=== PATIENT | male | born 1945 | race Caucasian/White ===

== ENCOUNTER 2016-12-30 12:11 | Inpatient (IN) | payer BC, OTHER ==
[~2016-12-30] VITALS: Ht 193 cm; Wt 114.4 kg
[~2016-12-30 12:11] MED LIST: ACET-1138 PO; AMLO-114 PO; CRG3125 PO; CZR50 PO; DOCU-94 PO; OXYSR10 PO; RXC5 PO; osteo biflex PO
--- NOTE | 2016-12-30 12:34 | EMERGENCY ROOM VISIT NOTE ---
History Report prepared by Jayro: Parker Lua Under the Supervision of: Dr. Parker Dye M.D. First contact with patient: 12:19 Chief Complaint: ARM PAIN Stated Complaint: CHEST PAIN CARDIAC HISTORY History of Present Illness The patient is a 71 year old male who presents to the Emergency Room with complaints of intermittent left arm pain beginning about 3 to 4 days ago. He notes that he had a foot operation 5 months ago and has been on crutches. The past 3 to 4 days he has been experiencing pain in his armpit, which he believes to be from the crutches, and has since stopped using them. He describes the pain as feeling like a pulled muscle, and notes that the pain tingles and radiates down his arm to his hand, but he denies having any weakness. The patient reports the pain is worse with sitting, and denies worsening or his pain with movement or breathing. He denies any pain or swelling in his legs, fever, cough, headache, or black or bloody stools. He admits to being on Plavix in the past but not currently, and notes taking 81 mg of Aspirin everyday. He has a history of MN. Source of History: patient Onset: 3 to 4 days ago Position: arm (left) Quality: other ("like a pulled muscle") Timing: intermittent Modifying Factors (Worsening): other (sitting) Associated Symptoms: No cough, No fevers, No headache, No weakness Review of Systems See HPI for pertinent positives & negatives. A total of 10 systems reviewed and were otherwise negative. Past Medical & Surgical Medical Problems: (1) History of MN (myocardial infarction) (2) hypertension Old medical records were reviewed. Nurse's notes were reviewed and I agree with. Family History FH: cancer (Prostate) FHx: heart disease Hypertension Social History Smoking Status: Never Smoker Drug Use: none Marital Status: Housing Status: lives with family Occupation Status: retired Current/Historical Medications Scheduled Acetaminophen (Tylenol Extra Strength), 1,000 MG PO Q8 Amlodipine (Norvasc), 10 MG PO HS Aspirin (Aspirin), 1 TAB PO DAILY Atorvastatin (Lipitor), 40 MG PO HS Carvedilol (Coreg), 3.125 MG PO BID Docusate Sodium (Colace), 100 MG PO BID Dutasteride (Avodart), 0.5 MG PO QAM Losartan Potassium (Cozaar), 50 MG PO DAILY Misc Natural Products (Osteo Bi-Flex Advanced Tr), 1 TAB PO BID Multiple Vitamin (Multivitamin), 1 TAB PO BID Terazosin (Hytrin), 5 MG PO BID Miscellaneous Medications Jzdtkwk-Ntoijptdrshpn-Yztwruwl (Vanquish) Allergies Coded Allergies: Enalapril (Verified Adverse Reaction, Mild, cough, 12/30/16) gmg/pt Physical Exam Vital Signs Date Time Temp Pulse Resp B/P Pulse Ox O2 Delivery O2 Flow Rate FiO2 12/30/16 16:30 95 Room Air 12/30/16 16:15 58 14 177/104 95 Room Air 12/30/16 14:16 61 16 165/98 94 Room Air 12/30/16 12:54 65 12/30/16 12:48 95 Room Air 12/30/16 12:32 97 Room Air 12/30/16 12:15 36.3 75 18 153/90 95 Room Air Physical Exam General: Non-ill appearing, older male, no acute distress. HEENT: Normal cephalic atraumatic. Pupils are equal round and reactive to light. Extraocular movements are intact. Oropharynx is pink with moist mucous membranes. No swelling of the mouth lips or tongue. Neck: Supple with a midline trachea. No meningeal signs or stiffness, no JVD or bruits. No Stridor. Chest: Clear to auscultation bilaterally. No wheezes or rhonchi. No increased work of breathing. Heart: regular rate and rhythm. Abdomen: Soft nontender, nondistended without rebound guarding or rigidity. Extremities: No cyanosis clubbing or edema. No calf tenderness or assymetry. Right foot has well-healing incision from previous surgery. Spine/Back. Non tender to palpation. No CVA tenderness Skin: Good turgor without rashes. Neurologic exam: Cranial nerves two through 12 are intact. Motor and sensation are intact and symmetrical throughout. Medical Decision & Procedures ER Provider Diagnostic Interpretation: Radiology results as stated below per my review and radiologist interpretation: CHEST ONE VIEW PORTABLE FINDINGS: The cardiac and mediastinal contours are normal. There is no evidence of focal pulmonary consolidation. There is no evidence of failure. No pleural effusions are visualized. IMPRESSION: No active disease in the chest. Electronically signed by: Remigio Araujo M.D. 12/30/2016 1:44 PM Dictated Date/Time: 12/30/2016 1:[address] ANGIOGRAM OF THE CHEST FINDINGS: No pathologically enlarged axillary mediastinal or hilar lymph nodes were visualized. There is mild dilatation of the a sitting thoracic aorta which measures 42 mm in diameter. 2 tiny right pulmonary artery filling defects are visualized. These were not present on the prior July 2016 study. No pleural effusions are visualized. There was no evidence of focal pulmonary consolidation. IMPRESSION: 1. There are 2 tiny right pulmonary artery filling defects. As these were not visualized the prior July 2016 study, they must be presumed acute. Correlation with leg ultrasonography might be considered to help determine the significance of these tiny emboli. 2. Mild ectasia of the ascending thoracic aorta Electronically signed by: Remigio Araujo M.D. 12/30/2016 2:46 PM Dictated Date/Time: 12/30/2016 2:34 PM Laboratory Results 12/30/16 12:45 Red Blood Count 4.88, Mean Corpuscular Volume 84.6, Mean Corpuscular Hemoglobin 30.5, Mean Corpuscular Hemoglobin Concent 36.1, Mean Platelet Volume 10.2, Neutrophils (%) (Auto) 57.8, Lymphocytes (%) (Auto) 30.0, Monocytes (%) (Auto) 9.0, Eosinophils (%) (Auto) 2.5, Basophils (%) (Auto) 0.5, Neutrophils # (Auto) 3.67, Lymphocytes # (Auto) 1.90, Monocytes # (Auto) 0.57, Eosinophils # (Auto) 0.16, Basophils # (Auto) 0.03 12/30/16 12:45 Test 12/30/16 12:45 12/30/16 12:47 White Blood Count 6.34 K/uL (4.8-10.8) Red Blood Count 4.88 M/uL (4.7-6.1) Hemoglobin 14.9 g/dL (14.0-18.0) Hematocrit 41.3 % (42-52) Mean Corpuscular Volume 84.6 fL (80-100) Mean Corpuscular Hemoglobin 30.5 pg (25-34) Mean Corpuscular Hemoglobin Concent 36.1 g/dl (32-36) Platelet Count 151 K/uL (130-400) Mean Platelet Volume 10.2 fL (7.4-10.4) Neutrophils (%) (Auto) 57.8 % Lymphocytes (%) (Auto) 30.0 % Monocytes (%) (Auto) 9.0 % Eosinophils (%) (Auto) 2.5 % Basophils (%) (Auto) 0.5 % Neutrophils # (Auto) 3.67 K/uL (1.4-6.5) Lymphocytes # (Auto) 1.90 K/uL (1.2-3.4) Monocytes # (Auto) 0.57 K/uL (0.11-0.59) Eosinophils # (Auto) 0.16 K/uL (0-0.5) Basophils # (Auto) 0.03 K/uL (0-0.2) RDW Standard Deviation 40.1 fL (36.4-46.3) RDW Coefficient of Variation 13.2 % (11.5-14.5) Immature Granulocyte % (Auto) 0.2 % Immature Granulocyte # (Auto) 0.01 K/uL (0.00-0.02) Prothrombin Time 11.3 SECONDS (9.0-12.0) Prothromb Time International Ratio 1.1 (0.9-1.1) Activated Partial Thromboplast Time 24.7 SECONDS (21.0-31.0) Partial Thromboplastin Ratio 1.0 Anion Gap 8.0 mmol/L (3-11) Est Creatinine Clear Calc Drug Dose 99.2 ml/min Estimated GFR () 92.4 Estimated GFR (Non- 79.8 BUN/Creatinine Ratio 26.3 (10-20) Calcium Level 9.0 mg/dl (8.5-10.1) Total Bilirubin 0.6 mg/dl (0.2-1) Direct Bilirubin 0.2 mg/dl (0-0.2) Aspartate Amino Transf (AST/SGOT) 10 U/L (15-37) Alanine Aminotransferase (ALT/SGPT) 29 U/L (12-78) Alkaline Phosphatase 78 U/L (45-117) Total Creatine Kinase 44 U/L (39-308) Creatine Kinase MB 0.5 ng/ml (0.5-3.6) Creatine Kinase MB Ratio 1.1 (0-3.0) Total Protein 7.2 gm/dl (6.4-8.2) Albumin 4.1 gm/dl (3.4-5.0) Lipase 90 U/L (73-393) Bedside D-Dimer > 450 ng/mlFEU (0-450) Bedside Troponin I 0.000 ng/ml (0-0.045) Laboratory studies as stated above per my review. Medications Administered Medications (Trade) Dose Ordered Sig/Shu Route Start Time Stop Time Status Last Admin Dose Admin Heparin Sodium/ Dextrose (Heparin 25,000 Unit/500ml D5W) 25,000 unit STK-MED ONCE .ROUTE 12/30/16 15:51 12/30/16 15:52 DC 12/30/16 15:50 25,000 UNIT Heparin Sodium (Porcine) (Heparin Sq 5000 Unit/0.5ml) 10,000 unit STK-MED ONCE .ROUTE 12/30/16 15:51 12/30/16 15:52 DC 12/30/16 15:52 8,000 UNIT ECG Indication: other (arm pain) Rate (beats per minute): 76 Rhythm: normal sinus Findings: PAC (occasional), no acute ischemic change Comparison ECG Date: August 21, 2016 Change: PVCs are now present. ED Course 1221: Past medical records reviewed. The patient was evaluated in room A10, and a complete history and physical examination were performed. 1320: I reassessed the patient and he is doing well. 1505: I updated the patient, and he is willing to come into the hospital. 1510: I discussed the patient's case with Dr. Jamil, who will further evaluate and manage the patient. She requests I order an US and start the patient on a Heparin bolus and drip. 1511: Ordered Heparin Sodium/Dextrose 1 ea N/A. Medical Decision Differentials include musculoskeletal pain, acute coronary syndrome, arrhythmia , PE, electrolyte or metabolic abnormality, and infection. This patient comes in as described above. He was placed in room A 10. He is having tingling his left arm and had some left sided chest discomfort. This has been on for several days. It does last for hours at a time. It occurs at rest. It is different than his cardiac disease. He has been using a crutch on that arm and it has been digging into his arm. He has no neurologic deficit on exam. He has no redness or warmth. IV access established, EKG was obtained and does not suggest acute cardiac disease. Chest x-ray, multiple blood tests are also obtained. He was reassessed frequently. He has remained stable. His cardiac biomarkers are normal and his symptoms are unlikely cardiac. He has no acute electrolyte or metabolic abnormality. He does have 2 small PEs seen on the right side of his chest. These were not present on July 2016. I did order ultrasounds of his leg amd also his left arm. It may be that he has a clot in his left arm from using crutches. It is not visibly swollen compared to the other side. I did discuss case with Dr. Jamil.. The [facility] hospitalist, and they will see him in the ER. She has asked that I start him on an IV heparin bolus and drip. I explained this to the patient and he agree. He has had no recent fall or trauma or any history of significant bleeding. This was ordered. The patient will be admitted for further treatment and evaluation. Consults Time Called: 1505 Consulting Physician: [place]. Jamil, [facility] [place] Returned Call: 1510 I discussed the patient's case with Dr. Jamil, who will further evaluate and manage the patient. Impression Primary Impression: Pulmonary embolism Additional Impression: Arm pain, left Scribe Attestation The scribe's documentation has been prepared under my direction and personally reviewed by me in its entirety. I confirm that the note above accurately reflects all work, treatment, procedures, and medical decision making performed by me. Departure Information Dispostion Being Evaluated By Hospitalist Referrals Jayro Swartz M.D. (PCP) Patient Instructions My [facility] Problem Qualifiers
[2016-12-30] MEDS ORDERED: ASPI81CH2 PO (12:35)
[2016-12-30 12:59] LABS: BASO % 0.5 %; BASO ABS # 0.03 K/uL (0-0.2); COMPLETE YES; EOS % 2.5 %; HEMATOCRIT 41.3 % (42-52); IG% 0.2 %; MEAN CELL VOLUME 84.6 fL (80-100); MEAN CORPUSCULAR HEMOGLOBIN 30.5 pg (25-34); MEAN CORPUSCULAR HGB CONC 36.1 g/dl (32-36); MEAN PLATELET VOLUME 10.2 fL (7.4-10.4); NEUT % 57.8 %; PLATELET COUNT 151 K/uL (130-400); RED BLOOD COUNT 4.88 M/uL (4.7-6.1); WHITE BLOOD COUNT 6.34 K/uL (4.8-10.8)
[2016-12-30 13:16] LABS: BUN/CREATININE RATIO 26.3 (10-20); CREATININE 0.96 mg/dl (0.60-1.40)
[2016-12-30] MEDS ORDERED: OPTIRAY 320 IV PRN (13:30)
[2016-12-30 13:34] LABS: INR 1.1 (0.9-1.1); PROTHROMBIN TIME (PATIENT) 11.3 SECONDS (9.0-12.0)
[2016-12-30 13:39] LABS: CKMB/CK RATIO 1.1 (0-3.0)
--- NOTE | 2016-12-30 13:45 | DIAGNOSTIC IMAGING REPORT ---
CHEST ONE VIEW PORTABLE CLINICAL HISTORY: Atypical chest pain COMPARISON STUDY: 08/21/2016 FINDINGS: The cardiac and mediastinal contours are normal. There is no evidence of focal pulmonary consolidation. There is no evidence of failure. No pleural effusions are visualized.[ IMPRESSION: No active disease in the chest. Electronically signed by: Remigio Araujo M.D. 12/30/2016 1:44 PM Dictated Date/Time: 12/30/2016 1:44 PM
--- NOTE | 2016-12-30 14:47 | DIAGNOSTIC IMAGING REPORT ---
CT ANGIOGRAM OF THE CHEST CLINICAL HISTORY: Left-sided chest pain. COMPARISON STUDY: 08/21/2016 TECHNIQUE: Following the IV administration of 93 mL of Optiray-320, CT angiogram of the thorax was performed from the thoracic inlet to the lung bases utilizing the pulmonary embolus protocol. Images are reviewed in the axial, sagittal, and coronal planes. IV contrast was administered without complication. MIP imaging was performed. CT DOSE: 583.38 mGy.cm FINDINGS: No pathologically enlarged axillary mediastinal or hilar lymph nodes were visualized. There is mild dilatation of the a sitting thoracic aorta which measures 42 mm in diameter. 2 tiny right pulmonary artery filling defects are visualized. These were not present on the prior July 2016 study. No pleural effusions are visualized. There was no evidence of focal pulmonary consolidation. IMPRESSION: 1. There are 2 tiny right pulmonary artery filling defects. As these were not visualized the prior July 2016 study, they must be presumed acute. Correlation with leg ultrasonography might be considered to help determine the significance of these tiny emboli. 2. Mild ectasia of the ascending thoracic aorta Electronically signed by: Remigio Araujo M.D. 12/30/2016 2:46 PM Dictated Date/Time: 12/30/2016 2:34 PM
[2016-12-30] MEDS ORDERED: HEPARIN SOD 5000 UNIT/0.5 ML CARP ONE (15:51)
[2016-12-30] MEDS ORDERED: HEPARIN 25000 UNIT/500 ML D5W ONE (15:51)
[2016-12-30 16:30] VITALS: O2SAT 95; Ht 193 cm; Wt 114.4 kg
[2016-12-30] MEDS ORDERED: MoRPHine SULFATE 2 MG/ML CARP IV PRN (16:45)
[2016-12-30] MEDS ORDERED: NITROGLYCERIN 0.4 MG SL PER TAB CHARGE SL PRN (16:45)
--- NOTE | 2016-12-30 17:50 | DIAGNOSTIC IMAGING REPORT ---
ULTRASOUND VENOUS DOPPLER LWR EXT BILA CLINICAL HISTORY: Pulmonary embolism. COMPARISON STUDY: No previous studies for comparison. FINDINGS: On the left, no intraluminal thrombus was visualized. The veins were well visualized the groin to the popliteal vein. There was normal augmentation. There was normal color-flow the proximal trifurcation veins of the left calf. On the right, no thrombus was visualized within the common femoral or superficial femoral veins. There is acute right popliteal thrombus with a diameter of 11 mm. Thrombus was also visualized within the peroneal vein. Incidental note is made of a right popliteal cyst. IMPRESSION: 1. Acute right popliteal vein DVT. Thrombus diameter is 11 mm. 2. No evidence of left lower extremity DVT Electronically signed by: Remigio Araujo M.D. 12/30/2016 5:49 PM Dictated Date/Time: 12/30/2016 5:47 PM
--- NOTE | 2016-12-30 17:51 | DIAGNOSTIC IMAGING REPORT ---
ULTRASOUND LEFT VENOUS DOPPLER UPR EXT UNILAT CLINICAL HISTORY: Left arm swelling. History of pulmonary embolism. COMPARISON STUDY: No previous studies for comparison. FINDINGS: No intraluminal thrombus was visualized. The internal jugular, subclavian, axillary, cephalic, brachial, basilic, radial, and ulnar veins were patent. IMPRESSION: No evidence of left upper extremity DVT. Electronically signed by: Remigio Araujo M.D. 12/30/2016 5:50 PM Dictated Date/Time: 12/30/2016 5:49 PM
[2016-12-30 18:24] VITALS: BP 159/82; PULSE 70; TEMP 36.6; O2SAT 93
[2016-12-30] MEDS ORDERED: HEPARIN 25,000 UNIT/500ML D5W 500 ML IV PRN (18:45)
[2016-12-30 19:05] VITALS: BP 147/90; PULSE 62; TEMP 36.4; O2SAT 95
[2016-12-30] MEDS ORDERED: ATORVASTATIN 40 MG TAB PO SCH (21:00)
[2016-12-30] MEDS ORDERED: NON-FORMULARY MEDICATION (Misc Natural Products (Osteo Bi-Flex Advanced Tr) 1 TAB) PO SCH (21:00)
[2016-12-30] MEDS ORDERED: AMLODIPINE BESYLATE 5 MG TAB PO SCH (21:00)
[2016-12-30] MEDS: CARVEDILOL 3.125 MG TAB PO SCH (21:30)
[2016-12-30] MEDS: DOCUSATE SODIUM 100 MG CAP PO SCH (21:30)
[2016-12-30] MEDS: MULTIVITAMIN TAB PO SCH (21:31)
[2016-12-30] MEDS: ACETAMINOPHEN 500 MG TAB PO SCH (21:33)
--- NOTE | 2016-12-30 21:51 | History and Physical ---
History & Physical Date & Time of Service: Dec 30, 2016 at 21:07 Chief Complaint: Pulmonary Embolism Primary Care Physician: Jayro Swartz M.D. History of Present Illness Source: patient, spouse This patient is a 71-year-old male with history of AL/CAD status post drug- eluting stent to the RCA in 2007, hypertension, hyperlipidemia, mild ischemic cardiomyopathy, BPH, and a right Charcot foot, who presented to the ER with left -sided chest pain radiating down the left arm to the left palm of the hand. The pain had been intermittent for the last 3-4 days and is located more into the left axillary region. He had surgical repair of his right Charcot foot in July 2016 and has been on crutches ever since then. He started using just one crutch on the left side and that's when this pain started, so he went back to using 2 crutches and his scooter. Because of his history of coronary artery disease, when the intermittent left-sided chest/axillary pain became persistent , he came to the ER. He has been quite sedentary for the last 5 months. He did not notice any swelling in the legs or arms. His d-dimer was elevated and a CT angiogram of the chest was performed which did show 2 tiny right-sided pulmonary artery emboli. Venous Dopplers of the lower extremities and left upper extremity were performed which also showed acute DVT of the right popliteal vein. He denies any shortness of breath was not hypoxic or tachycardic. He has no previous history of bleeding. He has no previous personal or family history of blood clot. 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) Immunizations History of Influenza Vaccine: No History of Tetanus Vaccine?: Yes History of Pneumococcal: No History of Hepatitis B Vaccine: No Multi-Drug Resistant Organisms History of MDRO: No Allergies Coded Allergies: Enalapril (Verified Adverse Reaction, Mild, cough, 12/30/16) gmg/pt Home Medications Scheduled Acetaminophen (Tylenol Extra Strength), 1,000 MG PO Q8 Amlodipine (Norvasc), 10 MG PO HS Aspirin (Aspirin), 1 TAB PO DAILY Atorvastatin (Lipitor), 40 MG PO HS Carvedilol (Coreg), 3.125 MG PO BID Docusate Sodium (Colace), 100 MG PO BID Dutasteride (Avodart), 0.5 MG PO QAM Losartan Potassium (Cozaar), 50 MG PO DAILY Misc Natural Products (Osteo Bi-Flex Advanced Tr), 1 TAB PO BID Multiple Vitamin (Multivitamin), 1 TAB PO BID Terazosin (Hytrin), 5 MG PO BID Miscellaneous Medications Qreugzc-Philbtiwrnpaj-Ngyozkuj (Vanquish) Review of Systems Constitutional: No chills, No fever Eyes: No worsening of vision ENT: No problem reported Respiratory: No shortness of breath Cardiovascular: + chest pain, No edema, No palpitations Abdomen: No GI bleeding, No nausea, No pain, No vomiting Musculoskeletal: + joint pain (right foot), No calf pain, No swelling Genitourinary - Male: No problem reported Neurologic: No problem reported Psychiatric: No problem reported Endocrine: No problem reported Hematologic / Lymphatic: No problem reported Integumentary: No bleeding Allergic / Immunologic: No problem reported Physical Exam Vital Signs Date Time Temp Pulse Resp B/P Pulse Ox O2 Delivery O2 Flow Rate FiO2 12/30/16 19:05 36.4 62 20 147/90 95 Room Air 12/30/16 18:24 36.6 70 21 159/82 93 Room Air 12/30/16 16:30 95 Room Air 12/30/16 16:15 58 14 177/104 95 Room Air 12/30/16 14:16 61 16 165/98 94 Room Air 12/30/16 12:54 65 12/30/16 12:48 95 Room Air 12/30/16 12:32 97 Room Air 12/30/16 12:15 36.3 75 18 153/90 95 Room Air General Appearance: WD/WN, no apparent distress Head: normocephalic, atraumatic Eyes: normal inspection, EOMI, sclerae normal ENT: hearing grossly normal, pharynx normal Neck: supple, no adenopathy, thyroid normal, no JVD, no carotid bruits, trachea midline Respiratory/Chest: lungs clear, normal breath sounds, no respiratory distress, no accessory muscle use Cardiovascular: regular rate, rhythm, no gallop, no murmur, + pertinent finding (trace pitting edema right leg with hyperpigmentation of chronic venous stasis changes) Abdomen/GI: normal bowel sounds, non tender, soft, no organomegaly, no pulsatile mass Back: normal inspection Extremities/Musculoskelatal: no calf tenderness, + swelling (as above and right leg), + pertinent finding (no edema of the upper extremities, 2+ radial pulses bilaterally, 2+ left dorsalis pedis pulse, 1+ right dorsalis pedis pulse , right foot with bilateral incisional scars with the lateral incision with residual scab, no erythema or induration, no drainage) Neurologic/Psych: no motor/sensory deficits, alert, normal mood/affect, oriented x 3 Skin: warm/dry, + rash (chronic venous stasis hyperpigmentation of the right leg) Diagnostics Laboratory Results Results Past 24 Hours Test 12/30/16 12:28 12/30/16 12:45 12/30/16 12:47 12/30/16 19:12 Range/Units Creatine Kinase MB Ratio 1.1 0-3.0 White Blood Count 6.34 4.8-10.8 K/uL Red Blood Count 4.88 4.7-6.1 M/uL Hemoglobin 14.9 14.0-18.0 g/dL Hematocrit 41.3 42-52 % Mean Corpuscular Volume 84.6 80-100 fL Mean Corpuscular Hemoglobin 30.5 25-34 pg Mean Corpuscular Hemoglobin Concent 36.1 32-36 g/dl Platelet Count 151 130-400 K/uL Mean Platelet Volume 10.2 7.4-10.4 fL Neutrophils (%) (Auto) 57.8 % Lymphocytes (%) (Auto) 30.0 % Monocytes (%) (Auto) 9.0 % Eosinophils (%) (Auto) 2.5 % Basophils (%) (Auto) 0.5 % Neutrophils # (Auto) 3.67 1.4-6.5 K/uL Lymphocytes # (Auto) 1.90 1.2-3.4 K/uL Monocytes # (Auto) 0.57 0.11-0.59 K/uL Eosinophils # (Auto) 0.16 0-0.5 K/uL Basophils # (Auto) 0.03 0-0.2 K/uL RDW Standard Deviation 40.1 36.4-46.3 fL RDW Coefficient of Variation 13.2 11.5-14.5 % Immature Granulocyte % (Auto) 0.2 % Immature Granulocyte # (Auto) 0.01 0.00-0.02 K/uL Prothrombin Time 11.3 9.0-12.0 SECONDS Prothromb Time International Ratio 1.1 0.9-1.1 Activated Partial Thromboplast Time 24.7 21.0-31.0 SECONDS Partial Thromboplastin Ratio 1.0 Sodium Level 144 136-145 mmol/L Potassium Level 4.0 3.5-5.1 mmol/L Chloride Level 108 98-107 mmol/L Carbon Dioxide Level 28 21-32 mmol/L Anion Gap 8.0 3-11 mmol/L Blood Urea Nitrogen 25 7-18 mg/dl Creatinine 0.96 0.60-1.40 mg/dl Est Creatinine Clear Calc Drug Dose 99.2 ml/min Estimated GFR () 92.4 Estimated GFR (Non- 79.8 BUN/Creatinine Ratio 26.3 10-20 Random Glucose 90 70-99 mg/dl Calcium Level 9.0 8.5-10.1 mg/dl Total Bilirubin 0.6 0.2-1 mg/dl Direct Bilirubin 0.2 0-0.2 mg/dl Aspartate Amino Transf (AST/SGOT) 10 15-37 U/L Alanine Aminotransferase (ALT/SGPT) 29 12-78 U/L Alkaline Phosphatase 78 45-117 U/L Total Creatine Kinase 44 39-308 U/L Creatine Kinase MB 0.5 0.5-3.6 ng/ml Total Protein 7.2 6.4-8.2 gm/dl Albumin 4.1 3.4-5.0 gm/dl Lipase 90 73-393 U/L Hepatitis C Antibody Screen NEG NEG Bedside D-Dimer > 450 0-450 ng/mlFEU Bedside Troponin I 0.000 0-0.045 ng/ml Magnesium Level 1.9 1.8-2.4 mg/dl Diagnostic Radiology CT angiogram chest: No pathologically enlarged axillary mediastinal or hilar lymph nodes were visualized. There is mild dilatation of the a sitting thoracic aorta which measures 42 mm in diameter. 2 tiny right pulmonary artery filling defects are visualized. These were not present on the prior July 2016 study. No pleural effusions are visualized. There was no evidence of focal pulmonary consolidation. IMPRESSION: 1. There are 2 tiny right pulmonary artery filling defects. As these were not visualized the prior July 2016 study, they must be presumed acute. Correlation with leg ultrasonography might be considered to help determine the significance of these tiny emboli. 2. Mild ectasia of the ascending thoracic aorta Bilateral lower extremity Dopplers: IMPRESSION: 1. Acute right popliteal vein DVT. Thrombus diameter is 11 mm. 2. No evidence of left lower extremity DVT Left upper extremity venous Doppler-negative for DVT CXR normal Normal EKG (with PACs and PVCs) Impression Assessment and Plan This patient is a 71-year-old male with history of AL/CAD status post drug- eluting stent to the RCA in 2007, hypertension, hyperlipidemia, mild ischemic cardiomyopathy, BPH, and a right Charcot foot, who presented to the ER with left -sided chest pain radiating down the left arm to the left palm of the hand. The pain had been intermittent for the last 3-4 days and is located more into the left axillary region. He had surgical repair of his right Charcot foot in July 2016 and has been on crutches ever since then. He started using just one crutch on the left side and that's when this pain started, so he went back to using 2 crutches and his scooter. Because of his history of coronary artery disease, when the intermittent left-sided chest/axillary pain became persistent , he came to the ER. He has been quite sedentary for the last 5 months. He did not notice any swelling in the legs or arms. His d-dimer was elevated and a CT angiogram of the chest was performed which did show 2 tiny right-sided pulmonary artery emboli. Venous Dopplers of the lower extremities and left upper extremity were performed which also showed acute DVT of the right popliteal vein. He denies any shortness of breath was not hypoxic or tachycardic. He has no previous history of bleeding. He has no previous personal or family history of blood clot. Acute right-sided pulmonary emboli, acute right popliteal DVT present on admission-most likely secondary to foot surgery followed by prolonged immobilization and sedentary lifestyle. I do not believe the left-sided chest/ axillary pain radiating into the left arm is related to the PE-that is more likely in fact to be some sort of neuronitis due to compression of the peripheral nerve from the crutches. The DVT and PE were incidental yet important findings. No need for further hypercoagulable workup. He is hemodynamically stable, there is no evidence of right heart strain on his ECG. He is not requiring oxygen. -Observe on telemetry -Started heparin drip and will continue this. After discussion of choices of anticoagulation, patient is leaning towards a NOAC rather than warfarin. -Case management consult to eli out Xarelto vs Eliquis -Follow CBC in the morning -Repeat ECG in the morning and will check echo -Continue limitations as per orthopedic postoperative recommendations Left-sided Chest/left axilla/left arm pain,AL/CAD status post drug-eluting stent to the RCA in 2007, hypertension, hyperlipidemia, mild ischemic cardiomyopathy-as above, left-sided chest pain into left arm could be peripheral nerve compression from crutches and not likely to be acute coronary syndrome. Initial troponin was negative and ECG was normal. Given his history , will rule out ACS. -Trend serial cardiac biomarkers and ECG -Check echo in the morning -Pain control when necessary -Avoid use of crutches if possible and use scooter instead -Continue aspirin, losartan, amlodipine, Coreg, and his statin BPH-stable -Continue Hytrin and Avodart DVT prophylaxis/treatment-heparin drip as above Disposition-full code Level of Care Telemetry Advanced Directives Existing Living Will: No Existing Power of Billiard Table Repairer: No Resuscitation Status FULL RESUSCITATION VTE Prophylaxis VTE Risk Assessment Done? Y/N: Yes Risk Level: High Given or contraindicated: Unfractionated heparin SQ Additional Copies To Jayro Swartz M.D.
[2016-12-30 22:30] LABS: PARTIAL THROMBOPLASTIN RATIO 2.5
[2016-12-30 22:33] LABS: CKMB/CK RATIO 1.7 (0-3.0)
[2016-12-30 23:47] VITALS: BP 152/76; PULSE 60; TEMP 36.5; O2SAT 96
[2016-12-31] MEDS ORDERED: AVODART - ORDER AWAITING ACTION SCH
[2016-12-31] MEDS ORDERED: ESZOPICLONE 1 MG TAB ONE (00:20)
[2016-12-31 03:28] VITALS: BP 147/68; PULSE 68; TEMP 36.7; O2SAT 96
[2016-12-31] MEDS: ACETAMINOPHEN 500 MG TAB PO SCH (06:21)
[2016-12-31] MEDS ORDERED: PERFLUTREN LIPID MICROSPHERE (DEFINITY) IV ONE (07:18)
[2016-12-31 07:20] LABS: BASO % 0.4 %; BASO ABS # 0.03 K/uL (0-0.2); COMPLETE YES; HEMATOCRIT 39.5 % (42-52); IG% 0.3 %; LYMPH % 45.5 %; LYMPH ABS # 3.36 K/uL (1.2-3.4); MEAN CELL VOLUME 85.9 fL (80-100); MEAN CORPUSCULAR HEMOGLOBIN 30.7 pg (25-34); MEAN CORPUSCULAR HGB CONC 35.7 g/dl (32-36); MEAN PLATELET VOLUME 10.8 fL (7.4-10.4); MONO % 5.7 %; NEUT % 45.1 %; PLATELET COUNT 144 K/uL (130-400); WHITE BLOOD COUNT 7.38 K/uL (4.8-10.8)
[2016-12-31 07:37] VITALS: BP 175/97; PULSE 54; TEMP 36.8; O2SAT 97
[2016-12-31] MEDS: CARVEDILOL 3.125 MG TAB PO SCH (07:40)
[2016-12-31] MEDS: DOCUSATE SODIUM 100 MG CAP PO SCH (07:41)
[2016-12-31] MEDS: MULTIVITAMIN TAB PO SCH (07:42)
[2016-12-31 07:57] LABS: BLOOD UREA NITROGEN 23 mg/dl (7-18); BUN/CREATININE RATIO 24.2 (10-20); CALCIUM 8.4 mg/dl (8.5-10.1); CARBON DIOXIDE 27 mmol/L (21-32); CHLORIDE 106 mmol/L (98-107); CREATININE 0.93 mg/dl (0.60-1.40); GLUCOSE 96 mg/dl (70-99); MAGNESIUM 1.9 mg/dl (1.8-2.4); POTASSIUM 3.6 mmol/L (3.5-5.1); SODIUM 142 mmol/L (136-145)
[2016-12-31 08:00] VITALS: O2SAT 97
[2016-12-31 08:13] LABS: PARTIAL THROMBOPLASTIN RATIO 2.2
[2016-12-31] MEDS ORDERED: LOSARTAN POTASSIUM 50 MG TAB PO SCH (09:00)
[2016-12-31] MEDS ORDERED: ASPIRIN 81 MG ECTAB PO SCH (09:00)
[2016-12-31] MEDS ORDERED: RIVA1TAB4 PO (11:17)
[2016-12-31] MEDS ORDERED: RIVA1.5T PO (11:17)
--- NOTE | 2016-12-31 11:20 | Discharge Instructions ---
Discharge Instructions Date of Service Dec 31, 2016. Admission Reason for Admission: Pulmonary Embolism Discharge Discharge Diagnosis / Problem: (1) Acute DVT (deep venous thrombosis) (2) Pulmonary embolism VTE Date & Time Date of VTE Diagnosis: Dec 30, 2016 Time of VTE Diagnosis: 13:16 Discharge Goals Goal(s): Decrease discomfort, Improve function, Diagnostic testing, Therapeutic intervention Activity Recommendations Activity Limitations: resume your previous activity . Instructions / Follow-Up Instructions / Follow-Up You were admitted to the hospital after presenting to the Emergency Room with chest pain. A CT scan of your chest showed right sided pulmonary emboli, or clots in the lung. An ultrasound was then done of your lower legs, which also showed an acute clot in the one of the deep veins of your right leg. You were started on a heparin drip to treat these clots. You will be started on an oral anticoagulation medication to take at home to thin your blood. Due to your chest pain on admission, you also received a cardiac workup. You were monitored on a telemetry bed and were found to be in sinus (regular) rhythm. Your EKGs did not show any ischemic changes. Your cardiac enzymes came back normal. Medication Instructions: You have been started on an anticoagulant, called Xarelto, to thin your blood and help prevent new clots. Please take 15 mg by mouth twice a day for the first 21 days. You will then take 20 mg by mouth once a day. You will need to be on Xarelto for a total of 6 months. Prescriptions for the first 30 days have been provided, and the remainder of the course will be obtained from your primary care provider. * You should take your medication exactly as directed. * Never skip a dose. * Never take a double dose. If you miss a dose, take it as soon as you remember. Call your Primary Care doctor if you experience any of the following: * Swelling or Pain in your leg * Sudden, continuous pain deep in a muscle * Pain that worsens when you are active or when you stand still for a long time * Chest Pain * Sudden Shortness of Breath * Rapid or pounding heart beat * Fainting * Dizziness * Cough with blood or bloody sputum * Sweating more than normal * Bruises * Heavy or uncontrolled bleeding * Blood in your urine, stool or vomit * Black or tarry stools Caring for Your Self at Home: * Avoid sitting, standing or lying down for long periods without moving your legs and feet * When traveling by car, stop to get out and move around at least once every 3 hours * On long airplane, train or bus rides, get up and move around when possible * If you can't get up, wiggle your toes and tighten your calves to keep your blood moving Follow Up: It is important for you to keep your follow up appointments with your medical provider. A referral has been placed for you to follow up with your primary care provider , Dr. Swartz, in 1 week regarding your hospital stay and diagnosis. Current Hospital Diet Patient's current hospital diet: Low Sodium Diet (2gm Na) Discharge Diet Recommended Diet: Low Sodium Diet (2gm Na) Procedures Procedures Performed: Echocardiogram Pending Studies Studies pending at discharge: yes List of pending studies: Echocardiogram Medical Emergencies . Who to Call and When: Medical Emergencies: If at any time you feel your situation is an emergency, please call 911 immediately. . Non-Emergent Contact Non-Emergency issues call your: Primary Care Provider Call Non-Emergent contact if: you have a fever, your pain is not controlled, your pain is worsening, your pain is unusual for you, your pain is concerning you, you have any medication questions . . "Provider Documentation" section prepared by Millie Barrientos. VTE Core Measure Inpt VTE Proph given/why not?: Other Anticoagulation (heparing drip)
--- NOTE | 2016-12-31 11:25 | ECHOCARDIOGRAM REPORT ---
*NOTICE TO RECEIVING REPUBLICAN AGENCY This information is strictly Confidential and protected under [place] law. [place] law prohibits you from making any further disclosure of this information unless further disclosure is expressly permitted by the written consent of the person to whom it pertains or is authorized by law. A general authorization for the release of medical or other information is not sufficient for this purpose. Hospital accepts no responsibility if the information is made available to any other person, INCLUDING THE PATIENT. Interpretation Summary * Name: BESSY DUNHAM II Study Date: 12/31/2016 06:43 AM BP: 147/68 mmHg * Patient Location: .2T\S\E215\S\1 HR: 63 * : 1945 (M/d/yyy) Gender: Male Height: 76 in * Age: 71 yrs Ethnicity: [place] Weight: 253 lb * Ordering Physician: Magy Jamil * Referring Physician: Self, Referred * Performed By: Sonya Zhou [facility] * * Reason For Study: CHEST PAIN * BSA: 2.4 m2 * -- Conclusions -- * Left ventricular systolic function is mildly reduced. * There is mild global hypokinesis of the left ventricle. * Ejection Fraction = 40-45%. * There is mild concentric left ventricular hypertrophy. * Grade I diastolic dysfunction, (abnormal relaxation pattern). * There is mild to moderate mitral regurgitation. Procedure Details * A complete two-dimensional transthoracic echocardiogram was performed (2D, M-mode, Doppler and color flow Doppler). * The study was technically difficult. * A contrast injection of Definity was performed to improve assessment of LV function. * Contrast was injected into an intravenous site in the right arm. * One vial of Definity ultrasound contrast was diluted in normal saline to a total volume of 10 ml. A total of '4' ml of solution was administered during imaging. * Lot # [id number] of Definity utilized for procedure. * Expiration date JAN 15. * The attending nurse who injected the contrast agent was ZACHARY LARSON RN. Left Ventricle * The left ventricle is mildly dilated. * There is mild concentric left ventricular hypertrophy. * Left ventricular systolic function is mildly reduced. * Ejection Fraction = 40-45%. * There is mild global hypokinesis of the left ventricle. * No definite wall motion abnormality. Right Ventricle * The right ventricle is not well visualized. Atria * The left atrium is moderately dilated. * Right atrium not well visualized. * There is no evidence of atrial septal defect, but resolution does not allow assessment for a patent foramen ovale. Mitral Valve * The mitral valve is grossly normal. * There is no mitral valve stenosis. * There is mild to moderate mitral regurgitation. Tricuspid Valve * The tricuspid valve is not well visualized, but is grossly normal. * Significant tricuspid regurgitation is absent. Aortic Valve * The aortic valve is tricuspid. The leaflet thickness if normal. There is no aortic stenosis, and no significant insufficiency. * Aortic valve sclerosis mild, without significant aortic valvular stenosis. * Trace aortic regurgitation. Pulmonic Valve * The pulmonary valve is not well seen, but the Doppler examination is normal without significant regurgitation or stenosis. Great Vessels * Mild aortic root dilatation. * The pulmonary is not well visualized. Pericardium/Pleural * There is no pericardial effusion. Great Vessels * Normal inferior vena cava size and collapsability with sniff indicates a normal right atrial pressure of 3 mmHg Left Ventricular Diastolic Function * Grade I diastolic dysfunction, (abnormal relaxation pattern). MMode 2D Measurements and Calculations IVSd 1.7 cm IVSs 2.0 cm LVIDd 5.3 cm LVIDs 4.5 cm LVPWd 1.4 cm LVPWs 1.8 cm IVS/LVPW 1.2 FS 15.0 % EDV(Teich) 137.0 ml ESV(Teich) 93.8 ml EF(Teich) 31.5 % EDV(cubed) 151.3 ml ESV(cubed) 92.9 ml EF(cubed) 38.6 % % IVS thick 18.1 % % LVPW thick 31.2 % LV mass(C)d 361.3 grams LV mass(C)dI 147.6 grams/m\S\2 LV mass(C)s 398.0 grams LV mass(C)sI 162.5 grams/m\S\2 SV(Teich) 43.2 ml SI(Teich) 17.6 ml/m\S\2 SV(cubed) 58.4 ml SI(cubed) 23.8 ml/m\S\2 Ao root diam 4.5 cm Ao root area 16.1 cm\S\2 ACS 2.3 cm LA dimension 3.5 cm LA/Ao 0.78 LVOT diam 2.3 cm LVOT area 4.3 cm\S\2 Doppler Measurements and Calculations MV E max derrick 62.6 cm/sec MV A max derrick 49.1 cm/sec MV E/A 1.3 MV P1/2t max derrick 73.3 cm/sec MV P1/2t 140.0 msec MVA(P1/2t) 1.6 cm\S\2 MV dec slope 153.5 cm/sec\S\2 MV dec time 0.33 sec Ao V2 max 144.7 cm/sec Ao max PG 8.4 mmHg Ao max PG (full) 6.8 mmHg AMAURY(V,A) 1.9 cm\S\2 AMAURY(V,D) 1.9 cm\S\2 LV V1 max PG 1.6 mmHg LV V1 max 62.5 cm/sec MR max derrick 585.0 cm/sec MR max PG 136.9 mmHg PA V2 max 74.2 cm/sec PA max PG 2.2 mmHg PI max derrick 178.9 cm/sec PI max PG 12.8 mmHg PI dec slope 143.7 cm/sec\S\2 PI P1/2t 364.7 msec
[2016-12-31] MEDS ORDERED: MAGNESIUM OXIDE 400 MG TAB PO ONE (11:30)
--- NOTE | 2016-12-31 11:39 | Discharge Summary ---
Discharge Summary Date of Service Dec 31, 2016. (Millie Barrientos PA-C) Discharge Summary Admission Date: Dec 30, 2016 at 16:50 Discharge Date: Dec 31, 2016 Discharge Disposition: Home Principal Diagnosis: Acute RLE DVT, PE Immunizations: Have You Had Influenza Vaccine: No History of Tetanus Vaccine?: Yes History of Pneumococcal: No History of Hepatitis B Vaccine: No Procedures: Echocardiogram, results pending (Millie Barrientos PA-C) Medication Reconciliation New Medications: Rivaroxaban (Xarelto) 15 Mg Tab 15 MG PO BID for 21 Days, #42 TAB Take 1 tablet by mouth twice a day for 21 days. Rivaroxaban (Xarelto) 20 Mg Tab 20 MG PO DAILY for 9 Days, #9 TAB Take 20 mg by mouth once a day for 9 days. DO NOT START UNTIL AFTER YOU HAVE COMPLETED 21 DAYS OF 15 MG TWICE DAILY. Continued Medications: Acetaminophen (Tylenol Extra Strength) 500 Mg Tab 1000 MG PO Q8, #126 TAB Amlodipine (Norvasc) 10 Mg Tab 10 MG PO HS, TAB Aspirin (Aspirin) 81 Mg Chw 1 TAB PO DAILY for 30 Days, #30 TAB 3 Refills Jqrpefe-Vjspyfhzqefop-Wapbjjde (Vanquish) 1 Tab Tab Atorvastatin (Lipitor) 40 Mg Tab 40 MG PO HS, TAB Carvedilol (Coreg) 3.125 Mg Tab 3.125 MG PO BID, TAB Docusate Sodium (Colace) 100 Mg Cap 100 MG PO BID, #60 CAP Dutasteride (Avodart) 0.5 Mg Cap 0.5 MG PO QAM, CAP Losartan Potassium (Cozaar) 50 Mg Tab 50 MG PO DAILY, TAB Misc Natural Products (Osteo Bi-Flex Advanced Tr) 1 Tab Tab 1 TAB PO BID Multiple Vitamin (Multivitamin) 1 Tab Tab 1 TAB PO BID, TAB Terazosin (Hytrin) 5 Mg Cap 5 MG PO BID, CAP Referrals At Discharge Follow up Referrals: Family Practice Referral - Within 1 Week with Jayro Swartz M.D. Discharge Exam Patient reports feeling well. He denies any shortness of breath or chest pain. He states that the pain in his left axilla region that he had upon arrival has since resolved. He denies any weakness or fatigue. The patient denies fevers, chills, sweats, chest pain, palpitations, claudication, cough, wheezing , shortness of breath, nausea, vomiting, abdominal pain, dysuria, hematuria, urinary retention, paralysis, weakness, numbness and tingling, and leg pain. Review of Systems: Constitutional: No chills, No fatigue, No fever, No sweats, No weakness Eyes: No diplopia, No eye pain, No worsening of vision ENT: No hearing loss, No sore throat, No trouble swallowing Respiratory: No cough, No shortness of breath, No wheezing Cardiovascular: No chest pain, No claudication, No palpitations Abdomen: No nausea, No pain, No vomiting Musculoskeletal: No calf pain, No joint pain, No muscle pain Genitourinary - Male: No dysuria, No hematuria, No urinary retention Neurologic: No numbness/tingling, No paralysis, No weakness Integumentary: No color change, No itch, No rash Physical Exam: General Appearance: WD/WN, no apparent distress, + obese Eyes: normal inspection, PERRL, EOMI ENT: normal ENT inspection, hearing grossly normal, pharynx normal Neck: supple, no JVD, trachea midline Respiratory/Chest: chest non-tender, lungs clear, normal breath sounds Cardiovascular: regular rate, rhythm, no edema, no murmur Abdomen / GI: normal bowel sounds, non tender, soft Extremities: normal inspection, no calf tenderness, + swelling (trace pitting edema in right lower extremity) Neurologic/Psychiatric: alert, normal mood/affect, oriented x 3 Skin: normal color, warm/dry, no rash (Millie Barrientos ., PA-C) Hospital Course 71 y/o male with a history of IL/CAD s/p KATIA in RCA in 2007, hypertension, hyperlipidemia, mild ischemic cardiomyopathy, BPH, and a right Charcot foot, who presented to the ER on 12/30 with left-sided chest pain radiating down the left arm to the left palm of the hand as well as the axillary region. S/p surgical repair of his right Charcot foot in July 2016, using crutches/ scooter since. Pt has been mostly sedentary since then. D-dimer elevated in ED. CTA showed right sided PE. Venous Dopplers showed acute DVT of the right popliteal vein. Acute right-sided PE, acute right popliteal DVT POA--stable. Patient without tachycardia or hypoxia, shortness of breath or chest pain. Likely secondary to immobilization/sedentary lifestyle -Observe on telemetry. No acute events overnight, patient remained in sinus rhythm -Started on heparin drip. -Nurse navigator priced out novel oral anticoagulation agents. Patient will start Xarelto 15 mg PO BID 21 days, then 20 mg PO qd x 9 days. Patient will need a total of 6 months anticoagulation therapy. Remainder of course to be given by PCP -Echocardiogram performed, although there is no evidence of right heart strain on EKG. Results pending and will be sent to PCP to follow-up -Repeat EKG shows 64 bpm, sinus rhythm with occasional PVCs -Continue limitations as per orthopedic postoperative recommendations Left-sided chest/left axilla/left arm pain, IL/CAD s/p stent--resolved. Likely secondary to crutches use -Cardiac enzymes negative 3 -EKGs no ischemic changes -Echo completed, results pending HTN, h/o ischemic cardiomyopathy--stable -Continue amlodipine 10 mg PO qd, carvedilol 3.125 mg PO BID, and losartan 50 mg PO qd HLD -Continue atorvastatin 40 mg PO qd BPH--stable -Continue Hytrin 5 mg PO BID and Avodart 0.5 mg PO qd Code Status -Level I, FULL RESUSCITATION STATUS Dispo -Patient medically stable to return home This chart was completed in part utilizing [employer] Speech Voice Recognition software. Attempts were made to minimize the grammatical errors, random word insertions, pronoun errors and incomplete sentences. Any formal questions or concerns about the content, text or information contained within the body of this dictation should be directly addressed to the provider for clarification. Total Time Spent: Greater than 30 minutes This includes examination of the patient, discharge planning, medication reconciliation, and communication with other providers. (Millie Barrientos ., PA-C) I agree with PA assessment and plan and have seen and examined pt myself Resting comfortably in bed No resp distress noted No extremity pain Agree with heparin drip Can convert to xarelto on discharge Hemodynamically stable DC home (Saman Matute D.OGen) Discharge Instructions Please refer to the electronic Patient Visit Report (Discharge Instructions) for additional information. (Millie Barrientos ., ARIA-C) Additional Copies To Jayro Swartz M.D.
[2016-12-31 12:05] VITALS: BP 165/83; PULSE 67; TEMP 36.4; O2SAT 95
[2016-12-31] MEDS ORDERED: ESZOPICLONE 1 MG TAB PO ONE (22:00)
[2017-01-06] MEDS ORDERED: ASPITAB67 PO (05:50)
[2017-01-06] MEDS ORDERED: ATOR-24 PO (06:05)
[2017-01-06] MEDS ORDERED: LOSA50TA54 PO (12:35)
[2017-01-06] MEDS ORDERED: CARV3.122 PO (12:35)
[2017-01-06] MEDS ORDERED: MISCTAB29 PO (12:35)
[2017-01-06] MEDS ORDERED: AMLO-114 PO (12:36)
[2017-01-06] MEDS ORDERED: TERA5CAP PO (13:09)
== END 2016-12-31 12:49 | disposition home or self-care (01) | DRG 176 ==
LOC: ENRESERVTM → CANRESERV → ENRESERVDT → C.EDB 12:12 → C.2T 16:50 → CANBEDREQ 12-31 09:24
PROVIDERS: ADMIT Family Medicine; ATTEND Hospitalist
DX: I26.99 Other pulmonary embolism without acute cor pulmonale (principal); I82.431 Acute embolism and thrombosis of right popliteal vein; I10 Essential (primary) hypertension; I25.10 Atherosclerotic heart disease of native coronary artery without angina pectoris; E78.5 Hyperlipidemia, unspecified; I25.5 Ischemic cardiomyopathy; G47.33 Obstructive sleep apnea (adult) (pediatric); R79.0 Abnormal level of blood mineral; M79.622 Pain in left upper arm; N40.0 Benign prostatic hyperplasia without lower urinary tract symptoms; I49.3 Ventricular premature depolarization; I49.1 Atrial premature depolarization; M14.671 Charcot's joint, right ankle and foot; I25.2 Old myocardial infarction; Z98.1 Arthrodesis status; Z95.5 Presence of coronary angioplasty implant and graft; Z79.82 Long term (current) use of aspirin; Z79.899 Other long term (current) drug therapy

== ENCOUNTER 2017-01-06 18:38 | Emergency (ER) | payer BC, OTHER ==
[~2017-01-06] VITALS: Ht 193 cm; Wt 94.7 kg
[~2017-01-06 18:38] MED LIST changes: +ASPI81CH2 PO; +ASPITAB67 PO; +ATOR-24 PO; +CARV3.122 PO; -CRG3125 PO; -CZR50 PO; +LOSA50TA54 PO; +MISCTAB29 PO; -OXYSR10 PO; +RIVA1.5T PO; +RIVA1TAB4 PO; -RXC5 PO; +TERA5CAP PO; -osteo biflex PO
[2017-01-06 18:43] VITALS: TEMP 36.7; Ht 193 cm; Wt 94.7 kg
[2017-01-06] MEDS ORDERED: HYDROCODONE/ACETAMOPHEN 5/325MG TAB PO STA (18:58)
[2017-01-06] MEDS ORDERED: ACET-1257 PO (19:22)
[2017-01-06] MEDS ORDERED: DOCU100C31 PO (19:22)
[2017-01-06] MEDS ORDERED: ASPI81TA28 PO (19:22)
--- NOTE | 2017-01-06 19:23 | DIAGNOSTIC IMAGING REPORT ---
RIGHT KNEE 2 VIEWS HISTORY: knee pain/no injury Right COMPARISON: None. FINDINGS: There is no fracture or dislocation. Large suprapatellar knee effusion. Abnormal appearance to the quadriceps tendon which appears thickened. This is concerning for a partial tear/injury. Mild cartilage space narrowing within the medial patellofemoral compartments with tiny marginal osteophytes consistent with degenerative change. No radiopaque foreign bodies. IMPRESSION: 1. No fracture or dislocation within the right knee. 2. Large knee effusion. 3. Abnormal appearance to the quadriceps tendon which appears thickened. This could represent a partial tear/injury. Electronically signed by: Corey Mata M.D. 01/06/2017 7:21 PM Dictated Date/Time: 01/06/2017 7:19 PM
[2017-01-06] MEDS ORDERED: NORCO 5/325MG HOME PACK PO ONE (19:45)
--- NOTE | 2017-01-06 19:47 | EMERGENCY ROOM VISIT NOTE ---
ED Visit Note First contact with patient: 18:47 CHIEF COMPLAINT: Right knee pain and swelling HISTORY OF PRESENT ILLNESS: This 71-year-old male presents the ER with chief complaint of right knee pain and swelling. The patient states that he was just sitting watching TV this afternoon and he noticed that his right knee got swollen and then started giving him pain. The patient has been having problems with his right knee. He saw Dr. Castro a month ago where he had a steroid injection into his knee as well as Synvisc injections. He denies any new injury to his knee. The patient is also on Xarelto for a recent DVT of the right leg. The patient denies any pain or swelling behind the knee. He states all the swelling is on the lateral aspect. The patient also admits that he had right foot surgery over 6 months ago and only recently started putting 50% weight onto the right leg. REVIEW OF SYSTEMS: 6 system review was performed and was negative unless stated otherwise in history of present illness. PMH: The patient is healthy; DVT, foot surgery SOCIAL HISTORY: Patient lives with his . The patient denies any tobacco or alcohol use.. PHYSICAL EXAM: Vital Signs: Were reviewed Reviewed Nurse's notes. GEN.: 71-year -old white male appears in no acute distress. MENTAL STATUS: Alert, oriented, and cooperative. RIGHT KNEE: No gross bony deformity noted. There is a palpable soft lump noted on the lateral superior aspect of the joint. Medial aspect without tenderness or palpable fluid. The patient has limited range of motion secondary to pain. No ligament instability noted. Popliteal region without masses. EMERGENCY DEPARTMENT COURSE: The patient was evaluated. The patient was given [place] 5/325 mg 2 tablets by mouth for pain. X-ray of the right knee was ordered and interpreted by the radiologist and myself. DIAGNOSTICS:RIGHT KNEE 2 VIEWS HISTORY: knee pain/no injury Right COMPARISON: None. FINDINGS: There is no fracture or dislocation. Large suprapatellar knee effusion. Abnormal appearance to the quadriceps tendon which appears thickened. This is concerning for a partial tear/injury. Mild cartilage space narrowing within the medial patellofemoral compartments with tiny marginal osteophytes consistent with degenerative change. No radiopaque foreign bodies. IMPRESSION: 1. No fracture or dislocation within the right knee. 2. Large knee effusion. 3. Abnormal appearance to the quadriceps tendon which appears thickened. This could represent a partial tear/injury. Electronically signed by: Corey Mata M.D. 01/06/2017 7:21 PM The patient was informed of the findings. The patient was independently evaluated by Dr. Ricardo who agrees with treatment plan. The patient was given a [place] home pack and was discharged home in stable condition with his driving. DIAGNOSIS: Right knee joint effusion Partial tear quadriceps muscle DISCHARGE INSTRUCTIONS: Keep leg elevated whenever possible. Wear knee brace when ambulating. Warm compresses intermittently to the affected area. Take [place] as needed for pain. Do not drive while taking the [place]. Call Dr. Castro tomorrow for follow-up appointment. Problem List Medical Problems: (1) hypertension Status: Chronic Current/Historical Medications Scheduled Amlodipine (Norvasc), 10 MG PO HS Aspirin (Aspirin Ec), 81 MG PO DAILY Atorvastatin (Lipitor), 40 MG PO HS Carvedilol (Coreg), 3.125 MG PO BID Docusate Sodium (Docusate Sodium), 100 MG PO BID Dutasteride (Avodart), 0.5 MG PO QAM Losartan Potassium (Cozaar), 50 MG PO DAILY Misc Natural Products (Osteo Bi-Flex Advanced Tr), 1 TAB PO BID Multiple Vitamin (Multivitamin), 1 TAB PO BID Rivaroxaban (Xarelto), 15 MG PO BID Rivaroxaban (Xarelto), 20 MG PO DAILY Terazosin (Hytrin), 5 MG PO BID Scheduled PRN Acetaminophen (Tylenol Extra Strength), 1,000 MG PO Q8 PRN for Pain Beglexu-Anaprlxzudqwh-Wbetjdtv (Vanquish), 1 TAB PO UD PRN for Headache Allergies Coded Allergies: Enalapril (Verified Adverse Reaction, Mild, cough, 12/30/16) gmg/pt Vital Signs Date Time Temp Pulse Resp B/P Pulse Ox O2 Delivery O2 Flow Rate FiO2 01/06/17 18:43 36.7 97 16 187/98 97 Room Air Medications Administered Medications (Trade) Dose Ordered Sig/Shu Route Start Time Stop Time Status Last Admin Dose Admin Acetaminophen/ Hydrocodone Bitart ([place] 5/325 Tab) 2 tab NOW STAT PO 01/06/17 18:58 01/06/17 19:00 DC 01/06/17 19:03 2 TAB Departure Information Referrals Rifkah, Jayro, M.D. (PCP) Patient Instructions [facility]
[2017-01-06] MEDS ORDERED: HYDR-5688 PO (19:50)
[2017-01-06 19:58] VITALS: BP 167/86; PULSE 88; O2SAT 98
[2017-01-06] MEDS ORDERED: DUTA0.5C PO (22:01)
[2017-01-06] MEDS ORDERED: MULTTAB58 PO (22:01)
--- NOTE | 2017-01-07 01:00 | EMERGENCY ROOM VISIT NOTE ---
ED Visit Note First contact with patient: 18:47 I have personally evaluated and examined this patient. I agree with assessment and plan of Karuna Haynes PA-C. Right knee swelling exam and imaging consistent with right distal quad tear. No evidence septic knee by exam.
== END 2017-01-06 19:59 | disposition home or self-care (01) ==
LOC: C.EDB 18:40 → C.EDD 19:59
DX: M25.461 Effusion, right knee (principal); S76.111A Strain of right quadriceps muscle, fascia and tendon, initial encounter; X58.XXXA Exposure to other specified factors, initial encounter; Z98.890 Other specified postprocedural states; Z86.718 Personal history of other venous thrombosis and embolism; I10 Essential (primary) hypertension; Z79.82 Long term (current) use of aspirin; Z79.899 Other long term (current) drug therapy

== ENCOUNTER → 2017-04-26 | Outpatient (CLI) | payer BC ==
[~2017-04-26] MED LIST changes: -ACET-1138 PO; +ACET-1257 PO; -ASPI81CH2 PO; +ASPI81TA28 PO; -DOCU-94 PO; +DOCU100C31 PO; +DUTA0.5C PO; +HYDR-5688 PO; +MULTTAB58 PO
[2017-04-26 09:35] LABS: BASO % 0.7 %; BASO ABS # 0.05 K/uL (0-0.2); COMPLETE YES; EOS % 4.5 %; HEMATOCRIT 40.9 % (42-52); IG% 0.1 %; LYMPH % 35.9 %; MEAN CELL VOLUME 89.5 fL (80-100); MEAN CORPUSCULAR HEMOGLOBIN 30.4 pg (25-34); MEAN PLATELET VOLUME 10.8 fL (7.4-10.4); NEUT % 49.8 %; PLATELET COUNT 163 K/uL (130-400); RED BLOOD COUNT 4.57 M/uL (4.7-6.1); WHITE BLOOD COUNT 6.69 K/uL (4.8-10.8)
[2017-04-26 10:11] LABS: ALT/SGPT 24 U/L (12-78); AST/SGOT 9 U/L (15-37); BLOOD UREA NITROGEN 27 mg/dl (7-18); BUN/CREATININE RATIO 28.1 (10-20); CALCIUM 8.5 mg/dl (8.5-10.1); CARBON DIOXIDE 31 mmol/L (21-32); CHLORIDE 109 mmol/L (98-107); CREATININE 0.96 mg/dl (0.60-1.40); GLUCOSE 91 mg/dl (70-99); POTASSIUM 3.8 mmol/L (3.5-5.1); SODIUM 143 mmol/L (136-145)
[2017-04-26 10:14] LABS: ALB/GLOB RATIO 1.3 (0.9-2); ALKALINE PHOSPHATASE 98 U/L (45-117); CHOLESTEROL 127 mg/dl (0-200); CHOLESTEROL/HDL RATIO 2.8; HDL CHOLESTEROL 45 mg/dl; LDL CHOLESTEROL CALCULATED 60 mg/dl; TRIGLYCERIDES 108 mg/dl (0-150); VERY LOW DENSITY LIPOPROT CALC 22 mg/dl
[2017-04-26 10:54] LABS: ESTIMATED AVERAGE GLUCOSE 108 mg/dl; HA1C FLAG Normal (Normal)
== END | disposition home or self-care (01) ==
LOC: C.LAB 07:22
PROVIDERS: ATTEND Family Medicine
DX: R73.01 Impaired fasting glucose (principal)

== ENCOUNTER → 2017-08-09 | Outpatient (CLI) | payer BC ==
[~2017-08-09] MED LIST changes: -HYDR-5688 PO
== END | disposition home or self-care (01) ==
LOC: C.LAB 07:19
PROVIDERS: ATTEND Urology
DX: R97.20 Elevated prostate specific antigen [PSA] (principal)

== ENCOUNTER 2017-12-20 18:31 | Observation (INO) | payer BC, OTHER ==
[~2017-12-20] VITALS: Ht 190.5 cm; Wt 124.8 kg
[~2017-12-20 18:31] MED LIST changes: -ASPI81TA28 PO; -DUTA0.5C PO; -MULTTAB58 PO
[2017-12-20] MEDS ORDERED: ASPIRIN 81 MG CHEW PO STA (18:44)
[2017-12-20] MEDS ORDERED: ALUMINUM/MAGNESIUM SUSP 30 ML UDC PO STA (18:44)
[2017-12-20] MEDS ORDERED: NITROGLYCERIN 0.4 MG SL PER TAB CHARGE SL PRN ×3 (18:45→22:45)
--- NOTE | 2017-12-20 18:59 | EMERGENCY ROOM VISIT NOTE ---
History Report prepared by Jayro: Camacho Parker Under the Supervision of: Dr. Paco Dial D.O. First contact with patient: 18:33 Chief Complaint: CHEST PAIN Stated Complaint: CHEST PAINS History of Present Illness The patient is a 72 year old male who presents to the Emergency Room with complaints of intermittent chest pain starting three-four days ago. He rates his discomfort as a 6/10 in severity. The patient states that he has been experiencing intermittent chest pain starting three to four days ago that has been accompanied by left arm tingling. He reports that his tingling has been worse in the upper region of his left arm. The patient reports that the symptoms return every couple of hours. He states that these symptoms are resolved in the morning, but start when he is going to work. The patient notes that he has also been experiencing mild shortness of breath, but denies that his symptom is worsened with walking. He denies nausea, vomiting, back pain, diaphoresis, leg swelling, abdominal pain, weight gain, and recent surgeries. The patient reports a history of hernia surgery, back surgery, rotator cuff surgery, right leg surgery, prostate problems, hyperlipidemia, hypertension, and two stent placements done by Dr. Tenorio a couple of years ago. He reports that he is currently on blood thinners. He reports that he occasionally drinks but denies any smoking history. Source of History: patient Onset: 3-4 days ago Position: chest Symptom Intensity: 6/10 Timing: intermittent Associated Symptoms: + SOB, + vomiting, No diaphoresis, No nausea, No abdominal pain, No back pain Note: He denies leg swelling and weight gain Review of Systems See HPI for pertinent positives & negatives. A total of 10 systems reviewed and were otherwise negative. Past Medical & Surgical Medical Problems: (1) Acute DVT (deep venous thrombosis) (2) History of CA (myocardial infarction) (3) hypertension Family History FH: cancer (Prostate) FHx: heart disease Hypertension Social History Smoking Status: Never Smoker Drug Use: none Marital Status: Housing Status: lives with family Occupation Status: employed Current/Historical Medications Scheduled Amlodipine (Norvasc), 10 MG PO QPM Aspirin (Aspirin Ec), 81 MG PO QPM Atorvastatin (Lipitor), 40 MG PO HS Carvedilol (Coreg), 3.125 MG PO BID Dutasteride (Avodart), 0.5 MG PO QAM Losartan Potassium (Cozaar), 50 MG PO QPM Misc Natural Products (Osteo Bi-Flex Advanced Tr), 1 TAB PO BID Multiple Vitamin (Multivitamin), 1 TAB PO BID Terazosin (Hytrin), 5 MG PO BID Scheduled PRN Jtbhhoo-Vbgvpwjqpprlf-Nczdsqmn (Vanquish), 1 TAB PO UD PRN for Headache Allergies Coded Allergies: Enalapril (Verified Adverse Reaction, Mild, cough, 12/30/16) gmg/pt Physical Exam Vital Signs Date Time Temp Pulse Resp B/P (MAP) Pulse Ox O2 Delivery O2 Flow Rate FiO2 12/20/17 22:07 76 18 162/89 94 12/20/17 22:05 76 18 162/89 94 Room Air 12/20/17 20:00 64 18 195/107 95 Room Air 12/20/17 19:36 68 12/20/17 18:33 36.8 78 18 204/104 95 Physical Exam GENERAL: Patient is awake, alert, and in no acute distress. Patient is resting comfortably and showing no signs of anxiety EYES: The conjunctivae are clear. The pupils are round and reactive. EARS, NOSE, MOUTH AND THROAT: The nose is without any evidence of any deformity. Mucous membranes are moist tongue is midline NECK: The neck is nontender and supple. RESPIRATORY: Normal respiratory effort is noted there is no evidence of wheezing rhonchi or rales CARDIOVASCULAR: Regular rate and rhythm noted there no murmurs rubs or gallops normal S1 normal S2 GASTROINTESTINAL: The abdomen is soft. Bowel sounds are present in all quadrants. Abdomen is nontender MUSCULOSKELETAL/EXTREMITIES: There is no evidence of gross deformity full range of motion is noted in the hips and shoulders SKIN: There is no obvious evidence of any rash. There are no petechiae, pallor or cyanosis noted. NEUROLOGIC: Patient is awake alert and oriented x3. Medical Decision & Procedures ER Provider Diagnostic Interpretation: X-ray results as stated below per interpretation by me and the radiologist. CHEST ONE VIEW PORTABLE CLINICAL HISTORY: 72 years-old Male presenting with ABDOMINAL PAIN/GI. TECHNIQUE: Portable upright AP view of the chest was obtained. COMPARISON: 12/30/2016. FINDINGS: Atherosclerosis of the aortic arch. Cardiac silhouette normal in size. Lungs and pleural spaces clear. Degenerative changes of the thoracic spine. Upper abdomen normal. IMPRESSION: 1. No acute cardiopulmonary disease. Electronically signed by: Fransisco Dallas M.D. 12/20/2017 7:22 PM Dictated Date/Time: 12/20/2017 7:21 PM Laboratory Results 12/20/17 19:00 Red Blood Count 4.99, Mean Corpuscular Volume 87.4, Mean Corpuscular Hemoglobin 30.1, Mean Corpuscular Hemoglobin Concent 34.4, Mean Platelet Volume 10.1, Neutrophils (%) (Auto) 51.5, Lymphocytes (%) (Auto) 35.8, Monocytes (%) (Auto) 7.6, Eosinophils (%) (Auto) 4.6, Basophils (%) (Auto) 0.4, Neutrophils # (Auto) 3.47, Lymphocytes # (Auto) 2.41, Monocytes # (Auto) 0.51, Eosinophils # (Auto) 0.31, Basophils # (Auto) 0.03 12/20/17 19:00 Test 12/20/17 18:57 12/20/17 19:00 Urine Color DK YELLOW Urine Appearance CLEAR (CLEAR) Urine pH 5.0 (4.5-7.5) Urine Specific [place] 1.036 (1.000-1.030) Urine Protein NEG (NEG) Urine Glucose (UA) NEG (NEG) Urine Ketones TRACE (NEG) Urine Occult Blood NEG (NEG) Urine Nitrite NEG (NEG) Urine Bilirubin NEG (NEG) Urine Urobilinogen NEG (NEG) Urine Leukocyte Esterase NEG (NEG) White Blood Count 6.74 K/uL (4.8-10.8) Red Blood Count 4.99 M/uL (4.7-6.1) Hemoglobin 15.0 g/dL (14.0-18.0) Hematocrit 43.6 % (42-52) Mean Corpuscular Volume 87.4 fL (80-100) Mean Corpuscular Hemoglobin 30.1 pg (25-34) Mean Corpuscular Hemoglobin Concent 34.4 g/dl (32-36) Platelet Count 171 K/uL (130-400) Mean Platelet Volume 10.1 fL (7.4-10.4) Neutrophils (%) (Auto) 51.5 % Lymphocytes (%) (Auto) 35.8 % Monocytes (%) (Auto) 7.6 % Eosinophils (%) (Auto) 4.6 % Basophils (%) (Auto) 0.4 % Neutrophils # (Auto) 3.47 K/uL (1.4-6.5) Lymphocytes # (Auto) 2.41 K/uL (1.2-3.4) Monocytes # (Auto) 0.51 K/uL (0.11-0.59) Eosinophils # (Auto) 0.31 K/uL (0-0.5) Basophils # (Auto) 0.03 K/uL (0-0.2) RDW Standard Deviation 41.4 fL (36.4-46.3) RDW Coefficient of Variation 13.0 % (11.5-14.5) Immature Granulocyte % (Auto) 0.1 % Immature Granulocyte # (Auto) 0.01 K/uL (0.00-0.02) Prothrombin Time 10.9 SECONDS (9.0-12.0) Prothromb Time International Ratio 1.0 (0.9-1.1) Activated Partial Thromboplast Time 24.7 SECONDS (21.0-31.0) Partial Thromboplastin Ratio 1.0 Anion Gap 6.0 mmol/L (3-11) Est Creatinine Clear Calc Drug Dose 92.5 ml/min Estimated GFR () 81.4 Estimated GFR (Non- 70.3 BUN/Creatinine Ratio 30.6 (10-20) Calcium Level 8.9 mg/dl (8.5-10.1) Total Bilirubin 0.6 mg/dl (0.2-1) Direct Bilirubin 0.1 mg/dl (0-0.2) Aspartate Amino Transf (AST/SGOT) 16 U/L (15-37) Alanine Aminotransferase (ALT/SGPT) 31 U/L (12-78) Alkaline Phosphatase 95 U/L (45-117) Total Creatine Kinase 97 U/L (39-308) Creatine Kinase MB 1.3 ng/ml (0.5-3.6) Creatine Kinase MB Ratio 1.3 (0-3.0) Troponin I 0.029 ng/ml (0-0.045) Total Protein 7.6 gm/dl (6.4-8.2) Albumin 4.1 gm/dl (3.4-5.0) Lipase 122 U/L (73-393) Laboratory results per my review. Medications Administered Medications (Trade) Dose Ordered Sig/Shu Route Start Time Stop Time Status Last Admin Dose Admin Al Hydroxide/Mg Hydroxide (Maalox Susp) 30 ml NOW STAT PO 12/20/17 18:44 12/20/17 18:45 DC 12/20/17 19:09 30 ML Aspirin (Aspirin Chew) 324 mg NOW STAT PO 12/20/17 18:44 12/20/17 18:45 DC 12/20/17 19:08 324 MG ECG Per My Interpretation Indication: chest pain Rate (beats per minute): 76 Rhythm: normal sinus Findings: PVC, other (No acute ST segment abnormalities) Comparison ECG Date: 12/31/16 Change: no significant change ED Course 1839: The patient was evaluated in room B03B. A complete history and physical examination were performed. 1843: Ordered Aspirin 324 mg PO, Maalox Susp 30 ml PO. 1844: Ordered Nitroglycerin 0.4 mg SL. 2003: I discussed the patients case with Dr. Uriostegui, [facility] Hospitalist. He understands the patients condition and agrees to accept the patient. The patient will be further evaluated. Medical Decision Prior records/ancillary studies reviewed. Triage Nursing notes reviewed. The patient's history was concerning for chest pain. Differential diagnosis: Etiologies such as cardiac ischemia, aortic dissection, pulmonary embolism, pneumonia, pneumothorax, musculoskeletal, infections, pericarditis, myocarditis , esophageal rupture, gastrointestinal, as well as others were entertained. The patient is a 72-year-old male who presented to the emergency department for an evaluation of intermittent chest pain. The patient states that he has been noticing chest pain over the last few days. He does have a history of coronary artery disease previously. 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 I discussed the patient's laboratory and radiographic studies with him. I also discussed the limitations of the emergency department workup for chest pain with him. At this time given his past medical history I do feel this has a significant likelihood of being cardiac chest pain in nature. For this reason I discussed his case with the on-call [facility] hospitalist group. They have agreed to evaluate patient in the emergency department for further management and disposition. Medication Reconcilliation Current Medication List: was personally reviewed by me Blood Pressure Screening Patient's blood pressure: Elevated blood pressure Referred to Hospitalist. Consults Time Called: 2003 Consulting Physician: Dr. Uriostegui, [facility] Hospitalist Returned Call: 2003 I discussed the patients case with Dr. Uriostegui [facility] Hospitalist. He understands the patients condition and agrees to accept the patient. The patient will be further evaluated. Impression Primary Impression: Chest pain Scribe Attestation The scribe's documentation has been prepared under my direction and personally reviewed by me in its entirety. I confirm that the note above accurately reflects all work, treatment, procedures, and medical decision making performed by me. Departure Information Dispostion Being Evaluated By Hospitalist Referrals Jayro Swartz M.D. (PCP) Patient Instructions My [facility] Problem Qualifiers Primary Impression: Chest pain Chest pain type: unspecified Qualified Codes: R07.9 - Chest pain, unspecified
[2017-12-20 19:16] LABS: BASO % 0.4 %; BASO ABS # 0.03 K/uL (0-0.2); EOS % 4.6 %; EOS ABS # 0.31 K/uL (0-0.5); HEMATOCRIT 43.6 % (42-52); IG# 0.01 K/uL (0.00-0.02); LYMPH % 35.8 %; LYMPH ABS # 2.41 K/uL (1.2-3.4); MEAN CELL VOLUME 87.4 fL (80-100); MEAN CORPUSCULAR HEMOGLOBIN 30.1 pg (25-34); MEAN CORPUSCULAR HGB CONC 34.4 g/dl (32-36); MEAN PLATELET VOLUME 10.1 fL (7.4-10.4); MONO % 7.6 %; MONO ABS # 0.51 K/uL (0.11-0.59); NEUT % 51.5 %; NEUT ABS # 3.47 K/uL (1.4-6.5); PLATELET COUNT 171 K/uL (130-400); RED CELL DISTRIBUTION WIDTH SD 41.4 fL (36.4-46.3); WHITE BLOOD COUNT 6.74 K/uL (4.8-10.8)
[2017-12-20] MEDS ORDERED: ASPI81TA28 PO (19:22)
--- NOTE | 2017-12-20 19:23 | DIAGNOSTIC IMAGING REPORT ---
CHEST ONE VIEW PORTABLE CLINICAL HISTORY: 72 years-old Male presenting with ABDOMINAL PAIN/GI. TECHNIQUE: Portable upright AP view of the chest was obtained. COMPARISON: 12/30/2016. FINDINGS: Atherosclerosis of the aortic arch. Cardiac silhouette normal in size. Lungs and pleural spaces clear. Degenerative changes of the thoracic spine. Upper abdomen normal. IMPRESSION: 1. No acute cardiopulmonary disease. Electronically signed by: Fransisco Dallas M.D. 12/20/2017 7:22 PM Dictated Date/Time: 12/20/2017 7:21 PM
[2017-12-20 19:28] LABS: PTT PATIENT 24.7 SECONDS (21.0-31.0)
[2017-12-20 19:34] LABS: ALBUMIN 4.1 gm/dl (3.4-5.0); CALCIUM 8.9 mg/dl (8.5-10.1); CREATININE 1.06 mg/dl (0.60-1.40); POTASSIUM 4.1 mmol/L (3.5-5.1)
[2017-12-20 19:39] LABS: CKMB 1.3 ng/ml (0.5-3.6); TOTAL PROTEIN 7.6 gm/dl (6.4-8.2)
[2017-12-20] MEDS ORDERED: ONDANSETRON INJ 2 MG/ML 2 ML VIAL IV PRN ×2 (20:45→22:45)
[2017-12-20] MEDS ORDERED: ALUMINUM/MAGNESIUM/SIMETH (MAALOX MAX) 30 ML UDC PO PRN ×2 (20:45→22:45)
[2017-12-20] MEDS ORDERED: ACETAMINOPHEN 325 MG TAB PO PRN ×2 (20:45→22:45)
[2017-12-20] MEDS ORDERED: POLYETHYLENE (MIRALAX) 17 GM PACK PO PRN ×2 (20:45→22:45)
[2017-12-20] MEDS ORDERED: MAGNESIUM HYDROXIDE SUSP 30 ML UDC PO PRN ×2 (20:45→22:45)
[2017-12-20] MEDS ORDERED: MoRPHine SULFATE 2 MG/ML CARP IV PRN ×2 (20:45→22:45)
[2017-12-20] MEDS ORDERED: AMLODIPINE BESYLATE 5 MG TAB PO SCH (21:00)
[2017-12-20] MEDS ORDERED: LOSARTAN POTASSIUM 50 MG TAB PO SCH (21:00)
[2017-12-20] MEDS ORDERED: METOPROLOL TARTRATE 1 MG/ML VIAL IV PRN (21:00)
[2017-12-20] MEDS ORDERED: HydrALAZINE HCL 20 MG/ML VIAL IV. PRN (21:00)
[2017-12-20] MEDS ORDERED: ATORVASTATIN 20 MG TAB PO SCH (21:00)
--- NOTE | 2017-12-20 21:25 | History and Physical ---
History & Physical Date & Time of Service: Dec 20, 2017 at 21:00 Chief Complaint: Chest Pains Primary Care Physician: Jayro Swartz M.D. History of Present Illness Source: patient, hospital records Patient is a 72 year old male with a PMH of CAD s/p stent, HLD, HTN, PE, and BPH who presented here with chest pain. The chest pain came on gradually 4 days ago. He says it is intermittent. It is occasionally at rest and also with exertion. Its dull in nature. The pain is rated as a 6/10 in severity and it radiates down his left arm and into his finger tips. He has not taken any aspirin or nitroglycerin to help control the pain. He has had associated shortness of breath. He denies any palpitations, pre- syncope, dizziness, fatigue, abdominal pain, reflux like symptoms, PND, leg swelling He had an WI 10 years ago and had a stent placed into his Right carotid artery. His last echo was last November which showed an EF of 40-45% with global hypokinesis and grade 1 DD. 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 Past Medical/Surgical History Medical Problems: (1) Acute DVT (deep venous thrombosis) (2) Arm pain, left (3) Constipation (4) Effusion of knee joint right (5) Elevated troponin (6) History of WI (myocardial infarction) (7) hypertension (8) Pulmonary embolism (9) Upper abdominal pain (10) Upper abdominal pain (11) Ventral hernia Surgical Problems: (1) History of back surgery (2) History of hernia surgery (3) Postoperative state Family History FH: cancer (Prostate) FHx: heart disease Hypertension Social History Smoking Status: Never Smoker Smokeless Tobacco Use: No Alcohol Use: none Drug Use: none Marital Status: Housing status: lives with family Occupational Status: employed Immunizations History of Influenza Vaccine: No History of Tetanus Vaccine?: Yes History of Pneumococcal: No History of Hepatitis B Vaccine: No Allergies Coded Allergies: Enalapril (Verified Adverse Reaction, Mild, cough, 12/30/16) gmg/pt Home Medications Scheduled Amlodipine (Norvasc), 10 MG PO QPM Aspirin (Aspirin Ec), 81 MG PO QPM Atorvastatin (Lipitor), 40 MG PO HS Carvedilol (Coreg), 3.125 MG PO BID Dutasteride (Avodart), 0.5 MG PO QAM Losartan Potassium (Cozaar), 50 MG PO QPM Misc Natural Products (Osteo Bi-Flex Advanced Tr), 1 TAB PO BID Multiple Vitamin (Multivitamin), 1 TAB PO BID Terazosin (Hytrin), 5 MG PO BID Scheduled PRN [id number] (Vanquish), 1 TAB PO UD PRN for Headache Review of Systems Constitutional: No fever, No chills, No sweats Eyes: No worsening of vision ENT: No hearing loss, No sore throat Respiratory: + cough, + shortness of breath, + dyspnea on exertion Cardiovascular: No chest pain, No edema, No palpitations Abdomen: No pain, No nausea, No diarrhea, No constipation Musculoskeletal: No joint pain, No muscle pain, No swelling Neurologic: + numbness/tingling, No paralysis Endocrine: No fatigue, No excessive thirst, No excessive urination Physical Exam Vital Signs Date Time Temp Pulse Resp B/P (MAP) Pulse Ox O2 Delivery O2 Flow Rate FiO2 12/20/17 20:00 64 18 195/107 95 Room Air 12/20/17 19:36 68 12/20/17 18:33 36.8 78 18 204/104 95 General Appearance: WD/WN, no apparent distress, + obese Head: normocephalic, atraumatic Eyes: normal inspection, PERRL ENT: hearing grossly normal, pharynx normal Neck: supple, no adenopathy, no JVD, no carotid bruits Respiratory/Chest: lungs clear, no respiratory distress, no accessory muscle use Cardiovascular: regular rate, rhythm, no murmur, normal peripheral pulses Abdomen/GI: normal bowel sounds, non tender, soft Back: normal inspection, no CVA tenderness Extremities/Musculoskelatal: normal inspection, no calf tenderness, no pedal edema Neurologic/Psych: no motor/sensory deficits, alert Skin: normal color, warm/dry, no rash Diagnostics Laboratory Results Results Past 24 Hours Test 12/20/17 18:57 12/20/17 19:00 Range/Units Urine Color DK YELLOW Urine Appearance CLEAR CLEAR Urine pH 5.0 4.5-7.5 Urine Specific [place] 1.036 1.000-1.030 Urine Protein NEG NEG Urine Glucose (UA) NEG NEG Urine Ketones TRACE NEG Urine Occult Blood NEG NEG Urine Nitrite NEG NEG Urine Bilirubin NEG NEG Urine Urobilinogen NEG NEG Urine Leukocyte Esterase NEG NEG White Blood Count 6.74 4.8-10.8 K/uL Red Blood Count 4.99 4.7-6.1 M/uL Hemoglobin 15.0 14.0-18.0 g/dL Hematocrit 43.6 42-52 % Mean Corpuscular Volume 87.4 80-100 fL Mean Corpuscular Hemoglobin 30.1 25-34 pg Mean Corpuscular Hemoglobin Concent 34.4 32-36 g/dl Platelet Count 171 130-400 K/uL Mean Platelet Volume 10.1 7.4-10.4 fL Neutrophils (%) (Auto) 51.5 % Lymphocytes (%) (Auto) 35.8 % Monocytes (%) (Auto) 7.6 % Eosinophils (%) (Auto) 4.6 % Basophils (%) (Auto) 0.4 % Neutrophils # (Auto) 3.47 1.4-6.5 K/uL Lymphocytes # (Auto) 2.41 1.2-3.4 K/uL Monocytes # (Auto) 0.51 0.11-0.59 K/uL Eosinophils # (Auto) 0.31 0-0.5 K/uL Basophils # (Auto) 0.03 0-0.2 K/uL RDW Standard Deviation 41.4 36.4-46.3 fL RDW Coefficient of Variation 13.0 11.5-14.5 % Immature Granulocyte % (Auto) 0.1 % Immature Granulocyte # (Auto) 0.01 0.00-0.02 K/uL Prothrombin Time 10.9 9.0-12.0 SECONDS Prothromb Time International Ratio 1.0 0.9-1.1 Activated Partial Thromboplast Time 24.7 21.0-31.0 SECONDS Partial Thromboplastin Ratio 1.0 Sodium Level 141 136-145 mmol/L Potassium Level 4.1 3.5-5.1 mmol/L Chloride Level 108 98-107 mmol/L Carbon Dioxide Level 27 21-32 mmol/L Anion Gap 6.0 3-11 mmol/L Blood Urea Nitrogen 32 7-18 mg/dl Creatinine 1.06 0.60-1.40 mg/dl Est Creatinine Clear Calc Drug Dose 92.5 ml/min Estimated GFR () 81.4 Estimated GFR (Non- 70.3 BUN/Creatinine Ratio 30.6 10-20 Random Glucose 99 70-99 mg/dl Calcium Level 8.9 8.5-10.1 mg/dl Total Bilirubin 0.6 0.2-1 mg/dl Direct Bilirubin 0.1 0-0.2 mg/dl Aspartate Amino Transf (AST/SGOT) 16 15-37 U/L Alanine Aminotransferase (ALT/SGPT) 31 12-78 U/L Alkaline Phosphatase 95 45-117 U/L Total Creatine Kinase 97 39-308 U/L Creatine Kinase MB 1.3 0.5-3.6 ng/ml Creatine Kinase MB Ratio 1.3 0-3.0 Troponin I 0.029 0-0.045 ng/ml Total Protein 7.6 6.4-8.2 gm/dl Albumin 4.1 3.4-5.0 gm/dl Lipase 122 73-393 U/L CXR normal No change from prior EKG Impression Assessment and Plan 72 year old male with PMH of HTN, HLD, WI w/ stent to RCA, PE and BPH presented to the hospital with chest pain and is being monitored as a chest pain rule out Chest pain - EKG unchanged from previous - trend troponins, initial in ED .029 - aspirin given in the ED - morphine and nitro prn for chest pain - Echo ordered for am with cardiology consult - check lipid and hba1c - aspirin qam - o2 as needed HTN - BP elevated in the ED with systolic in the 220's - lopressor 5mg IV PRN for sbp >160 and if HR >70 - hydralazine 10mg IV PRN for sbp >160 and HR <70 - continue norvasc, losartan and carvedilol HLD - continue atorvastatin - check lipids Hx of PE - discuss in the AM if he should be on anticoagulation BPH - continue finasteride and terazosin DVT prophylaxis - lovenox 40 subq FULL CODE Attending addendum: I have physically seen this patient, have supervised the medical residents activities, and agree with the H&P unless as otherwise noted. Assessment and Plan: Precordial chest pain/uncontrolled hypertension-- The patient will be admitted to telemetry for serial cardiac enzymes, serial EKG's, cardiac rhythm monitoring and a 2-D echocardiogram with Dopplers. Continue Norvasc, losartan and carvedilol. Breakthrough Lopressor and hydralazine IV as needed as noted above. Continue chewable aspirin. Check hemoglobin A1c and fasting lipid profile. BPH-- Continue finasteride. Would suggest decreasing terazosin dose begun by urology from 5 mg p.o. twice daily to evening only. He has had some symptoms of orthostasis. Advanced Directives Existing Advance Directive: No Existing Living Will: No Existing Power of Air Traffic Control Supervisor: No Resuscitation Status FULL CODE VTE Prophylaxis Will order VTE Prophylaxis: Yes Social Service Consult None Apply
[2017-12-20] MEDS ORDERED: MULTTAB58 PO (22:01)
[2017-12-20] MEDS ORDERED: DUTA0.5C PO (22:01)
[2017-12-20 22:36] VITALS: BP 173/97; PULSE 61; TEMP 36.6; O2SAT 94; Ht 190.5 cm; Wt 124.8 kg
[2017-12-20] MEDS ORDERED: IV FLUIDS COMPLETED PRN (23:15)
[2017-12-20] MEDS: MULTIVITAMIN TAB PO SCH (23:39)
[2017-12-20] MEDS: CARVEDILOL 3.125 MG TAB PO SCH (23:40)
[2017-12-20] MEDS: AVODART~ORDER AWAITING ACTION SCH (23:40)
[2017-12-21 00:11] VITALS: BP 159/91; PULSE 66; TEMP 36.6; O2SAT 95
[2017-12-21 04:00] VITALS: BP 136/71; PULSE 59; TEMP 36.4; O2SAT 98
[2017-12-21 07:09] VITALS: BP 137/82; PULSE 64; TEMP 36.7; O2SAT 94
[2017-12-21] MEDS: AVODART~ORDER AWAITING ACTION SCH (08:34)
[2017-12-21] MEDS: CARVEDILOL 3.125 MG TAB PO SCH (08:56)
[2017-12-21] MEDS: MULTIVITAMIN TAB PO SCH (08:56)
[2017-12-21] MEDS ORDERED: ASPIRIN 81 MG ECTAB PO SCH ×2 (09:00)
[2017-12-21] MEDS ORDERED: ENOXAPARIN 40 MG/0.4 ML SYR SQ SCH (09:00)
--- NOTE | 2017-12-21 09:03 | Cardiology Consultation ---
Cardiology Consultation Date of Consultation: Dec 21, 2017. Requesting Physician: Channing Reason for Consultation: Chest Pain Pt evaluation today including: conversation w/ patient, physical exam, chart review, lab review, review of studies, review of inpatient medication list History of Present Illness Patient is a 72-year-old gentleman with a history of coronary artery disease having previously undergone percutaneous intervention involving the right coronary artery. For approximately 4 days the patient has been experiencing symptoms of left upper arm discomfort. This is located on the inner aspect of the upper biceps. He does not describe it as a pain but more of an aching or discomfort. He often times is associated with a sense of tingling or discomfort in the palm of his hand and fingers. He states that there is an associated feeling in his chest. However this is poorly characterized. He would not describe it as a pain but more of a" different" feeling. The symptoms appear to occur randomly. They can last for 30 minutes to over an hour at a time. The did not appear to be made worse with any specific position or activity. There did not appear to be relieved with any specific intervention. 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 The symptoms are quite distinct from those he experienced prior to his cardiac intervention several years ago. He states at that time he had fairly severe precordial discomfort. He has a fairly sedentary individual but is accustomed to mild exertion. Generally he does not experience limitations such as dyspnea or chest discomfort. He did not endorse symptoms of dizziness or lightheadedness. He has not recently suffered a syncopal episode. He has not noticed any swelling in his lower extremities. He did not report any orthopnea or paroxysmal nocturnal dyspnea. He did have some discomfort at the time of his presentation to the emergency room last night but this appears to have resolved and he is pain-free this morning. Past Medical/Surgical History Coronary artery disease status post PCI to the right coronary artery in 2007 Taxus 3.5 x 32 and taxus 3.5 x 12 stents Repeat cardiac catheterization in 2011 for symptoms of left shoulder pain. Patent stents. No obstructive disease. 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 No trouble urination. All Other Systems: Reviewed and Negative Allergies Coded Allergies: Enalapril (Verified Adverse Reaction, Mild, cough, 12/30/16) gmg/pt Medications Current Inpatient Medications Medications (Trade) Dose Ordered Sig/Shu Route Start Time Stop Time Status Last Admin Dose Admin Metoprolol Tartrate (Lopressor Iv) 5 mg Q4 PRN IV 12/20/17 21:00 01/19/18 20:59 Hydralazine HCl (HydrALAZINE INJ) 10 mg Q4 PRN IV. 12/20/17 21:00 01/19/18 20:59 Amlodipine Besylate (Norvasc Tab) 10 mg QPM PO 12/20/17 21:00 01/19/18 20:59 12/20/17 23:39 10 MG Atorvastatin Calcium (Lipitor Tab) 40 mg HS PO 12/20/17 21:00 01/19/18 20:59 12/20/17 23:39 40 MG Carvedilol (Coreg Tab) 3.125 mg BID PO 12/20/17 21:00 01/19/18 20:59 12/20/17 23:40 3.125 MG Losartan Potassium (coZAAR TAB) 50 mg QPM PO 12/20/17 21:00 01/19/18 20:59 12/20/17 23:40 50 MG Multivitamins (Multivitamin Tab) 1 tab BID PO 12/20/17 21:00 01/19/18 20:59 12/20/17 23:39 1 TAB Terazosin HCl (Hytrin Cap) 5 mg QPM PO 12/20/17 21:00 01/19/18 20:59 12/20/17 23:40 5 MG Miscellaneous Information (Order Awaiting Action) 1 ea QS N/A 12/21/17 00:00 01/20/18 00:00 Enoxaparin Sodium (Lovenox Inj) 40 mg QAM SQ 12/21/17 09:00 01/20/18 08:59 Acetaminophen (Tylenol Tab) 650 mg Q4H PRN PO 12/20/17 22:45 01/19/18 22:44 Al Hydrox/Mg Hydrox/Simethicone (Maalox Max Susp) 15 ml Q4H PRN PO 12/20/17 22:45 01/19/18 22:44 Magnesium Hydroxide (Milk Of Magnesia Susp) 30 ml Q12H PRN PO 12/20/17 22:45 01/19/18 22:44 Ondansetron HCl (Zofran Inj) 4 mg Q6H PRN IV 12/20/17 22:45 01/19/18 22:44 Nitroglycerin (Nitrostat Tab) 0.4 mg UD PRN SL 12/20/17 22:45 01/19/18 22:44 Polyethylene (Miralax Powder Packet) 17 gm DAILY PRN PO 12/20/17 22:45 01/19/18 22:44 Aspirin (Ecotrin Tab) 81 mg QAM PO 12/21/17 09:00 01/20/18 08:59 Morphine Sulfate (MoRPHine SULFATE INJ) 2 mg Q30M PRN IV 12/20/17 22:45 01/03/18 22:44 Miscellaneous (Iv Fluids Completed) 1 ea PRN PRN N/A 12/20/17 23:15 12/20/18 23:14 Miscellaneous Information (Order Awaiting Action) 1 ea QS N/A 12/21/17 08:00 01/20/18 07:59 Physical Exam Vital Signs Past 12 Hours Date Time Temp Pulse Resp B/P (MAP) Pulse Ox O2 Delivery O2 Flow Rate FiO2 12/21/17 07:09 36.7 64 18 137/82 (100) 94 Room Air 12/21/17 04:00 36.4 59 20 136/71 (92) 98 Room Air 12/21/17 04:00 Room Air 12/21/17 00:11 36.6 66 19 159/91 (113) 95 Room Air 12/21/17 00:00 Room Air 12/20/17 22:36 36.6 61 94 173/97 94 Room Air 12/20/17 22:07 76 18 162/89 94 12/20/17 22:05 76 18 162/89 94 Room Air The patient is alert and oriented. Mood and affect appeared normal. He answered all questions appropriately. HEENT: Pupils are equal and reactive to light and accommodation. Extraocular movements are intact. The sclerae are anicteric. Neuro: Cranial nerves intact Neck: Patient's neck is supple. He has palpable carotid pulses bilaterally without bruits on auscultation. There is no evidence of jugular venous distention. The thyroid is not enlarged. Lungs: Clear to auscultation bilaterally. He has good air movement without use of accessory muscles. No rales wheezes or rhonchi. Cardiac: Heart demonstrates a regular rate and rhythm. Normal S1 and S2. No murmurs on examination. Pulses: The patient has palpable radial pulses bilaterally that are equal in intensity Extremities: There was no evidence of hypoperfusion. There is no cyanosis or clubbing. There is no edema. Skin: I did not appreciate any rashes on examination today. Data Laboratory Results: Last 24 Hours Test 12/20/17 18:57 12/20/17 19:00 12/21/17 02:46 12/21/17 04:44 Urine Color DK YELLOW Urine Appearance CLEAR Urine pH 5.0 Urine Specific [place] 1.036 Urine Protein NEG Urine Glucose (UA) NEG Urine Ketones TRACE Urine Occult Blood NEG Urine Nitrite NEG Urine Bilirubin NEG Urine Urobilinogen NEG Urine Leukocyte Esterase NEG White Blood Count 6.74 K/uL Red Blood Count 4.99 M/uL Hemoglobin 15.0 g/dL Hematocrit 43.6 % Mean Corpuscular Volume 87.4 fL Mean Corpuscular Hemoglobin 30.1 pg Mean Corpuscular Hemoglobin Concent 34.4 g/dl Platelet Count 171 K/uL Mean Platelet Volume 10.1 fL Neutrophils (%) (Auto) 51.5 % Lymphocytes (%) (Auto) 35.8 % Monocytes (%) (Auto) 7.6 % Eosinophils (%) (Auto) 4.6 % Basophils (%) (Auto) 0.4 % Neutrophils # (Auto) 3.47 K/uL Lymphocytes # (Auto) 2.41 K/uL Monocytes # (Auto) 0.51 K/uL Eosinophils # (Auto) 0.31 K/uL Basophils # (Auto) 0.03 K/uL RDW Standard Deviation 41.4 fL RDW Coefficient of Variation 13.0 % Immature Granulocyte % (Auto) 0.1 % Immature Granulocyte # (Auto) 0.01 K/uL Prothrombin Time 10.9 SECONDS Prothromb Time International Ratio 1.0 Activated Partial Thromboplast Time 24.7 SECONDS Partial Thromboplastin Ratio 1.0 Sodium Level 141 mmol/L Potassium Level 4.1 mmol/L Chloride Level 108 mmol/L Carbon Dioxide Level 27 mmol/L Anion Gap 6.0 mmol/L Blood Urea Nitrogen 32 mg/dl Creatinine 1.06 mg/dl Est Creatinine Clear Calc Drug Dose 92.5 ml/min Estimated GFR () 81.4 Estimated GFR (Non- 70.3 BUN/Creatinine Ratio 30.6 Random Glucose 99 mg/dl Calcium Level 8.9 mg/dl Total Bilirubin 0.6 mg/dl Direct Bilirubin 0.1 mg/dl Aspartate Amino Transf (AST/SGOT) 16 U/L Alanine Aminotransferase (ALT/SGPT) 31 U/L Alkaline Phosphatase 95 U/L Total Creatine Kinase 97 U/L Creatine Kinase MB 1.3 ng/ml Creatine Kinase MB Ratio 1.3 Troponin I 0.029 ng/ml 0.041 ng/ml Total Protein 7.6 gm/dl Albumin 4.1 gm/dl Lipase 122 U/L Test 12/21/17 08:41 Imaging: Chest x-ray did not demonstrate any acute cardiopulmonary process EKG: Normal sinus rhythm without evidence of old myocardial infarction. Single PVC Telemetry reviewed: Frequent PVCs Echocardiogram obtained 12/31/2016: Reduced LV systolic function with an ejection fraction around 45%. Mild LVH. Stage I diastolic dysfunction. Mild to moderate mitral regurgitation. Assessment & Plan 1. Arm pain: The patient's symptoms most prominently involve left upper arm discomfort. He cannot characterize his chest discomfort very well. Seems to have had a similar presentation in 2011 at which point he underwent coronary angiography. There is no evidence of obstructive disease at that time. He reports having had prolonged episodes over several days. His cardiac biomarkers are normal. His EKG is unremarkable with the exception of PVC. This would suggest a noncardiac etiology or at the very least the absence of an acute coronary syndrome. His echocardiogram is pending this morning. I think he would be well served with noninvasive testing such as a exercise echocardiogram. Whether this could be accomplished during his admission is unclear given the fact that this is the weekend. I think would be safe to discharge him with the objective data already obtained. This test could be range as an outpatient if he cannot be performed today. 2. Coronary artery disease: I do not think his current symptoms are likely to be related to an acute coronary syndrome. He is on secondary prevention to consist of a daily aspirin high-dose atorvastatin, beta-calvin and ARB. 3. Cardiomyopathy: The patient is known to have reduced LV systolic function. The etiology is unclear given normal coronary seen on his most recent angiogram. He does have frequent PVCs and sometimes this can promote reduced LV systolic function. This was demonstrated on multiple echoes over the years. An echocardiogram was ordered today and I will view this when it is available. If he continues to have poor LV systolic function would advocate an increase in his carvedilol dose monitoring his heart rate closely in the outpatient setting. 4. Valvular heart disease: Patient noted to have an element of mitral regurgitation characterized as mild to moderate. This can be monitored over time 5. Hypertension: Patient blood pressure was notably elevated at the time of admission. There are no additional outpatient readings available. He was noted to have high blood pressure during his admission in 2011 as well. He would likely benefit from intensification of his blood pressure regimen and as noted above increasing his carvedilol would have other benefits as well. 6. PVCs: Reviewed the patient's telemetry suggests a frequency around 10%. Frequent PVCs could be an etiology for reduced LV systolic function. He is not appear to be symptomatic otherwise. As noted above an increase in his beta- calvin may be beneficial.
[2017-12-21 10:29] LABS: HEMOGLOBIN A1C 5.5 % (4.5-5.6)
--- NOTE | 2017-12-21 11:20 | Discharge Instructions ---
Discharge Instructions Date of Service Dec 21, 2017. Admission Reason for Admission: Chest Pain Discharge Discharge Diagnosis / Problem: Chest pain, left arm discomfort Discharge Goals Goal(s): Decrease discomfort, Increase independence, Improve disease control, Diagnostic testing, Therapeutic intervention Activity Recommendations Activity Limitations: per Instructions/Follow-up section . Instructions / Follow-Up Instructions / Follow-Up You were admitted to assess the discomfort in your chest and left arm. Common things being common and with your track record for a heart attack and stent placement in the past, we took a close look at your heart: consulted cardiology, monitored your heart rhythm and cardiac enzymes -- these show no signs of an acute heart attack, but your blood pressure suggests that your medicine should be increased which will help ease the strain on your heart in the long run. We are increasing your Carvedilol medication from 3.125mg twice a day to 6.25 mg twice a day. A script will be sent to your pharmacy for this. Please begin this new dose after you leave here today. We also discussed your cholesterol regimen and in addition to eating lean meats, green leafy vegetables and increasing your exercise, we will also be increasing your lipitor from [address] Jones would also like to see you in his office in 1-2 weeks to see how you're doing with the new increased dose. His office will be reaching out to you to schedule that, but we also encourage you to reach out to them in the meantime to make sure that you are seen. With regard to your left arm pain and tingling, this should be worked up further by your primary care physician. There is a possibility that you have a strained muscle or compressed nerves that is causing your discomfort. Be Well A [place] Current Hospital Diet Patient's current hospital diet: AHA Diet (Heart Healthy) Discharge Diet Recommended Diet: AHA Diet (Heart Healthy) Procedures Procedures Performed: Stress Echo Pending Studies Studies pending at discharge: no Laboratory Results Hemoglobin A1c Test 12/21/17 08:45 Range/Units Estimated Average Glucose 111 mg/dl Hemoglobin A1c 5.5 4.5-5.6 % Lipid Panel Test 12/21/17 08:45 Range/Units Triglycerides Level 222 H 0-150 mg/dl Cholesterol Level 158 0-200 mg/dl HDL Cholesterol 44 mg/dl Cholesterol/HDL Ratio 3.6 LDL Cholesterol, Calculated 70 mg/dl Medical Emergencies . Who to Call and When: Medical Emergencies: If at any time you feel your situation is an emergency, please call 911 immediately. . Non-Emergent Contact Non-Emergency issues call your: Primary Care Provider . . "Provider Documentation" section prepared by Lorrie Little. . Resident Tracking Resident Involvement: Resident Care Provided Care Provided: Adult Hospital Medicine
[2017-12-21] MEDS ORDERED: CARV6.252 PO (11:22)
--- NOTE | 2017-12-21 11:28 | Discharge Summary ---
Discharge Summary Date of Service Dec 21, 2017. Discharge Summary Admission Date: Dec 20, 2017 at 20:47 Discharge Date: Dec 21, 2017 Discharge Disposition: Home Principal Diagnosis: Non cardiac Chest pain Immunizations: Have You Had Influenza Vaccine: No History of Tetanus Vaccine?: Yes History of Pneumococcal: No History of Hepatitis B Vaccine: No Procedures: STRESS ECHO * -- Conclusions -- * The left ventricle is mildly dilated. * There is mild concentric left ventricular hypertrophy. * Left ventricular systolic function is moderately reduced. * The left atrium is moderately dilated. * There is mild to moderate mitral regurgitation. * Right ventricular systolic pressure is normal. * Grade I diastolic dysfunction, (abnormal relaxation pattern). * No evidence of inducible ischemia at the workload achieved * Baseline hypertension * PVCs improved with exercise and returned in recovery * Poor exercise tolerance * Compared to an echocardiogram performed nearly 1 year ago, there has been worsening of the LV systolic function. Left Ventricular Findings with Stress * The test was discontinued secondary to foot pain The baseline EKG was normal with PVCs There were no significant ST changes with exercise or recovery PVCs disappeared with exercise and returned in recovery Baseline echocardiogram demonstrated reduced LV systolic function with some regional wall motion abnormalities With exercise there was improvement in all segments without development of new wall motion abnormalities No chest pain during the test Baseline blood pressure was hypertensive with normal blood pressure response to exercise Conti treadmill score: 3 (intermediate risk) Left Ventricular Diastolic Function * Grade I diastolic dysfunction, (abnormal relaxation pattern). Consultations: Cardiology - Dr. Jones Imaging: Chest x-ray did not demonstrate any acute cardiopulmonary process EKG: Normal sinus rhythm without evidence of old myocardial infarction. Single PVC Telemetry reviewed: Frequent PVCs Echocardiogram obtained 12/31/2016: Reduced LV systolic function with an ejection fraction around 45%. Mild LVH. Stage I diastolic dysfunction. Mild to moderate mitral regurgitation. A&P 1. Arm pain: The patient's symptoms most prominently involve left upper arm discomfort. He cannot characterize his chest discomfort very well. Seems to have had a similar presentation in 2011 at which point he underwent coronary angiography. There is no evidence of obstructive disease at that time. He reports having had prolonged episodes over several days. His cardiac biomarkers are normal. His EKG is unremarkable with the exception of PVC. This would suggest a noncardiac etiology or at the very least the absence of an acute coronary syndrome. His echocardiogram is pending this morning. I think he would be well served with noninvasive testing such as a exercise echocardiogram. Whether this could be accomplished during his admission is unclear given the fact that this is the weekend. I think would be safe to discharge him with the objective data already obtained. This test could be range as an outpatient if he cannot be performed today. 2. Coronary artery disease: I do not think his current symptoms are likely to be related to an acute coronary syndrome. He is on secondary prevention to consist of a daily aspirin high-dose atorvastatin, beta-calvin and ARB. 3. Cardiomyopathy: The patient is known to have reduced LV systolic function. The etiology is unclear given normal coronary seen on his most recent angiogram. He does have frequent PVCs and sometimes this can promote reduced LV systolic function. This was demonstrated on multiple echoes over the years. An echocardiogram was ordered today and I will view this when it is available. If he continues to have poor LV systolic function would advocate an increase in his carvedilol dose monitoring his heart rate closely in the outpatient setting. 4. Valvular heart disease: Patient noted to have an element of mitral regurgitation characterized as mild to moderate. This can be monitored over time 5. Hypertension: Patient blood pressure was notably elevated at the time of admission. There are no additional outpatient readings available. He was noted to have high blood pressure during his admission in 2012 as well. He would likely benefit from intensification of his blood pressure regimen and as noted above increasing his carvedilol would have other benefits as well. 6. PVCs: Reviewed the patient's telemetry suggests a frequency around 10%. Frequent PVCs could be an etiology for reduced LV systolic function. He is not appear to be symptomatic otherwise. As noted above an increase in his beta- calvin may be beneficial. Medication Reconciliation New Medications: Atorvastatin (Lipitor) 80 Mg Tab 1 TAB PO DAILY for 30 Days, #30 TAB 0 Refills Carvedilol (Coreg) 6.25 Mg Tab 1 TAB PO BID for 30 Days, #60 TAB 0 Refills Continued Medications: Amlodipine (Norvasc) 10 Mg Tab 10 MG PO QPM, TAB Aspirin (Aspirin Ec) 81 Mg Tab 81 MG PO QPM Dpjqygx-Pjgliseuiyahg-Dypykvdv (Vanquish) 1 Tab Tab 1 TAB PO UD PRN for Headache TAKE PER PACKAGE DIRECTIONS Dutasteride (Avodart) 0.5 Mg Cap 0.5 MG PO QAM, CAP Losartan Potassium (Cozaar) 50 Mg Tab 50 MG PO QPM, TAB Misc Natural Products (Osteo Bi-Flex Advanced Tr) 1 Tab Tab 1 TAB PO BID Multiple Vitamin (Multivitamin) 1 Tab Tab 1 TAB PO BID, TAB Terazosin (Hytrin) 5 Mg Cap 5 MG PO BID, CAP Discontinued Medications: Carvedilol (Coreg) 3.125 Mg Tab 3.125 MG PO BID, TAB Discharge Exam Pt reports no chest pain symptoms or left arm discomfort on day of discharge. Left arm tingling has resolved. Resting comfortably in bed. Says that he came to the ED not because the discomfort was getting worse, but because it had been going on for a few days and he thought he should go on ahead and go in to the ED. Denies chest pain, orthopnea, difficulty breathing, diaphoresis, reflux, leg swelling. ROS See HPI for pertinent positives and negatives. PE GENERAL: Awake, alert, well-appearing, in no distress. Obese. HENT: Normocephalic, atraumatic. EYES: Normal conjunctiva. Sclera non-icteric. NECK: Supple. FROM. No JVD. RESPIRATORY: Clear to auscultation. CARDIAC: Regular rate, normal rhythm. Extremities warm and well perfused. Pulses equal. ABDOMEN: Soft, non-distended. No tenderness to palpation. No rebound or guarding. No masses. LOWER EXTREMITIES: Calves are equal size bilaterally and non-tender. No edema. No discoloration. NEURO: No motor deficits noted. SKIN: No rash or jaundice noted. Hospital Course Mr. Paris is 72M here for 4 day h/o intermittent mid chest discomfort with left arm radiation, tingling. EKG and telemetry monitoring show 10% PVC's. Trop x 3 negative. Stress echo done, report as above. PMH includes: Coronary artery disease status post PCI to the right coronary artery in 2007 Taxus 3.5 x 32 and taxus 3.5 x 12 stents Repeat cardiac catheterization in 2011 for symptoms of left shoulder pain. Patent stents. No obstructive disease. Reduced LV systolic function with ejection fraction of 45-50% Benign prostatic hypertrophy Umbilical hernia Hypertension DVT Past surgical history Umbilical hernia repair Trans urethral resection of the prostate Right foot surgery Chest pain - found to be non cardiac. Given symptoms of radiation, likely reflux-induced. Acid reduction can be considered. Dyslipidemia - pt's lipids are not in the ideal range given his comorbidities -- discussed at length pt's willingness to increase exercise and also to modify diet to include less saturated fats. Pt is in pre-contemplation stage, and frankly expressed little desire at this point to change his diet in spite of the benefits. Decision was made to increase his lipitor from 40 to 80 in order to decrease risk. TG 222 Tot chol 158 LDL 70 HDL 44 A1C 5.5 HTN - per Dr. Jones, given pt's blood pressure readings (SBP 220's in the ED) as well as echo findings of increased LVH, Carvedilol has been increased as above. Dr. Jones will see pt in outpatient office in 1-2 weeks to reassess medication changes. BPH - continue home meds, no changes made. Resident Physician Supervision Note: I interviewed and examined the patient. Discussed with Dr. Little and agree with findings and plan as documented in the note. Any exceptions or clarifications are listed here: None Documented By: Adolfo Jonas feeling bettter chest pain gone cardiac enzymes negative stress echo negative vitlas noted nad breathing unlabored no pallor or icterus nonHDL 114, goal at least less than 100, ideally less than 85 - he expresses an honest lack of willingness to change lifestyle cp - either indigestion or muscular - difficult to determine, however, is gone and is clearly noncardiac - stable for discharge hyperlipidemia - as above noted non-HDL still not at goal. he's not going to do lifestyle change (thanked him for his honesty) - raise lipitor to 80mg to reduce risk further given his established CAD stable for home Total Time Spent: Greater than 30 minutes This includes examination of the patient, discharge planning, medication reconciliation, and communication with other providers. Discharge Instructions Please refer to the electronic Patient Visit Report (Discharge Instructions) for additional information. Additional Copies To Royce Jones MD; Jayro Swartz M.D. Resident Tracking Resident Involvement: Resident Care Provided Care Provided: Adult Hospital Medicine
--- NOTE | 2017-12-21 12:21 | DOBUTAMINE ECHO ---
*NOTICE TO RECEIVING CONSTITUTION PARTY AGENCY This information is strictly Confidential and protected under [place] law. [place] law prohibits you from making any further disclosure of this information unless further disclosure is expressly permitted by the written consent of the person to whom it pertains or is authorized by law. A general authorization for the release of medical or other information is not sufficient for this purpose. Hospital accepts no responsibility if the information is made available to any other person, INCLUDING THE PATIENT. Interpretation Summary * Name: BESSY DUNHAM II Study Date: 12/21/2017 10:01 AM BP: 161/95 mmHg * Patient Location: [facility]\S\N289\S\2 HR: 71 * : 1945 (M/d/yy) Gender: Male Height: 75 in * Age: 72 yrs Ethnicity: [place] Weight: 275 lb * Ordering Physician: Lorrie Little * Referring Physician: Self, Referred * Performed By: Damari Hernandez RDCS * * Reason For Study: CHEST PAIN * BSA: 2.5 m2 * -- Conclusions -- * The left ventricle is mildly dilated. * There is mild concentric left ventricular hypertrophy. * Left ventricular systolic function is moderately reduced. * The left atrium is moderately dilated. * There is mild to moderate mitral regurgitation. * Right ventricular systolic pressure is normal. * Grade I diastolic dysfunction, (abnormal relaxation pattern). * No evidence of inducible ischemia at the workload achieved * Baseline hypertension * PVCs improved with exercise and returned in recovery * Poor exercise tolerance * Compared to an echocardiogram performed nearly 1 year ago, there has been worsening of the LV systolic function. Procedure Details * ECHOEX, CPT #99171 * A contrast injection of Definity was performed to improve assessment of LV function. * Contrast was injected into an intravenous site in the left arm. * One vial of Definity ultrasound contrast was diluted in normal saline to a total volume of 10 ml. A total of '4' ml of solution was administered during imaging. * Lot # [id number] of Definity utilized for procedure. * Expiration date NOV 18. * The attending nurse who injected the contrast agent was DR EBONI CALIXTO RN. Left Ventricular Findings with Stress * No evidence of inducible ischemia at the workload achieved Baseline hypertension PVCs improved with exercise and returned in recovery Poor exercise tolerance Left Ventricle * The left ventricle is mildly dilated. * There is mild concentric left ventricular hypertrophy. * Left ventricular systolic function is moderately reduced. * Ejection Fraction = 30-35%. * At baseline there is global hypokinesis with more severe hypokinesis involving the inferior and posterior segments Right Ventricle * The right ventricle is grossly normal size. * The right ventricular systolic function is normal as assessed by tricuspid annular plane systolic excursion (TAPSE) (normal >1.5 cm). Atria * The left atrium is moderately dilated. * Right atrial size is normal. Mitral Valve * The mitral valve anatomy is normal. * There is mild to moderate mitral regurgitation. * The mitral regurgitant jet is posteriorly directed, which is consistent with anterior leaflet pathology. Tricuspid Valve * The tricuspid valve is not well visualized, but is grossly normal. * There is mild tricuspid regurgitation. * Right ventricular systolic pressure is normal. Aortic Valve * The aortic valve is normal in structure and function. * There is no significant aortic regurgitation. Great Vessels * The aortic root is normal size. Pericardium * There is no pericardial effusion. Stress Parameters * Normal baseline electrocardiogram. * Stress ECG: No ST changes. No arrhythmias. * The stress portion of this study was personally supervised by the undersigned interpreting physician. * Rest heart rate was '71' BPM. * Rest blood pressure was '161/95' * Maximum heart rate achieved was 137 bpm. * Maximum heart rate was 91 % of maximum age-predicted heart rate. * Maximum blood pressure was '186/96' * Total exercise time was '3:03' * Maximum exercise MET level achieved was '4.60' METS * Maximum treadmill speed was '2.5' miles per hour. * Maximum treadmill elevation was '11.6'% grade. * Exercise was terminated due to 'ACHIEVING TARGET HR' Left Ventricular Findings with Stress * The test was discontinued secondary to foot pain The baseline EKG was normal with PVCs There were no significant ST changes with exercise or recovery PVCs disappeared with exercise and returned in recovery Baseline echocardiogram demonstrated reduced LV systolic function with some regional wall motion abnormalities With exercise there was improvement in all segments without development of new wall motion abnormalities No chest pain during the test Baseline blood pressure was hypertensive with normal blood pressure response to exercise Conti treadmill score: 3 (intermediate risk) Left Ventricular Diastolic Function * Grade I diastolic dysfunction, (abnormal relaxation pattern). MMode 2D Measurements and Calculations IVSd 1.4 cm IVSs 1.8 cm LVIDd 5.7 cm LVIDs 4.4 cm LVPWd 1.4 cm LVPWs 2.6 cm IVS/LVPW 0.96 FS 22.9 % EDV(Teich) 159.2 ml ESV(Teich) 87.0 ml EF(Teich) 45.4 % EDV(cubed) 184.0 ml ESV(cubed) 84.3 ml EF(cubed) 54.2 % % IVS thick 31.0 % % LVPW thick 83.6 % LV mass(C)d 357.3 grams LV mass(C)dI 142.2 grams/m\S\2 LV mass(C)s 500.1 grams LV mass(C)sI 199.0 grams/m\S\2 SV(Teich) 72.3 ml SI(Teich) 28.8 ml/m\S\2 SV(cubed) 99.7 ml SI(cubed) 39.7 ml/m\S\2 Ao root diam 3.6 cm Ao root area 10.1 cm\S\2 LA dimension 4.8 cm LA/Ao 1.3 LVAd ap4 52.5 cm\S\2 LVLd ap4 10.0 cm EDV(MOD-sp4) 229.7 ml EDV(sp4-el) 233.7 ml LVAs ap4 37.5 cm\S\2 LVLs ap4 9.1 cm ESV(MOD-sp4) 136.0 ml ESV(sp4-el) 130.9 ml EF(MOD-sp4) 40.8 % EF(sp4-el) 44.0 % SV(MOD-sp4) 93.7 ml SI(MOD-sp4) 37.3 ml/m\S\2 SV(sp4-el) 102.9 ml SI(sp4-el) 40.9 ml/m\S\2 Doppler Measurements and Calculations MV E max derrick 58.9 cm/sec MV A max derrick 110.5 cm/sec MV E/A 0.53 MV dec time 0.28 sec Ao V2 max 127.2 cm/sec Ao max PG 6.5 mmHg Ao max PG (full) 4.8 mmHg LV V1 max PG 1.7 mmHg LV V1 max 65.4 cm/sec MR max derrick 599.6 cm/sec MR max PG 143.8 mmHg TR max derrick 200.7 cm/sec
[2017-12-21 12:52] VITALS: BP 137/82; PULSE 64; TEMP 36.7; O2SAT 94
[2017-12-21] MEDS ORDERED: ATOR-26 PO (14:08)
== END 2017-12-21 14:30 | disposition home or self-care (01) ==
LOC: C.EDB 18:32 → C.MED 20:47 → ENRESERV 21:38
PROVIDERS: ADMIT Hospitalist; ATTEND Hospitalist
DX: R07.89 Other chest pain (principal); I25.10 Atherosclerotic heart disease of native coronary artery without angina pectoris; N40.0 Benign prostatic hyperplasia without lower urinary tract symptoms; I10 Essential (primary) hypertension; E78.5 Hyperlipidemia, unspecified; E66.9 Obesity, unspecified; Z68.35 Body mass index [BMI] 35.0-35.9, adult; I25.2 Old myocardial infarction; Z86.718 Personal history of other venous thrombosis and embolism; Z79.899 Other long term (current) drug therapy; Z79.82 Long term (current) use of aspirin; Z88.8 Allergy status to other drugs, medicaments and biological substances; Z80.42 Family history of malignant neoplasm of prostate; Z82.49 Family history of ischemic heart disease and other diseases of the circulatory system

== ENCOUNTER → 2018-01-27 | Outpatient (CLI) | payer BC ==
[~2018-01-27] MED LIST changes: -ACET-1257 PO; +ASPI81TA28 PO; -ATOR-24 PO; +ATOR-26 PO; -CARV3.122 PO; +CARV6.252 PO; -DOCU100C31 PO; +DUTA0.5C PO; +MULTTAB58 PO; -RIVA1.5T PO; -RIVA1TAB4 PO
[2018-01-27 09:36] LABS: ALBUMIN 4.1 gm/dl (3.4-5.0); ALT/SGPT 32 U/L (12-78); AST/SGOT 16 U/L (15-37); BLOOD UREA NITROGEN 23 mg/dl (7-18); CALCIUM 8.7 mg/dl (8.5-10.1); CARBON DIOXIDE 29 mmol/L (21-32); CREATININE 1.05 mg/dl (0.60-1.40); GLUCOSE 101 mg/dl (70-99); POTASSIUM 3.7 mmol/L (3.5-5.1); SODIUM 143 mmol/L (136-145)
[2018-01-27 09:39] LABS: ALKALINE PHOSPHATASE 88 U/L (45-117); TOTAL PROTEIN 7.3 gm/dl (6.4-8.2)
[2018-01-27 09:49] LABS: HEMOGLOBIN A1C 5.4 % (4.5-5.6)
== END | disposition home or self-care (01) ==
LOC: C.LAB 06:56
PROVIDERS: ATTEND Family Medicine
DX: R73.01 Impaired fasting glucose (principal)

== ENCOUNTER 2019-04-19 23:39 | Inpatient (IN) ==
--- OUTSIDE RECORDS SUMMARY | 2019-04-19 23:41 | External Medical Summary | Continuity of Care Document ---
:1945 Author Name Terrence Bravo, Provider Address Unavailable Unavailable , Care Team Providers Name Role Phone Kathy Bravo, [email or web address] Assessments Assessed Problems:BPH (benign prostatic hyperplasia) Problems Encounter for prostate cancer screening (V76.44) (Z12.5) Enlarged prostate with lower urinary tract symptoms (LUTS) ( 600.01) (N40.1) BPH (benign prostatic hyperplasia) (600.00) (N40.0) Umbilical hernia (553.1) (K42.9) Post-traumatic seroma (729.91) (T79.2XXA) Headache (784.0) (R51) Nocturia (788.43) (R35.1) Elevated prostate specific antigen (PSA) (790.93) (R97.20) CAD (coronary artery disease) (414.00) (I25.10) Chest pain (786.50) (R07.9) Allergies and Adverse Reactions enalapril (Allergy) Reaction: Cough Medications Aspirin 81 MG TABS; TAKE 1 TABLET DAILY. Refills: 0 Carvedilol 6.25 MG Oral Tablet; TAKE 1 T ABLET TWICE DAILY, WITH MORNING AND EVENING MEAL Lawrence Jones Quantity: 180 Refills: 3 Dutasteride 0.5 MG Oral Capsule; TAKE ONE CAPSULE BY OUT ONCE DAILY. Lawrence Chavez Start: 10-Aug-2013 Quantity: 90 Refills: 3 Multivitamins TABS; TAKE 1 TABLET TWICE DAILY. Refills: 0 Osteo Bi-Flex Adv Triple St Oral Tablet; TAKE 1 TABLET TWICE DAILY DIRECTED. Refills: 0 Atorvastatin Calcium 80 MG Oral Tablet; TAKE 1 TABLET AT BED TIME. Quantity: 90 Refills: 3 amLODIPine Besylate 10 MG Oral Tablet; TAKE 1 TABLET DAILY. Quantity: 90 Refills: 3 Vanquish 227-194-33 MG Oral Tablet; USE DIRECTED. Refills: 0 Losartan Potassium 100 MG Oral Tablet; TAKE 1 TABLET B Y MOUTH EVERY DAY Lawrence Jones Quantity: 90 Refills: 3 Terazosin HCl - 5 MG Oral Capsule; TAKE 1 CAPSULE AT B EDTIME NIGHTLY. Lawrence Chavez Start: 10-Aug-2013 Quantity: 90 Refills: 3 Procedures History of foot surgery Status: Complete d History of transurethral prostate incision Status: Completed History of Hernia Repair Status: Complet ed Immunizations Immunizations not documented Family History Unknown Family Member Family history of cardiac disorder (V17.49) Status: Active Comments: Family History (Z82.49) Family history of hypertension (V17.49) Status: Active Comments: Family History (Z82.49) Social History - Smoking Status Former smoker Interventions Follow-ups/ReferralsFollow-up visit in 1 year; Done: 10 Sep 2018 Discussion/SummaryAssessmentLower urinary tract symptomsDiscussed trying an anticholinergic or Myrbetriq patient does not want more medicationAlso discussed surgery which patient does not wantAre 2. Prostate cancer screening-PSA normal [place] without nodularity Plan of Treatment Planned Observations Total PSA Start: 31-Jul-2019 Intent Results No Known Results Results not documented Encounters Appointment; Royce Jones M.D. 06-Jan-2018 10:45 Encounter Diagnosis: Problem not documented Appointment; Antonio Chavez M.D. 12-Aug-2017 15:00 Encounter Diagnosis: Problem not documented Appointment; Antonio Chavez M.D. 27-Aug-2018 16:45 Encounter Diagnosis: Problem not documented
[2019-04-20 00:15] LABS: Basophils # (auto) 0.03 K/uL (0-0.2); Basophils % (auto) 0.3 %; Eosinophils # (auto) 0.07 K/uL (0-0.5); Eosinophils % (auto) 0.8 %; Hematocrit (blood only) 31.9 % (42-52); Hemoglobin 11.1 g/dL (14.0-18.0); Immature Granulocytes # (auto) 0.03 K/uL (0.00-0.02); Immature Granulocytes % (auto) 0.3 %; Lymphocytes # (auto) 1.62 K/uL (1.2-3.4); Lymphocytes % (auto) 17.8 %; Mean Corpuscular Hemoglobin 31.4 pg (25-34); Mean Corpuscular Hgb Conc 34.8 g/dL (32-36); Mean Corpuscular Volume 90.4 fL (80-100); Mean Platelet Volume 10.6 fL (7.4-10.4); Monocytes # (auto) 0.48 K/uL (0.11-0.59); Monocytes % (auto) 5.3 %; Neutrophils # (auto) 6.88 K/uL (1.4-6.5); Neutrophils % (auto) 75.5 %; Platelet Count 169 K/uL (130-400); RDW Coefficient of Variation 13.3 % (11.5-14.5); RDW Standard Deviation 43.8 fL (36.4-46.3); Red Blood Count 3.53 M/uL (4.7-6.1); White Blood Count 9.11 K/uL (4.8-10.8)
[2019-04-20 00:34] LABS: Albumin Level 3.3 gm/dl (3.4-5.0); BUN Creatinine Ratio 59.2 (10-20); Calcium 8.9 mg/dl (8.5-10.1); Creatinine Clr Calc Pharmacy 74.6 ml/min; Est GFR (African American) 62.7; Est GFR (Non-African American) 54.1; Magnesium 1.9 mg/dl (1.8-2.4); Potassium 4.7 mmol/L (3.5-5.1)
[2019-04-20 00:45] LABS: Albumin Globulin Ratio 1.3 (0.9-2); Bilirubin,Total 0.5 mg/dl (0.2-1); Globulin 2.6 gm/dl (2.5-4.0); Thyroid Stimulating Hormone 2.5 uIu/ml (0.300-4.500); Total Protein 5.9 gm/dl (6.4-8.2); Troponin I 0.023 ng/ml (0-0.045)
[2019-04-20] MEDS ORDERED: PANTOprazole 80 MG in DEXTROSE 5% 100 ML IV STA (01:14)
[2019-04-20] MEDS ORDERED: SODIUM CHLORIDE 0.9% 500 ML IV ONE (01:27)
[2019-04-20] MEDS ORDERED: PANTOprazole 40 MG in DEXTROSE 5% 100 ML IV SCH (01:30)
[2019-04-20] MEDS ORDERED: LORazepam 1 MG/2 ML VIAL IV STA (02:02)
[2019-04-20] MEDS ORDERED: OPTIRAY 320 125ml IV PRN (02:56)
--- NOTE | 2019-04-20 03:37 | Emergency Department Note ---
Entered by Flavia Carreon acting as a scribe for History of Present Illness General Chief complaint: Respiratory Problems Stated complaint: HAVING A HARD TIME BREATHING Time Seen by Provider: 04/19/19 23:45 Source: patient Limitations: no limitations History of Present Illness Onset (ago): hour(s) 10 Location: chest Severity: severe Pain Consistency: + other (worsening) Quality: + other (SOB) Associated symptoms: + denies other symptoms (abdominal pain, a bitter/metallic taste in his mouth, and hemoptysis) and + other ("tar" diarrhea and hematochezia) The patient is a 74 year old male who presents to the Emergency Room with complaints of worsening shortness of breath that began this afternoon at 1400, about 10 hours ago. The patient describes the SOB as severe. He notes that he's had intermittent SOB for the past few weeks. The patient complains of "black tar" diarrhea and hematochezia. States he has had black stools intermittently over the last couple weeks, then today when he developed diarrhea they were initially black and then progressed to bright red blood. States decreased appetite, however no overt nausea or vomiting. He denies any abdominal pain, a bitter/metallic taste in his mouth, and hemoptysis. The patient notes that he takes a baby Aspirin daily. States he also frequent uses an aspirin based product almost daily for headaches. No other current anticoagulation. No r ecent travel or sick contacts. Patient admits to lightheadedness with position change and standing. Home Medications Home Medications Medication Instructions Recorded Confirmed Type amlodipine 10 mg PO QPM 04/20/19 04/20/19 History aspirin 81 mg PO DAILY 04/20/19 04/20/19 History atorvastatin 80 mg PO DAILY 04/20/19 04/20/19 History carvedilol 6.25 mg PO BID 04/20/19 04/20/19 History dutasteride 0.5 mg PO QAM 04/20/19 04/20/19 History losartan 50 mg PO QPM 04/20/19 04/20/19 History multivitamin [Multiple Vitamins] 1 tab PO DAILY 04/20/19 04/20/19 History terazosin 5 mg PO BID 04/20/19 04/20/19 History Allergies Allergy/AdvReac Type Severity Reaction Status Date / Time enalapril AdvReac Mild cough Verified 04/20/19 01:02 Past Med/Surg History Medical History Upper abdominal pain (Acute) Ventral hernia (Acute) Elevated troponin (Acute 03/11/14) Upper abdominal pain (Acute) Acute DVT (deep venous thrombosis) CAD (coronary artery disease) CHF (congestive heart failure) Hypertension Mitral regurgitation Obesity SOB (shortness of breath) Surgical History Postoperative state (Acute 12/04/13) History of back surgery (Acute) History of hernia surgery (Acute) History of cardiac cath 2008 RCA stent x2. Social History Preferred Language: Lebanese Beliefs That Will Affect Care: None Current Living Situation: Spouse Other Information That Helps Us Care for You: No Feels Safe at Home: Yes Safety Concerns: Feels Safe At This Time Smoking Status: Former smoker Hx Alcohol Use: Yes Alcohol type: beer Hx Substance Use: No Review of Systems See HPI for pertinent positives & negatives. and A total of 10 systems reviewed and were otherwise negative Physical Exam Vital Signs Vital Signs - 24 hr 04/20/19 04:23 Pulse Rate [Finger] 90 Respiratory Rate 18 Blood Pressure [Right Arm] 118/73 Blood Pressure Mean [Right Arm] 88 Pulse Oximetry 95 Oxygen Delivery Method Nasal Cannula Oxygen Flow Rate 2 GENERAL: alert, uncomfortable appearing, well nourished, no distress, non-toxic EYE EXAM: normal conjunctiva, PERRL and EOM's grossly intact OROPHARYNX: no exudate, no erythema, lips, buccal mucosa, and tongue normal and mucous membranes are moist NECK: supple, no nuchal rigidity, no adenopathy, non-tender LUNGS: Clear to auscultation. Normal chest wall mechanics. No wheezes, rhonchi, or rales. HEART: no murmurs, S1 normal and S2 normal ABDOMEN: abdomen soft, non-tender, normo-active bowel sounds, no masses, no rebound or guarding. BACK: Back is symmetrical on inspection and there is no deformity, no midline tenderness, no CVA tenderness. SKIN: no rashes and no bruising UPPER EXTREMITIES: upper extremities are grossly normal. FROM, nml pulses b/l. LOWER EXTREMITIES: 1+ lower extremity edema bilaterally. FROM, nml pulses b/l. RECTAL EXAM: Melena. Heme positive on guaiac testing. No large hemorrhoids or anal fissures. NEURO EXAM: Normal sensorium, cranial nerves II-XII grossly intact, normal speech, no gross weakness of arms, no gross weakness of legs. Course 2351: The patient was evaluated in room B08. A complete history and physical exam was performed. 0050: I checked on the patient, but he was in the restroom. 0009: I reevaluated the patient. When patient was coming back out of the bathroom again after having another black stool, he stated he felt he was going to pass out. Pt appeared pale, diaphoretic, and syncopal. The nurse and myself assisted him back into bed. We immediately checked his vitals and restarted IVF. After several minutes of sitting supine, the patient stated that he felt improved. No seizure-like activity. 0225: Patient required Ativan to assist in getting the CAT scans due to extreme claustrophobia. Awaiting results. Patient hemodynamically stable at this time. 0354: I reassessed the patient. Vital signs stable. Heart rate 92. Pulse ox. 96. No abdominal pain at this time. I updated the patient on all of his results. The patient was still slightly groggy from Ativan given at the time of CAT scan. 0443: I spoke with Dr. Lama, [facility] hospitalist, about the patient's case. He will further evaluate the patient. Consultations Consultation #1: I spoke with Dr. Lama, [facility] hospitalist, about the patient's case. He will further evaluate the patient. Time: 04:43 Administered Medications Discontinued Medications Atorvastatin Calcium (Lipitor) 80 mg PO DAILY PENDING SALE TO [facility] Stop: 05/20/19 08:59 Last Admin: 04/20/19 08:53 Dose: 80 mg Documented by: [id number] Epinephrine HCl (Epinephrine) Confirm Administered Dose 1 mg IV .STK-MED ONE Stop: 04/20/19 11:42 Last Admin: 04/20/19 13:18 Dose: Not Given Documented by: [id number] Pantoprazole Sodium 80 mg/ (Dextrose) 120 mls @ 480 mls/hr IV NOW STA Stop: 04/20/19 01:28 Last Infusion: 04/20/19 01:39 Dose: 0 mls/hr Documented by: [id number] Admin: 04/20/19 01:24 Dose: 480 mls/hr Documented by: [id number] Pantoprazole Sodium 40 mg/ (Dextrose) 100 mls @ 20 mls/hr IV Q5H JEWEL Stop: 04/20/19 06:29 Last Infusion: 04/20/19 07:44 Dose: 0 mls/hr Documented by: [id number] Admin: 04/20/19 02:39 Dose: 20 mls/hr Documented by: [id number] Sodium Chloride (Nss) 500 mls @ 999 mls/hr IV .Q31M ONE Stop: 04/20/19 01:57 Last Infusion: 04/20/19 02:29 Dose: 0 mls/hr Documented by: [id number] Admin: 04/20/19 01:27 Dose: 999 mls/hr Documented by: [id number] Lorazepam (Ativan) 1 mg in 2 mls @ 2 mls/min IV NOW STA Stop: 04/20/19 02:03 Last Admin: 04/20/19 02:08 Dose: 2 mls/min Documented by: [id number] Famotidine 20 mg/ Syringe 5 mls @ 2.5 mls/min IV Q12H JEWEL Stop: 05/20/19 08:59 Last Admin: 04/20/19 08:54 Dose: 2.5 mls/min Documented by: [id number] Potassium Chloride/Sodium Chloride (Normal Saline W/20 Meq Kcl) 20 meq in 1,000 mls @ 80 mls/hr IV .[id number] JEWEL Stop: 05/20/19 05:59 Last Infusion: 04/20/19 15:31 Dose: 0 mls/hr Documented by: [id number] Infusion: 04/20/19 06:53 Dose: 0 mls/hr Documented by: [id number] Admin: 04/20/19 06:53 Dose: 80 mls/hr Documented by: [id number] Sodium Chloride (Nss 1000ml) 1,000 mls @ 80 mls/hr IV .[id number] JEWEL Stop: 05/20/19 15:29 Last Admin: 04/20/19 15:39 Dose: 80 mls/hr Documented by: [id number] Ioversol (Optiray 320 125ml) 125 ml IV ONCE PRN PRN Reason: Interaction Checking Stop: 04/24/19 02:55 Last Admin: 04/20/19 02:57 Dose: 119 ml Documented by: [id number] Lidocaine HCl (Xylocaine 2%) Confirm Administered Dose 2 ml INFIL .STK-MED ONE Stop: 04/20/19 11:39 Last Admin: 04/20/19 13:18 Dose: Not Given Documented by: [id number] Pneumococcal Polyvalent Vaccine (Pneumovax-23) 25 mcg IM .ONCE ONE Stop: 04/20/19 08:01 Last Admin: 04/20/19 15:42 Dose: 25 mcg Documented by: [id number] Propofol (Diprivan) Confirm Administered Dose 200 mg IV .STK-MED ONE Stop: 04/20/19 11:39 Last Admin: 04/20/19 13:18 Dose: Not Given Documented by: [id number] Propofol (Diprivan) Confirm Administered Dose 200 mg IV .STK-MED ONE Stop: 04/20/19 11:39 Last Admin: 04/20/19 13:18 Dose: Not Given Documented by: [id number] Medical Decision Making Differential Diagnosis Etiologies such as infections, reactive airway disease, COPD, pneumonia, pleural effusion, pulmonary edema, ARDS, pneumothorax, CHF, cardiac ischemia, cardiac tamponade, dysrhythmia, anemia, pulmonary embolism, musculoskeletal, gastrointestinal process, esophagitis, variceal bleed, Boerhaaves, Adams-Mendoza tear, gastritis, peptic ulcer disease, AVM, inflammatory bowel disease, ischemia, diverticulosis, colitis, malignancy, coagulopathy, thrombocytopenia, fissure, hemorrhoid, epistaxis , as well as others were entertained. Medical Records Attestation: I reviewed the patient's medical records. Home Medications Current Medication List: was personally reviewed by me Laboratory Data Attestation: I reviewed the patient's lab results. Result diagrams: 04/20/19 15:16 04/20/19 00:01 Lab Results 04/20/19 04/20/19 04/20/19 Range/Units 00:01 00:01 00:01 WBC 9.11 (4.8-10.8) K/uL RBC 3.53 L (4.7-6.1) M/uL Hgb 11.1 L (14.0-18.0) g/dL Hct 31.9 L (42-52) % MCV 90.4 (80-100) fL MCH 31.4 (25-34) pg MCHC 34.8 (32-36) g/dL RDW Std Deviation 43.8 (36.4-46.3) fL RDW Coeff of Ashlyn 13.3 (11.5-14.5) % Plt Count 169 (130-400) K/uL MPV 10.6 H (7.4-10.4) fL Immature Gran % (Auto) 0.3 % Neut % (Auto) 75.5 % Lymph % (Auto) 17.8 % Shackelford % (Auto) 5.3 % Eos % (Auto) 0.8 % Baso % (Auto) 0.3 % Immature Gran # (Auto) 0.03 H (0.00-0.02) K/uL Neut # (Auto) 6.88 H (1.4-6.5) K/uL Lymph # (Auto) 1.62 (1.2-3.4) K/uL Shackelford # (Auto) 0.48 (0.11-0.59) K/uL Eos # (Auto) 0.07 (0-0.5) K/uL Baso # (Auto) 0.03 (0-0.2) K/uL Sodium 144 (136-145) mmol/L Potassium 4.7 (3.5-5.1) mmol/L Chloride 111 H (98-107) mmol/L Carbon Dioxide 24 (21-32) mmol/L Anion Gap 9.0 (3-11) BUN 77 H (7-18) mg/dl Creatinine 1.30 (0.6-1.4) mg/dl Est Cr Clr Drug Dosing 74.6 ml/min Est GFR ( Amer) 62.7 Est GFR (Non-Af Amer) 54.1 BUN/Creatinine Ratio 59.2 H (10-20) Glucose 179 H (70-99) mg/dl POC Lactic Acid José Antonio (0.90-1.70) mmol/L Calcium 8.9 (8.5-10.1) mg/dl Magnesium 1.9 (1.8-2.4) mg/dl Total Bilirubin 0.5 (0.2-1) mg/dl AST 9 L (15-37) U/L ALT 22 (12-78) U/L Alkaline Phosphatase 60 (45-117) U/L Troponin I 0.023 (0-0.045) ng/ml NT-Pro-B Natriuret Pep 179 (0-900) pg/ml Total Protein 5.9 L (6.4-8.2) gm/dl Albumin 3.3 L (3.4-5.0) gm/dl Globulin 2.6 (2.5-4.0) gm/dl Albumin/Globulin Ratio 1.3 (0.9-2) Lipase 90 (73-393) U/L TSH 2.500 (0.300-4.500) uIu/ml Blood Type A Negative Antibody Screen NEGATIVE Crossmatch See Detail 04/20/19 Range/Units 00:03 WBC (4.8-10.8) K/uL RBC (4.7-6.1) M/uL Hgb (14.0-18.0) g/dL Hct (42-52) % MCV (80-100) fL MCH (25-34) pg MCHC (32-36) g/dL RDW Std Deviation (36.4-46.3) fL RDW Coeff of Ashlyn (11.5-14.5) % Plt Count (130-400) K/uL MPV (7.4-10.4) fL Immature Gran % (Auto) % Neut % (Auto) % Lymph % (Auto) % Shackelford % (Auto) % Eos % (Auto) % Baso % (Auto) % Immature Gran # (Auto) (0.00-0.02) K/uL Neut # (Auto) (1.4-6.5) K/uL Lymph # (Auto) (1.2-3.4) K/uL Shackelford # (Auto) (0.11-0.59) K/uL Eos # (Auto) (0-0.5) K/uL Baso # (Auto) (0-0.2) K/uL Sodium (136-145) mmol/L Potassium (3.5-5.1) mmol/L Chloride (98-107) mmol/L Carbon Dioxide (21-32) mmol/L Anion Gap (3-11) BUN (7-18) mg/dl Creatinine (0.6-1.4) mg/dl Est Cr Clr Drug Dosing ml/min Est GFR ( Amer) Est GFR (Non-Af Amer) BUN/Creatinine Ratio (10-20) Glucose (70-99) mg/dl POC Lactic Acid José Antonio 1.98 H (0.90-1.70) mmol/L Calcium (8.5-10.1) mg/dl Magnesium (1.8-2.4) mg/dl Total Bilirubin (0.2-1) mg/dl AST (15-37) U/L ALT (12-78) U/L Alkaline Phosphatase (45-117) U/L Troponin I (0-0.045) ng/ml NT-Pro-B Natriuret Pep (0-900) pg/ml Total Protein (6.4-8.2) gm/dl Albumin (3.4-5.0) gm/dl Globulin (2.5-4.0) gm/dl Albumin/Globulin Ratio (0.9-2) Lipase (73-393) U/L TSH (0.300-4.500) uIu/ml Blood Type Antibody Screen Crossmatch Imaging Data Attestation: I personally reviewed and interpreted this imaging study as follows: My Impression: XR CHEST 1V: No cardiomegaly. No effusions. No wide mediastinum. Patient rotated. No focal consolidation. No pulmonary edema. Radiologist's Impression: Radiology results as stated below per my review and the radiologist's interpretation: CTA CHEST: Evaluation for pulmonary emboli is somewhat limited due to poor opacification of the pulmonary arteries. No definite evidence of pulmonary emboli. No aortic dissection or aneurysm. Diffuse coronary artery calcifications. No acute airspace opacities. No pleural effusions or pneumothorax. Radiologist: Rosa Davenport MD Study ready at 03:08 and initial results transmitted at 03:24 CT ABDOMEN & PELVIS With Contrast: Diverticulosis of the sigmoid without diverticulitis. No bowel wall thickening or obstruction. Normal appendix. No free air or free fluid. Prostatomegaly. Recommend correlation with PSA. Multilevel degenerative changes of the spine. Expected postoperative changes from L5-S1 posterior fusion. Moderate atherosclerosis. No other findings. Study ready at 03:08 and initial results transmitted at 03:28. ECG Data Attestation: I personally reviewed and interpreted this ECG as follows: Indication: SOB/dyspnea Rate (beats per minute): 97 Rhythm: sinus rhythm Findings: + other (normal axis, normal QRS, normal QTC) and + PVC (frequent PVCs); no acute ischemic change Blood Pressure Blood Pressure Findings: Elevated blood pressure Blood Pressure Disposition: further management by hospitalist [facility] Narrative Pt here ill appearing with initial complaints of SOB. After additional questioning, pt admitted to melena over the last several weeks. Pt had two episodes here and an episode of near syncope walking out of the bathroom. H/H initially showed mild anemia. Pt orthostatic but improved with IVF. Pt started on protonix bolus/drip. I discussed with him all results and need for additional inpatient mgmt and treatment. He verbalized understanding and was in agreement with plan. VS stable otherwise while in the ER and no recurrent episodes of melena, no emesis, pt afebrile. No other evidence of pulmonary or cardiac etiology of his dyspnea. No other acute GI pathology contributing to GI bleed. Impression & Plan GI bleed, Dyspnea, Hyperglycemia, Anemia, Elevated BUN, Near syncope Critical Care Time Critical Care Time: Yes Total Critical Care Time: 45 I have personally spent 45 minutes of critical care time in the direct management of this patient. This includes bedside care, interpretation of diagnostic studies, and testing, discussion with consultants, patient, and family members, and other required patient management activities. This 45 minutes is in excess of all separately billable procedures. Discharge Plan Visit Data *Final* Discharge Date/Time: 04/20/19 04:59 Chief Complaint: Respiratory Problems Stated Complaint: HAVING A HARD TIME BREATHING ED Provider: Ericka Koch Discharge Problem: GI bleed, Dyspnea, Hyperglycemia, Anemia, Elevated BUN, Near syncope Patient Disposition: Admitted As Inpatient Condition: Fair Discharge Instructions Interventions: ED Discharge Assessment Last Done: 04/20/19 04:59 Discharge Problem: GI bleed Qualifiers: GI bleed type/associated pathology: melena Qualified Code(s): K92.1 - Melena Dyspnea Qualifiers: Dyspnea type: dyspnea on exertion Qualified Code(s): R06.09 - Other forms of dyspnea Anemia Qualifiers: Anemia type: unspecified type Qualified Code(s): D64.9 - Anemia, unspecified The scribe's documentation has been prepared under my direction and personally reviewed by me in its entirety. I confirm that the note above accurately reflects all work, treatment, procedures, and medical decision making performed by me.
--- NOTE | 2019-04-20 04:19 | History & Physical Report ---
Date of Service April 20, 2019 Assessment & Plan (1) GI bleed: 74 y/o M Hx CAD, CHF (35%), DVT/PE, HTN, HLD, BPH. The pt presents with SOB x 2 weeks which became acutely worse the afternoon prior to admission. He also states that he has been having black stools x 2 weeks and today developed diarrhea which was initially black and then progressed to bright red. He denies abdominal pain. nausea or vomiting and has not had CP a productive cough or fevers. Initial labs are notable for anemia which is new for this pt and a markedly elevated BUN. A CT of the chest and abdomen did not show any acute abnormalities. The pt stood up to attend the rest room while in the ER and suffered a syncopal episode. His blood pressure has been stable lying down. 1) GI bleed / symptomatic anemia - may be a profuse UGI bleed considering black stools initially and elevated BUN implying an upper source. Placed on IV PPi, GI notified - assigned to PCU. 2) SOB - we do not have a source for this aside from anemia which is not seemingly severe. There may be a degree of hemoconcentration or significant acute blood loss to maintain the Hb at 11 initially. Placed on IV PPi, famotidine and assigned to telemetry. Consented for transfusion, GI consult requested. At the time of admission, the pt is normotensive and does not exhibit tachycardia or hypoxia. 3) CAD - no evidence of ACS - will trend trop due to underlying CAD and acute SOB - ASA held, cont statin if tolerated - B calvin in AM if bleed stabilized 4) HTN, HLD - Hold Amlodipine, Carvedilol, Losartan due to potential for hypotension - cont Atorvastatin when tolerating 5) BPH - Terazosyn and Dutasteride held on admission 6) History of DVT/PE - cannot anticoagulate - SCDs Full code - SCDs Total time for this admit including review of labs, meds, imaging, records - discussion with pt and ER attending - 39 min Present on Admission?: Yes History of Present Illness Chief Complaint: SOB, GI bleed Primary Care Provider: Jayro Swartz MD 74 y/o M Hx CAD, CHF (35%), DVT/PE, HTN, HLD, BPH. The pt presents with SOB x 2 weeks which became acutely worse the afternoon prior to admission. He also states that he has been having black stools x 2 weeks and today developed diarrhea which was initially black and then progressed to bright red. He denies abdominal pain. nausea or vomiting and has not had CP a productive cough or fevers. Initial labs are notable for anemia which is new for this pt and a markedly elevated BUN. A CT of the chest and abdomen did not show any acute abnormalities. The pt stood up to attend the rest room while in the ER and suffered a syncopal episode. His blood pressure has been stable lying down. PMH: 1) CAD - RCA stent x 2 2007 2) CHF - combined - grade I diastolic dysfunction and EF 35% on echo 2017 3) HTN 4) HLD 5) BPH 6) History of DVT/PE 7) Lumbar degenerative disease 8) Obese Surgical: 1) Umbilical hernia repair 2) L5-S1 fusion Social: Denies a history of smoking or drinking Family: Mother - breast CA Father - dementia Allergies Allergy/AdvReac Type Severity Reaction Status Date / Time enalapril AdvReac Mild cough Verified 04/20/19 01:02 Home Medications Home Medications Medication Instructions Recorded Confirmed Type amlodipine 10 mg PO QPM 04/20/19 04/20/19 History aspirin 81 mg PO DAILY 04/20/19 04/20/19 History atorvastatin 80 mg PO DAILY 04/20/19 04/20/19 History carvedilol 6.25 mg PO BID 04/20/19 04/20/19 History dutasteride 0.5 mg PO QAM 04/20/19 04/20/19 History losartan 50 mg PO QPM 04/20/19 04/20/19 History multivitamin [Multiple Vitamins] 1 tab PO DAILY 04/20/19 04/20/19 History terazosin 5 mg PO BID 04/20/19 04/20/19 History Past Med/Surg History Medical History Upper abdominal pain (Acute) Ventral hernia (Acute) Elevated troponin (Acute 03/11/14) Upper abdominal pain (Acute) Acute DVT (deep venous thrombosis) Surgical History Postoperative state (Acute 12/04/13) History of back surgery (Acute) History of hernia surgery (Acute) Social History Feels Safe at Home: Yes Smoking Status: Former smoker Review of Systems Review of Systems: Gen: Denies fevers, night sweats, rigors, fatigue, malaise, weight loss/gain ENT: Denies congestion, throat pain, hearing loss Eyes: Denies acute visual changes CV: Denies CP, palpitations Pulmonary:Progressive SOB x 2 weeks GI: Diarrhea - initially black then red in color Neuro: Denies acute or unilateral weakness, acute gait impairment, headache or acute visual changes Musculoskeletal: Denies joint pain, inflammation Endocrine: Denies polydipsia, polyuria Skin: Denies acute rashes or ulcers Physical Exam Physical Exam: General: Obese, elderly M, AAO x 3, no distress ENT: No erythema or exudates, no thrush Eyes: RENE, EOMI Head and neck: Normocephalic, atraumatic, No JVD, neck is supple. Chest/heart: Nontender, S1,2, RRR, no murmurs, no gallops Lungs: CTAB, no wheezing or crackles Abdomen: Nontender, nondistended, BS+ Neuro: AAO x 3, speech is clear, no unilateral weakness or loss of sensation, coordination intact Musculoskeletal: No joint inflammation, muscle tenderness, FROM Skin: No acute rashes or ulcers Extremities: No clubbing, cyanosis, edema Results & Data Vital Signs (Past 12 Hours) Vital Signs Temp Pulse Pulse Resp BP BP Pulse Ox 04/20/19 02:38 82 18 131/78 98 04/20/19 01:17 81 18 163/82 H 99 04/19/19 23:50 97.9 F 98 H 24 130/74 94 PG Care Time/CCT Total # of Minutes Spent Total Time Spent with Patient: Total time spent is greater than 50% in coordination of care (as documented) at patient's floor/unit and/or counseling patient: (1) GI bleed GI bleed type/associated pathology: melena Qualified Code(s): K92.1 - Melena
[2019-04-20] MEDS ORDERED: ACETAMINOPHEN 325 MG TAB PO PRN (05:31)
[2019-04-20] MEDS ORDERED: SODIUM CHLORIDE 0.9% 250 ML IV PRN (05:31)
[2019-04-20] MEDS ORDERED: ONDANSETRON INJ 2 MG/ML 2 ML VIAL IV PRN (05:31)
[2019-04-20] MEDS ORDERED: NSS + 20MEQ KCL 20 MEQ/1,000 ML BAG IV SCH (06:00)
--- NOTE | 2019-04-20 06:23 | XRay Report ---
XR chest 1V portable HISTORY: 74 years-old Male sob acute shortness of breath COMPARISON: CTA chest of same day, chest radiograph 12/20/2017 TECHNIQUE: Portable AP view of the chest FINDINGS: Cardiomediastinal and hilar silhouettes are unchanged. There is no pneumothorax, pleural effusion, fo tracy airspace consolidation or overt pulmonary edema. Degenerative changes are seen about the shoulder s and spine. Bones appear to be grossly intact. IMPRESSION: No acute process. The above report was generated using voice recognition software. It may contain grammatical, syntax o r spelling errors. Electronically signed by: Jasbir Hinton M.D. 04/20/2019 6:21 AM
--- NOTE | 2019-04-20 07:09 | CT Scan Report ---
CT angio chest PE protocol, CT abd pelvis IV con only CT DOSE: 2515.66 mGy.cm HISTORY: 74 years-old Male with PE. Acute shortness of breath with acute transabdominal pain and di arrhea. Acute GI bleed. TECHNIQUE: Multiple CTA images of the chest were obtained after the intravenous administration of 119 ml Optiray 320. Coronal and sagittal MIPS were obtained from the axial data set and were submitted for review. All measurements were obtained according to NASCET criteria. Additionally, CT abdomen an d pelvis with IV contrast only was obtained. A dose lowering technique was utilized adhering to the p rinciples of KELLI. COMPARISON: CTA chest 12/30/2016, CT abdomen and pelvis 03/10/2014 FINDINGS: CTA: The heart is normal in size without pericardial effusion. Coronary arterial calcifications are noted. Moderate mixed plaque formation of the thoracic aortic arch and proximal great vessels which appear to be patent. There is suboptimal contrast opacification of the pulmonary arterial tree which limits the study. No evidence of central pulmonary emboli. CT CHEST: No focal thyroid nodule. There is no adenopathy by CT size criteria. There is no pneumothorax or pleu ral effusion. No overt pulmonary edema or focal airspace consolidation to suggest pneumonia. There ar e no suspicious pulmonary nodules or masses. Central airways appear to be patent. Gynecomastia. Soft tissues are unremarkable. There is mild asymmetric muscular atrophy about the left infraspinatus musc ulature. Degenerative changes of the shoulders and spine. CT ABDOMEN/PELVIS: No pneumatosis or pneumoperitoneum. The liver, spleen, gallbladder, pancreas and adrenal glands are u nremarkable. Mild nonspecific bilateral perinephric stranding. Previously noted nonobstructing left n ephrolithiasis not identified on today's study. 3 mm nonobstructing calculus of the inferior pole rig ht kidney. Mild prostamegaly. Mild wall thickening of the urinary bladder with partial distention. Ex tensive calcified plaque of the abdominal aorta with ectasia measuring up to 2.6 cm. No adenopathy. No bowel obstruction. Colonic diverticulosis without acute diverticulitis. There is mild wall thicken ing noted about the mid sigmoid colon. Normal appendix. No ascites or mesenteric inflammation. Multil evel spondylitic spurring with facet arthrosis. Prior laminectomy with discectomy, posterior interbod y zonia and screw fusion at L5-S1. No evidence of hardware complication. IMPRESSION: 1. No acute intrathoracic abnormality identified. 2. Suboptimal contrast opacification of the pulmonary arterial tree limits the study. No central pulm onary emboli identified. 3. No acute intra-abdominal or intrapelvic abnormality. 4. Colonic diverticulosis without acute diverticulitis. 5. Mild wall thickening about the mid sigmoid colon, likely from chronic diverticular disease. 6. Nonobstructing right nephrolithiasis. 7. Additional findings as above. The above report was generated using voice recognition software. It may contain grammatical, syntax o r spelling errors. Electronically signed by: Jasbir Hinton M.D. 04/20/2019 7:08 AM
[2019-04-20] MEDS ORDERED: PNEUMOCOCCAL ADMINISTRATION CHARGE ONE (08:00)
[2019-04-20] MEDS ORDERED: PNEUMOCOCCAL POLYSACCHARIDES 25 MCG/0.5 ML VIAL/SYR IM ONE (08:00)
[2019-04-20] MEDS ORDERED: ATORVASTATIN 40 MG TAB PO SCH (09:00)
[2019-04-20] MEDS ORDERED: FAMOTIDINE 20 MG in SYRINGE 3 ML IV SCH (09:00)
[2019-04-20 09:58] VITALS: TEMP 97.7
--- NOTE | 2019-04-20 10:02 | Gastrointestinal Consultation ---
Date of Consultation April 20, 2019 Assessment & Plan (1) GI bleed: 1. EGD today by Dr. Zaidi 2. Appreciate primary hospitalist's management of blood and fluid rescusitation. 3. Further recommendations to follow endoscopy. Present on Admission?: Yes Supervising Physician Co-Signing Physician Notes I saw and evaluated the patient. He presents with a history of melena in combination with nonsteroidal use. Given the history we will proceed with upper endoscopy today to evaluate for peptic ulcer disease. Physical exam No obvious distress Mild epigastric tenderness Impression: Patient with melena and drop in blood count suggestive of an upper GI bleed likely from peptic ulcer disease given his nonsteroidal use. Recommendations N.p.o. Protonix drip as you are doing Avoid use of nonsteroidals Upper endoscopy today History of Present Illness Reason for Consultation: Melena, anemia Requesting Physician: Dr. Peyman Kang Attending Physician: Peyman Kang, DO History of Present Illness Mr. Adalberto Paris is a 74 yr old male pt of Dr. Jayro Rich with a hx of Hx CAD, CHF (35%), DVT/PE, HTN, HLD, BPH who presented to the ED yesterday for melena, SOB. Though he tells me that he has not had any abdominal pain, ED and H&P state that he reported epigastric pain. No nausea/vomiting. He reports taking about 4 Aleve every day for joint pain, in addition to the ASA 81mg that he takes due to CAD. On arrival, Hb 11->10 this morning. BUN is elevated at 77. He has been hemodynamically stable (BP 134/76, HR 78, O2sate at 98% on room air) and con tinues to deny any CP, does not have any further SOB and is receiving famotidine IV BID. He recalls having undergone colonoscopy around age 51 and hasn't had one since. He doesn't believe that he has ever previously undergone EGD. Allergies Allergy/AdvReac Type Severity Reaction Status Date / Time enalapril AdvReac Mild cough Verified 04/20/19 01:02 Home Medications Home Medications Medication Instructions Recorded Confirmed Type amlodipine 10 mg PO QPM 04/20/19 04/20/19 History aspirin 81 mg PO DAILY 04/20/19 04/20/19 History atorvastatin 80 mg PO DAILY 04/20/19 04/20/19 History carvedilol 6.25 mg PO BID 04/20/19 04/20/19 History dutasteride 0.5 mg PO QAM 04/20/19 04/20/19 History losartan 50 mg PO QPM 04/20/19 04/20/19 History multivitamin [Multiple Vitamins] 1 tab PO DAILY 04/20/19 04/20/19 History terazosin 5 mg PO BID 04/20/19 04/20/19 History Patient History Medical History Upper abdominal pain (Acute) Ventral hernia (Acute) Elevated troponin (Acute 03/11/14) Upper abdominal pain (Acute) Acute DVT (deep venous thrombosis) CAD (coronary artery disease) CHF (congestive heart failure) Hypertension Mitral regurgitation Obesity SOB (shortness of breath) Surgical History Postoperative state (Acute 12/04/13) History of back surgery (Acute) History of hernia surgery (Acute) History of cardiac cath 2008 RCA stent x2. Social History Preferred Language: Greenlandic Beliefs That Will Affect Care: None Current Living Situation: Spouse Other Information That Helps Us Care for You: No Feels Safe at Home: Yes Safety Concerns: Feels Safe At This Time Smoking Status: Former smoker Hx Alcohol Use: Yes Alcohol type: beer Hx Substance Use: No Review of Systems Review of Systems: ROS: Gen: Denies weakness, fevers, weight loss Eyes: No eye redness, or pain, no recent vision changes Resp: + SOB, no cough Cardio: No palpitations/irregular beats, no chest pain GI: + melena; No abdominal pain, no nausea/vomiting : Denies pain on urination Skin: No jaundice, itching or new rashes Physical Exam Constitutional: WD/WN, vitals as above Eyes: PERRL, conjunctivae normal, anicteric sclerae ENMT: external ear and nose normal, oropharynx normal Neck: trachea midline, no thyromegaly Respiratory: normal respiratory effort, lungs clear to auscultation Cardiovascular: RRR, no murmur, no edema Gastrointestinal (Abdomen): normal bowel sounds, soft, nontender, no hepatosplenomegaly Musculoskeletal: no cyanosis or clubbing, extremities motor strength 5/5 Skin: no rashes, warm and dry Neurologic: PERRL, EOMI, accommodation nl, no face palsy, no dysarthria Psychiatric: A+Ox3, euthymic affect Lymphatic: no cervical or axillary lymphadenopathy Results & Data Vital Signs (Past 12 Hours) Vital Signs Temp Pulse Pulse Resp BP BP Pulse Ox 04/20/19 09:57 36.5 C 78 16 134/76 98 04/20/19 09:48 36.3 C L 79 16 116/72 93 04/20/19 08:48 36.7 C 77 16 131/81 96 04/20/19 07:48 36.7 C 65 18 115/64 94 04/20/19 07:46 83 04/20/19 07:18 36.6 C 71 16 101/63 96 04/20/19 07:03 36.6 C 73 16 119/69 98 04/20/19 06:44 36.9 C 67 16 108/51 L 97 04/20/19 05:38 36.6 C 100 H 16 116/71 98 04/20/19 04:23 90 18 118/73 95 04/20/19 02:38 82 18 131/78 98 04/20/19 01:17 81 18 163/82 H 99 04/19/19 23:50 36.6 C 98 H 24 130/74 94 Laboratory Results WBC 9, Hb 10, Hct 31, [id number], BUN 77. Diagnostic Findings CT abd/pelvis with IV contrast: 1. No acute intrathoracic abnormality identified. 2. Suboptimal contrast opacification of the pulmonary arterial tree limits the study. No central pulmonary emboli identified. 3. No acute intra-abdominal or intrapelvic abnormality. 4. Colonic diverticulosis without acute diverticulitis. 5. Mild wall thickening about the mid sigmoid colon, likely from chronic diverticular disease. 6. Nonobstructing right nephrolithiasis. 7. Additional findings as above. (1) GI bleed GI bleed type/associated pathology: melena Qualified Code(s): K92.1 - Melena
--- NOTE | 2019-04-20 10:04 | Anesthesiology Consultation ---
Date of Service April 20, 2019 Assessment & Plan (1) Encounter for pre-operative examination: Chart Review Chart Review: Acceptable Risk for Surgery and Patient NOT seen in Pre Admission Testing Consults Requested none History Surgery Operation Date: 04/20/19 09:00 Proposed Procedures p Esophagogastroduodenoscopy Dr Dejuan Zaidi Height/Weight Height: 6 ft 3 in Weight: 129.4 kg Allergies Allergy/AdvReac Type Severity Reaction Status Date / Time enalapril AdvReac Mild cough Verified 04/20/19 01:02 Medications Home Medications Medication Instructions Recorded Confirmed Last Taken amlodipine 10 mg PO QPM 04/20/19 04/20/19 Unknown aspirin 81 mg PO DAILY 04/20/19 04/20/19 Unknown atorvastatin 80 mg PO DAILY 04/20/19 04/20/19 Unknown carvedilol 6.25 mg PO BID 04/20/19 04/20/19 Unknown dutasteride 0.5 mg PO QAM 04/20/19 04/20/19 Unknown losartan 50 mg PO QPM 04/20/19 04/20/19 Unknown multivitamin [Multiple Vitamins] 1 tab PO DAILY 04/20/19 04/20/19 Unknown terazosin 5 mg PO BID 04/20/19 04/20/19 Unknown Active Medications Generic Name Dose Route Start Last Admin Trade Name Freq PRN Reason Stop Dose Admin Atorvastatin Calcium 80 mg 04/20/19 09:00 04/20/19 08:53 Lipitor PO 05/20/19 08:59 80 mg DAILY JEWEL Administration Famotidine 20 mg/ Syringe 5 mls @ 2.5 mls/min 04/20/19 09:00 04/20/19 08:54 IV 05/20/19 08:59 2.5 mls/min Q12H JEWLE Administration Potassium Chloride/Sodium Chloride 20 meq in 1,000 mls @ 80 mls/hr 04/20/19 06:00 04/20/19 06:53 Normal Saline W/20 Meq Kcl IV 05/20/19 05:59 0 mls/hr .[id number] JEWEL Infusion Ioversol 125 ml 04/20/19 02:56 04/20/19 02:57 Optiray 320 125ml IV 04/24/19 02:55 119 ml ONCE PRN Administration Interaction Checking Past Medical History Medical History Upper abdominal pain (Acute) Ventral hernia (Acute) Elevated troponin (Acute 03/11/14) Upper abdominal pain (Acute) Acute DVT (deep venous thrombosis) CAD (coronary artery disease) CHF (congestive heart failure) Hypertension Mitral regurgitation Obesity SOB (shortness of breath) Exercise / Class Metabolic Activity III < 4 Walking/Shop/Light housework Past Surgical History Surgical History Postoperative state (Acute 12/04/13) History of back surgery (Acute) History of hernia surgery (Acute) History of cardiac cath 2007 RCA stent x2. Past Anesthesia History No Hx of Anesthesia Complications and No Family Hx of Anesthesia Complications History of PONV No Hx of PONV and No Hx of Motion Sickness Social History Smoking Status: Former smoker Hx Alcohol Use: Yes Alcohol type: beer alcohol intake frequency: 0-2 drinks per day Hx Substance Use: No Physical Exam Vital Signs Last Vital Signs Temp 36.5 C 04/20/19 10:40 Pulse 82 04/20/19 10:40 Resp 20 04/20/19 10:40 BP 159/90 H 04/20/19 10:40 Pulse Ox 96 04/20/19 10:40 Testing Laboratory Results 04/20/19 06:20 04/20/19 00:01 Blood Type A Negative 04/20/19 00:01 Antibody Screen NEGATIVE 04/20/19 00:01 Laboratory Tests 04/20/19 04/20/19 00:01 06:20 Troponin I 0.023 0.023 Electrocardiogram Date: 04/19/19 Undetermined rhythm Nonspecific T wave abnormality Prolonged QT Abnormal ECG When compared with ECG of 21-DEC-2017 09:34, HR 97 Chest X-Ray Date: 04/20/19 XR chest 1V portable HISTORY: 74 years-old Male sob acute shortness of breath COMPARISON: CTA chest of same day, chest radiograph 12/20/2017 TECHNIQUE: Portable AP view of the chest FINDINGS: Cardiomediastinal and hilar silhouettes are unchanged. There is no pneumothorax, pleural effusion, focal airspace consolidation or overt pulmonary edema. Degenerative changes are seen about the shoulders and spine. Bones appear to be grossly intact. IMPRESSION: No acute process. Echocardiogram Date: 12/20/17 EF: 30-35% LV Function: dysfunctional Other Findings: + LVH Valvular Disease: + MR no evidence of inducible ischemia. PVC's
[2019-04-20] MEDS ORDERED: PROPOFOL IV EMULSION 10 MG/ML 20 ML VIAL IV ONE ×2 (11:38)
[2019-04-20] MEDS ORDERED: LIDOCAINE HCL 2% 2 ML VIAL/AMP(20MG/ML) INFIL ONE (11:38)
--- NOTE | 2019-04-20 11:38 | GI REPORT ---
Patient Name: Adalberto Paris Procedure Date: 04/20/2019 11:17 AM Date of : 1945 Admit Type: Inpatient Age: 74 Gender: Male Attending MD: Eufemia Zaidi DO Procedure: Upper GI endoscopy Providers: Eufemia Zaidi DO Referring MD: Peyman Kang Indications: Melena Medicines: Monitored Anesthesia Care Complications: No immediate complications. Estimated blood loss: Minimal. Estimated Blood Loss: Estimated blood loss was minimal. Procedure: Pre-Anesthesia Assessment: - Prior to the procedure, a History and Physical was performed, and patient medications, allergies and sensitivities were reviewed. The patient's tolerance of previous anesthesia was reviewed. - The risks and benefits of the procedure and the sedation options and risks were discussed with the patient. All questions were answered and informed consent was obtained. - Patient identification and proposed procedure were verified prior to the procedure by the physician, the nurse and the manager appointment. The procedure was verified in the procedure room. - Pre-procedure physical examination revealed no contraindications to sedation. - ASA Grade Assessment: III - A patient with severe systemic disease. - After reviewing the risks and benefits, the patient was deemed in satisfactory condition to undergo the procedure. - The anesthesia plan was to use monitored anesthesia care (MAC). - Immediately prior to administration of medications, the patient was re-assessed for adequacy to receive sedatives. - The heart rate, respiratory rate, oxygen saturations, blood pressure, adequacy of pulmonary ventilation, and response to care were monitored throughout the procedure. - The physical status of the patient was re-assessed after the procedure. After obtaining informed consent, the endoscope was passed under direct vision. Throughout the procedure, the patient's blood pressure, pulse, and oxygen saturations were monitored continuously. The Endoscope was introduced through the mouth, and advanced to the third part of duodenum. The upper GI endoscopy was accomplished without difficulty. The patient tolerated the procedure well. Findings: The examined esophagus was normal. Diffuse moderate inflammation characterized by erythema, granularity and shallow ulcerations was found in the entire examined stomach. Biopsies were taken with a cold forceps for histology. Estimated blood loss was minimal. One non-obstructing cratered duodenal ulcer with a nonbleeding visible vessel (Nick Class IIa) and oozing was found in the duodenal bulb (posterior portion). The lesion was 15 mm in largest dimension. Area was successfully injected with 2 mL of a 1:10,000 solution of epinephrine for drug delivery. Coagulation for hemostasis using bipolar probe was unsuccessful. To stop active bleeding, two hemostatic clips were successfully placed (MR conditional, Cook Instinct Clips). There was no bleeding at the end of the procedure. Estimated blood loss was minimal. An acquired benign-appearing, intrinsic mild stenosis was found in the second portion of the duodenum and was traversed. Two non-obstructing non-bleeding superficial duodenal ulcers with no stigmata of bleeding were found in the second portion of the duodenum. The largest lesion was 5 mm in largest dimension. Impression: - Normal esophagus. - Gastritis. Biopsied. - One non-obstructing duodenal ulcer with a nonbleeding visible vessel (Nick Class IIa). NSAID induced etiology. Clips (MR conditional) were placed. - Acquired duodenal stenosis. - Multiple non-obstructing non-bleeding duodenal ulcers with no stigmata of bleeding. NSAID induced etiology. Recommendation: - Return patient to hospital [facility]eps for ongoing care. - Give Protonix (pantoprazole): initiate therapy with 80 mg IV bolus, then 8 mg/hr IV by continuous infusion for 3 days. - Consider referral to tertiary center by managing physician. The patient has a high risk of rebleeding given the location of the ulceration and I would suggest referral to a center with interventional radiology capabilities in the event of rebleeding. Eufemia Zaidi D.O. Eufemia Zaidi, 04/20/2019 11:38:08 AM This report has been signed electronically. Note Initiated On: 04/20/2019 11:17 AM Number of Addenda: 0 I attest to the content of the Intraoperative Record and orders documented therein, exceptions below {[id number]}
--- NOTE | 2019-04-20 12:07 | Communication Note ---
Date of Service: April 20, 2019 The patient underwent upper endoscopy this morning. He has a large ulcer in the posterior bulb of the duodenum with a visible vessel and evidence of active bleeding this was treated with epinephrine injection and ultimately placement of 2 clips resulting in cessation of bleeding. Given the high risk of recurrence I would recommend that the patient be maintained on a Protonix drip for 72 hours and perhaps referred to a tertiary center with interventional radiology in case of rebleeding. Otherwise the patient would need surgical consultation should rebleeding occur
--- NOTE | 2019-04-20 12:20 | Anesthesiology Progress Note ---
Date of Service April 20, 2019 Anesthesia Post Procedure Vital Signs Vital Signs: Temp Pulse Pulse Resp BP BP Pulse Ox 04/20/19 12:05 70 20 151/71 H 99 04/20/19 11:51 66 20 148/75 H 97 04/20/19 11:43 65 20 122/71 97 04/20/19 10:40 36.5 C 82 20 159/90 H 96 04/20/19 09:57 36.5 C 78 16 134/76 98 04/20/19 09:48 36.3 C L 79 16 116/72 93 04/20/19 08:48 36.7 C 77 16 131/81 96 04/20/19 07:48 36.7 C 65 18 115/64 94 04/20/19 07:46 83 04/20/19 07:18 36.6 C 71 16 101/63 96 04/20/19 07:03 36.6 C 73 16 119/69 98 04/20/19 06:44 36.9 C 67 16 108/51 L 97 04/20/19 05:38 36.6 C 100 H 16 116/71 98 04/20/19 04:23 90 18 118/73 95 04/20/19 02:38 82 18 131/78 98 04/20/19 01:17 81 18 163/82 H 99 04/19/19 23:50 36.6 C 98 H 24 130/74 94 Transfer of Care Handoff Completed per policy Notes Mental Status: alert / awake / arousable and participated in evaluation Patient Amnestic to Procedure: Yes Nausea / Vomiting: adequately controlled Pain: adequately controlled Airway Patency, RR, SpO2: stable & adequate BP & HR: stable & adequate Hydration State: stable & adequate Anesthetic Complications: no major complications apparent and Pt Satisfied with anesthetic care
--- NOTE | 2019-04-20 14:16 | Discharge Summary ---
Date of Service April 20, 2019 Admission HPI Per Admitting Provider 74 y/o M Hx CAD, CHF (35%), DVT/PE, HTN, HLD, BPH. The pt presents with SOB x 2 weeks which became acutely worse the afternoon prior to admission. He also states that he has been having black stools x 2 weeks and today developed diarrhea which was initially black and then progressed to bright red. He denies abdominal pain. nausea or vomiting and has not had CP a productive cough or fevers. Initial labs are notable for anemia which is new for this pt and a markedly elevated BUN. A CT of the chest and abdomen did not show any acute abnormalities. The pt stood up to attend the rest room while in the ER and suf fered a syncopal episode. His blood pressure has been stable lying down. PMH: 1) CAD - RCA stent x 2 2007 2) CHF - combined - grade I diastolic dysfunction and EF 35% on echo 2017 3) HTN 4) HLD 5) BPH 6) History of DVT/PE 7) Lumbar degenerative disease 8) Obese Surgical: 1) Umbilical hernia repair 2) L5-S1 fusion Social: Denies a history of smoking or drinking Family: Mother - breast CA Father - dementia Principal Diagnosis GI bleed due to duodenal ulcer Discharge Exam Constitutional WD/WN, vitals as above Eyes PERRL, conjunctivae normal, anicteric sclerae ENMT external ear and nose normal, oropharynx normal Neck trachea midline, no thyromegaly Respiratory normal respiratory effort, lungs clear to auscultation Cardiovascular RRR, no murmur, no edema Gastrointestinal (Abdomen) normal bowel sounds, soft, nontender, no hepatosplenomegaly Musculoskeletal no cyanosis or clubbing, extremities motor strength 5/5 Skin no rashes, warm and dry Neurologic patellar DTR's 2+ bilat, sensation intact and PERRL, EOMI, accommodation nl, no face palsy, no dysarthria Psychiatric A+Ox3, euthymic affect Lymphatic no cervical or axillary lymphadenopathy Discharge Data Allergies Allergy/AdvReac Type Severity Reaction Status Date / Time enalapril AdvReac Mild cough Verified 04/20/19 01:02 Consultations 04/20/19 03:57 ED Decision to Admit Stat 04/20/19 05:20 Consult Gastroenterology Stat Procedures Performed Operation Date: 04/20/19 09:00 Actual Procedures p EGD Hemostasis - Eufemia Zaidi Ordered Studies 04/20/19 01:18 CT angio chest PE protocol Urgent 04/20/19 01:27 CT abd pelvis IV con only Urgent Hospital Course (1) GI bleed: 74 y/o M Hx CAD, CHF (35%), DVT/PE, HTN, HLD, BPH. The pt presents with SOB x 2 weeks which became acutely worse the afternoon prior to admission. He also states that he has been having black stools x 2 weeks and today developed diarrhea which was initially black and then progressed to bright red. He denies abdominal pain. nausea or vomiting and has not had CP a productive cough or fevers. Initial labs are notable for anemia which is new for this pt and a markedly elevated BUN. A CT of the chest and abdomen did not show any acute abnormalities. The pt stood up to attend the rest room while in the ER and suffered a syncopal episode. His blood pressure has been stable lying down. patient with two further bloody BM after admission Hb was 10 this morning, he felt light headed but vitals stable, he was transfused one unit by admitting physician repeat Hb still pending at this time but vitals stable bleeding due to large duodenal ulcer, 15mm, had some oozing but no brisk bleeding, see full report this was in first portion of duodenum visible vessel, injected with epinephrine and two clips placed, hemostasis achieved vitals stable after procedure (2) Duodenal ulcer: 15mm in first portion of duodenum, visible vessel, oozing hemostasis achieved at the end of EGD GI recommends Protonix drip at 8mg/hr, however, pharmacy does not have medication due to national back order Pepcid IV 20 q12 was ordered instead recommendation from GI is IV PPI for 72 hours starting this morning, make sure he does not re-bleed if he would bleed again then he would need IR, thus transfer to [place] since we do not have IR keep NPO, if no bleeding by this evening then he could have clear liquids (3) Dyspnea: at this point most logical explanation would be acute blood loss anemia CTA chest negative for PE or any other pathology in the lungs 99% on room air, thus it is only dyspnea and not hypoxia (4) H/O deep venous thrombosis: not on anticoagulation at time of admission as the DVT was remote (5) H/O coronary atherosclerosis: no chest pain or pressure troponin negative, no ischemic changes on EKG holding aspirin in setting of GI bleed Total Time Total Time Spent Total Time Spent (In Minutes): 40 minutes Total Time Includes: Examination of the Patient, Discharge Planning, Medication Reconciliation, Communication With Other Providers (Dr. Zaidi as well as [facility] for transfer) and Other (speaking with at the bedside) Discharge Plan Discharge Items Patient Disposition: Transfer Acute Care Hospital Reason For Visit: GI BLEED Discharge Diagnosis: Acute blood loss anemia GI Bleed Duodenal ulcer with visible vessel, s/p epinephrine and clips Condition: Fair Discharge Goals: Therapeutic intervention Activity: Resume your previous activity Non-emergency contact: Primary Care Provider and Transformation Analyst Call non-emergency contact if: you have any medication questions Follow-up/Referrals: Jayro Swartz MD [Primary Care Provider] - Diet: Nothing by mouth Addtl Provider Instructions: transfer to [place] Prescriptions: Continued losartan 50 mg tablet 50 mg PO QPM RF: 0 terazosin 5 mg capsule 5 mg PO BID RF: 0 atorvastatin 80 mg tablet 80 mg PO DAILY RF: 0 aspirin 81 mg Tablet,Delayed Release (Dr/Ec) 81 mg PO DAILY RF: 0 amlodipine 10 mg tablet 10 mg PO QPM RF: 0 dutasteride 0.5 mg capsule 0.5 mg PO QAM RF: 0 multivitamin [Multiple Vitamins] Tablet 1 tab PO DAILY RF: 0 carvedilol 6.25 mg Tablet 6.25 mg PO BID RF: 0 Stand-Alone Forms: [facility] Discharge Orders: Discharge Order (Routine); Ordered 04/20/19 Ordered By: Peyman Kang Admission Data Admit Date/Time: 04/20/19 04:39 Attending Provider: Peyman Kang Admit Provider: Syd Lama Primary Care Provider: Jayro Swartz Other Providers: Syd Lama ; Eufemia Zaidi Service: Telemetry
[2019-04-20] MEDS ORDERED: SODIUM CHLORIDE 0.9% 1000ML 1,000 ML IV SCH (15:30)
[2019-04-20 15:36] LABS: Hematocrit (blood only) 29.8 % (42-52); Hemoglobin 10.4 g/dL (14.0-18.0)
[2019-04-20 19:45] VITALS: BP 143/83; PULSE 63; O2SAT 96
== END 2019-04-20 15:59 | disposition short-term general hospital (02) | DRG 378 ==
LOC: ED 23:39 → SUATTDRO 04-20 04:39 → 2S 04-20 04:39

== ENCOUNTER 2021-04-17 12:57 | Observation (INO) ==
[2021-04-17 13:35] LABS: Basophils # (auto) 0.02 K/uL (0-0.2); Basophils % (auto) 0.3 %; Eosinophils # (auto) 0.11 K/uL (0-0.5); Eosinophils % (auto) 1.8 %; Hematocrit (blood only) 43.8 % (42-52); Hemoglobin 15.4 g/dL (14.0-18.0); Immature Granulocytes # (auto) 0.02 K/uL (0.00-0.02); Immature Granulocytes % (auto) 0.3 %; Lymphocytes # (auto) 1.58 K/uL (1.2-3.4); Lymphocytes % (auto) 25.9 %; Mean Corpuscular Hemoglobin 31.1 pg (25-34); Mean Corpuscular Hgb Conc 35.2 g/dL (32-36); Mean Corpuscular Volume 88.5 fL (80-100); Mean Platelet Volume 11.1 fL (7.4-10.4); Monocytes # (auto) 0.57 K/uL (0.11-0.59); Monocytes % (auto) 9.4 %; Neutrophils # (auto) 3.79 K/uL (1.4-6.5); Neutrophils % (auto) 62.3 %; Platelet Count 150 K/uL (130-400); RDW Coefficient of Variation 12.8 % (11.5-14.5); RDW Standard Deviation 40.9 fL (36.4-46.3); Red Blood Count 4.95 M/uL (4.7-6.1); White Blood Count 6.09 K/uL (4.8-10.8)
--- NOTE | 2021-04-17 13:45 | Emergency Department Note ---
History of Present Illness General Chief complaint: Chest Pain Stated complaint: CHEST PAIN Time Seen by Provider: 04/17/21 13:36 Mode of arrival: ambulatory Limitations: no limitations History of Present Illness Provider complaint: sob, CP Onset (ago): week(s) Location: chest Radiation: non-radiation Severity: moderate Pain Consistency: + intermittent Maximum Pain Intensity: 9 Current Pain Intensity: 0 Quality: + dull Relieved By: + rest Exacerbated By: + movement Associated symptoms: + diaphoresis and + shortness of breath Treatments prior to arrival: none This is a 76-year-old male presents emergency department complaining of worsening chest pain and shortness of breath over the course of the last month. Patient states symptoms are only with exertion, and resolve with rest. Patient does have a prior history of RI and 2 stents in the past. Patient typically follows with Dr. Nichole. He denies any recent change in medications and states he did see cardiology 2 to 3 months ago. Patient states the hot and humid weather worsens his symptoms however he has noticed over the course of the last month that his symptoms are becoming more severe and it takes him a longer time to recover. Patient denies any fevers, chills, or URI symptoms. He denies any leg swelling. Patient states he did previously have an episode of congestive heart failure. Patient denies any other dietary indiscretion. Patient does weigh himself daily and states his weight has been steady. He is not on any fluid restriction. Pt seen during a time of high acuity and national emergency pandemic while wearing PPE. Home Medications Medication Instructions Recorded Confirmed Type aspirin 81 mg tablet,delayed 81 mg PO PM 04/20/19 04/17/21 History release atorvastatin 80 mg tablet 80 mg PO HS 04/20/19 04/17/21 History carvedilol 6.25 mg tablet 6.25 mg PO BID 04/20/19 04/17/21 History losartan 50 mg tablet 50 mg PO QPM 04/20/19 04/17/21 History multivitamin (Multiple Vitamins) 1 tab PO QAM 04/20/19 04/17/21 History terazosin 5 mg capsule 5 mg PO BID 04/20/19 04/17/21 History furosemide 40 mg tablet (Lasix) 40 mg PO QAM 05/26/19 04/17/21 History omeprazole 40 mg capsule,delayed 40 mg PO QAM 05/26/19 04/17/21 History release spironolactone 25 mg tablet 12.5 mg PO QAM 08/31/19 04/17/21 History acetaminophen 500 mg tablet 1,000 mg PO BID PRN 04/17/21 04/17/21 History (Tylenol Extra Strength) dutasteride 0.5 mg capsule 0.5 mg PO QAM 04/17/21 04/17/21 History glucosamine-chondroitin 250 mg-200 1 tab PO BID 04/17/21 04/17/21 History mg tablet (Osteo Bi-Flex) turmeric 400 mg capsule 400 mg PO PM 04/17/21 04/17/21 History Allergies Allergy/AdvReac Type Severity Reaction Status Date / Time enalapril Allergy Mild cough Verified 04/17/21 14:45 Past Med/Surg History Medical History Anemia 2/2 GI bleed 03/2019. S/P 1 unit transfused PRBC. Benign prostatic hyperplasia with urinary obstruction and other lower urinary tract symptoms CAD (coronary artery disease) KATIA x 2 (2007) Chronic systolic heart failure CKD (chronic kidney disease), stage III DVT (deep venous thrombosis) 2016 s/p foot surgery Gastric ulcer 03/2019 large duodenal ulcer s/p 1U PRBCs H/O deep venous thrombosis Hyperlipidemia Hypertension Myocardial Infarction 2007 Obesity Osteoarthritis Sleep apnea no device, could not tolerate due to claustrophobia Surgical History Fusion of spine LUMBAR H/O shoulder surgery LEFT History of back surgery History of cardiac cath 2007= stents x 2 2011= no stents History of colonoscopy History of esophagogastroduodenoscopy (EGD) History of hernia surgery UMBILICAL HERNIA Hx of foot surgery RT Hx of vasectomy Family History Other Hypertension Social History Smoking Status: Never smoker Second Hand Exposure: No; Hx Alcohol Use: No Hx Substance Use: No Preferred Language: Cymro Communication Ability: Effective Visual Impairment: No Limitations Morphology Teacher Required: No Beliefs That Will Affect Care: None Current Living Situation: Spouse Other Information That Helps Us Care for You: No Feels Safe at Home: Yes Safety Concerns: Feels Safe At This Time Assistive Devices: None Review of Systems See HPI for pertinent positives & negatives. and A total of 10 systems reviewed and were otherwise negative All systems reviewed & are unremarkable except as noted in HPI & below and All systems reviewed & are unremarkable except as noted in Subjective Physical Exam Vital Signs Vital Signs - 24 hr 04/17/21 20:00 04/17/21 23:16 04/17/21 23:40 Temperature 36.4 C L Temperature Source Oral Pulse Rate 59 L Pulse Rate [Apical] 47 L Pulse Rhythm [Apical] Pulse Strength [Apical] Respiratory Rate 18 Respiratory Effort / Characteristics SOB on Exertion Respiratory Depth Respiratory Pattern Blood Pressure [Left Arm] 144/73 H Blood Pressure [Right Arm] Blood Pressure Mean [Left Arm] 96 Blood Pressure Mean [Right Arm] Blood Pressure Position [Left Arm] Lying Blood Pressure Position [Right Arm] Pulse Oximetry 98 Oxygen Delivery Method Room Air Room Air 04/18/21 04:34 04/18/21 07:25 04/18/21 08:00 Temperature 36.6 C 36.8 C Temperature Source Oral Oral Pulse Rate 58 L Pulse Rate [Apical] 56 L 62 Pulse Rhythm [Apical] Pulse Strength [Apical] Respiratory Rate 18 20 Respiratory Effort / Characteristics Respiratory Depth Respiratory Pattern Blood Pressure [Left Arm] Blood Pressure [Right Arm] 156/81 H 173/90 H Blood Pressure Mean [Left Arm] Blood Pressure Mean [Right Arm] 106 117 Blood Pressure Position [Left Arm] Blood Pressure Position [Right Arm] Lying Sitting Pulse Oximetry 98 96 Oxygen Delivery Method Room Air Room Air 04/18/21 11:10 04/18/21 11:57 04/18/21 13:10 Temperature 36.7 C Temperature Source Oral Pulse Rate Pulse Rate [Apical] 53 L 70 64 Pulse Rhythm [Apical] Pulse Strength [Apical] Respiratory Rate 20 16 16 Respiratory Effort / Characteristics Respiratory Depth Respiratory Pattern Blood Pressure [Left Arm] 163/93 H Blood Pressure [Right Arm] 164/99 H 131/81 Blood Pressure Mean [Left Arm] 116 Blood Pressure Mean [Right Arm] 120 97 Blood Pressure Position [Left Arm] Sitting Blood Pressure Position [Right Arm] Pulse Oximetry 97 95 94 Oxygen Delivery Method Room Air 04/18/21 13:25 04/18/21 13:30 04/18/21 13:45 Temperature 36.7 C 36.6 C Temperature Source Oral Oral Pulse Rate Pulse Rate [Apical] 60 60 62 Pulse Rhythm [Apical] Regular Regular Pulse Strength [Apical] Normal Normal Respiratory Rate 20 18 20 Respiratory Effort / Characteristics Non-Labored Spontaneous Non-Labored Spontaneous Respiratory Depth Normal Normal Respiratory Pattern Regular Regular Blood Pressure [Left Arm] Blood Pressure [Right Arm] 134/74 138/78 137/64 Blood Pressure Mean [Left Arm] Blood Pressure Mean [Right Arm] 94 98 88 Blood Pressure Position [Left Arm] Blood Pressure Position [Right Arm] Lying Lying Pulse Oximetry 94 97 98 Oxygen Delivery Method Room Air Room Air 04/18/21 14:00 04/18/21 14:01 04/18/21 14:30 Temperature Temperature Source Pulse Rate 62 Pulse Rate [Apical] 70 54 L Pulse Rhythm [Apical] Regular Regular Pulse Strength [Apical] Normal Normal Respiratory Rate Respiratory Effort / Characteristics Respiratory Depth Respiratory Pattern Blood Pressure [Left Arm] 111/73 131/73 Blood Pressure [Right Arm] Blood Pressure Mean [Left Arm] 85 92 Blood Pressure Mean [Right Arm] Blood Pressure Position [Left Arm] Lying Lying Blood Pressure Position [Right Arm] Pulse Oximetry Oxygen Delivery Method 04/18/21 15:00 04/18/21 15:33 04/18/21 15:48 Temperature 36.5 C Temperature Source Oral Pulse Rate 73 Pulse Rate [Apical] 67 60 Pulse Rhythm [Apical] Regular Pulse Strength [Apical] Normal Respiratory Rate 20 Respiratory Effort / Characteristics Respiratory Depth Respiratory Pattern Blood Pressure [Left Arm] 119/78 139/77 Blood Pressure [Right Arm] Blood Pressure Mean [Left Arm] 91 97 Blood Pressure Mean [Right Arm] Blood Pressure Position [Left Arm] Lying Sitting Blood Pressure Position [Right Arm] Pulse Oximetry 94 Oxygen Delivery Method Room Air 04/18/21 16:00 04/18/21 17:00 04/18/21 18:00 Temperature Temperature Source Pulse Rate Pulse Rate [Apical] 61 65 71 Pulse Rhythm [Apical] Regular Regular Regular Pulse Strength [Apical] Normal Normal Normal Respiratory Rate Respiratory Effort / Characteristics Respiratory Depth Respiratory Pattern Blood Pressure [Left Arm] 163/89 H 153/74 H 164/74 H Blood Pressure [Right Arm] Blood Pressure Mean [Left Arm] 113 100 104 Blood Pressure Mean [Right Arm] Blood Pressure Position [Left Arm] Lying Blood Pressure Position [Right Arm] Pulse Oximetry Oxygen Delivery Method GENERAL: alert, well appearing, well nourished, no distress, non-toxic EYE EXAM: normal conjunctiva, PERRL and EOM's grossly intact OROPHARYNX: no exudate, no erythema, lips, buccal mucosa, and tongue normal and mucous membranes are moist NECK: supple, no nuchal rigidity, no adenopathy, non-tender LUNGS: Clear to auscultation. Normal chest wall mechanics, no w/r/r HEART: no murmurs, S1 normal and S2 normal, no reproducible chest wall tenderness ABDOMEN: abdomen soft, non-tender, normo-active bowel sounds, no masses, no rebound or guarding. BACK: Back is symmetrical on inspection and there is no deformity, no midline tenderness, no CVA tenderness. SKIN: no rashes and no bruising UPPER EXTREMITIES: upper extremities are grossly normal. FROM, nml pulses b/l. LOWER EXTREMITIES: No pitting edema. FROM, nml pulses b/l. NEURO EXAM: Normal sensorium, cranial nerves II-XII grossly intact, normal speech, no gross weakness of arms, no gross weakness of legs. Gross sensation intact. Course Course 1440: Discussed with Dr. Crooks. Patient updated on discussion. Patient still symptom free at rest. 1450: Discussed with Shaista Fernandez PA-C. Administered Medications Acetaminophen (Acetaminophen 500 Mg Tab) 1,000 mg PO BID PRN PRN Reason: Pain Stop: 05/17/21 18:39 Last Admin: 04/17/21 20:28 Dose: 1,000 mg Documented by: [id number] Atorvastatin Calcium (Atorvastatin 40 Mg Tab) 80 mg PO HS [facility] Stop: 05/17/21 20:59 Last Admin: 04/17/21 20:56 Dose: 40 mg Documented by: [id number] Losartan Potassium (Losartan Potassium 50 Mg Tab) 50 mg PO QPM [facility] Stop: 05/17/21 20:59 Last Admin: 04/17/21 20:54 Dose: 50 mg Documented by: [id number] Miscellaneous (Dutasteride 0.5 Mg Cap~Order Awaiting Action) 1 ea N/A QS [facility] Stop: 05/18/21 00:00 Last Admin: 04/18/21 16:14 Dose: Not Given Documented by: [id number] Admin: 04/18/21 11:18 Dose: Not Given Documented by: [id number] Admin: 04/17/21 23:41 Dose: Not Given Documented by: [id number] Multivitamins (Multivitamin Tab) 1 tab PO [facility] Stop: 05/18/21 08:59 Last Admin: 04/18/21 11:16 Dose: 1 tab Documented by: [id number] Pantoprazole Sodium (Pantoprazole 40 Mg Tab) 40 mg PO QAM [facility]; Protocol Stop: 05/18/21 08:59 Last Admin: 04/18/21 11:16 Dose: 40 mg Documented by: [id number] Terazosin HCl (Terazosin Hcl 5 Mg Cap) 5 mg PO BID [facility] Stop: 05/17/21 20:59 Last Admin: 04/18/21 11:17 Dose: 5 mg Documented by: [id number] Admin: 04/17/21 20:54 Dose: 5 mg Documented by: [id number] Discontinued Medications Aspirin (Aspirin 81 Mg Ectab) 81 mg PO PM [facility] Stop: 05/17/21 20:59 Last Admin: 04/17/21 20:54 Dose: 81 mg Documented by: [id number] Aspirin (Aspirin 81 Mg Chew) 324 mg PO ONE ONE Stop: 04/18/21 11:16 Last Admin: 04/18/21 11:33 Dose: 324 mg Documented by: [id number] Carvedilol (Carvedilol 6.25 Mg Tab) 6.25 mg PO BID [facility] Stop: 05/17/21 20:59 Last Admin: 04/18/21 11:16 Dose: 6.25 mg Documented by: [id number] Admin: 04/17/21 20:53 Dose: 6.25 mg Documented by: [id number] Fentanyl Citrate (Fentanyl Citrate 100 Mcg/2 Ml Vial) Confirm Administered Dose 100 mcg .ROUTE .STK-MED ONE Stop: 04/18/21 11:39 Last Admin: 04/18/21 12:41 Dose: 100 mcg Documented by: [id number] Fentanyl Citrate (Fentanyl Citrate 100 Mcg/2 Ml Vial) Confirm Administered Dose 100 mcg .ROUTE .STK-MED ONE Stop: 04/18/21 12:30 Last Increment: 04/18/21 13:00 Dose: 50 mcg Documented by: [id number] Heparin Sodium (Porcine) (Heparin (Porcine) 1000 Unit/Ml 10 Ml (Medical Administrator Use Only)) Confirm Administered Dose 10,000 units .ROUTE .STK-MED ONE Stop: 04/18/21 11:38 Last Admin: 04/18/21 13:00 Dose: Not Given Documented by: [id number] Heparin Sodium/Sodium Chloride (Heparin In Nss Infusion 1000 Unit/500 Ml (2 U/Ml) Bag) Confirm Administered Dose 3,000 units IV .STK-MED ONE Stop: 04/18/21 11:39 Last Admin: 04/18/21 12:23 Dose: 3,000 units Documented by: [id number] Heparin Sodium/Dextrose (Heparin Sodium/Dextrose) 25,000 units in 500 mls @ 36 mls/hr IV .[id number] [facility]; Protocol Stop: 05/17/21 20:29 Last Admin: 04/18/21 11:36 Dose: Not Given Documented by: [id number] Titration: 04/18/21 11:24 Dose: 0 units/hr, 0 mls/hr Documented by: [id number] Cosigned by: [id number] Titration: 04/18/21 07:01 Dose: 1,800 units/hr, 36 mls/hr Documented by: [id number] Cosigned by: [id number] Admin: 04/17/21 20:47 Dose: 1,800 units/hr, 36 mls/hr Documented by: [id number] Cosigned by: [id number] Sodium Chloride (Nss 1000ml) 1,000 mls @ 75 mls/hr IV .[id number] [facility] Stop: 04/18/21 16:34 Last Admin: 04/18/21 13:57 Dose: 75 mls/hr Documented by: [id number] Midazolam HCl (Midazolam Hcl 1 Mg/Ml 2ml Vial) Confirm Administered Dose 2 mg .ROUTE .STK-MED ONE Stop: 04/18/21 11:39 Last Admin: 04/18/21 12:41 Dose: 2 mg Documented by: [id number] Midazolam HCl (Midazolam Hcl 1 Mg/Ml 2ml Vial) Confirm Administered Dose 2 mg .ROUTE .STK-MED ONE Stop: 04/18/21 12:29 Last Admin: 04/18/21 12:59 Dose: 2 mg Documented by: [id number] Midazolam HCl (Midazolam Hcl 1 Mg/Ml 2ml Vial) Confirm Administered Dose 2 mg .ROUTE .STK-MED ONE Stop: 04/18/21 12:51 Last Increment: 04/18/21 13:00 Dose: 1 mg Documented by: [id number] Nicardipine HCl (Nicardipine Hcl Inj 2.5 Mg/Ml 10 Ml Amp) Confirm Administered Dose 25 mg .ROUTE .STK-MED ONE Stop: 04/18/21 11:38 Last Admin: 04/18/21 12:23 Dose: 25 mg Documented by: [id number] Nitroglycerin/Dextrose (Nitroglycerin/D5w 100mcg/Ml 20ml Syr) Confirm Administer ed Dose 2,000 mcg .ROUTE .STK-MED ONE Stop: 04/18/21 11:39 Last Admin: 04/18/21 12:23 Dose: 2,000 mcg Documented by: [id number] Medical Decision Making Differential Diagnosis Differential diagnoses includes but is not limited to acute coronary syndrome, myocardial infarction, pericarditis, pulmonary embolus, aortic dissection, pneumonia, pneumothorax, musculoskeletal, shingles, esophageal. Medical Records Attestation: I reviewed the patient's medical records. Home Medications Current Medication List: was personally reviewed by me Laboratory Data Attestation: I reviewed the patient's lab results. Result diagrams: 04/18/21 06:57 04/18/21 06:57 Lab Results 04/17/21 04/17/21 04/17/21 Range/Units 13:20 13:20 13:20 WBC 6.09 (4.8-10.8) K/uL RBC 4.95 (4.7-6.1) M/uL Hgb 15.4 (14.0-18.0) g/dL Hct 43.8 (42-52) % MCV 88.5 (80-100) fL MCH 31.1 (25-34) pg MCHC 35.2 (32-36) g/dL RDW Std Deviation 40.9 (36.4-46.3) fL RDW Coeff of Ashlyn 12.8 (11.5-14.5) % Plt Count 150 (130-400) K/uL MPV 11.1 H (7.4-10.4) fL Immature Gran % (Auto) 0.3 % Neut % (Auto) 62.3 % Lymph % (Auto) 25.9 % Emmet % (Auto) 9.4 % Eos % (Auto) 1.8 % Baso % (Auto) 0.3 % Neut # (Auto) 3.79 (1.4-6.5) K/uL Lymph # (Auto) 1.58 (1.2-3.4) K/uL Emmet # (Auto) 0.57 (0.11-0.59) K/uL Eos # (Auto) 0.11 (0-0.5) K/uL Baso # (Auto) 0.02 (0-0.2) K/uL Immature Gran # (Auto) 0.02 (0.00-0.02) K/uL PT (9.0-12.0) Seconds INR (0.9-1.1) APTT Cancelled PTT Ratio Cancelled Sodium 139 (136-145) mmol/L Potassium 4.2 (3.5-5.1) mmol/L Chloride 107 (98-107) mmol/L Carbon Dioxide 26 (21-32) mmol/L Anion Gap 6.0 (3-11) BUN 32 H (7-18) mg/dl Creatinine 1.41 H (0.6-1.4) mg/dl Est Cr Clr Drug Dosing 63.8 ml/min Est GFR ( Amer) 56.1 ml/min Est GFR (Non-Af Amer) 48.4 ml/min BUN/Creatinine Ratio 22.5 H (10-20) Glucose 136 H (70-99) mg/dl Estimat Average Glucose mg/dl Hemoglobin A1c (4.5-5.6) % Calcium 9.4 (8.5-10.1) mg/dl Total Bilirubin 0.7 (0.2-1) mg/dl AST 17 (15-37) U/L ALT 35 (12-78) U/L Alkaline Phosphatase 71 (45-117) U/L Troponin I 0.021 (0-0.045) ng/ml NT-Pro-B Natriuret Pep (0-900) pg/ml Total Protein 7.7 (6.4-8.2) gm/dl Albumin 4.1 (3.4-5.0) gm/dl Globulin 3.6 (2.5-4.0) gm/dl Albumin/Globulin Ratio 1.1 (0.9-2) Lipase 119 (73-393) U/L COVID-19 Eval Order SARS-CoV-2 (PCR) (Negative) 04/17/21 04/17/21 04/17/21 Range/Units 13:20 14:03 14:22 WBC (4.8-10.8) K/uL RBC (4.7-6.1) M/uL Hgb (14.0-18.0) g/dL Hct (42-52) % MCV (80-100) fL MCH (25-34) pg MCHC (32-36) g/dL RDW Std Deviation (36.4-46.3) fL RDW Coeff of Ashlyn (11.5-14.5) % Plt Count (130-400) K/uL MPV (7.4-10.4) fL Immature Gran % (Auto) % Neut % (Auto) % Lymph % (Auto) % Emmet % (Auto) % Eos % (Auto) % Baso % (Auto) % Neut # (Auto) (1.4-6.5) K/uL Lymph # (Auto) (1.2-3.4) K/uL Emmet # (Auto) (0.11-0.59) K/uL Eos # (Auto) (0-0.5) K/uL Baso # (Auto) (0-0.2) K/uL Immature Gran # (Auto) (0.00-0.02) K/uL PT 11.3 (9.0-12.0) Seconds INR 1.1 (0.9-1.1) APTT 24.8 PTT Ratio 0.9 Sodium (136-145) mmol/L Potassium (3.5-5.1) mmol/L Chloride (98-107) mmol/L Carbon Dioxide (21-32) mmol/L Anion Gap (3-11) BUN (7-18) mg/dl Creatinine (0.6-1.4) mg/dl Est Cr Clr Drug Dosing ml/min Est GFR ( Amer) ml/min Est GFR (Non-Af Amer) ml/min BUN/Creatinine Ratio (10-20) Glucose (70-99) mg/dl Estimat Average Glucose mg/dl Hemoglobin A1c (4.5-5.6) % Calcium (8.5-10.1) mg/dl Total Bilirubin (0.2-1) mg/dl AST (15-37) U/L ALT (12-78) U/L Alkaline Phosphatase (45-117) U/L Troponin I (0-0.045) ng/ml NT-Pro-B Natriuret Pep 805 (0-900) pg/ml Total Protein (6.4-8.2) gm/dl Albumin (3.4-5.0) gm/dl Globulin (2.5-4.0) gm/dl Albumin/Globulin Ratio (0.9-2) Lipase (73-393) U/L COVID-19 Eval Order Covid19 at [facility] SARS-CoV-2 (PCR) (Negative) 04/17/21 04/17/21 04/18/21 Range/Units 14:22 19:20 01:05 WBC (4.8-10.8) K/uL RBC (4.7-6.1) M/uL Hgb (14.0-18.0) g/dL Hct (42-52) % MCV (80-100) fL MCH (25-34) pg MCHC (32-36) g/dL RDW Std Deviation (36.4-46.3) fL RDW Coeff of Ashlyn (11.5-14.5) % Plt Count (130-400) K/uL MPV (7.4-10.4) fL Immature Gran % (Auto) % Neut % (Auto) % Lymph % (Auto) % Emmet % (Auto) % Eos % (Auto) % Baso % (Auto) % Neut # (Auto) (1.4-6.5) K/uL Lymph # (Auto) (1.2-3.4) K/uL Emmet # (Auto) (0.11-0.59) K/uL Eos # (Auto) (0-0.5) K/uL Baso # (Auto) (0-0.2) K/uL Immature Gran # (Auto) (0.00-0.02) K/uL PT (9.0-12.0) Seconds INR (0.9-1.1) APTT PTT Ratio Sodium (136-145) mmol/L Potassium (3.5-5.1) mmol/L Chloride (98-107) mmol/L Carbon Dioxide (21-32) mmol/L Anion Gap (3-11) BUN (7-18) mg/dl Creatinine (0.6-1.4) mg/dl Est Cr Clr Drug Dosing ml/min Est GFR ( Amer) ml/min Est GFR (Non-Af Amer) ml/min BUN/Creatinine Ratio (10-20) Glucose (70-99) mg/dl Estimat Average Glucose mg/dl Hemoglobin A1c (4.5-5.6) % Calcium (8.5-10.1) mg/dl Total Bilirubin (0.2-1) mg/dl AST (15-37) U/L ALT (12-78) U/L Alkaline Phosphatase (45-117) U/L Troponin I 0.108 H* 0.216 H* (0-0.045) ng/ml NT-Pro-B Natriuret Pep (0-900) pg/ml Total Protein (6.4-8.2) gm/dl Albumin (3.4-5.0) gm/dl Globulin (2.5-4.0) gm/dl Albumin/Globulin Ratio (0.9-2) Lipase (73-393) U/L COVID-19 Eval Order SARS-CoV-2 (PCR) NEGATIVE (Negative) 04/18/21 04/18/21 04/18/21 Range/Units 03:05 06:57 06:57 WBC 6.05 (4.8-10.8) K/uL RBC 4.58 L (4.7-6.1) M/uL Hgb 14.1 (14.0-18.0) g/dL Hct 40.6 L (42-52) % MCV 88.6 (80-100) fL MCH 30.8 (25-34) pg MCHC 34.7 (32-36) g/dL RDW Std Deviation 40.4 (36.4-46.3) fL RDW Coeff of Ashlyn 12.5 (11.5-14.5) % Plt Count 132 (130-400) K/uL MPV 10.6 H (7.4-10.4) fL Immature Gran % (Auto) % Neut % (Auto) % Lymph % (Auto) % Emmet % (Auto) % Eos % (Auto) % Baso % (Auto) % Neut # (Auto) (1.4-6.5) K/uL Lymph # (Auto) (1.2-3.4) K/uL Emmet # (Auto) (0.11-0.59) K/uL Eos # (Auto) (0-0.5) K/uL Baso # (Auto) (0-0.2) K/uL Immature Gran # (Auto) (0.00-0.02) K/uL PT (9.0-12.0) Seconds INR (0.9-1.1) APTT 56.8 H* PTT Ratio 2.2 Sodium 142 (136-145) mmol/L Potassium 3.8 (3.5-5.1) mmol/L Chloride 110 H (98-107) mmol/L Carbon Dioxide 26 (21-32) mmol/L Anion Gap 6.0 (3-11) BUN 26 H (7-18) mg/dl Creatinine 1.09 (0.6-1.4) mg/dl Est Cr Clr Drug Dosing 80.4 ml/min Est GFR ( Amer) 76.5 ml/min Est GFR (Non-Af Amer) 66.0 ml/min BUN/Creatinine Ratio 23.8 H (10-20) Glucose 103 H (70-99) mg/dl Estimat Average Glucose mg/dl Hemoglobin A1c (4.5-5.6) % Calcium 8.6 (8.5-10.1) mg/dl Total Bilirubin (0.2-1) mg/dl AST (15-37) U/L ALT (12-78) U/L Alkaline Phosphatase (45-117) U/L Troponin I (0-0.045) ng/ml NT-Pro-B Natriuret Pep (0-900) pg/ml Total Protein (6.4-8.2) gm/dl Albumin (3.4-5.0) gm/dl Globulin (2.5-4.0) gm/dl Albumin/Globulin Ratio (0.9-2) Lipase (73-393) U/L COVID-19 Eval Order SARS-CoV-2 (PCR) (Negative) 04/18/21 Range/Units 06:57 WBC (4.8-10.8) K/uL RBC (4.7-6.1) M/uL Hgb (14.0-18.0) g/dL Hct (42-52) % MCV (80-100) fL MCH (25-34) pg MCHC (32-36) g/dL RDW Std Deviation (36.4-46.3) fL RDW Coeff of Ashlyn (11.5-14.5) % Plt Count (130-400) K/uL MPV (7.4-10.4) fL Immature Gran % (Auto) % Neut % (Auto) % Lymph % (Auto) % Emmet % (Auto) % Eos % (Auto) % Baso % (Auto) % Neut # (Auto) (1.4-6.5) K/uL Lymph # (Auto) (1.2-3.4) K/uL Emmet # (Auto) (0.11-0.59) K/uL Eos # (Auto) (0-0.5) K/uL Baso # (Auto) (0-0.2) K/uL Immature Gran # (Auto) (0.00-0.02) K/uL PT (9.0-12.0) Seconds INR (0.9-1.1) APTT PTT Ratio Sodium (136-145) mmol/L Potassium (3.5-5.1) mmol/L Chloride (98-107) mmol/L Carbon Dioxide (21-32) mmol/L Anion Gap (3-11) BUN (7-18) mg/dl Creatinine (0.6-1.4) mg/dl Est Cr Clr Drug Dosing ml/min Est GFR ( Amer) ml/min Est GFR (Non-Af Amer) ml/min BUN/Creatinine Ratio (10-20) Glucose (70-99) mg/dl Estimat Average Glucose 117 mg/dl Hemoglobin A1c 5.7 H (4.5-5.6) % Calcium (8.5-10.1) mg/dl Total Bilirubin (0.2-1) mg/dl AST (15-37) U/L ALT (12-78) U/L Alkaline Phosphatase (45-117) U/L Troponin I (0-0.045) ng/ml NT-Pro-B Natriuret Pep (0-900) pg/ml Total Protein (6.4-8.2) gm/dl Albumin (3.4-5.0) gm/dl Globulin (2.5-4.0) gm/dl Albumin/Globulin Ratio (0.9-2) Lipase (73-393) U/L COVID-19 Eval Order SARS-CoV-2 (PCR) (Negative) Imaging Data Radiologist's Impression: Chest X-Ray 04/17/21 13:11 XR chest 1V portable CLINICAL HISTORY: Atypical chest pain COMPARISON STUDY: February 23, 2019 FINDINGS: The heart is normal in size. There is aortic tortuosity. There is no failure. There is no focal pulmonary consolidation. There are no pleural effusions. Arthritic changes are present within the left shoulder.[Widening of the AC joints may relate to prior surgery. IMPRESSION: No active disease in the chest. ACT 112: Negative or not required by law. Electronically signed by: Remigio Araujo M.D. 04/17/2021 3:30 PM ECG Data Attestation: I personally reviewed and interpreted this ECG as follows: Indication: + chest pain Rate (beats per minute): 70 Rhythm: + normal sinus ECG Intervals/blocks: + Normal QRS and + Normal QT ECG Hayden: + Normal ECG ST segments: + Nonspecific ST abnormalities ECG Findings: + PVCs MDM Narrative This is a 76-year-old male who presents due to concern for worsening exertional chest pain and shortness of breath. Patient with prior cardiac history and elevated heart score. Patient was asymptomatic at rest, hemodynamically stable. EKG did not reveal any acute changes. Description of patient's symptoms suggestive of evolving unstable angina. I did discuss case with cardiology on- call who agreed with plan for inpatient evaluation and likely additional cardiac testing. Patient asymptomatic at rest so additional medications not ordered at this time. Labs did reveal a mildly elevated troponin. Patient made aware of all results and need for additional inpatient evaluation and monitoring, he verbalized understanding and was in agreement. At this time I do not suspect acute vascular etiology, PE, occult infectious etiology. Patient asymptomatic while at rest and remained hemodynamically stable in the emergency room. An order was placed for continuous cardiac monitoring. The monitor shows a rate of with rhythm. Impression & Plan Chest pain, Elevated troponin, CKD (chronic kidney disease) Discharge Plan Visit Data Chief Complaint: Chest Pain Stated Complaint: CHEST PAIN ED Provider: Ericka Koch Discharge Problem: Chest pain, Elevated troponin, CKD (chronic kidney disease) Patient Disposition: Admitted As Inpatient Condition: Fair Discharge Instructions Interventions: ED Discharge Assessment Last Done: 04/17/21 18:06 Discharge Problem: Chest pain Qualifiers: Chest pain type: unspecified Qualified Code(s): R07.9 - Chest pain, unspecified CKD (chronic kidney disease) Qualifiers: Chronic kidney disease stage: unspecified stage Qualified Code(s): N18.9 - Chronic kidney disease, unspecified
[2021-04-17 14:02] LABS: Albumin Level 4.1 gm/dl (3.4-5.0); BUN Creatinine Ratio 22.5 (10-20); Calcium 9.4 mg/dl (8.5-10.1); Creatinine Clr Calc Pharmacy 63.8 ml/min; Est GFR (African American) 56.1 ml/min; Est GFR (Non-African American) 48.4 ml/min; Potassium 4.2 mmol/L (3.5-5.1)
[2021-04-17 14:06] LABS: Albumin Globulin Ratio 1.1 (0.9-2); Bilirubin,Total 0.7 mg/dl (0.2-1); Globulin 3.6 gm/dl (2.5-4.0); Total Protein 7.7 gm/dl (6.4-8.2); Troponin I 0.021 ng/ml (0-0.045)
--- NOTE | 2021-04-17 14:11 | Electrocardiogram Report ---
Test Reason : Blood Pressure : / mmHG Vent. Rate : 070 BPM Atrial Rate : 070 BPM P-R Int : 162 ms QRS Dur : 116 ms QT Int : 416 ms P-R-T Axes : 025 008 056 degrees QTc Int : 449 ms Sinus rhythm with frequent Premature ventricular complexes Nonspecific T wave abnormality Abnormal ECG When compared with ECG of 26-MAY-2019 19:08, Nonspecific T wave abnormality, worse in Lateral leads Confirmed by Paco Wilson ([id number]) on 04/17/2021 2:11:16 PM Referred By: Confirmed By:Paco Wilson
[2021-04-17 14:24] LABS: INR 1.1 (0.9-1.1); Partial Thromboplastin Ratio 0.9; Partial Thromboplastin Time 24.8 Seconds (21.0-31.0); Prothrombin Time 11.3 Seconds (9.0-12.0)
--- NOTE | 2021-04-17 15:09 | History & Physical Report ---
Date of Service April 17, 2021 Assessment & Plan (1) Chest pain, exertional: Plan: This is a 76-year-old male with PMH of CAD s/p KATIA to RCA x 2 in 2007, hypertension, chronic systolic heart failure, frequent PVCs, dyslipidemia and other medical problems listed below who presents with exertional chest pain over the past month. Chest pain is exertional , resolves at rest KATIA to RCA x 2 in 2007. Cardiac cath in 2011 without intervention Last stress test in 2018 with no inducible ischemia. Nuclear stress test since attempted but aborted due to claustrophobia In ER today, patient chest pain free EKG with SR with frequent PVCs. T wave abnormality worse in lateral leads compared to previous EKG Initial troponin negative - continue trending CXR without acute cardiopulmonary abnormality 2D echo ordered Cardiology consulted NPO @ [place] (2) Chronic systolic heart failure: Plan: Appears compensated on exam Home diuretics include spironolactone 12.5mg and Lasix 40mg daily (3) Hypertension: Plan: Continue Carvedilol, losartan, terazosin (4) CKD (chronic kidney disease), stage III: Plan: Cr slightly elevated from baseline at 1.4 today (Baseline ~1.3) Avoid nephrotoxic agents, hold diuretics in AM until evaluated by cardiology Daily BMP (5) Hyperlipidemia: Plan: Continue statin (6) Sleep apnea: Plan: Unable to tolerate device 2/2 claustrophobia (7) Benign prostatic hyperplasia with urinary obstruction and other lower urinary tract symptoms: Plan: Continue terazosin, dutasteride DVT Ppx: SQ heparin Code status: FULL PCP: Maxime (Sriram) Dispo: Observation telemetry Patient seen in collaboration with Dr. Campbell. Please see addendum. History of Present Illness Chief Complaint: Chest pain Primary Care Provider: Jayro Swartz MD This is a 76-year-old male with PMH of CAD s/p KATIA to RCA x 2 in 2007, hypertension, chronic systolic heart failure, frequent PVCs, dyslipidemia and other medical problems listed below who presents with exertional chest pain over the past month. First experienced chest pain while playing golf in [place] last month and attributed it to the heat. It resolved at rest. Has continued to experience chest pain with any type of walking outdoors or while taking the steps at home. Describes pain as a pressure in central to left side of chest with some associated tingling in left arm. Denies any pain in jaw. Is unable to catch his breath with these episodes. Denies any associated nausea or vomiting. Follows with Dr. Nichole in clinic. Last stress test in 2017 with no inducible ischemia. Nuclear stress test since attempted but aborted due to claustrophobia. Currently patient is comfortable at rest. Denies any lighth eadedness, visual changes, near syncope, chest pain or shortness of breath. No fever, chills, headache, nausea, vomiting, abdominal pain, dysuria, diarrhea or constipation. Taking all medications as directed. Follows with PCP Dr. Swartz in [place]. Most recent echo March 2020 with ejection fraction is 55-59% (normal). Moderate aortic valve sclerosis is present. Aortic stenosis is absent. Mild aortic valve regurgitation is present. Allergies Allergy/AdvReac Type Severity Reaction Status Date / Time enalapril Allergy Mild cough Verified 04/17/21 14:45 Home Medications Medication Instructions Recorded Confirmed Type aspirin 81 mg tablet,delayed 81 mg PO PM 04/20/19 04/17/21 History release atorvastatin 80 mg tablet 80 mg PO HS 04/20/19 04/17/21 History carvedilol 6.25 mg tablet 6.25 mg PO BID 04/20/19 04/17/21 History losartan 50 mg tablet 50 mg PO QPM 04/20/19 04/17/21 History multivitamin (Multiple Vitamins) 1 tab PO QAM 04/20/19 04/17/21 History terazosin 5 mg capsule 5 mg PO BID 04/20/19 04/17/21 History furosemide 40 mg tablet (Lasix) 40 mg PO QAM 05/26/19 04/17/21 History omeprazole 40 mg capsule,delayed 40 mg PO QAM 05/26/19 04/17/21 History release spironolactone 25 mg tablet 12.5 mg PO QAM 08/31/19 04/17/21 History acetaminophen 500 mg tablet 1,000 mg PO BID PRN 04/17/21 04/17/21 History (Tylenol Extra Strength) dutasteride 0.5 mg capsule 0.5 mg PO QAM 04/17/21 04/17/21 History glucosamine-chondroitin 250 mg-200 1 tab PO BID 04/17/21 04/17/21 History mg tablet (Osteo Bi-Flex) turmeric 400 mg capsule 400 mg PO PM 04/17/21 04/17/21 History Past Med/Surg History Medical History (Updated 04/17/21 @ 18:30 by Shaista Fernandez PA-C) Anemia 2/2 GI bleed 03/2019. S/P 1 unit transfused PRBC. Benign prostatic hyperplasia with urinary obstruction and other lower urinary tract symptoms CAD (coronary artery disease) KATIA x 2 (2007) Chronic systolic heart failure CKD (chronic kidney disease), stage III DVT (deep venous thrombosis) 2016 s/p foot surgery Gastric ulcer 03/2019 large duodenal ulcer s/p 1U PRBCs H/O deep venous thrombosis Hyperlipidemia Hypertension Myocardial Infarction 2007 Obesity Osteoarthritis Sleep apnea no device, could not tolerate due to claustrophobia Surgical History (Updated 04/17/21 @ 18:23 by Shaista Fernandez PA-C) Fusion of spine LUMBAR H/O shoulder surgery LEFT History of back surgery History of cardiac cath 2007= stents x 2 2011= no stents History of colonoscopy History of esophagogastroduodenoscopy (EGD) History of hernia surgery UMBILICAL HERNIA Hx of foot surgery RT Hx of vasectomy Family History Other Hypertension Social History (Updated 04/17/21 @ 18:19 by Shaista Fernandez PA-C) Smoking Status: Never smoker Second Hand Exposure: No; Hx Alcohol Use: No Hx Substance Use: No Preferred Language: Maori Communication Ability: Effective Visual Impairment: No Limitations Diamond Die Maker Required: No Beliefs That Will Affect Care: None Current Living Situation: Spouse Other Information That Helps Us Care for You: No Feels Safe at Home: Yes Safety Concerns: Feels Safe At This Time Assistive Devices: None Review of Systems Review of Systems: At least ten systems reviewed and negative except as noted in the HPI. Physical Exam Physical Exam: General Appearance: WD/WN, vitals as above, NAD, sitting up in bed, pleasant, conversing easily Head: normocephalic, atraumatic Eyes: normal inspection, PERRL, conjunctivae normal, anicteric sclerae ENT: external ear and nose normal, oropharynx normal Neck: normal visual inspection, trachea midline, no thyromegaly Respiratory: normal respiratory effort, lungs clear to auscultation, no wheeze, rales, rhonchi. No accessory muscle use Cardiovascular: regular rate, rhythm, systolic murmur, normal peripheral pulses, no BLE edema. Vessels: no JVD Chest: normal inspection of chest Abdomen/GI: normal bowel sounds, soft, nontender, no hepatosplenomegaly Extremities/Musculoskeletal: no cyanosis or clubbing, extremities motor strength 5/5 Neurologic: PERRL, EOMI, accommodation nl, no face palsy, no dysarthria, CN's II-XI intact bilaterally and moves all extremities Psychiatric: A+Ox3, euthymic affect Skin: no rashes, normal color, warm/dry Results & Data Results & Data ([facility]) Vital Signs (Past 12 Hours) Vital Signs Temp Pulse Resp BP Pulse Ox 04/17/21 14:03 98 04/17/21 12:59 36.6 C 56 L 17 147/84 H 97 Laboratory Results Short CBC 04/17/21 04/17/21 Range/Units 13:20 13:20 WBC 6.09 (4.8-10.8) K/uL Hgb 15.4 (14.0-18.0) g/dL Hct 43.8 (42-52) % Plt Count 150 (130-400) K/uL Creatinine 1.41 H (0.6-1.4) mg/dl Troponin I 0.021 (0-0.045) ng/ml BMP 04/17/21 13:20 Sodium 139 Potassium 4.2 Chloride 107 Carbon Dioxide 26 BUN 32 H Creatinine 1.41 H Glucose 136 H Calcium 9.4 Cardiac Enzymes 04/17/21 Range/Units 13:20 Troponin I 0.021 (0-0.045) ng/ml Liver Function 04/17/21 Range/Units 13:20 Total Bilirubin 0.7 (0.2-1) mg/dl AST 17 (15-37) U/L ALT 35 (12-78) U/L Alkaline Phosphatase 71 (45-117) U/L Albumin 4.1 (3.4-5.0) gm/dl Diagnostic Findings Chest X-Ray 04/17/21 13:11 XR chest 1V portable CLINICAL HISTORY: Atypical chest pain COMPARISON STUDY: February 23, 2019 FINDINGS: The heart is normal in size. There is aortic tortuosity. There is no failure. There is no focal pulmonary consolidation. There are no pleural effu sions. Arthritic changes are present within the left shoulder.[Widening of the AC joints may relate to prior surgery. IMPRESSION: No active disease in the chest. ACT 112: Negative or not required by law. Electronically signed by: Remigio Araujo M.D. 04/17/2021 3:30 PM ECG Additional Comments: Sinus rhythm with frequent PVCs. Nonspecific T wave abnormality worse in lateral leads compared to previous ECG. Supervising Physician Co-Signing Physician Notes Attending Addendum: care coordinated with ARIA Fernandez please refer to her notes for full details, I agree with her notes patient seen and examined, records reviewed by myself as well on exam, patient seen sitting up in bed, having dinner Chest pain-free Denies dizziness, palpitations, shortness of breath, abdominal pain, nausea vomiting no other symptoms VS noted and reviewed oriented x3, not in distress, speaks in sentences with no effort nor accessory muscle use normal rate, regular rhythm, no murmurs clear breath sounds bilaterally non distended, soft, nontender no bipedal edema, erythema, warmth no neuro deficits WBC 6.0 Hg 15.4 Crea 1.4 Troponin 0 0.02 EKG sinus rhythm with PVCs, heart rate 70, no signs of acute ischemia or infarct per my interpretation ASSESSMENT AND PLAN Possible unstable angina, history of CAD Serial troponin Echocardiogram Continue aspirin, atorvastatin, carvedilol, losartan N.p.o. after midnight Cardiology service consulted History of chronic systolic CHF Euvolemic Continue usual Lasix and spironolactone other diagnoses and plan of care as per ARIA Fernandez's notes plan of care discussed with patient in detail and at length all questions answered He is understanding, agreeable, comfortable with the plan of care Orion Campbell MD
--- NOTE | 2021-04-17 15:31 | XRay Report ---
XR chest 1V portable CLINICAL HISTORY: Atypical chest pain COMPARISON STUDY: February 23, 2019 FINDINGS: The heart is normal in size. There is aortic tortuosity. There is no failure. There is no f ocal pulmonary consolidation. There are no pleural effusions. Arthritic changes are present within th e left shoulder.[Widening of the AC joints may relate to prior surgery. IMPRESSION: No active disease in the chest. ACT 112: Negative or not required by law. Electronically signed by: Remigio Araujo M.D. 04/17/2021 3:30 PM
[2021-04-17] MEDS ORDERED: ONDANSETRON INJ 2 MG/ML 2 ML VIAL IV PRN (18:37)
[2021-04-17] MEDS ORDERED: POLYETHYLENE (MIRALAX) 17 GM PACK PO PRN (18:37)
[2021-04-17] MEDS ORDERED: NITROGLYCERIN SL 0.4 MG/TAB TAB SL PRN (18:37)
[2021-04-17] MEDS ORDERED: ACETAMINOPHEN 325 MG TAB PO PRN (18:37)
[2021-04-17] MEDS ORDERED: ACETAMINOPHEN 500 MG TAB PO PRN (18:40)
[2021-04-17] MEDS ORDERED: Heparin IV Adult Wt-Based Standard *NO* Bolus Protocol ONE (20:09)
[2021-04-17] MEDS: HEPARIN SODIUM/DEXTROSE 25,000 UNITS/500 ML BAG IV SCH (20:47)
[2021-04-17] MEDS: carvediloL 6.25 MG TAB PO SCH (20:53)
[2021-04-17] MEDS: ATORVASTATIN 40 MG TAB PO SCH ×2 (20:53→20:56)
[2021-04-17] MEDS: TERAZOSIN HCL 5 MG CAP PO SCH (20:54)
[2021-04-17] MEDS: LOSARTAN POTASSIUM 50 MG TAB PO SCH (20:54)
[2021-04-17] MEDS ORDERED: ASPIRIN 81 MG ECTAB PO SCH (21:00)
[2021-04-17] MEDS ORDERED: NON-FORMULARY MEDICATION (Glucosamine-Chondroitin [Osteo Bi-Flex] 250-200 mg Tablet) PO SCH (21:00)
[2021-04-17] MEDS ORDERED: HEPARIN SOD 5,000 UNIT/0.5 ML VIAL SQ SCH (22:00)
[2021-04-18 03:44] LABS: Partial Thromboplastin Ratio 2.2
[2021-04-18 03:48] LABS: Partial Thromboplastin Time 56.8 Seconds (21.0-31.0)
[2021-04-18 07:24] LABS: Hematocrit (blood only) 40.6 % (42-52); Hemoglobin 14.1 g/dL (14.0-18.0); Mean Corpuscular Hemoglobin 30.8 pg (25-34); Mean Corpuscular Hgb Conc 34.7 g/dL (32-36); Mean Corpuscular Volume 88.6 fL (80-100); Mean Platelet Volume 10.6 fL (7.4-10.4); Platelet Count 132 K/uL (130-400); RDW Coefficient of Variation 12.5 % (11.5-14.5); RDW Standard Deviation 40.4 fL (36.4-46.3); Red Blood Count 4.58 M/uL (4.7-6.1); White Blood Count 6.05 K/uL (4.8-10.8)
[2021-04-18 07:55] LABS: BUN Creatinine Ratio 23.8 (10-20); Calcium 8.6 mg/dl (8.5-10.1); Creatinine Clr Calc Pharmacy 80.4 ml/min; Est GFR (African American) 76.5 ml/min; Potassium 3.8 mmol/L (3.5-5.1)
[2021-04-18 08:05] LABS: Estimated Average Glucose 117 mg/dl; Hemoglobin A1C 5.7 % (4.5-5.6)
--- NOTE | 2021-04-18 10:59 | Cardiology Consultation ---
Date of Consultation April 18, 2021 Assessment & Plan (1) Chest pain, exertional: Echocardiogram performed today reveals moderate to severe left ventricular systolic dysfunction, LVEF 30 to 35%, with global hypokinesis, slightly more pronounced in the right coronary artery territory. Overall, the left ventricular systolic function is unchanged compared to echocardiogram performed in 2018. The patient's troponin I has been mildly elevated on his most recent measurements at 0.216, and 0.108. This is a relatively mild and flat elevation, perhaps consistent with congestive heart failure, but patient states his symptoms have worsened, does not appear to be volume overloaded by physical exam or chest x-ray today. His BNP on presentation was only minimally elevated. Continue heparin infusion pending cardiac catheterization. Discussed options with patient. I think it is important for us to definitively rule in or rule out progression of his underlying coronary heart disease. As noted, stress testing has been technically limited in the past due to frequent premature ventricular contractions with dobutamine stress echocardiogram, and his claustrophobia has precluded nuclear stress testing. Patient agreeable to cardiac catheterization. (2) Chronic systolic heart failure: As noted above. Will exclude progression of his coronary heart disease also optimize his guideline based medical therapies. (3) Hypertension: Blood pressure high this morning, but he has not received his a.m. carvedilol or losartan yet due to his n.p.o. status. Patient be administered prior to cardiac catheterization. (4) Hyperlipidemia: Continue atorvastatin (5) Frequent PVCs: Continue carvedilol. (6) CKD (chronic kidney disease), stage III: Patient with history of stage III chronic kidney disease, past creatinine levels typically in the 1.4 range,As noted on presentation yesterday. Currently creatinine 1.09, optimized. History of Present Illness Attending Physician: Orion Campbell MD History of Present Illness Adalberto Paris is a 76 year old male seen in cardiology consultation per the request of Shaista Fernandez PA-C for the evaluation of exertional shortness of breath and chest pressure. The patient's primary spring coiler is Dr. Nichole of our practice however I have seen him as an inpatient in the past as well. He describes worsening easy fatigability, shortness of breath with minimal exertion, and exertional chest heaviness. He describes that a month ago he attempted to play golf while in [place]. He notes that it was very hot and humid, but that due to exertional chest heaviness he had to quit again. In the meantime, he has had similar symptoms at home with activity such as a short walk a few feet or even up a flight of stairs. He believes his symptoms have been worse for the last 3 months, and for the last 1 month much worse. He denies any resting chest pressure. He has been on furosemide 40 mg daily missed the last 2 years and has not missed any recent doses. Past Cardiac History: Coronary heart disease, status post PCI to the right coronary artery in [address] Minaya at [facility] at that time. Repeat cardiac catheterization in 2011 for symptoms of left shoulder pain revealed patent stents and no obstructive disease elsewhere. He has a longstanding history of PVCs, with previous baseline LV ejection fraction in the range of 45 to 50%. HTN Dyslipidemia Allergies Allergy/AdvReac Type Severity Reaction Status Date / Time enalapril Allergy Mild cough Verified 04/17/21 14:45 Home Medications Medication Instructions Recorded Confirmed Type aspirin 81 mg tablet,delayed 81 mg PO PM 04/20/19 04/17/21 History release atorvastatin 80 mg tablet 80 mg PO HS 04/20/19 04/17/21 History carvedilol 6.25 mg tablet 6.25 mg PO BID 04/20/19 04/17/21 History losartan 50 mg tablet 50 mg PO QPM 04/20/19 04/17/21 History multivitamin (Multiple Vitamins) 1 tab PO QAM 04/20/19 04/17/21 History terazosin 5 mg capsule 5 mg PO BID 04/20/19 04/17/21 History furosemide 40 mg tablet (Lasix) 40 mg PO QAM 05/26/19 04/17/21 History omeprazole 40 mg capsule,delayed 40 mg PO QAM 05/26/19 04/17/21 History release spironolactone 25 mg tablet 12.5 mg PO QAM 08/31/19 04/17/21 History acetaminophen 500 mg tablet 1,000 mg PO BID PRN 04/17/21 04/17/21 History (Tylenol Extra Strength) dutasteride 0.5 mg capsule 0.5 mg PO QAM 04/17/21 04/17/21 History glucosamine-chondroitin 250 mg-200 1 tab PO BID 07/19/21 07/19/21 History mg tablet (Osteo Bi-Flex) turmeric 400 mg capsule 400 mg PO PM 04/17/21 04/17/21 History Patient History Medical History Anemia 2/2 GI bleed 03/2019. S/P 1 unit transfused PRBC. Benign prostatic hyperplasia with urinary obstruction and other lower urinary tract symptoms CAD (coronary artery disease) KATIA x 2 (2007) Chronic systolic heart failure CKD (chronic kidney disease), stage III DVT (deep venous thrombosis) 2016 s/p foot surgery Gastric ulcer 03/2019 large duodenal ulcer s/p 1U PRBCs H/O deep venous thrombosis Hyperlipidemia Hypertension Myocardial Infarction 2007 Obesity Osteoarthritis Sleep apnea no device, could not tolerate due to claustrophobia Surgical History Fusion of spine LUMBAR H/O shoulder surgery LEFT History of back surgery History of cardiac cath 2007= stents x 2 2011= no stents History of colonoscopy History of esophagogastroduodenoscopy (EGD) History of hernia surgery UMBILICAL HERNIA Hx of foot surgery RT Hx of vasectomy Family History Other Hypertension Social History Smoking Status: Never smoker Second Hand Exposure: No; Hx Alcohol Use: No Hx Substance Use: No Preferred Language: Dominican Communication Ability: Effective Visual Impairment: No Limitations 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: No Beliefs That Will Affect Care: None Current Living Situation: Spouse Other Information That Helps Us Care for You: No Feels Safe at Home: Yes Safety Concerns: Feels Safe At This Time Assistive Devices: None Review of Systems Review of Systems: All systems reviewed & are unremarkable except as noted in HPI & below Physical Exam Physical Exam: Temp Pulse Resp BP Pulse Ox 36.8 C 58 L 20 173/90 H 96 04/18/21 07:25 04/18/21 08:00 04/18/21 07:25 04/18/21 07:25 04/18/21 07:25 Constitutional: WD/WN, vitals as above Respiratory: normal respiratory effort, lungs clear to auscultation Cardiovascular: RRR, no murmur, no edema Gastrointestinal (Abdomen): normal bowel sounds, soft, nontender, no hepatosplenomegaly Neurologic: PERRL, EOMI, accommodation nl, no face palsy, no dysarthria Results & Data ([facility]) Vital Signs (Past 12 Hours) Vital Signs Temp Pulse Pulse Resp BP BP Pulse Ox 04/18/21 08:00 58 L 04/18/21 07:25 36.8 C 62 20 173/90 H 96 04/18/21 04:34 36.6 C 56 L 18 156/81 H 98 04/17/21 23:40 59 L 04/17/21 23:16 36.4 C L 47 L 18 144/73 H 98 Laboratory Results Cardiac Enzymes 04/17/21 04/17/21 04/18/21 Range/Units 13:20 19:20 01:05 AST 17 (15-37) U/L Troponin I 0.021 0.108 H* 0.216 H* (0-0.045) ng/ml Coagulation 04/17/21 04/17/21 04/18/21 Range/Units 13:20 14:03 03:05 PT 11.3 (9.0-12.0) Seconds APTT Cancelled 24.8 56.8 H* CBC 04/17/21 04/18/21 Range/Units 13:20 06:57 WBC 6.09 6.05 (4.8-10.8) K/uL RBC 4.95 4.58 L (4.7-6.1) M/uL Hgb 15.4 14.1 (14.0-18.0) g/dL Hct 43.8 40.6 L (42-52) % Plt Count 150 132 (130-400) K/uL Neut # (Auto) 3.79 (1.4-6.5) K/uL Lymph # (Auto) 1.58 (1.2-3.4) K/uL [place] # (Auto) 0.57 (0.11-0.59) K/uL Eos # (Auto) 0.11 (0-0.5) K/uL Baso # (Auto) 0.02 (0-0.2) K/uL Comprehensive Metabolic Panel 04/17/21 04/18/21 Range/Units 13:20 06:57 Sodium 139 142 (136-145) mmol/L Potassium 4.2 3.8 (3.5-5.1) mmol/L Chloride 107 110 H (98-107) mmol/L Carbon Dioxide 26 26 (21-32) mmol/L BUN 32 H 26 H (7-18) mg/dl Creatinine 1.41 H 1.09 (0.6-1.4) mg/dl Glucose 136 H 103 H (70-99) mg/dl Calcium 9.4 8.6 (8.5-10.1) mg/dl AST 17 (15-37) U/L ALT 35 (12-78) U/L Alkaline Phosphatase 71 (45-117) U/L Total Protein 7.7 (6.4-8.2) gm/dl Albumin 4.1 (3.4-5.0) gm/dl Intake and Output 04/17/21 04/18/21 04/18/21 22:59 06:59 14:59 Intake Total 500 / 500 368.4 / 368.4 Output Total 250 / 250 Balance 500 / 250 -250 / 250 368.4 / 368.4 Intake: IV 368.4 / 368.4 Heparin Sodium/Dextrose 25,000 368.4 / 368.4 units In 500 ml @ 1,800 UNITS/ HR 36 mls/hr IV .[id number] [facility] Rx #:[id number] Oral 500 / 500 Output: Urine 250 / 250 Other: # Unmeasured Voids 1 Weight 122.3 kg 115.8 kg Weight Measurement Method Standing Scale Built in [facility] Diagnostic Findings EKG performed yesterday 04/17/2021 at 2020 revealed sinus rhythm at 64 bpm with first-degree AV block, frequent PVCs, no significant repolarization changes. Repeat tracing this morning at 548, sinus bradycardia 59 bpm, with frequent supraventricular and ventricular ectopic beats.
[2021-04-18] MEDS ORDERED: ASPIRIN 81 MG CHEW PO ONE (11:15)
[2021-04-18] MEDS: carvediloL 6.25 MG TAB PO SCH (11:16)
[2021-04-18] MEDS: PANTOprazole 40 MG TAB PO SCH (11:16)
[2021-04-18] MEDS: MULTIVITAMIN TAB PO SCH (11:16)
[2021-04-18] MEDS: TERAZOSIN HCL 5 MG CAP PO SCH ×2 (11:17→20:20)
[2021-04-18] MEDS: HEPARIN SODIUM/DEXTROSE 25,000 UNITS/500 ML BAG IV SCH (11:36)
[2021-04-18] MEDS ORDERED: HEPARIN (PORCINE) 1000 UNIT/ML 10 ML (CATH LAB USE ONLY) ONE (11:37)
[2021-04-18] MEDS ORDERED: niCARdipine HCL INJ 2.5 MG/ML 10 ML AMP ONE (11:37)
[2021-04-18] MEDS ORDERED: NITROGLYCERIN/D5W 100MCG/ML 20ML SYR ONE (11:38)
[2021-04-18] MEDS ORDERED: fentaNYL citrate 100 MCG/2 ML VIAL ONE ×2 (11:38→12:29)
[2021-04-18] MEDS ORDERED: MIDAZOLAM HCL 1 MG/ML 2ML VIAL ONE ×3 (11:38→12:50)
--- NOTE | 2021-04-18 13:04 | Post Anesthesia Assessment ---
Date of Service April 18, 2021 Post Sedation Assessment Vital Signs Temp Pulse Pulse Resp BP BP Pulse Ox 04/18/21 11:57 70 16 164/99 H 95 04/18/21 11:10 98.1 F 53 L 20 163/93 H 97 04/18/21 08:00 58 L 04/18/21 07:25 98.2 F 62 20 173/90 H 96 04/18/21 04:34 97.9 F 56 L 18 156/81 H 98 04/17/21 23:40 59 L 04/17/21 23:16 97.5 F L 47 L 18 144/73 H 98 04/17/21 18:42 97.7 F 61 20 162/79 H 95 04/17/21 18:38 98.8 F 62 18 162/78 H 96 04/17/21 18:37 69 04/17/21 17:09 60 20 155/95 H 94 04/17/21 14:03 98 Recovery Score Activity: Moves 4 extremities Respiration: Deep Breath/Cough Circulation: +/-20% PreAnes Value Consciousness: Fully Awake Oxygen Saturation: O2 needed for >90% Discharge Sedation Level of Care: Fast Track Phase II Post Sedation Plan On clinical assessment, the patient appears to have tolerated the sedation without complications. Patient is recovering as anticipated. Patient will continue to be monitored by nursing and may be discharged when sedation discharge criteria are met per below protocol. Upon Completions of procedure up to 15 minutes continue every 5 minute vital signs and the P.A.R. score; then discharge to a Phase I or Fast Track to Phase II per the following guidelines: * Discharge Patient to appropriate Phase II area if PAR is 8 or greater or return to pre- procedure baseline. The post - procedure orders will be as directed. * If PAR score is less than 8 or not return to pre-procedure baseline then patient will follow Phase I monitoring till PAR is reached for Phase II. The Phase I may be done in procedure room or may call to secure a Phase I area. * If naloxone or flumazenil are used for reversal, hold in Phase I for continued monitoring from when last reversal dose was given for a minimum of 60 minutes or longer pending the nurse and/or physician discretion of patient condition before discharge to Phase II. Please call the Sedation Physician to re-evaluate and complete post-note for discharge to Phase II area. Do NOT discharge from procedure sedation or Phase 1 until post- sedation evaluation note is complete by procedure /sedation MD Sedation Discharge Instructions to be given to the patient at discharge to home.
[2021-04-18] MEDS ORDERED: SODIUM CHLORIDE 0.9% 1000ML 1,000 ML IV SCH (13:15)
--- NOTE | 2021-04-18 13:15 | Cardiac Catheterization ---
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 Cardiac Status Clinical evaluation leading to the procedure CAD Presenation: Stable angina and Sx unlikely to be ischemic Anginal Classification: CCS III Heart Failure: NYHA Class: CCS III Cardiogenic Shock within 24 Hours: No Cardiac Arrest within 24 Hours: No Imaging Studies Past 6 Months: Yes Stress Studies Past 6 Months: No Diagnostic Physicians Name: Royce Cabrales MD Closure Device Percutaneous Entry Location: Radial Closure Device: Radial Band Recommendations: Medical Therapy and/or Counseling Intraprocedure Events Significant Disection: No Cardiac Cath Procedure Full Procedure Date April 18, 2021 Pre-Procedure Diagnosis Pre-Procedure Diagnosis: Angina and Cardiomyopathy AUC Score AUC Score: 7 Post-Procedure Diagnosis Post-Procedure Diagnosis: Moderate CAD and Normal Intracardiac Pressures Procedure(s) Performed Procedure(s) Performed: Coronary Angiography and Left Heart Cath Hide Selector Royce Cabrales MD Licensed Massage Therapist(s) Phani Estimated Blood Loss Estimated Blood Loss: 5 Medication(s) Medication(s): Fentanyl, Heparin, Lidocaine 1%, Nicardipine, Nitroglycerin and Versed Summary of Findings Indication: Cardiomyopathy, chest pain, mildly elevated troponin Access: 6 Fr right radial artery Catheters: [place], diagnostic JR4 Findings: LM -normal caliber, no significant disease LAD -medium caliber vessel, 40-50% mid LAD involving bifurcation first diagonal. 50% distal stenosis just before vessel wraps around apex. Medium caliber D1 with 50% ostial. Circumflex -40% ostial involving takeoff of large, high OM1. Diffuse 30 to 40% mid segment disease. Large OM1 30% proximal. RCA -dominant, large caliber, 40% proximal just prior to widely patent earlymid stent, 30-40% diffuse distal disease. Large PDA, PLB without disease. LVEDP -13 Arterial Closure: TR band Summary: 1. Moderate multivessel coronary artery disease -40 to 50% mid LAD at bifurcation with D1 (D1 50% ostial), apical LAD 50% 40% ostial circumflex. 30% mid circumflex. 30% proximal OM1 40% proximal RCA before patent earlymid stent. 40% diffuse distal RCA disease 2. Normal intracardiac filling pressure Recommendations: Recommend medical management of nonobstructive CAD including continued ASCVD risk factor modification. Hemodynamics Rest Ao:: 117/64/80 Final Ao: 150/76/104 LV: 142/13 Recommendations Recommendations: Medical Therapy and/or Counseling Specimens Specimens: None Radiation Exposure (mGy) 1677 Contrast (mls) 70 Fluids (cc crystalloids) Fluids (cc crystalloids): 111 Drains Drains: None Anesthesia Moderate 1230--1301 Procedural Complication(s) None Disposition PCU I attest to the content of the Intraoperative Record and any orders documented therein. Any exceptions are noted below. [facility] Card Cath Procedure Codes Cardiac Catheterization Procedure 1: Cardiovascular Cath Procedures: 30661 Coronaries and LHC (+/-LV) Moderate Sedation Procedure 1: Sedation/Anesthesia: 41489 Mod Sedation by the same physician;Init15 Min Child Age 5 & Up Procedure 2: Sedation/Anesthesia: 36686 Mod Sedation by the same physician; Ea [id number] Minutes PG Care Time/CCT Total # of Minutes Spent Total Time Spent with Patient: Total time spent is greater than 50% in coordination of care (as documented) at patient's floor/unit and/or counseling patient:
--- NOTE | 2021-04-18 14:11 | Communication Note ---
Date of Service: April 18, 2021 Cath films reviewed with Dr Cabrales. Nonobstructive disease without culprit. LVEDpressure, not elevated, 13 mm Hg. Just over 3,000 PVCs noted on 24 hr Holter in 2019. Plan: transition from Coreg to metoprolol succinate for possible improved PVC suppression. Add Imdur for treatment of microvascular disease, and for afterload reduction. Will consider transition to Entresto from losartan as outpatient (if affordable).
--- NOTE | 2021-04-18 15:34 | Electrocardiogram Report ---
Test Reason : Blood Pressure : / mmHG Vent. Rate : 064 BPM Atrial Rate : 064 BPM P-R Int : 190 ms QRS Dur : 118 ms QT Int : 456 ms P-R-T Axes : 006 -10 048 degrees QTc Int : 470 ms Sinus rhythm with frequent Premature ventricular complexes Incomplete left bundle block Borderline ECG When compared with ECG of 17-APR-2021 13:09, Incomplete left bundle block is now Present Confirmed by Paco Wilson ([id number]) on 04/18/2021 3:33:39 PM Referred By: REFERRED SELF Confirmed By:Paco Wilson
--- NOTE | 2021-04-18 15:44 | Electrocardiogram Report ---
Test Reason : Blood Pressure : / mmHG Vent. Rate : 059 BPM Atrial Rate : 059 BPM P-R Int : 176 ms QRS Dur : 116 ms QT Int : 464 ms P-R-T Axes : 018 -03 055 degrees QTc Int : 459 ms Sinus bradycardia with occasional Premature ventricular complexes Incomplete left bundle block Borderline ECG When compared with ECG of 17-APR-2021 20:20, (unconfirmed) No significant change Confirmed by Paco Wilson ([id number]) on 04/18/2021 3:43:33 PM Referred By: REFERRED SELF Confirmed By:Paco Wilson
--- NOTE | 2021-04-18 20:07 | Hospitalist Progress Note ---
Date of Service April 18, 2021 Assessment & Plan (1) Chest pain, exertional: Plan: per ARIA Fernandez's notes: This is a 76-year-old male with PMH of CAD s/p KATIA to RCA x 2 in 2007, hypertension, chronic systolic heart failure, frequent PVCs, dyslipidemia and other medical problems listed below who presents with exertional chest pain over the past month. Chest pain is exertional , resolves at rest KATIA to RCA x 2 in 2007. Cardiac cath in 2011 without intervention Last stress test in 2018 with no inducible ischemia. Nuclear stress test since attempted but aborted due to claustrophobia In ER today, patient chest pain free EKG with SR with frequent PVCs. T wave abnormality worse in lateral leads compared to previous EKG Initial troponin negative - continue trending CXR without acute cardiopulmonary abnormality 04/18/21 troponin increased to 0.2, Heparin IV started s/p Cardiac Cath: Nonobstructive disease without culprit. chest pain free transition from Coreg to metoprolol succinate Add Imdur Will consider transition to Entresto from losartan as outpatient (2) Chronic systolic heart failure: Plan: euvolemic Home diuretics include spironolactone 12.5mg and Lasix 40mg daily (3) Hypertension: Plan: Continue losartan, terazosin (4) CKD (chronic kidney disease), stage III: Plan: crea back to baseline 1.09 (5) Hyperlipidemia: Plan: Continue statin (6) Sleep apnea: Plan: Unable to tolerate device 2/2 claustrophobia (7) Benign prostatic hyperplasia with urinary obstruction and other lower urinary tract symptoms: Plan: Continue terazosin, dutasteride possible d/c home tomorrow when cleared by Cardiolgy [facility] Admission and Anticipated Discharge Date Admission Date: April 18, 2021 Subjective ff up for chest pain, etc s/p cardiac cath today seen resting in bed, in good spirits no recurrence of chest pain denies dyspnea, palpitations, dizziness, nausea, abdominal pain no other symptoms Review of Systems Review of Systems: all negative and reviewed, except above Physical Exam Physical Exam: General- oriented x 3, not in distress, speaks in sentences with no effort or accessory muscle use Eyes- anicteric Neck- no JVD Lungs- clear breath sounds bilaterally, no rales/wheezes Heart- normal rate, regular rhythm; no murmurs Abdomen- normal bowel sounds, nondistended, soft, nontender Extremities- no pretibial edema, no calf tenderness right wrist: no bleeding, hematoma Neuro- alert, oriented x 3; no gross focal neurologic deficits Skin- warm & dry Results & Data Results & Data ([facility]) Vital Signs (Past 12 Hours) Vital Signs Temp Pulse Pulse Resp BP BP Pulse Ox 04/18/21 19:20 36.8 C 59 L 17 164/91 H 95 04/18/21 18:00 71 164/74 H 04/18/21 17:00 65 153/74 H 04/18/21 16:00 61 163/89 H 04/18/21 15:48 36.5 C 60 20 139/77 94 04/18/21 15:33 73 04/18/21 15:00 67 119/78 04/18/21 14:30 54 L 131/73 04/18/21 14:01 62 04/18/21 14:00 70 111/73 04/18/21 13:45 36.6 C 62 20 137/64 98 04/18/21 13:30 36.7 C 60 18 138/78 97 04/18/21 13:25 60 20 134/74 94 04/18/21 13:10 64 16 131/81 94 04/18/21 11:57 70 16 164/99 H 95 04/18/21 11:10 36.7 C 53 L 20 163/93 H 97 all noted and reviewed including below
[2021-04-18] MEDS: ATORVASTATIN 40 MG TAB PO SCH (20:17)
[2021-04-18] MEDS: LOSARTAN POTASSIUM 50 MG TAB PO SCH (20:18)
[2021-04-18] MEDS ORDERED: METOPROLOL TARTRATE 25 MG TAB PO ONE (21:00)
[2021-04-19 05:56] LABS: Hematocrit (blood only) 40.2 % (42-52); Hemoglobin 14.1 g/dL (14.0-18.0); Mean Corpuscular Hemoglobin 31.1 pg (25-34); Mean Corpuscular Hgb Conc 35.1 g/dL (32-36); Mean Corpuscular Volume 88.7 fL (80-100); Mean Platelet Volume 10.7 fL (7.4-10.4); Platelet Count 135 K/uL (130-400); RDW Coefficient of Variation 12.6 % (11.5-14.5); RDW Standard Deviation 40.4 fL (36.4-46.3); Red Blood Count 4.53 M/uL (4.7-6.1); White Blood Count 6.42 K/uL (4.8-10.8)
[2021-04-19 06:11] LABS: Partial Thromboplastin Time 25.1 Seconds (21.0-31.0)
[2021-04-19 06:32] LABS: BUN Creatinine Ratio 21.5 (10-20); Calcium 8.7 mg/dl (8.5-10.1); Creatinine Clr Calc Pharmacy 76.6 ml/min; Est GFR (African American) 72.5 ml/min; Est GFR (Non-African American) 62.6 ml/min; Potassium 3.9 mmol/L (3.5-5.1)
[2021-04-19] MEDS: TERAZOSIN HCL 5 MG CAP PO SCH (08:15)
[2021-04-19] MEDS: MULTIVITAMIN TAB PO SCH (08:15)
[2021-04-19] MEDS: PANTOprazole 40 MG TAB PO SCH (08:16)
[2021-04-19] MEDS ORDERED: ASPIRIN 81 MG ECTAB PO SCH (09:00)
[2021-04-19] MEDS ORDERED: METOPROLOL SUCC 25MG EXT REL TAB PO SCH (09:00)
[2021-04-19] MEDS ORDERED: ISOSORBIDE MONO EXTENDED REL 30 MG TABCR PO SCH (09:00)
--- NOTE | 2021-04-19 11:38 | Cardiology Progress Note ---
Date of Service April 19, 2021 Assessment & Plan (1) Chest pain, exertional: (2) Chronic systolic heart failure: (3) Frequent PVCs: Plan: (1) Exertional dyspnea, chest pressure : cardiac cath , 04/18/21, patent RCA stents, Moderate non onbstructive coronary artery disease for which ongoing medication therapy is recommended. (2) Chronic systolic heart failure: LVEF 30-35% (unchanged compared to 2018) (3) Frequent PVCs: Moderate PVCs Plan: Stable for discharge on the following: Aspirin 81 mg daily Metoprolol succinate 25 mg daily (replaces carvedilol) -With capsule metoprolol be a better agent for PVC suppression. -Future considerations include Holter monitor or the monitor as outpatient to reassess PVC burden Isosorbide mononitrate 30 mg daily, for treatment of hypertension, microvascular dysfunction Losartan 50 mg daily (refer to [facility] pharmacy as outpatient for help with transitioning to Entresto given systolic heart failure) Atorvastatin 80 mg daily Continue Hytrin and for hypertension, prostatism. Continue prior to hospital treatment with furosemide 40 mg daily, spironolactone 12.5 mg daily. Normal LVEDP noted at time of cardiac catheterization. Admission and Anticipated Discharge Date Admission Date: April 18, 2021 Subjective Patient seen in follow up. State he feels great. Telemetry reveals SR in the 50s to 60s with occasional PVCs Review of Systems Review of Systems: All systems reviewed & are unremarkable except as noted in HPI & below Physical Exam Physical Exam: Temp Pulse Resp BP Pulse Ox 36.8 C 55 L 18 163/86 H 95 04/19/21 07:02 04/19/21 07:02 04/19/21 07:02 04/19/21 07:02 04/19/21 07:02 Constitutional: WD/WN, vitals as above Respiratory: normal respiratory effort, lungs clear to auscultation Cardiovascular: RRR, no murmur, no edema R radial site , clean dry, intact , no hematoma Gastrointestinal (Abdomen): normal bowel sounds, soft, nontender, no hepatosplenomegaly Neurologic: PERRL, EOMI, accommodation nl, no face palsy, no dysarthria Results & Data ([facility]) Vital Signs (Past 12 Hours) Vital Signs Temp Pulse Resp BP BP Pulse Ox 04/19/21 07:02 36.8 C 55 L 18 163/86 H 95 04/19/21 04:19 36.4 C L 52 L 18 131/64 94 Laboratory Results Coagulation 04/19/21 Range/Units 05:32 APTT 25.1 (21.0-31.0) Seconds CBC 04/19/21 Range/Units 05:32 WBC 6.42 (4.8-10.8) K/uL RBC 4.53 L (4.7-6.1) M/uL Hgb 14.1 (14.0-18.0) g/dL Hct 40.2 L (42-52) % Plt Count 135 (130-400) K/uL Comprehensive Metabolic Panel 04/19/21 Range/Units 05:32 Sodium 140 (136-145) mmol/L Potassium 3.9 (3.5-5.1) mmol/L Chloride 110 H (98-107) mmol/L Carbon Dioxide 27 (21-32) mmol/L BUN 25 H (7-18) mg/dl Creatinine 1.14 (0.6-1.4) mg/dl Glucose 104 H (70-99) mg/dl Calcium 8.7 (8.5-10.1) mg/dl Intake and Output 04/18/21 04/19/21 04/19/21 22:59 06:59 14:59 Intake Total 240 / 1979.0 999 / 1979.0 Balance 240 / 1979.0 1000 / 1979.0 Intake: IV 1000 / 1500.0 Sodium Chloride 0.9% 1000ML 1, 1000 / 1000 000 ml @ 75 mls/hr IV .[id number] [facility] Rx#:[id number] Oral 240 / 480 Other: # Unmeasured Voids 1 2 Weight 115.2 kg Weight Measurement Method Standing Scale
--- NOTE | 2021-04-19 11:52 | Hospitalist Progress Note ---
Date of Service April 19, 2021 Assessment & Plan (1) Chest pain, exertional: Plan: per ARIA Fernandez's notes: This is a 76-year-old male with PMH of CAD s/p KATIA to RCA x 2 in 2007, hypertension, chronic systolic heart failure, frequent PVCs, dyslipidemia and other medical problems listed below who presents with exertional chest pain over the past month. Chest pain is exertional , resolves at rest KATIA to RCA x 2 in 2007. Cardiac cath in 2011 without intervention Last stress test in 2018 with no inducible ischemia. Nuclear stress test since attempted but aborted due to claustrophobia In ER, patient chest pain free EKG with SR with frequent PVCs. T wave abnormality worse in lateral leads compared to previous EKG Initial troponin negative - continue trending CXR without acute cardiopulmonary abnormality 04/18/21 troponin increased to 0.2, Heparin IV started s/p Cardiac Cath: Nonobstructive disease without culprit. chest pain free transition from Coreg to metoprolol succinate Add Imdur Will consider transition to Entresto from losartan as outpatient (2) Chronic systolic heart failure: Plan: euvolemic Home diuretics include spironolactone 12.5mg and Lasix 40mg daily (3) Hypertension: Plan: Continue losartan, terazosin (4) CKD (chronic kidney disease), stage III: Plan: crea back to baseline 1.09 (5) Hyperlipidemia: Plan: Continue statin (6) Sleep apnea: Plan: Unable to tolerate device 2/2 claustrophobia (7) Benign prostatic hyperplasia with urinary obstruction and other lower urinary tract symptoms: Plan: Continue terazosin, dutasteride plan to DC home today and follow up w/ cardiology and pcp Admission and Anticipated Discharge Date Admission Date: April 18, 2021 Subjective Patient seen in follow-up for chest pain, etc s/p cardiac cath yesterday seen resting in bed, in good spirits no recurrence of chest pain denies dyspnea, palpitations, dizziness, nausea, abdominal pain no other symptoms High PVC burden noted on telemetry, cardiology aware, medications adjusted Currently patient is eager to be discharged home, feeling much better Review of Systems Review of Systems: All systems reviewed & are unremarkable except as noted in HPI & below Results & Data Results & Data ([facility]) Vital Signs (Past 12 Hours) Vital Signs Temp Pulse Resp BP BP Pulse Ox 04/19/21 07:02 36.8 C 55 L 18 163/86 H 95 04/19/21 04:19 36.4 C L 52 L 18 131/64 94 Laboratory Results 04/19/21 04/19/21 04/19/21 Range/Units 05:32 05:32 05:32 WBC 6.42 (4.8-10.8) K/uL RBC 4.53 L (4.7-6.1) M/uL Hgb 14.1 (14.0-18.0) g/dL Hct 40.2 L (42-52) % MCV 88.7 (80-100) fL MCH 31.1 (25-34) pg MCHC 35.1 (32-36) g/dL RDW Std Deviation 40.4 (36.4-46.3) fL RDW Coeff of Ashlyn 12.6 (11.5-14.5) % Plt Count 135 (130-400) K/uL MPV 10.7 H (7.4-10.4) fL APTT 25.1 (21.0-31.0) Seconds PTT Ratio 1.0 Sodium 140 (136-145) mmol/L Potassium 3.9 (3.5-5.1) mmol/L Chloride 110 H (98-107) mmol/L Carbon Dioxide 27 (21-32) mmol/L Anion Gap 3.0 (3-11) BUN 25 H (7-18) mg/dl Creatinine 1.14 (0.6-1.4) mg/dl Est Cr Clr Drug Dosing 76.6 ml/min Est GFR ( Amer) 72.5 ml/min Est GFR (Non-Af Amer) 62.6 ml/min BUN/Creatinine Ratio 21.5 H (10-20) Glucose 104 H (70-99) mg/dl Calcium 8.7 (8.5-10.1) mg/dl Medications Administered Current Inpatient Medications Acetaminophen (Acetaminophen 325 Mg Tab) 650 mg PO Q4H PRN PRN Reason: Pain or Fever Stop: 05/17/21 18:36 Acetaminophen (Acetaminophen 500 Mg Tab) 1,000 mg PO BID PRN PRN Reason: Pain Stop: 05/17/21 18:39 Last Admin: 04/17/21 20:28 Dose: 1,000 mg Documented by: Aspirin (Aspirin 81 Mg Ectab) [facility] Stop: 05/19/21 08:59 Last Admin: 04/19/21 08:16 Dose: 81 mg Documented by: Atorvastatin Calcium (Atorvastatin 40 Mg Tab) 80 mg PO HS [facility] Stop: 05/17/21 20:59 Last Admin: 04/18/21 20:17 Dose: 80 mg Documented by: Isosorbide Mononitrate (Isosorbide [place] Extended Rel 30 Mg Tabcr) 30 mg PO [facility] Stop: 05/19/21 08:59 Last Admin: 04/19/21 08:15 Dose: 30 mg Documented by: Losartan Potassium (Losartan Potassium 50 Mg Tab) 50 mg PO QPM [facility] Stop: 05/17/21 20:59 Last Admin: 04/18/21 20:18 Dose: 50 mg Documented by: Metoprolol Succinate (Metoprolol Succ 25mg Ext Rel Tab) [facility] Stop: 05/19/21 08:59 Last Admin: 04/19/21 08:15 Dose: 25 mg Documented by: Miscellaneous (Dutasteride 0.5 Mg Cap~Order Awaiting Action) 1 ea N/A QS [facility] Stop: 05/18/21 00:00 Last Admin: 04/19/21 08:16 Dose: Not Given Documented by: Multivitamins (Multivitamin Tab) 1 tab PO [facility] Stop: 05/18/21 08:59 Last Admin: 04/19/21 08:15 Dose: 1 tab Documented by: Nitroglycerin (Nitroglycerin Sl 0.4 Mg/Tab Tab) 0.4 mg SL UD PRN PRN Reason: Chest Pain Stop: 05/17/21 18:36 Ondansetron HCl (Ondansetron Inj 2 Mg/Ml 2 Ml Vial) 4 mg IV Q6H PRN PRN Reason: Nausea Stop: 05/17/21 18:36 Pantoprazole Sodium (Pantoprazole 40 Mg Tab) 40 mg PO [facility]; Protocol Stop: 05/18/21 08:59 Last Admin: 04/19/21 08:16 Dose: 40 mg Documented by: Polyethylene Glycol (Polyethylene (Miralax) 17 Gm Pack) 17 gm PO DAILY PRN PRN Reason: Constipation Stop: 05/17/21 18:36 Terazosin HCl (Terazosin Hcl 5 Mg Cap) 5 mg PO BID [facility] Stop: 05/17/21 20:59 Last Admin: 04/19/21 08:15 Dose: 5 mg Documented by:
[2021-04-19] MEDS ORDERED: FINASTERIDE 5 MG TAB PO SCH (12:00)
--- NOTE | 2021-04-19 12:01 | Discharge Summary ---
Date of Service April 19, 2021 Admission HPI Per Admitting Provider This is a 76-year-old male with PMH of CAD s/p KATIA to RCA x 2 in 2008, hypertension, chronic systolic heart failure, frequent PVCs, dyslipidemia and other medical problems listed below who presents with exertional chest pain over the past month. First experienced chest pain while playing golf in [place] last month and attributed it to the heat. It resolved at rest. Has continued to experience chest pain with any type of walking outdoors or while taking the steps at home. Describes pain as a pressure in central to left side of chest with some associated tingling in left arm. Denies any pain in jaw. Is unable to catch his breath with these episodes. Denies any associated nausea or vomiting. Follows with Dr. Nichole in clinic. Last stress test in 2017 with no inducible ischemia. Nuclear stress test since attempted but aborted due to claustrophobia. Currently patient is comfortable at rest. Denies any lightheadedness, visual changes, near syncope, chest pain or shortness of breath. No fever, chills, headache, nausea, vomiting, abdominal pain, dysuria, diarrhea or constipation. Taking all medications as directed. Follows with PCP Dr. Swartz in [place]. Most recent echo March 2020 with ejection fraction is 55- 59% (normal). Moderate aortic valve sclerosis is present. Aortic stenosis is absent. Mild aortic valve regurgitation is present. Admission Exam Per Admitting Provider General Appearance: WD/WN, vitals as above, NAD, sitting up in bed, pleasant, conversing easily Head: normocephalic, atraumatic Eyes: normal inspection, PERRL, conjunctivae normal, anicteric sclerae ENT: external ear and nose normal, oropharynx normal Neck: normal visual inspection, trachea midline, no thyromegaly Respiratory: normal respiratory effort, lungs clear to auscultation, no wheeze, rales, rhonchi. No accessory muscle use Cardiovascular: regular rate, rhythm, systolic murmur, normal peripheral pulses, no BLE edema. Vessels: no JVD Chest: normal inspection of chest Abdomen/GI: normal bowel sounds, soft, nontender, no hepatosplenomegaly Extremities/Musculoskeletal: no cyanosis or clubbing, extremities motor stre ngth 5/5 Neurologic: PERRL, EOMI, accommodation nl, no face palsy, no dysarthria, CN's II-XI intact bilaterally and moves all extremities Psychiatric: A+Ox3, euthymic affect Skin: no rashes, normal color, warm/dry Principal Diagnosis Exertional chest pain and shortness of breath, frequent PVCs Discharge Exam General- oriented x 3, not in distress, speaks in sentences with no effort or accessory muscle use Eyes- anicteric Neck- no JVD Lungs- clear breath sounds bilaterally, no rales/wheezes Heart- normal rate, regular rhythm; no murmurs Abdomen- normal bowel sounds, nondistended, soft, nontender Extremities- no pretibial edema, no calf tenderness right wrist: no bleeding, hematoma Neuro- alert, oriented x 3; no gross focal neurologic deficits Skin- warm & dry Discharge Data Allergies Allergy/AdvReac Type Severity Reaction Status Date / Time enalapril Allergy Mild cough Verified 04/17/21 14:45 Consultations 04/17/21 14:54 ED Decision to Admit Stat 04/17/21 17:32 Consult Cardiology Routine Procedures Performed Operation Date: 04/18/21 12:00 Actual Procedures p Cath, Left with Cors and Vent - Huy Cabrales MD s Cineradiography w/Routine Exam - Huy Cabrales MD Ordered Studies 04/18/21 11:44 CL Cath Imgs for PACS use only Routine Hospital Course (1) Chest pain, exertional: per ARIA Fernandez's notes: This is a 76-year-old male with PMH of CAD s/p KATIA to RCA x 2 in 2007, hypertension, chronic systolic heart failure, frequent PVCs, dyslipidemia and other medical problems listed below who presents with exertional chest pain over the past month. Chest pain is exertional , resolves at rest KATIA to RCA x 2 in 2007. Cardiac cath in 2011 without intervention Last stress test in 2018 with no inducible ischemia. Nuclear stress test since attempted but aborted due to claustrophobia In ER, patient chest pain free EKG with SR with frequent PVCs. T wave abnormality worse in lateral leads compared to previous EKG Initial troponin negative - continue trending CXR without acute cardiopulmonary abnormality 04/18/21 troponin increased to 0.2, Heparin IV started s/p Cardiac Cath: Nonobstructive disease without culprit. chest pain free transition from Coreg to metoprolol succinate Add Imdur Will consider transition to Entresto from losartan as outpatient (2) Chronic systolic heart failure: euvolemic Home diuretics include spironolactone 12.5mg and Lasix 40mg daily (3) Hypertension: Continue losartan, terazosin (4) CKD (chronic kidney disease), stage III: crea back to baseline 1.09 (5) Hyperlipidemia: Continue statin (6) Sleep apnea: Unable to tolerate device 2/2 claustrophobia (7) Benign prostatic hyperplasia with urinary obstruction and other lower urinary tract symptoms: Continue terazosin, dutasteride plan to DC home today and follow up w/ cardiology and pcp Total Time Total Time Spent Total Time Spent (In Minutes): 35 Discharge Plan Discharge Items Patient Disposition: Home - Self-Care Reason For Visit: CHEST PAIN Discharge Diagnosis: Exertional chest pain and shortness of breath, frequent PVCs Condition on Discharge: Fair Activity: Per Instructions section Non-emergency contact: Primary Care Provider and Manager Orange Call non-emergency contact if: you have any medication questions and your symptoms worsen Follow-up/Referrals: Jayro Swartz MD [Primary Care Provider] - 04/26/21 3:15 pm Diet: Heart Healthy Addtl Attending Provider Instructions: Follow-up with your primary care doctor, the appointment was scheduled for you for April 26. You will also need to follow-up with cardiology, you will be contacted about the appointment. You were started on new medications, metoprolol succinate, and Imdur (isosorbide mononitrate). Take them as prescribed. Stop taking Coreg/carvedilol. Make sure to continue taking aspirin 81 daily, furosemide 40 daily, spironolactone 12.5 daily, losartan 50 daily. Pending Studies at Discharge: No Stand-Alone Forms: My [facility], Smoking Cessation Medications and DC Order Prescriptions: New metoprolol succinate 25 mg Tablet Extended Release 24 Hr 25 mg PO QAM Qty: 30 RF: 0 isosorbide mononitrate 30 mg Tablet Extended Release 24 Hr 30 mg PO QAM Qty: 30 RF: 0 Continued spironolactone 25 mg tablet 12.5 mg PO QAM RF: 0 losartan 50 mg tablet 50 mg PO QPM RF: 0 terazosin 5 mg capsule 5 mg PO BID RF: 0 atorvastatin 80 mg tablet 80 mg PO HS RF: 0 aspirin 81 mg Tablet,Delayed Release (Dr/Ec) 81 mg PO PM RF: 0 multivitamin [Multiple Vitamins] Tablet 1 tab PO QAM RF: 0 omeprazole 40 mg capsule,delayed release(DR/EC) 40 mg PO QAM RF: 0 furosemide [Lasix] 40 mg tablet 40 mg PO QAM RF: 0 acetaminophen [Tylenol Extra Strength] 500 mg Tablet 1,000 mg PO BID PRN (Reason: Pain) RF: 0 glucosamine-chondroitin [Osteo Bi-Flex] 250-200 mg Tablet 1 tab PO BID RF: 0 turmeric 400 mg Capsule 400 mg PO PM RF: 0 dutasteride 0.5 mg capsule 0.5 mg PO QAM RF: 0 Discontinued carvedilol 6.25 mg Tablet 6.25 mg PO BID RF: 0 Discharge Orders: Discharge Order (Routine); Ordered 04/19/21 Ordered By: Shmuel Lora Admission Data Admit Date/Time: 04/18/21 18:29 Attending Provider: Shmuel Lora Admit Provider: Orion Campbell Primary Care Provider: Jayro Swartz Other Providers: Adalberto Crooks ; Orion Campbell
== END 2021-04-19 12:50 | disposition home or self-care (01) ==
LOC: ED 12:57 → 2S 12:57 → SUATTDRO 04-18 18:29

== ENCOUNTER 2022-06-25 12:22 | Inpatient (IN) ==
[2022-06-25 13:10] LABS: Basophils # (auto) 0.04 K/uL (0-0.2); Basophils % (auto) 0.6 %; Eosinophils # (auto) 0.15 K/uL (0-0.50); Eosinophils % (auto) 2.3 %; Hematocrit (blood only) 34.9 % (40.1-51.0); Hemoglobin 11.9 g/dl (14.0-18.0); Immature Granulocytes # (auto) 0.02 K/uL (0.00-0.02); Immature Granulocytes % (auto) 0.3 %; Lymphocytes # (auto) 1.29 K/uL (1.2-3.4); Lymphocytes % (auto) 19.9 %; Mean Corpuscular Hemoglobin 30.5 pg (25.0-34.0); Mean Corpuscular Hgb Conc 34.1 g/dL (32.0-36.0); Mean Corpuscular Volume 89.5 fL (80.0-100.0); Mean Platelet Volume 10.8 fL (9.4-12.4); Monocytes # (auto) 0.64 K/uL (0.24-0.82); Monocytes % (auto) 9.9 %; Neutrophils # (auto) 4.33 K/uL (1.4-6.5); Platelet Count 134 K/uL (130-400); RDW Coefficient of Variation 13.6 % (11.5-14.5); RDW Standard Deviation 44.1 fL (36.4-46.3); White Blood Count 6.47 K/ul (4.8-10.8)
[2022-06-25 13:17] LABS: INR 1.3 (0.9-1.1); Partial Thromboplastin Ratio 1.1; Partial Thromboplastin Time 29.3 Seconds (21.0-31.0); Prothrombin Time 13.5 Seconds (9.0-12.0)
--- NOTE | 2022-06-25 13:17 | Emergency Department Note ---
Impression & Plan CHF (congestive heart failure), Palpitation, Breath shortness, Abnormal ECG ED Provider Note NAME: BESSY DUNHAM II AGE: 77 SEX: M : 1945 ARRIVES VIA: Walk-In INFORMANT: Patient ED PROVIDER(S): Adolfo Mcnair DO CHIEF COMPLAINT: shortness of breath HPI: Patient is a 77-year-old male with a past medical history of chest pain, dyspnea, PVCs, CKD, hypertension, hyperlipidemia, CHF, CAD, BPH who presents the ER for shortness of breath which has been getting worse for the past month. He notes he recently got over pneumonia about a month ago and his shortness of breath and weakness has been getting worse since then. Denies any chest pain. No belly pain, nausea, vomiting, or diarrhea. No dysuria, urgency, or frequency. No other exacerbating or remitting factors. He notes over the past 3 to 4 days he has been having increased swelling of his legs. He has been trying to keep them elevated but the swelling has been worsening. He is more short of breath with rest. ROS: See above HPI for pertinent positives & negatives. A total of 10 systems reviewed and were otherwise negative. PAST MEDICAL HISTORY:See Below PAST SURGICAL HISTORY:See Below FAMILY HISTORY:See Below SOCIAL HISTORY:See Below HOME MEDICATIONS:See Below ALLERGIES:See Below VITALS:See Below PHYSICAL EXAMINATION: GENERAL: Sitting up in bed, alert, well appearing, well nourished, no distress, non-toxic EYE EXAM: normal conjunctiva. OROPHARYNX: no exudate, no erythema, lips, buccal mucosa, and tongue normal and mucous membranes are moist NECK: supple, no nuchal rigidity, no adenopathy, non-tender LUNGS: Clear to auscultation. Normal chest wall mechanics HEART: no murmurs, S1 normal and S2 normal ABDOMEN: abdomen soft, non-tender, normo-active bowel sounds, no masses, no rebound or guarding. UPPER EXTREMITIES: upper extremities are grossly normal. LOWER EXTREMITIES: Calves are equal bilateral with pitting edema NEURO EXAM: Normal sensorium, cranial nerves II-XII grossly intact, normal speech, no gross weakness of arms, no gross weakness of legs. MEDICAL DECISION MAKING: Patient is a 77-year-old male who presents ER for shortness of breath. He has pitting edema in the bilateral lower extremities with a chest x-ray which shows pulmonary vascular congestion. IV was established blood work was obtained. No significant leukocytosis and mild anemia 11.9. INR 1.3. BMP along with LFTs bilirubin was unremarkable. Troponin was negative. COVID was negative. Lasix. He had significant mount of ectopy on his first EKG at 1040 with 22 seconds. Repeat EKG improved. Patient was updated bedside and discussed with the hospitalist for further evaluation. Triage Nursing notes reviewed. Limited review of prior medical records performed Vital Signs: reviewed and remarkable for tachy Differential diagnosis: Differential diagnoses includes but is not limited to pneumonia, bronchitis, COPD/Asthma exacerbation, pneumothorax, pulmonary embolism, congestive heart failure, acute coronary syndrome ER treatment provided: See below Diagnostics interpreted by me: ECG: Sinus rhythm rate 87 PACs present QTC 483 ventricle rate 103 Difficult to determine rhythm normal but multiple PVCs and PACs 516 Cardiac Monitoring: An order was placed for continuous cardiac monitoring. The m onitor shows a rate of 101 with sinus rhythm. Laboratory studies: As stated above and show below. Imaging studies: Portable AP upright 1 view the chest was neg Consultation(s): [facility] hospitalist for further evaluation Procedures: none Critical Care: None Past Med/Surg History Medical History (Updated 06/25/22 @ 16:48 by Adolfo Mcnair DO) Anemia 2/2 GI bleed 03/2019. S/P 1 unit transfused PRBC. Atrial fibrillation Benign prostatic hyperplasia with urinary obstruction and other lower urinary tract symptoms CAD (coronary artery disease) KATIA x 2 (2007)-F/U DR REAL Chest pain ON OCC -WITH 1 FLIGHT STAIRS-GOES AWAY IN A FEW MINUTES Chronic systolic heart failure CKD (chronic kidney disease), stage III F/U PCP DVT (deep venous thrombosis) 2015 s/p foot surgery -NO ISSUES SINCE DVT (deep venous thrombosis) Gastric ulcer 03/2019 large duodenal ulcer s/p 1U PRBCs GERD (gastroesophageal reflux disease) H/O deep venous thrombosis HFrEF (heart failure with reduced ejection fraction) Hyperlipidemia Hypertension Myocardial Infarction 2007 Obesity Osteoarthritis Sleep apnea no device, could not tolerate due to claustrophobia Surgical History (Updated 02/01/22 @ 10:59 by Amparo Holt, ASHLEIGH) Fusion of spine LUMBAR H/O shoulder surgery LEFT/RIGHT History of cardiac cath 2007= stents x 2 2011= no stents History of colonoscopy History of esophagogastroduodenoscopy (EGD) History of hernia surgery UMBILICAL HERNIA Hx of foot surgery RT Hx of vasectomy Family History Other Hypertension Social History (Updated 02/01/22 @ 11:08 by Amparo Holt RN) Smoking Status: Former smoker Tobacco Type: Cigarettes Second Hand Exposure: No; Hx Alcohol Use: Yes Alcohol type: beer Alcohol Intake Frequency Comment: occasional Hx Substance Use: No Preferred Language: Sami Communication Ability: Effective Visual Impairment: No Limitations Sample Finisher Required: No Beliefs That Will Affect Care: None Current Living Situation: Spouse current occupational status: retired 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 [employer] Feels Safe at Home: Yes Assistive Devices: Glasses Allergies Allergies Allergy/AdvReac Type Severity Reaction Status Date / Time enalapril Allergy Mild cough Verified 06/25/22 14:44 Home Meds Home Medications Medication Instructions Recorded Confirmed aspirin 81 mg tablet,delayed 81 mg PO PM 04/20/19 06/25/22 release atorvastatin 80 mg tablet 80 mg PO HS 04/20/19 06/25/22 losartan 50 mg tablet 50 mg PO QPM 04/20/19 06/25/22 multivitamin (Multiple Vitamins 1 tab PO BID 04/20/19 06/25/22 tablet) terazosin 5 mg capsule 5 mg PO BID 04/20/19 06/25/22 furosemide 40 mg tablet (Lasix) 40 mg PO QAM 05/26/19 06/25/22 omeprazole 40 mg capsule,delayed 40 mg PO QAM 05/26/19 06/25/22 release spironolactone 25 mg tablet 12.5 mg PO QAM 08/31/19 06/25/22 acetaminophen 500 mg tablet 1,000 mg PO BID PRN Pain 04/17/21 06/25/22 (Tylenol Extra Strength) glucosamine-chondroitin 250 mg-200 1 tab PO BID 04/17/21 06/25/22 mg tablet (Osteo Bi-Flex) dutasteride 0.5 mg capsule 0.5 mg PO QAM 02/01/22 06/25/22 metoprolol succinate 25 mg 25 mg PO BID 02/01/22 06/25/22 tablet,extended release 24 hr nitroglycerin 0.4 mg sublingual 0.4 mg sublingual UD 02/01/22 06/25/22 tablet (Nitrostat) isosorbide mononitrate 30 mg 30 mg PO QAM 06/25/22 06/25/22 tablet,extended release 24 hr Results & Data (ED) Vital Signs Vital Signs - 24 hr 06/25/22 12:32 06/25/22 12:59 06/25/22 12:59 Temperature 36.3 C L Temperature Source Temporal Artery Scan Pulse Rate 88 106 H Pulse Rate [Apical] 107 H Respiratory Rate 20 18 18 Respiratory Effort / Characteristics Non-Labored Spontaneous Respiratory Depth Normal Normal Blood Pressure 116/72 Blood Pressure Mean 86 Blood Pressure Position Sitting Pulse Oximetry 94 96 96 Oxygen Delivery Method Room Air Room Air Sepsis Recent Fever Within 48 Hours No Sepsis New/Unexplained Change in Mental Status N/A Sepsis Action Taken by Nursing No Action Required 06/25/22 13:00 Temperature Temperature Source Pulse Rate Pulse Rate [Apical] Respiratory Rate 18 Respiratory Effort / Characteristics Short of Breath Respiratory Depth Blood Pressure Blood Pressure Mean Blood Pressure Position Pulse Oximetry 96 Oxygen Delivery Method Room Air Sepsis Recent Fever Within 48 Hours Sepsis New/Unexplained Change in Mental Status Sepsis Action Taken by Nursing Laboratory Data Result diagrams: 06/25/22 12:51 06/25/22 12:51 Lab Results 06/25/22 06/25/22 06/25/22 Range/Units 12:51 12:51 12:51 WBC 6.47 (4.8-10.8) K/ul RBC 3.90 L (4.63-6.08) M/uL Hgb 11.9 L (14.0-18.0) g/dl Hct 34.9 L (40.1-51.0) % MCV 89.5 (80.0-100.0) fL MCH 30.5 (25.0-34.0) pg MCHC 34.1 (32.0-36.0) g/dL RDW Std Deviation 44.1 (36.4-46.3) fL RDW Coeff of Ashlyn 13.6 (11.5-14.5) % Plt Count 134 (130-400) K/uL MPV 10.8 (9.4-12.4) fL Immature Gran % (Auto) 0.3 % Neut % (Auto) 67.0 % Lymph % (Auto) 19.9 % [place] % (Auto) 9.9 % Eos % (Auto) 2.3 % Baso % (Auto) 0.6 % Neut # (Auto) 4.33 (1.4-6.5) K/uL Lymph # (Auto) 1.29 (1.2-3.4) K/uL [place] # (Auto) 0.64 (0.24-0.82) K/uL Eos # (Auto) 0.15 (0-0.50) K/uL Baso # (Auto) 0.04 (0-0.2) K/uL Immature Gran # (Auto) 0.02 (0.00-0.02) K/uL PT 13.5 H (9.0-12.0) Seconds INR 1.3 H (0.9-1.1) APTT 29.3 (21.0-31.0) Seconds PTT Ratio 1.1 Sodium 139 (136-145) mmol/L Potassium 3.8 (3.5-5.1) mmol/L Chloride 106 (98-107) mmol/L Carbon Dioxide 25 (21-32) mmol/L Anion Gap 8 (3-11) BUN 35 H (6-23) mg/dl Creatinine 1.32 (0.6-1.4) mg/dl Est Cr Clr Drug Dosing 65.9 ml/min Est GFR ( Amer) 60.3 ml/min Est GFR (Non-Af Amer) 52.0 ml/min BUN/Creatinine Ratio 26.5 H (10-20) Glucose 130 H (70-99(Fasting)) mg/dl Calcium 9.1 (8.5-10.1) mg/dl Magnesium 1.7 (1.7-2.4) mg/dl Total Bilirubin 0.8 (0.2-1.0) mg/dl AST 28 (13-39) U/L ALT 49 (7-52) U/L Alkaline Phosphatase 78 (34-104) U/L Troponin I High Sens (0-20) pg/ml Total Protein 6.8 (6.0-8.3) gm/dl Albumin 3.9 (3.4-5.0) gm/dl Globulin 2.9 (2.5-4.0) gm/dl Albumin/Globulin Ratio 1.3 (0.9-2) SARS-CoV-2, RNA, NAAT (NEGATIVE) 06/25/22 06/25/22 Range/Units 12:51 14:12 WBC (4.8-10.8) K/ul RBC (4.63-6.08) M/uL Hgb (14.0-18.0) g/dl Hct (40.1-51.0) % MCV (80.0-100.0) fL MCH (25.0-34.0) pg MCHC (32.0-36.0) g/dL RDW Std Deviation (36.4-46.3) fL RDW Coeff of Ashlyn (11.5-14.5) % Plt Count (130-400) K/uL MPV (9.4-12.4) fL Immature Gran % (Auto) % Neut % (Auto) % Lymph % (Auto) % [place] % (Auto) % Eos % (Auto) % Baso % (Auto) % Neut # (Auto) (1.4-6.5) K/uL Lymph # (Auto) (1.2-3.4) K/uL [place] # (Auto) (0.24-0.82) K/uL Eos # (Auto) (0-0.50) K/uL Baso # (Auto) (0-0.2) K/uL Immature Gran # (Auto) (0.00-0.02) K/uL PT (9.0-12.0) Seconds INR (0.9-1.1) APTT (21.0-31.0) Seconds PTT Ratio Sodium (136-145) mmol/L Potassium (3.5-5.1) mmol/L Chloride (98-107) mmol/L Carbon Dioxide (21-32) mmol/L Anion Gap (3-11) BUN (6-23) mg/dl Creatinine (0.6-1.4) mg/dl Est Cr Clr Drug Dosing ml/min Est GFR ( Amer) ml/min Est GFR (Non-Af Amer) ml/min BUN/Creatinine Ratio (10-20) Glucose (70-99(Fasting)) mg/dl Calcium (8.5-10.1) mg/dl Magnesium (1.7-2.4) mg/dl Total Bilirubin (0.2-1.0) mg/dl AST (13-39) U/L ALT (7-52) U/L Alkaline Phosphatase (34-104) U/L Troponin I High Sens 10.2 (0-20) pg/ml Total Protein (6.0-8.3) gm/dl Albumin (3.4-5.0) gm/dl Globulin (2.5-4.0) gm/dl Albumin/Globulin Ratio (0.9-2) SARS-CoV-2, RNA, NAAT NEGATIVE (NEGATIVE) Administered Medications Discontinued Medications Furosemide (Furosemide 40 Mg/4 Ml Vial) 40 mg IV NOW STA Stop: 06/25/22 13:55 Last Admin: 06/25/22 14:10 Dose: 40 mg Documented By: KV Imaging Data Radiologist's Impression: Chest X-Ray 06/25/22 12:38 XR chest 1V portable CLINICAL HISTORY: SOB TECHNIQUE: Single frontal radiograph of the chest was obtained. Comparison: Prior chest radiograph 04/17/2021 FINDINGS: No lines and tubes are seen. Cardiomegaly is noted. Aortic calcification is seen. Prominence of the pulmonary vasculature is seen. No evidence of pleural effusion or pneumothorax. IMPRESSION: Cardiomegaly and mild pulmonary edema. No evidence of airspace disease to suggest pneumonia. ACT 112: Negative or not required by law. Electronically signed by: Peyman Pabon M.D. 06/25/2022 1:26 PM Discharge Plan Visit Data Chief Complaint: Referred by Doctor Stated Complaint: POSSIBLE HEART ATTACK, SOB, PAIN IN ARM ED Provider: Adolfo Mcnair Discharge Problem: CHF (congestive heart failure), Palpitation, Breath shortness, Abnormal ECG Patient Disposition: Admitted As Inpatient Discharge Instructions Interventions: ED Discharge Assessment Last Done: 06/25/22 15:45
--- NOTE | 2022-06-25 13:27 | XRay Report ---
XR chest 1V portable CLINICAL HISTORY: SOB TECHNIQUE: Single frontal radiograph of the chest was obtained. Comparison: Prior chest radiograph 04/17/2021 FINDINGS: No lines and tubes are seen. Cardiomegaly is noted. Aortic calcification is seen. Prominence of the p ulmonary vasculature is seen. No evidence of pleural effusion or pneumothorax. IMPRESSION: Cardiomegaly and mild pulmonary edema. No evidence of airspace disease to suggest pneumonia. ACT 112: Negative or not required by law. Electronically signed by: Peyman Pabon M.D. 06/25/2022 1:26 PM
[2022-06-25 13:49] LABS: Albumin Globulin Ratio 1.3 (0.9-2); Albumin Level 3.9 gm/dl (3.4-5.0); BUN Creatinine Ratio 26.5 (10-20); Bilirubin,Total 0.8 mg/dl (0.2-1.0); Calcium 9.1 mg/dl (8.5-10.1); Creatinine Clr Calc Pharmacy 65.9 ml/min; Est GFR (African American) 60.3 ml/min; Globulin 2.9 gm/dl (2.5-4.0); Magnesium 1.7 mg/dl (1.7-2.4); Potassium 3.8 mmol/L (3.5-5.1); Total Protein 6.8 gm/dl (6.0-8.3)
[2022-06-25] MEDS ORDERED: FUROSEMIDE 40 MG/4 ML VIAL IV STA (13:54)
--- NOTE | 2022-06-25 14:35 | History & Physical Report ---
Date of Service June 25, 2022 Assessment & Plan (1) HFrEF (heart failure with reduced ejection fraction): (2) Dyspnea: (3) Hypertension: (4) CAD (coronary artery disease): (5) Hyperlipidemia: (6) Benign prostatic hyperplasia with urinary obstruction and other lower urinary tract symptoms: (7) DVT (deep venous thrombosis): (8) Atrial fibrillation: (9) GERD (gastroesophageal reflux disease): Plan Mr. Paris presented to the ED today with SOB/dyspnea. He reports that over the past two weeks any step he takes he out of breath. He does report orthopnea. He states that it does take him some time to recover. He did just recover from PNA and completed two courses of abx. CXR today showed mild pulmonary edema. ECHO done 06/20-EF did show some reduction; now 43% and some mild mitral regurgitation. He has an extensive PMH that includes: CAD s/p KATIA to RCA x 2 in 2007, HTN, Systolic HFrEF, Newly diagnosed Atrial Fibrillation 2 months ago (On Eloquis). In ED, received IV Lasix, Troponin appears negative; will trend. EKG did show frequent PVC's the patient reports these as normal for him. Some T wave abnormalities that appear consistent with review of prior EKG's. Cards Consult placed. HFrEF: Dyspnea ECHO done 06/20: reduced EF compared to previous studies, now 43%; some mild mitral regurgitation CXR: Some mild pulmonary edema. Recently completed Augmentin for PNA. Lasix 40mg IV given in ED. Dyspnea already reportedly feels improved. Pt takes PO Lasix and Spirinolactone at home; will hold Lasix Lasix IV 40 mg Daily Pt reports positional dizziness; orthostatic B/P's ordered Routine Cardiology Consult placed BNP ordered. CAD: HTN KATIA to RCA x 2 in 2007. Cardiac cath in 2011 without intervention Last stress test in 2018 with no inducible ischemia. in ED today; CP free. Takes baby ASA, Losartan, and Imdur; continue Initial Troponin negative; will trend Mg+ 1.7; replace with 1 G and trend in AM. Atrial Fibrillation: Diagnosed 2 months ago; on Eloquis and tolerating; continue Cardiology Consult placed. Takes Metoprolol; continue for rate control HLD: Lipid panel drawn 06/11; LDL 50, HDL 37, TG 105 Continue atorvastatin BPH: Stable; continue Terazosin GERD: Continue Omeprazole H/O DVT: 2016 s/p foot surgery Disposition: PCP: Dr. Serrano Code: Full VTE Prophylaxis: Eloquis/ SCD's I personally was able to review all current laboratory work and diagnostic images obtained in the ED. Additionally, I was able to review the patients past medication reconciliation and history with direct visualization in the patients chart. Collaborated with Dr. Braga for this patient's plan. History of Present Illness Chief Complaint: shortness of breath Primary Care Provider: Jayro Swartz MD Mr. Paris presented to the ED today with SOB/dyspnea. He reports that over the past two weeks any step he takes he out of breath. He does report orthopnea. He states that it does take him some time to recover. He did just recover from PNA and completed two courses of abx. CXR today showed mild pulmonary edema; but not suggestive of recurrent PNA. He was just recently in [place] over and started to feel poor and was tested for COVID and was negative. He just had an ECHO done last week on 06/19 and was reviewed by Dr. Nichole. EF did show some reduction; now 43% and some mild mitral regurgitation.He has an extensive PMH that includes: CAD s/p KATIA to RCA x 2 in 2007, HTN, Systolic HFrEF, Newly diagnosed Atrial Fibrillation 2 months ago (On Eloquis), DVT in 2016 s/p foot surgery, HLD, OA, GIB. Today, the patient received IV Lasix, Troponin appears negative; will trend. EKG did show frequent PVC's the patient reports these as normal for him. Some T wave abnormalities that appear consistent with review of prior EKG's. Patient reports that his dyspnea has already seemingly improved. He reports chronic DIOP and dizziness from standing from sitting; otherwise ROS is negative for dizziness, CP, N/V/D, rashes, falls. Patient will be admitted to hospitalist service for further evaluation and management. Please see A/P for further details. Allergies Allergy/AdvReac Type Severity Reaction Status Date / Time enalapril Allergy Mild cough Verified 06/25/22 14:44 Home Medications Medication Instructions Recorded Confirmed Type aspirin 81 mg tablet,delayed 81 mg PO PM 04/20/19 06/25/22 History release atorvastatin 80 mg tablet 80 mg PO HS 04/20/19 06/25/22 History losartan 50 mg tablet 50 mg PO QPM 04/20/19 06/25/22 History multivitamin (Multiple Vitamins 1 tab PO BID 04/20/19 06/25/22 History tablet) terazosin 5 mg capsule 5 mg PO BID 04/20/19 06/25/22 History furosemide 40 mg tablet (Lasix) 40 mg PO QAM 05/26/19 06/25/22 History omeprazole 40 mg capsule,delayed 40 mg PO QAM 05/26/19 06/25/22 History release spironolactone 25 mg tablet 12.5 mg PO QAM 08/31/19 06/25/22 History acetaminophen 500 mg tablet 1,000 mg PO BID PRN Pain 04/17/21 06/25/22 History (Tylenol Extra Strength) glucosamine-chondroitin 250 mg-200 1 tab PO BID 04/17/21 06/25/22 History mg tablet (Osteo Bi-Flex) dutasteride 0.5 mg capsule 0.5 mg PO QAM 02/01/22 06/25/22 History metoprolol succinate 25 mg 25 mg PO BID 02/01/22 06/25/22 History tablet,extended release 24 hr nitroglycerin 0.4 mg sublingual 0.4 mg sublingual UD 02/01/22 06/25/22 History tablet (Nitrostat) isosorbide mononitrate 30 mg 30 mg PO QAM 06/25/22 06/25/22 History tablet,extended release 24 hr Past Med/Surg History Medical History Anemia 2/2 GI bleed 03/2019. S/P 1 unit transfused PRBC. Atrial fibrillation Benign prostatic hyperplasia with urinary obstruction and other lower urinary tract symptoms CAD (coronary artery disease) KATIA x 2 (2007)-F/U DR REAL Chest pain ON OCC -WITH 1 FLIGHT STAIRS-GOES AWAY IN A FEW MINUTES Chronic systolic heart failure CKD (chronic kidney disease), stage III F/U PCP DVT (deep venous thrombosis) 2015 s/p foot surgery -NO ISSUES SINCE DVT (deep venous thrombosis) Gastric ulcer 03/2019 large duodenal ulcer s/p 1U PRBCs GERD (gastroesophageal reflux disease) H/O deep venous thrombosis HFrEF (heart failure with reduced ejection fraction) Hyperlipidemia Hypertension Myocardial Infarction 2007 Obesity Osteoarthritis Sleep apnea no device, could not tolerate due to claustrophobia Surgical History Fusion of spine LUMBAR H/O shoulder surgery LEFT/RIGHT History of cardiac cath 2007= stents x 2 2011= no stents History of colonoscopy History of esophagogastroduodenoscopy (EGD) History of hernia surgery UMBILICAL HERNIA Hx of foot surgery RT Hx of vasectomy Family History Other Hypertension Social History Smoking Status: Never smoker Tobacco Type: Cigarettes Second Hand Exposure: No; Do You Dip or Chew Tobacco: No; Tobacco Cessation Education Requested by Patient: No Hx Alcohol Use: No Hx Substance Use: No Preferred Language: Hong Konger Communication Ability: Effective Visual Impairment: No Limitations 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 Beliefs That Will Affect Care: None marital status: Current Living Situation: Spouse Current Living Situation Comment: house current occupational status: retired 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 [employer] Other Information That Helps Us Care for You: No Feels Safe at Home: Yes Safety Concerns: Feels Safe At This Time Assistive Devices: None Review of Systems Review of Systems: Neuro: (-) Falls, trauma, slurred speech HEENT: (-) DIOP, dizziness, dysphagia, visual or auditory changes CV: (-) CP, (+) palpitations, (+) swelling Resp: (+) SOB GI: (-) appetite changes, N/V/D, bowel changes : (-) urinary changes Skin: (-) rashes Psych: (-) anxiety, depression Physical Exam Physical Exam: Neuro: AAOx4, PERRLA, no aphagia, memory changes, CNII-XII grossly intact HEENT: head normocephalic, moist mucus membranes CV: Irregular S1/S2, (-) M/G/R, (+) 3 BL LE edema, cap refill < 3 seconds Resp: Lungs CTA in all rivas. On RA GI: Abdomen S/NT/ND, Ax4 bowel sounds, (-) CVA tenderness Musculoskeletal: 5/5 B/L UE strength, 5/5 B/L LE strength. No gait disturbance Skin: (-) rashes , (+) erythema BL Le unchanged for pt. Psych: euthymic mood Results & Data Results & Data ([facility]) Vital Signs (Past 12 Hours) Vital Signs Temp Pulse Pulse Resp BP Pulse Ox O2 Del Method 06/25/22 13:00 18 96 Room Air 06/25/22 12:59 106 H 18 96 Room Air 06/25/22 12:59 107 H 18 96 06/25/22 12:32 36.3 C L 88 20 116/72 94 Room Air Laboratory Results Short CBC 06/25/22 Range/Units 12:51 WBC 6.47 (4.8-10.8) K/ul Hgb 11.9 L (14.0-18.0) g/dl Hct 34.9 L (40.1-51.0) % Plt Count 134 (130-400) K/uL BMP 06/25/22 12:51 Sodium 139 Potassium 3.8 Chloride 106 Carbon Dioxide 25 BUN 35 H Creatinine 1.32 Glucose 130 H Calcium 9.1 Liver Function 06/25/22 Range/Units 12:51 Total Bilirubin 0.8 (0.2-1.0) mg/dl AST 28 (13-39) U/L ALT 49 (7-52) U/L Alkaline Phosphatase 78 (34-104) U/L Albumin 3.9 (3.4-5.0) gm/dl Diagnostic Findings Chest X-Ray 06/25/22 12:38 XR chest 1V portable CLINICAL HISTORY: SOB TECHNIQUE: Single frontal radiograph of the chest was obtained. Comparison: Prior chest radiograph 04/17/2021 FINDINGS: No lines and tubes are seen. Cardiomegaly is noted. Aortic calcification is seen. Prominence of the pulmonary vasculature is seen. No evidence of pleural effusion or pneumothorax. IMPRESSION: Cardiomegaly and mild pulmonary edema. No evidence of airspace disease to suggest pneumonia. ACT 112: Negative or not required by law. Electronically signed by: Peyman Pabon M.D. 06/25/2022 1:26 PM Code Status & VTE Plan Code Status Full code in the event of cardiac or respiratory arrest VTE Prophylaxis Plan VTE Prophylaxis will be ordered: Yes Supervising Physician Co-Signing Physician Notes Pt was seen and examined. Agreed with Michelle VALDERRAMA exam, assessment and plan. 77 yo Male with CAD s/p KATIA to RCA x 2 in 2007, HTN, Systolic HFrEF, Newly diagnosed Atrial Fibrillation 2 months ago (On Eloquis), DVT in 2016 s/p foot surgery, HLD, OA, GIB present to the ER for worsening SOB. Pt said that for the last 2 weeks he has been having SOB with minimal exertion. CXR showed Cardiomegaly and mild pulmonary edema. No evidence of airspace disease to suggest pneumonia. BNP 451 and troponin normal on admission. Received Lasix 40mg IVx1 in the ER. Will continue Lasix 40mg IV daily for now. Will repeat CXR in am. cardiology consult. Monitor BMP while on IV lasix. Continue monitor closely. MD Omi (1) Dyspnea Dyspnea type: dyspnea on exertion Qualified Code(s): R06.09 - Other forms of dyspnea
[2022-06-25] MEDS ORDERED: ALUMINUM/MAGNESIUM SUSP 30 ML UDC PO PRN (16:37)
[2022-06-25] MEDS ORDERED: NITROGLYCERIN SL 0.4 MG/TAB TAB SL PRN (16:37)
[2022-06-25] MEDS ORDERED: MAGNESIUM HYDROXIDE SUSP 30 ML UDC PO PRN (16:37)
[2022-06-25] MEDS ORDERED: MAGNESIUM SULFATE / D5W 1 GM/100 ML BAG IV ONE (16:37)
[2022-06-25] MEDS ORDERED: ONDANSETRON INJ 2 MG/ML 2 ML VIAL IV PRN (16:37)
[2022-06-25] MEDS ORDERED: POLYETHYLENE (MIRALAX) 17 GM PACK PO PRN (16:37)
[2022-06-25] MEDS: ACETAMINOPHEN 325 MG TAB PO PRN (17:17)
[2022-06-25] MEDS: ASPIRIN 81 MG ECTAB PO SCH (20:17)
[2022-06-25] MEDS: TERAZOSIN HCL 5 MG CAP PO SCH (20:17)
[2022-06-25] MEDS: LOSARTAN POTASSIUM 50 MG TAB PO SCH (20:17)
[2022-06-25] MEDS: ATORVASTATIN 40 MG TAB PO SCH (20:17)
[2022-06-25] MEDS: METOPROLOL SUCC 25MG EXT REL TAB PO SCH (20:18)
[2022-06-25] MEDS: MULTIVITAMIN TAB PO SCH (20:18)
[2022-06-25] MEDS ORDERED: NON-FORMULARY MEDICATION (Glucosamine-Chondroitin [Osteo Bi-Flex] 250-200 mg Tablet) PO SCH (21:00)
--- NOTE | 2022-06-26 06:05 | Electrocardiogram Report ---
Test Reason : Blood Pressure : / mmHG Vent. Rate : 087 BPM Atrial Rate : 064 BPM P-R Int : 000 ms QRS Dur : 122 ms QT Int : 402 ms P-R-T Axes : 000 016 044 degrees QTc Int : 483 ms Atrial fibrillation with premature ventricular or aberrantly conducted complexes Non-specific intra-ventricular conduction delay Nonspecific T wave abnormality Abnormal ECG When compared with ECG of 18-APR-2021 05:48, Atrial fibrillation has replaced Sinus rhythm Confirmed by Jose E Peterson ([id number]) on 06/26/2022 6:04:30 AM Referred By: Confirmed By:Jose E Peterson
[2022-06-26 06:41] LABS: Hematocrit (blood only) 35.3 % (40.1-51.0); Mean Corpuscular Hemoglobin 30.8 pg (25.0-34.0); Mean Corpuscular Volume 90.5 fL (80.0-100.0); Mean Platelet Volume 10.8 fL (9.4-12.4); Platelet Count 124 K/uL (130-400); RDW Coefficient of Variation 13.4 % (11.5-14.5); White Blood Count 6.28 K/ul (4.8-10.8)
[2022-06-26 06:48] LABS: BUN Creatinine Ratio 25.6 (10-20); Calcium 8.9 mg/dl (8.5-10.1); Creatinine Clr Calc Pharmacy 71.2 ml/min; Est GFR (Non-African American) 57.8 ml/min; Potassium 3.6 mmol/L (3.5-5.1)
[2022-06-26] MEDS: MULTIVITAMIN TAB PO SCH ×2 (08:22→20:23)
[2022-06-26] MEDS: PANTOprazole 40 MG TAB PO SCH (08:23)
[2022-06-26] MEDS: TERAZOSIN HCL 5 MG CAP PO SCH ×2 (08:23→20:24)
[2022-06-26] MEDS: ISOSORBIDE MONO EXTENDED REL 30 MG TABCR PO SCH (08:23)
[2022-06-26] MEDS: METOPROLOL SUCC 25MG EXT REL TAB PO SCH ×2 (08:23→20:24)
[2022-06-26] MEDS: SPIRONOLACTONE 12.5 MG TAB PO SCH (08:23)
--- NOTE | 2022-06-26 08:23 | Cardiology Consultation ---
Date of Consultation June 26, 2022 Assessment & Plan (1) Acute decompensated heart failure: (2) HFrEF (heart failure with reduced ejection fraction): (3) Frequent PVCs: (4) CKD (chronic kidney disease), stage III: (5) Sleep apnea: (6) CAD (coronary artery disease): (7) Hypertension: (8) Hyperlipidemia: (9) Mitral regurgitation: (10) Atrial fibrillation: Plan Patient presents in acute decompensated systolic/diastolic heart failure. Already with good response to IV diuretics and will be continued. His mitral valve on echo from last week is now severe regurgitation and I personally reviewed today in believe there might be a partial flail segment of the anterior mitral valve leaflet. will plan on CHELSEY in the AM to further evaluate mitral regurgitation for possible partial flail History of Present Illness Reason for Consultation: acute decompensated systolic heart failure Requesting Physician: XAVIER Attending Physician: Orion Campbell MD History of Present Illness It was my pleasure see Mr. Paris in cardiac consultation today June 26, 2022. He is a very pleasant 77-year-old gentleman who follows with myself as an outpatient for his multiple cardiac issues. He presents to [facility] Emergency Department on June 25, 2022 with complaints of worsening shortness of breath. He states he initially began having shortness of breath when he was down in [place] several weeks ago and was ultimately earlene gnosed with pneumonia. He states that the shortness of breath initially improved somewhat but then quickly deteriorated again. Was seen by myself as an outpatient as Lasix was increased, unfortunately, there was no benefit to his breathing. He then present to the emergency department on June 25, 2022 and was diagnosed with acute decompensated systolic heart failure. He has received IV diuresis with brisk response and states his breathing is starting to feel better. PAST MEDICAL HISTORY: 1. Chronic systolic HF,well compensated. 2. 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 3. History of CAD S/P KATIA to the RCA x2 in 2007. Repeat cath in 2011 with patent stents and no obstructive disease. Last stress test in 2018, no inducible ischemia. Attempted nuclear, but aborted due to claustrophobia 4. History of frequent PVC"S 5. Hypertension -uncontrolled today. Controlled at home. situational 6. Dyslipidemia - taking atorvastatin. 7.Recent Upper GI bleed with duodenal ulceration in March, repeat EGD without evidence of ulceration. Chronic gastritis noted. 8. History of ITA 9. Claustrophobia Allergies Allergy/AdvReac Type Severity Reaction Status Date / Time enalapril Allergy Mild cough Verified 06/25/22 14:44 Home Medications Medication Instructions Recorded Confirmed Type aspirin 81 mg tablet,delayed 81 mg PO PM 04/20/19 06/25/22 History release atorvastatin 80 mg tablet 80 mg PO HS 04/20/19 06/25/22 History losartan 50 mg tablet 50 mg PO QPM 04/20/19 06/25/22 History multivitamin (Multiple Vitamins 1 tab PO BID 04/20/19 06/25/22 History tablet) terazosin 5 mg capsule 5 mg PO BID 04/20/19 06/25/22 History furosemide 40 mg tablet (Lasix) 40 mg PO QAM 05/26/19 06/25/22 History omeprazole 40 mg capsule,delayed 40 mg PO QAM 05/26/19 06/25/22 History release spironolactone 25 mg tablet 12.5 mg PO QAM 08/31/19 06/25/22 History acetaminophen 500 mg tablet 1,000 mg PO BID PRN Pain 04/17/21 06/25/22 History (Tylenol Extra Strength) glucosamine-chondroitin 250 mg-200 1 tab PO BID 04/17/21 06/25/22 History mg tablet (Osteo Bi-Flex) dutasteride 0.5 mg capsule 0.5 mg PO QAM 02/01/22 06/25/22 History metoprolol succinate 25 mg 25 mg PO BID 02/01/22 06/25/22 History tablet,extended release 24 hr nitroglycerin 0.4 mg sublingual 0.4 mg sublingual UD 02/01/22 06/25/22 History tablet (Nitrostat) isosorbide mononitrate 30 mg 30 mg PO QAM 06/25/22 06/25/22 History tablet,extended release 24 hr Patient History Medical History Anemia 2/2 GI bleed 03/2019. S/P 1 unit transfused PRBC. Atrial fibrillation Benign prostatic hyperplasia with urinary obstruction and other lower urinary tract symptoms CAD (coronary artery disease) KATIA x 2 (2007)-F/U DR REAL Chest pain ON OCC -WITH 1 FLIGHT STAIRS-GOES AWAY IN A FEW MINUTES Chronic systolic heart failure CKD (chronic kidney disease), stage III F/U PCP DVT (deep venous thrombosis) 2015 s/p foot surgery -NO ISSUES SINCE DVT (deep venous thrombosis) Gastric ulcer 03/2019 large duodenal ulcer s/p 1U PRBCs GERD (gastroesophageal reflux disease) H/O deep venous thrombosis HFrEF (heart failure with reduced ejection fraction) Hyperlipidemia Hypertension Myocardial Infarction 2007 Obesity Osteoarthritis Sleep apnea no device, could not tolerate due to claustrophobia Surgical History Fusion of spine LUMBAR H/O shoulder surgery LEFT/RIGHT History of cardiac cath 2007= stents x 2 2011= no stents History of colonoscopy History of esophagogastroduodenoscopy (EGD) History of hernia surgery UMBILICAL HERNIA Hx of foot surgery RT Hx of vasectomy Family History Other Hypertension Social History Smoking Status: Never smoker Tobacco Type: Cigarettes Second Hand Exposure: No; Do You Dip or Chew Tobacco: No; Tobacco Cessation Education Requested by Patient: No Hx Alcohol Use: No Hx Substance Use: No Preferred Language: Chinese Communication Ability: Effective Visual Impairment: No Limitations Mobile Therapist Required: No Beliefs That Will Affect Care: None marital status: Current Living Situation: Spouse Current Living Situation Comment: house current occupational status: retired 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 No acute distress. HEENT: Normocephalic, atraumatic. Pupils equal, round and reactive to light and accommodation. Extraocular muscles are intact. Anicteric sclera. Moist mucous membranes. Neck: No JVD. No bruit. Cardiovascular: Regular. Positive S-4. Normal S-1 and S-2. No S-3. 3/6 holosystolic ejection murmur, left sternal border, mid-clavicular line with radiation to the axilla. No rubs. Pulmonary: Clear to auscultation bilaterally. No rales, rhonchi, or wheezing. Abdomen: Bowel sounds x 4, soft. No rebound, guarding or tenderness. No organomegaly. Extremities: No clubbing, cyanosis or edema. +2 pedal pulses bilaterally. Skin: Warm and dry. Results & Data ([facility]) Vital Signs (Past 12 Hours) Vital Signs Temp Pulse Pulse Resp BP Pulse Ox O2 Del Method 06/26/22 07:48 36.5 C 90 16 129/94 93 Room Air 06/26/22 02:59 36.5 C 69 18 123/76 94 Room Air 06/26/22 00:59 77 06/25/22 23:11 37.0 C 82 20 129/88 97 Room Air Diagnostic Findings Interpretation Summary of 2D echo 06/20/22 The examination is adequate to evaluate the referral indication. There was atrial fibrillation during the examination. The left ventricular cavity size is moderately enlarged. The LV wall thickness is mildly increased (concentric). The estimated pulmonary artery systolic pressure is 40-45mm Hg. There is moderate diffuse left ventricular hypokinesis. Calculated LV ejection Fraction = 43% (bi-plane method of discs). The left ventricular diastolic function is abnormal by 2-D findings. The left atrium is severely enlarged (>48 ml/m^2,). The aortic valve is mildly calcified. Mild aortic valve regurgitation is present. Severe mitral regurgitation is present. Mild tricuspid regurgitation is present. Moderate pulmonary hypertension is present. The aortic root and proximal ascending aorta are mildly enlarged. (3.8/4.4 cm) In comparison to prior study of August 03, 2021 mitral insufficiency and pulmonary hypertension has increased
[2022-06-26] MEDS ORDERED: FUROSEMIDE 40 MG/4 ML VIAL IV SCH (09:00)
--- NOTE | 2022-06-26 10:09 | Hospitalist Progress Note ---
Date of Service June 26, 2022 Assessment & Plan (1) HFrEF (heart failure with reduced ejection fraction): (2) Dyspnea: (3) Hypertension: (4) CAD (coronary artery disease): (5) Hyperlipidemia: (6) Benign prostatic hyperplasia with urinary obstruction and other lower urinary tract symptoms: (7) DVT (deep venous thrombosis): (8) Atrial fibrillation: (9) GERD (gastroesophageal reflux disease): Plan per admitting service notes with addendum: Mr. Paris presented to the ED today with SOB/dyspnea. He reports that over the past two weeks any step he takes he out of breath. He does report orthopnea. He states that it does take him some time to recover. He did just recover from PNA and completed two courses of abx. CXR today showed mild pulmonary edema. ECHO done 06/20-EF did show some reduction; now 43% and some mild mitral regurgitation. He has an extensive PMH that includes: CAD s/p KATIA to RCA x 2 in 2007, HTN, Systolic HFrEF, Newly diagnosed Atrial Fibrillation 2 months ago (On Eloquis). In ED, received IV Lasix, Troponin appears negative; will trend. EKG did show frequent PVC's the patient reports these as normal for him. Some T wave abnormalities that appear consistent with review of prior EKG's. Cards Consult placed. Acute exacerbation of chronic HFrEF: In the setting of recent pneumonia, COVID infection Has completed course of Levaquin x1 week ECHO done 06/20: reduced EF compared to previous studies, now 43%; some mild mitral regurgitation CXR: Some mild pulmonary edema. Recently completed Augmentin for PNA. Pt takes PO Lasix and Spirinolactone at home On room air, diuresing gradually Continue Lasix 40 mg IV twice daily Patient for CHELSEY tomorrow, hold Lasix in a.m. Appreciate cardiology service recommendation CAD HTN KATIA to RCA x 2 in 2007. Cardiac cath in 2011 without intervention Last stress test in 2017 with no inducible ischemia. Continue baby ASA, Losartan, and Imdur Atrial Fibrillation: Diagnosed 2 months ago; on Eliquis and tolerating; continue Cardiology Consult placed. Continue metoprolol HLD: Lipid panel drawn 06/11; LDL 50, HDL 37, TG 105 Continue atorvastatin BPH Stable; continue Terazosin GERD Continue Omeprazole H/O DVT 2015 s/p foot surgery Disposition: PCP: Dr. Serrano Code: Full VTE Prophylaxis: Eliquis/ SCD's Disposition: Anticipate discharge to home medically stable Admission and Anticipated Discharge Date Admission Date: June 25, 2022 Subjective Follow-up for acute CHF systolic exacerbation, etc. Seen sitting up in bedside chair, not in distress, comfortable Patient's Polly at the bedside visiting Patient reports he feels improved today compared to yesterday Breathing is improving No chest pain, palpitations, dizziness No fevers or chills, has dry cough No other symptom Review of Systems Review of Systems: all noted and negative except for above Physical Exam Physical Exam: General- oriented x 3, not in distress, speaks in sentences with no effort or accessory muscle use Eyes- anicteric Neck-positive JVD Lungs-mild rales at the bases, no wheezes Heart- normal rate, regular rhythm; no murmurs Abdomen- normal bowel sounds, nondistended, soft, nontender Extremities-positive grade 1 bilateral lower extremity edema Erythema/tenderness Neuro- alert, oriented x 3; no gross focal neurologic deficits Skin- warm & dry Results & Data Results & Data ([facility]) Vital Signs (Past 12 Hours) Vital Signs Temp Pulse Pulse Resp BP Pulse Ox O2 Del Method 06/26/22 08:00 Room Air 06/26/22 07:48 36.5 C 90 16 129/94 93 Room Air 06/26/22 02:59 36.5 C 69 18 123/76 94 Room Air 06/26/22 00:59 77 06/25/22 23:11 37.0 C 82 20 129/88 97 Room Air all noted and reviewed including below (1) Dyspnea Dyspnea type: dyspnea on exertion Qualified Code(s): R06.09 - Other forms of dyspnea
--- NOTE | 2022-06-26 11:19 | XRay Report ---
XR chest 1V portable CLINICAL HISTORY: Dyspnea. COMPARISON STUDY: Chest CT May 26, 2019. Chest radiograph June 25, 2022. FINDINGS: Cardiomegaly is noted. There is no pneumothorax. No definite pleural effusion. Interstitial thickening is similar to prior exam. No consolidation is identified to suggest pneumonia. IMPRESSION: Cardiomegaly with mild interstitial pulmonary edema, similar to prior study. ACT 112: Negative or not required by law. Electronically signed by: Jaime Dorantes M.D. 06/26/2022 11:18 AM
[2022-06-26] MEDS ORDERED: APIXABAN 5 MG TABLET PO ONE (16:15)
[2022-06-26] MEDS ORDERED: FUROSEMIDE 40 MG/4 ML VIAL IV ONE (17:00)
[2022-06-26] MEDS: ASPIRIN 81 MG ECTAB PO SCH (20:23)
[2022-06-26] MEDS: LOSARTAN POTASSIUM 50 MG TAB PO SCH (20:23)
[2022-06-26] MEDS: ATORVASTATIN 40 MG TAB PO SCH (20:24)
--- NOTE | 2022-06-26 22:44 | Electrocardiogram Report ---
Test Reason : Blood Pressure : / mmHG Vent. Rate : 095 BPM Atrial Rate : 087 BPM P-R Int : 000 ms QRS Dur : 128 ms QT Int : 402 ms P-R-T Axes : 000 014 073 degrees QTc Int : 505 ms Poor data quality, interpretation may be adversely affected Atrial fibrillation with premature ventricular or aberrantly conducted complexes Non-specific intra-ventricular conduction block Abnormal ECG When compared with ECG of 25-JUN-2022 12:40, No significant change Confirmed by Jose E Peterson ([id number]) on 06/26/2022 10:44:36 PM Referred By: Jayro Swartz Confirmed By:Jose E Peterson
--- NOTE | 2022-06-26 23:05 | Electrocardiogram Report ---
Test Reason : Blood Pressure : / mmHG Vent. Rate : 087 BPM Atrial Rate : 079 BPM P-R Int : 000 ms QRS Dur : 126 ms QT Int : 422 ms P-R-T Axes : 000 006 026 degrees QTc Int : 507 ms Atrial fibrillation with premature ventricular or aberrantly conducted complexes Non-specific intra-ventricular conduction block Abnormal ECG When compared with ECG of 25-JUN-2022 18:18, No significant change Confirmed by Jose E Peterson ([id number]) on 06/26/2022 11:05:10 PM Referred By: Jayro Swartz Confirmed By:Jose E Peterson
[2022-06-27] MEDS: ISOSORBIDE MONO EXTENDED REL 30 MG TABCR PO SCH (08:16)
[2022-06-27] MEDS: PANTOprazole 40 MG TAB PO SCH (08:17)
[2022-06-27] MEDS: SPIRONOLACTONE 12.5 MG TAB PO SCH (08:17)
[2022-06-27] MEDS: METOPROLOL SUCC 25MG EXT REL TAB PO SCH (08:17)
[2022-06-27] MEDS: MULTIVITAMIN TAB PO SCH (08:17)
[2022-06-27] MEDS: TERAZOSIN HCL 5 MG CAP PO SCH (08:17)
[2022-06-27] MEDS ORDERED: fentaNYL citrate 100 MCG/2 ML VIAL ONE (09:10)
[2022-06-27] MEDS ORDERED: BENZOCAINE/TETRACAIN/BUTAM 50 APPLN/5 GM CAN EXT ONE (09:10)
[2022-06-27] MEDS ORDERED: MIDAZOLAM HCL 5 MG/ML 1 ML VIAL ONE (09:10)
--- NOTE | 2022-06-27 10:03 | Post Anesthesia Assessment ---
Date of Service June 27, 2022 Post Sedation Assessment Vital Signs Temp Pulse Pulse Resp BP Pulse Ox O2 Del Method 06/27/22 09:57 90 16 114/77 93 Nasal Cannula 06/27/22 09:50 83 16 109/72 91 Nasal Cannula 06/27/22 09:46 85 16 128/82 94 Nasal Cannula 06/27/22 09:40 93 H 16 146/87 H 93 Nasal Cannula 06/27/22 09:18 86 17 140/83 98 Room Air 06/27/22 08:00 Room Air 06/27/22 07:14 36.3 C L 84 17 133/82 94 Room Air 06/27/22 04:00 36.6 C 88 16 119/78 93 Room Air 06/27/22 00:03 36.4 C L 80 18 118/57 L 94 Room Air 06/26/22 23:00 69 06/26/22 17:47 36.6 C 66 16 137/68 95 Room Air 06/26/22 16:20 83 06/26/22 12:00 36.5 C 95 H 16 123/74 93 Room Air O2 Flow Rate 06/27/22 09:57 5 06/27/22 09:50 5 06/27/22 09:46 5 06/27/22 09:40 3 06/27/22 09:18 06/27/22 08:00 06/27/22 07:14 06/27/22 04:00 06/27/22 00:03 06/26/22 23:00 06/26/22 17:47 06/26/22 16:20 06/26/22 12:00 Recovery Score Activity: Moves 4 extremities Respiration: Deep Breath/Cough Circulation: +/-20% PreAnes Value Consciousness: Arouseable (by name) Oxygen Saturation: O2 needed for >90% Post Anesthesia Score: 8 Discharge Sedation Level of Care: Fast Track Phase II Post Sedation Plan On clinical assessment, the patient appears to have tolerated the sedation without complications. Patient is recovering as anticipated. Patient will continue to be monitored by nursing and may be discharged when sedation discharge criteria are met per below protocol. Upon Completions of procedure up to 15 minutes continue every 5 minute vital signs and the P.A.R. score; then discharge to a Phase I or Fast Track to Phase II per the following guidelines: * Discharge Patient to appropriate Phase II area if PAR is 8 or greater or return to pre- procedure baseline. The post - procedure orders will be as directed. * If PAR score is less than 8 or not return to pre-procedure baseline then patient will follow Phase I monitoring till PAR is reached for Phase II. The Phase I may be done in procedure room or may call to secure a Phase I area. * If naloxone or flumazenil are used for reversal, hold in Phase I for continued monitoring from when last reversal dose was given for a minimum of 60 minutes or longer pending the nurse and/or physician discretion of patient condition before discharge to Phase II. Please call the Sedation Physician to re-evaluate and complete post-note for discharge to Phase II area. Do NOT discharge from procedure sedation or Phase 1 until post- sedation evaluation note is complete by procedure /sedation MD Sedation Discharge Instructions to be given to the patient at discharge to home.
--- NOTE | 2022-06-27 10:03 | Pre Anesthesia Assessment ---
Date of Service June 27, 2022 Pre Sedation Assessment Vital Signs Temp Pulse Pulse Resp BP Pulse Ox O2 Del Method 06/27/22 09:57 90 16 114/77 93 Nasal Cannula 06/27/22 09:50 83 16 109/72 91 Nasal Cannula 06/27/22 09:46 85 16 128/82 94 Nasal Cannula 06/27/22 09:40 93 H 16 146/87 H 93 Nasal Cannula 06/27/22 09:18 86 17 140/83 98 Room Air 06/27/22 08:00 Room Air 06/27/22 07:14 36.3 C L 84 17 133/82 94 Room Air 06/27/22 04:00 36.6 C 88 16 119/78 93 Room Air 06/27/22 00:03 36.4 C L 80 18 118/57 L 94 Room Air 06/26/22 23:00 69 06/26/22 17:47 36.6 C 66 16 137/68 95 Room Air 06/26/22 16:20 83 06/26/22 12:00 36.5 C 95 H 16 123/74 93 Room Air O2 Flow Rate 06/27/22 09:57 5 06/27/22 09:50 5 06/27/22 09:46 5 06/27/22 09:40 3 06/27/22 09:18 06/27/22 08:00 06/27/22 07:14 06/27/22 04:00 06/27/22 00:03 06/26/22 23:00 06/26/22 17:47 06/26/22 16:20 06/26/22 12:00 Pre-Sedation Airway Assessment Smoking Status: Never smoker Hx Sleep Apnea: No Short, Thick Neck: Yes Thyromental Distance: > or= 3.5 Finger Breadths Oral Cavity: + WNL Mallampati Class: III ASA: ASA2 NPO Status Date of Last Intake of Fluids: 06/27/22 Time of Last Intake of Fluids: 07:30 Date of Last Intake of Solid Food: 06/26/22 Notes The planned sedation has been discussed with the patient. Informed Consent was obtained. I have identified the patient, determined the appropriateness of sedation and have assessed the patient immediately prior to the procedure. All medicine(s) and interventions are by my order.
--- NOTE | 2022-06-27 10:05 | Operative Report ---
Post Operative Report Pre & Post Diagnosis Operation Date: 06/27/22 09:00 <No data on this case meets the specified criteria> I identified the patient and participated in the time-out.: Yes Procedure Operation Date: 06/27/22 09:00 Actual Procedures p Echo Transesophageal - Antonio Nichole, s Echo Doppler Complete - Antonio Nichole DO s Echo Color Flow - Antonio Nichole DO Surgeon Antonio Nichole, Ring Cutter Lathe Operator Daisy SOTELO Estimated Blood Loss 0 Findings Consistent with Post-Op Diagnosis Severe mitral regurgitation with partial flail of A2 Specimens none Description of Procedure Informed consent obtained. pt prepped adequate moderate sedation achieved with a total of Versed 4 mg and Fentanyl 100 mcg No complications pt tolerated well recover per protocol start time: 944 stop time: 957 I attest to the content of the Intraoperative Record and any orders documented therein. Any exceptions are noted below.
[2022-06-27] MEDS: ACETAMINOPHEN 325 MG TAB PO PRN (13:24)
--- NOTE | 2022-06-27 13:34 | Cardiology Progress Note ---
Date of Service June 27, 2022 Assessment & Plan (1) Acute decompensated heart failure: (2) HFrEF (heart failure with reduced ejection fraction): (3) Frequent PVCs: (4) CKD (chronic kidney disease), stage III: (5) Sleep apnea: (6) CAD (coronary artery disease): (7) Hypertension: (8) Hyperlipidemia: (9) Mitral regurgitation: (10) Atrial fibrillation: Plan Patient presents in acute decompensated systolic/diastolic heart failure. Patient was diuresed well and is now back to baseline clinically Patient has diuresed well as now back to.baseline clinically. Okay to discharge home from a cardiac standpoint. He is already scheduled to meet with cardiothoracic surgery echocardiogram clinic will be happy to arrange evaluation with cardiothoracic surgery in [place] as well should he wish. . Discharge home following Lasix 40 mg p.o. twice daily outpatient bmp in 1 week f/u with me in 2-4 weeks cont all other cardiac meds Admission and Anticipated Discharge Date Admission Date: June 25, 2022 Subjective Chart reviewed. Telemetry reviewed. Patient seen and examined. States that his breathing is back to normal. Review of Systems Review of Systems: All systems reviewed & are unremarkable except as noted in HPI & below Physical Exam Physical Exam: General: Awake, alert and oriented x 3. No acute distress. HEENT: Normocephalic, atraumatic. Pupils equal, round and reactive to light and accommodation. Extraocular muscles are intact. Anicteric sclera. Moist mucous membranes. Neck: No JVD. No bruit. Cardiovascular: Regular. Positive S-4. Normal S-1 and S-2. No S-3. 3/6 holosystolic ejection murmur, left sternal border, mid-clavicular line with radiation to the axilla. No rubs. Pulmonary: Clear to auscultation bilaterally. No rales, rhonchi, or wheezing. Abdomen: Bowel sounds x 4, soft. No rebound, guarding or tenderness. No organomegaly. Extremities: No clubbing, cyanosis or edema. +2 pedal pulses bilaterally. Skin: Warm and dry. ENMT: Mallampati Class: III Results & Data ([facility]) Vital Signs (Past 12 Hours) Vital Signs Temp Pulse Pulse Resp BP Pulse Ox O2 Del Method 06/27/22 11:06 36.4 C L 88 19 134/70 99 Room Air 06/27/22 10:00 77 15 119/86 96 Nasal Cannula 06/27/22 09:57 90 16 114/77 93 Nasal Cannula 06/27/22 09:50 83 16 109/72 91 Nasal Cannula 06/27/22 09:46 85 16 128/82 94 Nasal Cannula 06/27/22 09:40 93 H 16 146/87 H 93 Nasal Cannula 06/27/22 10:14 75 15 117/74 94 Room Air 06/27/22 09:18 86 17 140/83 98 Room Air 06/27/22 08:00 Room Air 06/27/22 07:14 36.3 C L 84 17 133/82 94 Room Air 06/27/22 04:00 36.6 C 88 16 119/78 93 Room Air O2 Flow Rate 06/27/22 11:06 06/27/22 10:00 3 06/27/22 09:57 5 06/27/22 09:50 5 06/27/22 09:46 5 06/27/22 09:40 3 06/27/22 10:14 06/27/22 09:18 06/27/22 08:00 06/27/22 07:14 06/27/22 04:00
--- NOTE | 2022-06-27 16:50 | Hospitalist Progress Note ---
Date of Service June 27, 2022 Assessment & Plan (1) HFrEF (heart failure with reduced ejection fraction): (2) Dyspnea: (3) Hypertension: (4) CAD (coronary artery disease): (5) Hyperlipidemia: (6) Benign prostatic hyperplasia with urinary obstruction and other lower urinary tract symptoms: (7) DVT (deep venous thrombosis): (8) Atrial fibrillation: (9) GERD (gastroesophageal reflux disease): Plan per admitting service notes with addendum: Mr. Paris presented to the ED today with SOB/dyspnea. He reports that over the past two weeks any step he takes he out of breath. He does report orthopnea. He states that it does take him some time to recover. He did just recover from PNA and completed two courses of abx. CXR today showed mild pulmonary edema. ECHO done 06/20-EF did show some reduction; now 43% and some mild mitral regurgitation. He has an extensive PMH that includes: CAD s/p KATIA to RCA x 2 in 2007, HTN, Systolic HFrEF, Newly diagnosed Atrial Fibrillation 2 months ago (On Eloquis). In ED, received IV Lasix, Troponin appears negative; will trend. EKG did show frequent PVC's the patient reports these as normal for him. Some T wave abnormalities that appear consistent with review of prior EKG's. Cards Consult placed. Acute exacerbation of chronic HFrEF: In the setting of recent pneumonia, COVID infection Has completed course of Levaquin x1 week ECHO done 06/20: reduced EF compared to previous studies, now 43%; some mild mitral regurgitation CXR: Some mild pulmonary edema. Recently completed Augmentin for PNA. Pt takes PO Lasix and Spirinolactone at home On room air, diuresed well Was given Lasix 40 mg IV twice daily 06/27: CHELSEY done showing severe mitral regurgitation with partial flail of A2 Cleared for discharge by our cardiology service, Dr. Nichole Increase Lasix 40 mg twice daily Potassium 20 mq daily Patient scheduled to see cardiothoracic surgeon at [facility] in 2 weeks Given instructions regarding fluid restriction, salt restriction CAD HTN KATIA to RCA x 2 in 2007. Cardiac cath in 2011 without intervention Last stress test in 2017 with no inducible ischemia. Continue baby ASA, Losartan, and Imdur Atrial Fibrillation: Cardiology Consult placed. Continue metoprolol and Eliquis HLD: Lipid panel drawn 06/11; LDL 50, HDL 37, TG 105 Continue atorvastatin BPH Stable; continue Terazosin GERD Continue Omeprazole H/O DVT 2016 s/p foot surgery Disposition: PCP: Dr. Serrano Code: Full VTE Prophylaxis: Eliquis/ SCD's Disposition: Discharge to home today Follow-up with PCP in 1 week Follow-up with remote ruby on rails developer as scheduled Admission and Anticipated Discharge Date Admission Date: June 25, 2022 Subjective Call for acute CHF exacerbation, atrial fibrillation, etc. Seen sitting up in bed side chair, comfortable, not distressed States he feels fine overall Breathing is significantly improved, no cough or fever chills No chest pain, dizziness, palpitations Ambulating in the hallways with no problems No other symptoms Review of Systems Review of Systems: all noted and negative except for above Physical Exam Physical Exam: General- oriented x 3, not in distress, speaks in sentences with no effort or accessory muscle use Eyes- anicteric Neck- no JVD Lungs- clear breath sounds bilaterally, no rales/wheezes Heart- normal rate, regular rhythm; grade 3/6 holosystolic murmur Abdomen- normal bowel sounds, nondistended, soft, no tenderness Extremities-trace pretibial edema, no calf tenderness Neuro- alert, oriented x 3; no gross focal neurologic deficits Skin- warm & dry Results & Data Results & Data ([facility]) Vital Signs (Past 12 Hours) Vital Signs Temp Pulse Pulse Pulse Pulse Pulse Resp 06/27/22 14:31 36.4 C L 88 19 06/27/22 14:12 116 H 110 H 59 L 06/27/22 11:06 36.4 C L 88 19 06/27/22 10:00 77 15 06/27/22 09:57 90 16 06/27/22 09:50 83 16 06/27/22 09:46 85 16 06/27/22 09:40 93 H 16 06/27/22 10:14 75 15 06/27/22 09:18 86 17 06/27/22 08:00 06/27/22 07:14 36.3 C L 84 17 Resp Resp Resp BP BP Pulse Ox Pulse Ox 06/27/22 14:31 100/66 134/70 99 06/27/22 14:12 20 18 16 94 06/27/22 11:06 134/70 99 06/27/22 10:00 119/86 96 09/28/22 09:57 114/77 93 06/27/22 09:50 109/72 91 06/27/22 09:46 128/82 94 06/27/22 09:40 146/87 H 93 06/27/22 10:14 117/74 94 06/27/22 09:18 140/83 98 06/27/22 08:00 06/27/22 07:14 133/82 94 Pulse Ox Pulse Ox O2 Del Method O2 Flow Rate 06/27/22 14:31 06/27/22 14:12 96 94 06/27/22 11:06 Room Air 06/27/22 10:00 Nasal Cannula 3 06/27/22 09:57 Nasal Cannula 5 06/27/22 09:50 Nasal Cannula 5 06/27/22 09:46 Nasal Cannula 5 06/27/22 09:40 Nasal Cannula 3 06/27/22 10:14 Room Air 06/27/22 09:18 Room Air 06/27/22 08:00 Room Air 06/27/22 07:14 Room Air all noted and reviewed including below (1) Dyspnea Dyspnea type: dyspnea on exertion Qualified Code(s): R06.09 - Other forms of dyspnea
--- NOTE | 2022-06-27 16:50 | Discharge Summary ---
Discharge Summary Date of Service June 27, 2022 Admission HPI Per Admitting Provider Mr. Paris presented to the ED today with SOB/dyspnea. He reports that over the past two weeks any step he takes he out of breath. He does report orthopnea. He states that it does take him some time to recover. He did just recover from PNA and completed two courses of abx. CXR today showed mild pulmonary edema; but not suggestive of recurrent PNA. He was just recently in [place] over Day and started to feel poor and was tested for COVID and was negative. He just had an ECHO done last week on 06/19 and was reviewed by Dr. Nichole. EF did show some reduction; now 43% and some mild mitral regurgitation.He has an extensive PMH that includes: CAD s/p KATIA to RCA x 2 in 2007, HTN, Systolic HFrEF, Newly diagnosed Atrial Fibrillation 2 months ago (On Eloquis), DVT in 2015 s/p foot surgery, HLD, OA, GIB. Today, the patient received IV Lasix, Troponin appears negative; will trend. EKG did show frequent PVC's the patient reports these as normal for him. Some T wave abnormalities that appear consistent with review of prior EKG's. Patient reports that his dyspnea has already seemingly improved. He reports chronic DIOP and dizziness from standing from sitting; otherwise ROS is negative for dizziness, CP, N/V/D, rashes, falls. Patient will be admitted to hospitalist service for further evaluation and management. Please see A/P for further details. Principal Dx & Hospital Course #1 = Principal Diagnosis (1) HFrEF (heart failure with reduced ejection fraction): (2) Dyspnea: (3) Hypertension: (4) CAD (coronary artery disease): (5) Hyperlipidemia: (6) Benign prostatic hyperplasia with urinary obstruction and other lower urinary tract symptoms: (7) DVT (deep venous thrombosis): (8) Atrial fibrillation: (9) GERD (gastroesophageal reflux disease): Plan per admitting service notes with addendum: Mr. Paris presented to the ED today with SOB/dyspnea. He reports that over the past two weeks any step he takes he out of breath. He does report orthopnea. He states that it does take him some time to recover. He did just recover from PNA and completed two courses of abx. CXR today showed mild pulmonary edema. ECHO done 06/20-EF did show some reduction; now 43% and some mild mitral regurgitation. He has an extensive PMH that includes: CAD s/p KATIA to RCA x 2 in 2007, HTN, Systolic HFrEF, Newly diagnosed Atrial Fibrillation 2 months ago (On Eloquis). In ED, received IV Lasix, Troponin appears negative; will trend. EKG did show frequent PVC's the patient reports these as normal for him. Some T wave abnormalities that appear consistent with review of prior EKG's. Cards Consult placed. Acute exacerbation of chronic HFrEF: In the setting of recent pneumonia, COVID infection Has completed course of Levaquin x1 week ECHO done 06/20: reduced EF compared to previous studies, now 43%; some mild mitral regurgitation CXR: Some mild pulmonary edema. Recently completed Augmentin for PNA. Pt takes PO Lasix and Spirinolactone at home On room air, diuresed well Was given Lasix 40 mg IV twice daily 06/27: CHELSEY done showing severe mitral regurgitation with partial flail of A2 Cleared for discharge by our cardiology service, Dr. Nichole Increase Lasix 40 mg twice daily Potassium 20 mq daily Patient scheduled to see cardiothoracic surgeon at [facility] in 2 weeks Given instructions regarding fluid restriction, salt restriction CAD HTN KATIA to RCA x 2 in 2007. Cardiac cath in 2011 without intervention Last stress test in 2017 with no inducible ischemia. Continue baby ASA, Losartan, and Imdur Atrial Fibrillation: Cardiology Consult placed. Continue metoprolol and Eliquis HLD: Lipid panel drawn 06/11; LDL 50, HDL 37, TG 105 Continue atorvastatin BPH Stable; continue Terazosin GERD Continue Omeprazole H/O DVT 2016 s/p foot surgery Disposition: PCP: Dr. Serrano Code: Full VTE Prophylaxis: Eliquis/ SCD's Disposition: Discharge to home today Follow-up with PCP in 1 week Follow-up with fur clipper as scheduled Updated Medication List Medication Instructions Recorded Confirmed Type aspirin 81 mg tablet,delayed 81 mg PO PM 04/20/19 06/25/22 History release atorvastatin 80 mg tablet 80 mg PO HS 04/20/19 06/25/22 History losartan 50 mg tablet 50 mg PO QPM 04/20/19 06/25/22 History multivitamin (Multiple Vitamins 1 tab PO BID 04/20/19 06/25/22 History tablet) terazosin 5 mg capsule 5 mg PO BID 04/20/19 06/25/22 History omeprazole 40 mg capsule,delayed 40 mg PO QAM 05/26/19 06/25/22 History release spironolactone 25 mg tablet 12.5 mg PO QAM 08/31/19 06/25/22 History acetaminophen 500 mg tablet 1,000 mg PO BID PRN Pain 04/17/21 06/25/22 History (Tylenol Extra Strength) glucosamine-chondroitin 250 mg-200 1 tab PO BID 04/17/21 06/25/22 History mg tablet (Osteo Bi-Flex) dutasteride 0.5 mg capsule 0.5 mg PO QAM 02/01/22 06/25/22 History metoprolol succinate 25 mg 25 mg PO BID 02/01/22 06/25/22 History tablet,extended release 24 hr nitroglycerin 0.4 mg sublingual 0.4 mg sublingual UD 02/01/22 06/25/22 History tablet (Nitrostat) isosorbide mononitrate 30 mg 30 mg PO QAM 06/25/22 06/25/22 History tablet,extended release 24 hr furosemide 40 mg tablet (Lasix) 40 mg PO BID 30 days #60 tabs 06/27/22 Rx potassium chloride 20 mEq 20 meq PO DAILY #14 tabs 06/27/22 Rx tablet,extended release Hospital Stay Data Consultations 06/25/22 14:00 ED Decision to Admit Stat 06/25/22 16:37 Consult Cardiology Routine Procedures Performed Operation Date: 06/27/22 09:00 Actual Procedures p Echo Transesophageal - Antonio Nichole DO s Echo Doppler Complete - Antonio Nichole DO s Echo Color Flow - Antonio Nichole DO Pending Results Patient Have Any Pending Studies at Discharge: Yes Discharge Instructions Given to Patient (Per Discharging Provider) PLEASE REFER TO YOUR NEW MEDICATION LIST AND FOLLOW INSTRUCTIONS CAREFULLY. YOUR NEW MEDICATIONS INCLUDE: Increase Lasix 40 mg to twice a day. Potassium supplement. PLEASE CALL YOUR PRIMARY CARE PHYSICIAN OR RETURN TO THE ER IF WITH WORSENING OF SYMPTOMS, INCLUDING Increasing leg swelling, shortness of breath, chest pain, dizziness, palpitations,, cough, fevers or chills. FOLLOW UP WITH PRIMARY CARE PHYSICIAN in 1 week. Follow-up with fur clipper Dr. Nichole as scheduled.
--- NOTE | 2022-06-28 05:47 | Electrocardiogram Report ---
Test Reason : Blood Pressure : / mmHG Vent. Rate : 090 BPM Atrial Rate : 078 BPM P-R Int : 000 ms QRS Dur : 124 ms QT Int : 414 ms P-R-T Axes : 000 007 040 degrees QTc Int : 506 ms Atrial fibrillation with premature ventricular or aberrantly conducted complexes Non-specific intra-ventricular conduction block Abnormal ECG When compared with ECG of 26-JUN-2022 04:16, No significant change was found Confirmed by Jose E Peterson ([id number]) on 06/28/2022 5:46:58 AM Referred By: Jayro Swartz Confirmed By:Jose E Peterson
== END 2022-06-27 15:21 | disposition home or self-care (01) | DRG 291 ==
LOC: ED 12:22 → SUATTDRO 15:24 → 4W 15:24

== ENCOUNTER 2022-08-05 20:30 | Inpatient (IN) ==
[2022-08-05 21:09] LABS: INR 1.2 (0.9-1.1); Partial Thromboplastin Time 28.2 Seconds (21.0-31.0)
[2022-08-05 21:15] LABS: Basophils # (auto) 0.06 K/uL (0-0.2); Basophils % (auto) 0.6 %; Eosinophils # (auto) 0.21 K/uL (0-0.50); Eosinophils % (auto) 2.2 %; Hematocrit (blood only) 30.6 % (40.1-51.0); Hemoglobin 10.2 g/dl (14.0-18.0); Immature Granulocytes # (auto) 0.05 K/uL (0.00-0.02); Immature Granulocytes % (auto) 0.5 %; Lymphocytes # (auto) 1.45 K/uL (1.2-3.4); Lymphocytes % (auto) 14.9 %; Mean Corpuscular Hemoglobin 30.1 pg (25.0-34.0); Mean Corpuscular Hgb Conc 33.3 g/dL (32.0-36.0); Mean Corpuscular Volume 90.3 fL (80.0-100.0); Monocytes # (auto) 0.86 K/uL (0.24-0.82); Monocytes % (auto) 8.9 %; Neutrophils # (auto) 7.08 K/uL (1.4-6.5); Neutrophils % (auto) 72.9 %; Platelet Count 275 K/uL (130-400); RDW Coefficient of Variation 13.2 % (11.5-14.5); RDW Standard Deviation 42.9 fL (36.4-46.3); Red Blood Count 3.39 M/uL (4.63-6.08); White Blood Count 9.71 K/ul (4.8-10.8)
[2022-08-05 21:17] LABS: Albumin Globulin Ratio 1.1 (0.9-2); Albumin Level 3.9 gm/dl (3.4-5.0); BUN Creatinine Ratio 22.1 (10-20); Bilirubin,Total 0.7 mg/dl (0.2-1.0); Calcium 9.5 mg/dl (8.5-10.1); Creatinine Clr Calc Pharmacy 57.3 ml/min; Est GFR (African American) 60.9 ml/min; Est GFR (Non-African American) 52.5 ml/min; Globulin 3.4 gm/dl (2.5-4.0); Potassium 4.8 mmol/L (3.5-5.1); Total Protein 7.3 gm/dl (6.0-8.3)
[2022-08-05 21:53] LABS: Troponin I High Sensitivity 141.6 pg/ml (0-20)
[2022-08-05] MEDS ORDERED: MoRPHine SULFATE 4 MG/ML 1 ML CARP\\VIAL IV STA (22:00)
[2022-08-05] MEDS ORDERED: ONDANSETRON INJ 2 MG/ML 2 ML VIAL IV STA (22:00)
[2022-08-05] MEDS ORDERED: FUROSEMIDE 40 MG/4 ML VIAL IV ONE (22:01)
--- NOTE | 2022-08-05 22:02 | Emergency Department Note ---
Impression & Plan Elevated troponin ADMIT ED Provider Note HPI: The patient is a 77-year-old male with history of coronary artery disease, status post quadruple bypass surgery that was performed at the [facility] on 07/25/2022. Patient states that he has had some lower extremity edema that is been worsening over the past several days in addition to some shortness of breath. He contacted his surgery team at the [facility] was advised to come to the emergency department to be evaluated. On arrival here to the ED the patient does display some mild increased work of breathing with tachypnea, he is saturating well on room air, denies any chest pain, he is otherwise in no acute distress. ROS: -Pulmonary: Shortness of breath *10 point review systems was conducted and is otherwise negative unless stated above *Outpatient medications and allergy history reviewed PE: General: Alert HEENT: Normocephalic, trachea midline Eyes: Extraocular eye movement is intact, no scleral erythema Pulmonary: Clear to auscultation bilaterally, no wheezing Cardio: Regular rate and rhythm GI: Abdomen is soft, nontender : No suprapubic tenderness MSK: No evidence of trauma or malformation of the extremities, 3-4+ edema b/l LE Skin: No evidence of rash, surgical wounds to the right lower extremity without any surrounding erythema or drainage Neuro: Alert, no focal deficits Psychiatric: Cooperative stone spreader operator: - An order was placed for continuous cardiac monitoring - Patient was noted to be in atrial fibrillation with a rate of 65 EKG: Rate: 93 Rhythm: Atrial fibrillation Intervals: Within normal limits ST changes: No ST elevation Time: 2040 Interventions provided in ED: -IV Lasix Medical Decision Making: Patient presented to the emergency department with shortness of breath, this is in the setting of recent coronary artery bypass surgery that was performed at the [facility] on 07/25. Patient denies any chest pain. IV established, lab work obtained, patient was maintained on plasterer maintenance. EKG does not show any evidence of ST elevation, does show rate controlled atrial fibrillation. Troponin is elevated at 137, EKG is nonischemic. I believe this is likely related to his recent surgery. Patient's chest x-ray does show cardiomegaly and some mild fluid overload. He was given IV Lasix here in the ED for his peripheral edema and increased work of breathing. This did result in some improvement. He is not hypoxic. I discussed the patient's case with his self propelled hot mix roller operator, Dr. Nichole, who was in agreement for plan to diurese and admission to the hospitalist service for observation overnight. Patient was in agreement to this plan as well. On my reassessment he is resting comfortably in a chair and his work of breathing is improved. He was given an aspirin in addition to his IV Lasix and he was admitted in stable condition following my discussion with the on-call hospitalist for [facility], Dr. Kat. Diagnosis: 1. Shortness of breath, acute 2. Elevated high-sensitivity troponin 3. CHF exacerbation, acute, without hypoxia 4. Peripheral edema, acute Disposition: ADMIT Fermin Salazar DO Emergency Medicine Past Med/Surg History Medical History Anemia 2/2 GI bleed 03/2019. S/P 1 unit transfused PRBC. Atrial fibrillation Benign prostatic hyperplasia with urinary obstruction and other lower urinary tract symptoms CAD (coronary artery disease) KATIA x 2 (2007)-F/U DR REAL Chest pain ON OCC -WITH 1 FLIGHT STAIRS-GOES AWAY IN A FEW MINUTES Chronic systolic heart failure CKD (chronic kidney disease), stage III F/U PCP DVT (deep venous thrombosis) 2015 s/p foot surgery -NO ISSUES SINCE DVT (deep venous thrombosis) Gastric ulcer 03/2019 large duodenal ulcer s/p 1U PRBCs GERD (gastroesophageal reflux disease) H/O deep venous thrombosis HFrEF (heart failure with reduced ejection fraction) Hyperlipidemia Hypertension Myocardial Infarction 2007 Obesity Osteoarthritis Sleep apnea no device, could not tolerate due to claustrophobia Surgical History Fusion of spine LUMBAR H/O shoulder surgery LEFT/RIGHT History of cardiac cath 2007= stents x 2 2011= no stents History of colonoscopy History of esophagogastroduodenoscopy (EGD) History of hernia surgery UMBILICAL HERNIA Hx of foot surgery RT Hx of vasectomy Family History Other Hypertension Social History Smoking Status: Former smoker Tobacco Type: Cigarettes Second Hand Exposure: No; Hx Alcohol Use: No Hx Substance Use: No Preferred Language: Italian Communication Ability: Effective Visual Impairment: No Limitations Batch Freezer Required: No Beliefs That Will Affect Care: None marital status: Current Living Situation: Spouse Current Living Situation Comment: house current occupational status: retired 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 [employer] Feels Safe at Home: Yes Assistive Devices: None Allergies Allergies Allergy/AdvReac Type Severity Reaction Status Date / Time enalapril Allergy Mild cough Verified 08/05/22 22:53 sacubitril [From Entresto] AdvReac Severe Hypotension Verified 08/05/22 22:53 valsartan [From Entresto] AdvReac Severe Hypotension Verified 08/05/22 22:53 Home Meds Home Medications Medication Instructions Recorded Confirmed atorvastatin 80 mg tablet 80 mg PO HS 04/20/19 08/05/22 multivitamin (Multiple Vitamins 1 tab PO DAILY 04/20/19 08/05/22 tablet) terazosin 5 mg capsule 5 mg PO BID 04/20/19 08/05/22 omeprazole 40 mg capsule,delayed 40 mg PO QAM 05/26/19 08/05/22 release spironolactone 25 mg tablet 12.5 mg PO QAM 08/31/19 08/05/22 dutasteride 0.5 mg capsule 0.5 mg PO QAM 02/01/22 08/05/22 metoprolol succinate 25 mg 25 mg PO BID 02/01/22 08/05/22 tablet,extended release 24 hr acetaminophen 325 mg tablet 650 mg PO Q6 PRN Pain 08/05/22 08/05/22 oxycodone 5 mg tablet 5 mg PO Q6 PRN Pain 08/05/22 08/05/22 polyethylene glycol 3350 17 17 g PO DAILY PRN Constipation 08/05/22 08/05/22 gram/dose oral powder (Miralax) sennosides 8.6 mg-docusate sodium 1 tab-cap PO BID PRN Constipation 08/05/22 08/05/22 50 mg tablet (Senna Plus) apixaban 5 mg tablet (Eliquis) 5 mg PO BID 08/06/22 08/06/22 Previous Rx's Medication Instructions Recorded furosemide 40 mg tablet (Lasix) 40 mg PO BID 30 days #60 tabs 06/27/22 potassium chloride 20 mEq 20 meq PO DAILY #14 tabs 06/27/22 tablet,extended release Results & Data (ED) Vital Signs Vital Signs - 24 hr 08/05/22 20:33 08/05/22 20:38 08/05/22 21:09 Temperature 36.9 C Temperature Source Temporal Artery Scan Pulse Rate 90 88 Respiratory Rate 18 18 Respiratory Effort / Characteristics Non-Labored Spontaneous Short of Breath Respiratory Depth Normal Respiratory Pattern Agonal Blood Pressure 143/77 H Blood Pressure Mean 99 Blood Pressure Position Sitting Pulse Oximetry 97 96 Oxygen Delivery Method Room Air Room Air Sepsis Recent Fever Within 48 Hours No Sepsis New/Unexplained Change in Mental Status N/A Sepsis Action Taken by Nursing No Action Required 08/05/22 20:30 Temperature Temperature Source Pulse Rate Respiratory Rate Respiratory Effort / Characteristics Respiratory Depth Respiratory Pattern Blood Pressure Blood Pressure Mean Blood Pressure Position Pulse Oximetry 96 Oxygen Delivery Method Room Air Sepsis Recent Fever Within 48 Hours Sepsis New/Unexplained Change in Mental Status Sepsis Action Taken by Nursing Laboratory Data Result diagrams: 08/05/22 20:40 08/05/22 20:40 Lab Results 08/05/22 08/05/22 08/05/22 Range/Units 20:40 20:40 20:40 WBC 9.71 (4.8-10.8) K/ul RBC 3.39 L (4.63-6.08) M/uL Hgb 10.2 L (14.0-18.0) g/dl Hct 30.6 L (40.1-51.0) % MCV 90.3 (80.0-100.0) fL MCH 30.1 (25.0-34.0) pg MCHC 33.3 (32.0-36.0) g/dL RDW Std Deviation 42.9 (36.4-46.3) fL RDW Coeff of Ashlyn 13.2 (11.5-14.5) % Plt Count 275 (130-400) K/uL MPV 9.0 L (9.4-12.4) fL Immature Gran % (Auto) 0.5 % Neut % (Auto) 72.9 % Lymph % (Auto) 14.9 % [place] % (Auto) 8.9 % Eos % (Auto) 2.2 % Baso % (Auto) 0.6 % Neut # (Auto) 7.08 H (1.4-6.5) K/uL Lymph # (Auto) 1.45 (1.2-3.4) K/uL [place] # (Auto) 0.86 H (0.24-0.82) K/uL Eos # (Auto) 0.21 (0-0.50) K/uL Baso # (Auto) 0.06 (0-0.2) K/uL Immature Gran # (Auto) 0.05 H (0.00-0.02) K/uL PT 13.0 H (9.0-12.0) Seconds INR 1.2 H (0.9-1.1) APTT 28.2 (21.0-31.0) Seconds PTT Ratio 1.0 Sodium 135 L (136-145) mmol/L Potassium 4.8 (3.5-5.1) mmol/L Chloride 102 (98-107) mmol/L Carbon Dioxide 23 (21-32) mmol/L Anion Gap 10 (3-11) BUN 29 H (6-23) mg/dl Creatinine 1.31 (0.6-1.4) mg/dl Est Cr Clr Drug Dosing 57.3 ml/min Est GFR ( Amer) 60.9 ml/min Est GFR (Non-Af Amer) 52.5 ml/min BUN/Creatinine Ratio 22.1 H (10-20) Glucose 111 H (70-99(Fasting)) mg/dl Calcium 9.5 (8.5-10.1) mg/dl Magnesium (1.7-2.4) mg/dl Total Bilirubin 0.7 (0.2-1.0) mg/dl AST 20 (13-39) U/L ALT 19 (7-52) U/L Alkaline Phosphatase 77 (34-104) U/L Troponin I High Sens 141.6 H* D (0-20) pg/ml Total Protein 7.3 (6.0-8.3) gm/dl Albumin 3.9 (3.4-5.0) gm/dl Globulin 3.4 (2.5-4.0) gm/dl Albumin/Globulin Ratio 1.1 (0.9-2) SARS-CoV-2, RNA, NAAT (NEGATIVE) 08/05/22 08/05/22 Range/Units 20:40 22:39 WBC (4.8-10.8) K/ul RBC (4.63-6.08) M/uL Hgb (14.0-18.0) g/dl Hct (40.1-51.0) % MCV (80.0-100.0) fL MCH (25.0-34.0) pg MCHC (32.0-36.0) g/dL RDW Std Deviation (36.4-46.3) fL RDW Coeff of Ashlyn (11.5-14.5) % Plt Count (130-400) K/uL MPV (9.4-12.4) fL Immature Gran % (Auto) % Neut % (Auto) % Lymph % (Auto) % [place] % (Auto) % Eos % (Auto) % Baso % (Auto) % Neut # (Auto) (1.4-6.5) K/uL Lymph # (Auto) (1.2-3.4) K/uL [place] # (Auto) (0.24-0.82) K/uL Eos # (Auto) (0-0.50) K/uL Baso # (Auto) (0-0.2) K/uL Immature Gran # (Auto) (0.00-0.02) K/uL PT (9.0-12.0) Seconds INR (0.9-1.1) APTT (21.0-31.0) Seconds PTT Ratio Sodium (136-145) mmol/L Potassium (3.5-5.1) mmol/L Chloride (98-107) mmol/L Carbon Dioxide (21-32) mmol/L Anion Gap (3-11) BUN (6-23) mg/dl Creatinine (0.6-1.4) mg/dl Est Cr Clr Drug Dosing ml/min Est GFR ( Amer) ml/min Est GFR (Non-Af Amer) ml/min BUN/Creatinine Ratio (10-20) Glucose (70-99(Fasting)) mg/dl Calcium (8.5-10.1) mg/dl Magnesium 1.9 (1.7-2.4) mg/dl Total Bilirubin (0.2-1.0) mg/dl AST (13-39) U/L ALT (7-52) U/L Alkaline Phosphatase (34-104) U/L Troponin I High Sens (0-20) pg/ml Total Protein (6.0-8.3) gm/dl Albumin (3.4-5.0) gm/dl Globulin (2.5-4.0) gm/dl Albumin/Globulin Ratio (0.9-2) SARS-CoV-2, RNA, NAAT NEGATIVE (NEGATIVE) Administered Medications Acetaminophen (Acetaminophen 325 Mg Tab) 650 mg PO Q6 PRN PRN Reason: Pain Stop: 09/05/22 01:15 Last Admin: 08/06/22 01:39 Dose: 650 mg Documented By: NMS Discontinued Medications Aspirin (Aspirin Chew 324 Mg) 324 mg PO NOW STA Stop: 08/05/22 22:04 Last Admin: 08/05/22 22:18 Dose: 324 mg Documented By: QGV Furosemide (Furosemide 40 Mg/4 Ml Vial) 40 mg IV ONE ONE Stop: 08/05/22 22:02 Last Admin: 08/05/22 22:18 Dose: 40 mg Documented By: QGV Magnesium Sulfate/Dextrose (Magnesium Sulfate / D5w) 1 gm in 100 mls @ 50 mls/hr IV ONE ONE Stop: 08/06/22 01:33 Last Admin: 08/05/22 23:49 Dose: 50 mls/hr Documented By: TJG Morphine Sulfate (Morphine Sulfate 4 Mg/Ml 1 Ml Carp\Vial) 4 mg IV NOW STA Stop: 08/05/22 22:01 Last Admin: 08/05/22 22:18 Dose: 4 mg Documented By: QGV Ondansetron HCl (Ondansetron Inj 2 Mg/Ml 2 Ml Vial) 4 mg IV NOW STA Stop: 08/05/22 22:01 Last Admin: 08/05/22 22:18 Dose: 4 mg Documented By: QGV Discharge Plan Visit Data Chief Complaint: Cardiac Assessment Stated Complaint: QUAD BYPASS 4 DAYS AGO, NEEDS DRAINING ED Provider: Fermin Salazar Discharge Problem: Elevated troponin Discharge Instructions Interventions: ED Discharge Assessment Last Done: 08/06/22 00:31
[2022-08-05] MEDS ORDERED: ASPIRIN CHEW 324 MG PO STA (22:03)
--- NOTE | 2022-08-05 23:28 | History & Physical Report ---
Date of Service August 05, 2022 Assessment & Plan (1) SOB (shortness of breath): Plan: Underlying pulm hypertension Postop pericardial effusion Recent CAD status post CABG status post stent/mitral regurgitation status post bioprosthetic MVR/A. fib status post Maze w/ left atrial appendage closure on Eliquis ([facility], 06/2022) Possible deconditioning Postprocedure leg swelling/underlying CHF Rule out recurrent DVT chronic systolic heart failure (postop TTE EF 35%, June 2022), patient euvolemic HTN, stable hyperlipidemia on statin Rx CRI, creatinine better than baseline postop anemia, hemoglobin better than baseline Hyperglycemia likely prediabetes, hemoglobin A1c of 6.31 May 2022 Borderline hyperkalemia past tobacco abuse OBS PCU Update TTE Re: Postop pericardial effusion Continue home diuretic Rx for now Appropriate to hold spironolactone and potassium supplements for now due to borderline hyperkalemia Cardiology consult RE postop shortness of breath, postoperative pericardial effusion LE venous Dopplers rule out DVT (CT angio to rule out PE as etiology of shortness of breath if DVT found) PT OT eval, cardiac rehab DVT prophylaxis. Eliquis Full code Patient requesting updates providers. Ms. Polly Paris, contact #[phone]. Text document was generated using [employer] voice recognition software. It may contain grammatical or spelling errors. Kindly contact undersigned for clarification of any documentation item in question. History of Present Illness Chief Complaint: Shortness of breath, leg swelling Primary Care Provider: Jayro Swartz MD History obtained from patient, family, and records. Medical history significant for chronic systolic heart failure (postop TTE EF 35%, June 2022), recent CAD status post CABG status post stent/mitral regurgitation status post bioprosthetic MVR/A. fib status post Maze w/ left atrial appendage closure on Eliquis ([facility], 06/2022), postoperative pericardial effusion, pulmonary hypertension, HTN, hyperlipidemia, CRI (baseline creatinine 1.4), postop anemia (hemoglobin of 9), history DVT as per records, GERD, BPH, past tobacco abuse. Last [facility] confinement May, for decompensated heart failure in the setting of COVID-19 infection. TTE showed severe mitral regurgitation with partial flail A2. Patient instructed to follow-up with [facility] CT surgeon postdischarge. Patient admitted at [facility] from July 09 to August 02, 2022. Severe three-vessel epicardial obstructive CAD on preop cardiac catheterization. Patient underwent CABG, MVR, maze procedure/LAAC last July 25, 2022 - after multiple rescheduling dates as per patient.. Postop, patient junctional rhythm followed by first-degree AV block with multifocal PVCs. EPS consulted for consideration of ICD/PVC burden. Recommendation to monitor PVCs and defer ICD). Post op TTE (07/30/22) showed technically difficult exam. EF 35%. LV diastolic function not evaluated due to mitral valve surgery. Moderate pericardial effusion adjacent to right atrium measuring 1.6 cm and moderate pericardial eff usion adjacent to left ventricle measuring 1.3 cm. Biocor prosthetic mitral valve noted without regurgitation. Mean gradient 6 mmHg. Gradients were 15/6 mmHg at 78 bpm. Chordal remnants seen. Moderate pericardial effusion adjacent to LV/RA. Septal bounce is seen. No RV diastolic collapse. Significant respiratory variation noted. IVC not well seen. Pericardial effusion too small to drain as per CT surgery as per report. Outpatient monitoring tech and follow-up TTE recommended in 4 to 6 weeks as per discharge note. Patient discharged home 3 days ago. Shortness of breath more on exertion. No cough symptoms. No chest pain, no abdominal distention. Leg swelling despite compliance with diuretic regimen. Denies dietary discretion. Patient actually lost about 20 pounds for the last few months. Patient brought to ER for evaluation by . Lasix administered for possible CHF. 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[employer]) Allergies Allergy/AdvReac Type Severity Reaction Status Date / Time enalapril Allergy Mild cough Verified 08/05/22 22:53 sacubitril [From Entresto] AdvReac Severe Hypotension Verified 08/05/22 22:53 valsartan [From Entresto] AdvReac Severe Hypotension Verified 08/05/22 22:53 Home Medications Medication Instructions Recorded Confirmed Type atorvastatin 80 mg tablet 80 mg PO HS 04/20/19 08/05/22 History multivitamin (Multiple Vitamins 1 tab PO DAILY 04/20/19 08/05/22 History tablet) terazosin 5 mg capsule 5 mg PO BID 04/20/19 08/05/22 History omeprazole 40 mg capsule,delayed 40 mg PO QAM 05/26/19 08/05/22 History release spironolactone 25 mg tablet 12.5 mg PO QAM 08/31/19 08/05/22 History dutasteride 0.5 mg capsule 0.5 mg PO QAM 02/01/22 08/05/22 History metoprolol succinate 25 mg 25 mg PO BID 02/01/22 08/05/22 History tablet,extended release 24 hr furosemide 40 mg tablet (Lasix) 40 mg PO BID 30 days #60 tabs 06/27/22 08/05/22 Rx potassium chloride 20 mEq 20 meq PO DAILY #14 tabs 06/27/22 08/05/22 Rx tablet,extended release acetaminophen 325 mg tablet 650 mg PO Q6 PRN Pain 08/05/22 08/05/22 History oxycodone 5 mg tablet 5 mg PO Q6 PRN Pain 08/05/22 08/05/22 History polyethylene glycol 3350 17 17 g PO DAILY PRN Constipation 08/05/22 08/05/22 History gram/dose oral powder (Miralax) sennosides 8.6 mg-docusate sodium 1 tab-cap PO BID PRN Constipation 08/05/22 08/05/22 History 50 mg tablet (Senna Plus) apixaban 5 mg tablet (Eliquis) 5 mg PO BID 08/06/22 08/06/22 History Past Med/Surg History Medical History Anemia 2/2 GI bleed 03/2019. S/P 1 unit transfused PRBC. Atrial fibrillation Benign prostatic hyperplasia with urinary obstruction and other lower urinary tract symptoms CAD (coronary artery disease) KATIA x 2 (2007)-F/U DR REAL Chest pain ON OCC -WITH 1 FLIGHT STAIRS-GOES AWAY IN A FEW MINUTES Chronic systolic heart failure CKD (chronic kidney disease), stage III F/U PCP DVT (deep venous thrombosis) 2015 s/p foot surgery -NO ISSUES SINCE DVT (deep venous thrombosis) Gastric ulcer 03/2019 large duodenal ulcer s/p 1U PRBCs GERD (gastroesophageal reflux disease) H/O deep venous thrombosis HFrEF (heart failure with reduced ejection fraction) Hyperlipidemia Hypertension Myocardial Infarction 2007 Obesity Osteoarthritis Sleep apnea no device, could not tolerate due to claustrophobia Surgical History Fusion of spine LUMBAR H/O shoulder surgery LEFT/RIGHT History of cardiac cath 2007= stents x 2 2011= no stents History of colonoscopy History of esophagogastroduodenoscopy (EGD) History of hernia surgery UMBILICAL HERNIA Hx of foot surgery RT Hx of vasectomy Family History Other Hypertension Social History Smoking Status: Former smoker Tobacco Type: Cigarettes Smoking End Date: 50 years ago; Second Hand Exposure: No; Hx Alcohol Use: Yes Alcohol type: beer Alcohol Intake Frequency Comment: occasional Hx Substance Use: No Preferred Language: Slovak Communication Ability: Effective Visual Impairment: No Limitations Power Hammer Operator Required: No Beliefs That Will Affect Care: None marital status: Current Living Situation: Spouse Current Living Situation Comment: house current occupational status: retired 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 [employer] Other Information That Helps Us Care for You: No Feels Safe at Home: Yes Safety Concerns: Feels Safe At This Time Assistive Devices: Walker Review of Systems Review of Systems: As per HPI, all other systems reviewed and negative Physical Exam Physical Exam: GENERAL: Comfortable, slightly anxious, pleasant, no respiratory distress SKIN: Pallor , warm HEENT: Pale palpebral conjunctivae, no ptosis, dry buccal mucosa NECK : Supple, no tenderness CHEST : Well coaptated sternal wound, decreased breath sounds, minimal anterior chest wall tenderness HEART : Irregular, no obvious murmurs ABDOMEN: Some distention, nontender EXTREMITIES : Bilateral LE swelling, no LE tenderness, no other conspicuous deformities noted NEUROLOGIC : Coherent, no facial asymmetry, no other gross focality Results & Data Results & Data ([facility]) Vital Signs (Past 12 Hours) Vital Signs Temp Pulse Resp BP Pulse Ox O2 Del Method 08/05/22 20:30 96 Room Air 08/05/22 21:09 88 18 96 Room Air 08/05/22 20:33 36.9 C 90 18 143/77 H 97 Room Air Laboratory Results Laboratory Results WBC 9.71 K/ul (4.8-10.8) 08/05/22 20:40 RBC 3.39 M/uL (4.63-6.08) L 08/05/22 20:40 Hgb 10.2 g/dl (14.0-18.0) L 08/05/22 20:40 Hct 30.6 % (40.1-51.0) L 08/05/22 20:40 MCV 90.3 fL (80.0-100.0) 08/05/22 20:40 MCH 30.1 pg (25.0-34.0) 08/05/22 20:40 MCHC 33.3 g/dL (32.0-36.0) 08/05/22 20:40 RDW Std Deviation 42.9 fL (36.4-46.3) 08/05/22 20:40 RDW Coeff of Ashlyn 13.2 % (11.5-14.5) 08/05/22 20:40 Plt Count 275 K/uL (130-400) 08/05/22 20:40 MPV 9.0 fL (9.4-12.4) L 08/05/22 20:40 Immature Gran % (Auto) 0.5 % 08/05/22 20:40 Neut % (Auto) 72.9 % 08/05/22 20:40 Lymph % (Auto) 14.9 % 08/05/22 20:40 [place] % (Auto) 8.9 % 08/05/22 20:40 Eos % (Auto) 2.2 % 08/05/22 20:40 Baso % (Auto) 0.6 % 08/05/22 20:40 Neut # (Auto) 7.08 K/uL (1.4-6.5) H 08/05/22 20:40 Lymph # (Auto) 1.45 K/uL (1.2-3.4) 08/05/22 20:40 [place] # (Auto) 0.86 K/uL (0.24-0.82) H 08/05/22 20:40 Eos # (Auto) 0.21 K/uL (0-0.50) 08/05/22 20:40 Baso # (Auto) 0.06 K/uL (0-0.2) 08/05/22 20:40 Immature Gran # (Auto) 0.05 K/uL (0.00-0.02) H 08/05/22 20:40 PT 13.0 Seconds (9.0-12.0) H 08/05/22 20:40 INR 1.2 (0.9-1.1) H 08/05/22 20:40 APTT 28.2 Seconds (21.0-31.0) 08/05/22 20:40 PTT Ratio 1.0 08/05/22 20:40 Sodium 135 mmol/L (136-145) L 08/05/22 20:40 Potassium 4.8 mmol/L (3.5-5.1) 08/05/22 20:40 Chloride 102 mmol/L (98-107) 08/05/22 20:40 Carbon Dioxide 23 mmol/L (21-32) 08/05/22 20:40 Anion Gap 10 (3-11) 08/05/22 20:40 BUN 29 mg/dl (6-23) H 08/05/22 20:40 Creatinine 1.31 mg/dl (0.6-1.4) 08/05/22 20:40 Est Cr Clr Drug Dosing 57.3 ml/min 08/05/22 20:40 Est GFR ( Amer) 60.9 ml/min 08/05/22 20:40 Est GFR (Non-Af Amer) 52.5 ml/min 08/05/22 20:40 BUN/Creatinine Ratio 22.1 (10-20) H 08/05/22 20:40 Glucose 111 mg/dl (70-99(Fasting)) H 08/05/22 20:40 Calcium 9.5 mg/dl (8.5-10.1) 08/05/22 20:40 Magnesium 1.9 mg/dl (1.7-2.4) 08/05/22 20:40 Total Bilirubin 0.7 mg/dl (0.2-1.0) 08/05/22 20:40 AST 20 U/L (13-39) 08/05/22 20:40 ALT 19 U/L (7-52) 08/05/22 20:40 Alkaline Phosphatase 77 U/L (34-104) 08/05/22 20:40 Troponin I High Sens 141.6 pg/ml (0-20) H* D 08/05/22 20:40 Total Protein 7.3 gm/dl (6.0-8.3) 08/05/22 20:40 Albumin 3.9 gm/dl (3.4-5.0) 08/05/22 20:40 Globulin 3.4 gm/dl (2.5-4.0) 08/05/22 20:40 Albumin/Globulin Ratio 1.1 (0.9-2) 08/05/22 20:40 SARS-CoV-2, RNA, NAAT NEGATIVE (NEGATIVE) 08/05/22 22:39 Diagnostic Findings Chest x-ray as per my interpretation cardiomegaly, pleural effusions EKG as per my interpretation : Rate 95, A. fib, LAD, LAFB, incomplete LBBB
[2022-08-05] MEDS ORDERED: MAGNESIUM SULFATE / D5W 1 GM/100 ML BAG IV ONE (23:34)
[2022-08-06] MEDS ORDERED: oxyCODONE HCL IR 5 MG TAB (IMMEDIATE RELEASE) PO PRN (01:16)
[2022-08-06] MEDS ORDERED: LORazepam 0.5 MG TAB PO PRN (01:16)
[2022-08-06] MEDS ORDERED: NITROGLYCERIN SL 0.4 MG/TAB TAB SL PRN (01:16)
[2022-08-06] MEDS ORDERED: POLYETHYLENE (MIRALAX) 17 GM PACK PO PRN (01:16)
[2022-08-06] MEDS ORDERED: DOCUSATE SODIUM/SENNA 50/8.6MG TAB PO PRN (01:16)
[2022-08-06] MEDS: ACETAMINOPHEN 325 MG TAB PO PRN ×3 (01:39→20:43)
--- NOTE | 2022-08-06 07:23 | XRay Report ---
XR chest 1V portable CLINICAL HISTORY: Chest Pain TECHNIQUE: Single frontal radiograph of the chest was obtained. Comparison: Comparison is made to chest radiograph 06/26/2022 FINDINGS: Median sternotomy wires are unchanged. Cardiomegaly is noted. Atrial appendage clip is seen. The lung s are clear. Small bilateral pleural effusions are seen. IMPRESSION: 1. Small bilateral pleural effusions. 2. Postsurgical changes with prominent enlargement of the cardiac silhouette compared to prior exam. This may represent a pericardial effusion, cardiac tamponade is considered less likely due to absenc e of pulmonary edema, however clinical correlation is recommended. ACT 112: Negative or not required by law. Electronically signed by: Peyman Pabon M.D. 08/06/2022 7:20 AM
[2022-08-06 08:04] LABS: Basophils # (auto) 0.04 K/uL (0-0.2); Basophils % (auto) 0.5 %; Eosinophils # (auto) 0.26 K/uL (0-0.50); Eosinophils % (auto) 3.4 %; Hematocrit (blood only) 29.5 % (40.1-51.0); Immature Granulocytes # (auto) 0.03 K/uL (0.00-0.02); Immature Granulocytes % (auto) 0.4 %; Lymphocytes # (auto) 1.68 K/uL (1.2-3.4); Lymphocytes % (auto) 21.9 %; Mean Corpuscular Hemoglobin 30.2 pg (25.0-34.0); Mean Corpuscular Hgb Conc 33.9 g/dL (32.0-36.0); Mean Corpuscular Volume 89.1 fL (80.0-100.0); Mean Platelet Volume 8.7 fL (9.4-12.4); Monocytes # (auto) 0.78 K/uL (0.24-0.82); Monocytes % (auto) 10.2 %; Neutrophils # (auto) 4.89 K/uL (1.4-6.5); Neutrophils % (auto) 63.6 %; Platelet Count 245 K/uL (130-400); RDW Coefficient of Variation 13.2 % (11.5-14.5); RDW Standard Deviation 43.3 fL (36.4-46.3); Red Blood Count 3.31 M/uL (4.63-6.08); White Blood Count 7.68 K/ul (4.8-10.8)
--- NOTE | 2022-08-06 08:29 | Cardiology Consultation ---
Date of Consultation August 06, 2022 Assessment & Plan (1) SOB (shortness of breath): (2) Elevated troponin: (3) HFrEF (heart failure with reduced ejection fraction): (4) CAD (coronary artery disease): (5) Hx of CABG: (6) Mitral regurgitation: (7) H/O mitral valve replacement: (8) Pericardial effusion: (9) Atrial fibrillation: (10) PVCs (premature ventricular contractions): (11) CKD (chronic kidney disease): Plan Medically complex 77 year old male presented to the ED due to worsening shortness of breath due to hypervolemia and acute on chronic CHF. -S/p CABG and bioprosthetic MVR 07/25 at [facility]. Discharged 08/02. LVEF 35% per outside records. -Persistent AFIB noted on telemetry, s/p MAZE/LAAC- on Eliquis HR 80-120s -Frequent PVCs- EP consulted at [facility], recommend ongoing observation and to refrain from AICD/antiarrhythmics at this time. -Moderate Pericardial effusion post op, Echo pending. 1. New HFrEF with chronic HFpEF- Patient remains hypervolemic on exam. Recommend patient receive his am dose of IV Lasix- patient will likely need 1-2 more doses of IV Lasix to optimize his volume status. Pending response will consider transitioning to PO. 2. GDMT limited due to lower blood pressures and renal function. Further considerations pending echo results. 3. Continue Eliquis due to persistent atrial fib to protect against stroke. 3. Frequent PVCs vs short salvos of VT patient asymptomatic, on metoprolol succinate- will increase to 37.5 mg BID Case discussed with Dr. Nichole- will follow. Supervising Physician Co-Signing Physician Notes Pt seen and examined with JANNIE Zamora. Agree with findings and assessment as above. LV systolic function is severely reduced status post CABG and mitral valve replacement. He is significantly volume overloaded so we will start Lasix 40 mg IV twice daily now along with spironolactone 12.5 mg p.o. daily given his need for guideline directed medical therapy. Strict I's and O's overnight. History of Present Illness Reason for Consultation: Shortness of breath Requesting Physician: Opal Mcnair Attending Physician: Orion Campbell MD History of Present Illness 77-year-old male initially presented to the emergency department due to worsening shortness of breath. Primarily follows with Dr. Nichole as an outpatient in our cardiology clinic. At the end of May patient was found to have a partially flail A2 segment of the anterior mitral valve leaflet with severe mitral regurgitation. He was referred to [facility] and ultimately underwent CABG bioprosthetic mitral valve replacement on 07/25/2022. He also carries a history of A. fib and underwent MAZE/LAAC procedure. Maintained on Eliquis. Initially postop he developed a junctional rhythm followed by first-degree AV block, type EP was consulted for consideration of ICD/PVC burden however recommendations to continue to monitor only. Initially postop he was found to have a moderate pericardial effusion that was felt to be too small to drain. Lasix was continued. Postop echo 07/30 was technically difficult, LVEF was estimated to be 35%. Recommend repeating echocardiogram in 4 to 6 weeks. Patient was discharged home on 08/02. On admission: Chest x-ray 08/05: Small bilateral pleural effusions, Postsurgical changes with prominent enlargement of the cardiac silhouette compared to prior exam. This may represent a pericardial effusion, cardiac tamponade is considered less likely due to absence of pulmonary edema EKG 08/05: Atrial fib, left bundle branch block, PVCs BLLE Doppler 08/06: negative for DVT 08/06: Tele AFIB PVCs 80-120s, 8 beat run of ? VTACH at 1:47 am, appears to be PVCs with bigeminy. 5 beat run of VT today at 0924. Weight: 99 kg I&O: +100 mL Upon entrance into the room patient sitting in a chair. Notes that he is feeling much improved compared to when he came in. SOB resolved. Lower extremity edema remains, but improved compared to admission. No chest pain. No palpitations. Currently receiving Lasix 40 mg BID. Echo pending. Patient eager for discharge. Past medical history: Chronic systolic CHF History of dilated presumed nonischemic cardiomyopathy History of CAD status post KATIA to the RCA x2 in 2007 Repeat cardiac cath in 2011 patent stents and no obstructive disease S/p CABG (CHRISTIAN-LAD, SV-DIAG, SV-OM1, SV-PDA)+MVR(31# Bicor)+MAZE+LAAC (45#), 07/25/2022 at [facility] Persistent atrial fibrillation, CHADSVASC 5 Hypertension History of frequent PVCs Dyslipidemia History of upper GI bleed with duodenal ulceration and chronic gastritis History of ITA Claustrophobia CKD, baseline creatinine 1.4-1.5 History of DVT Chronological List of Surgeries and Major Events (Diagnosis): (Surgeries in bold characters) 07/25/2022: CABG (CHRISTIAN-LAD, SV-DIAG, SV-OM1, SV-PDA)+MVR(31# Bicor)+MAZE+LAAC (45#) Allergies Allergy/AdvReac Type Severity Reaction Status Date / Time enalapril Allergy Mild cough Verified 08/05/22 22:53 sacubitril [From Entresto] AdvReac Severe Hypotension Verified 08/05/22 22:53 valsartan [From Entresto] AdvReac Severe Hypotension Verified 08/05/22 22:53 Home Medications Medication Instructions Recorded Confirmed Type atorvastatin 80 mg tablet 80 mg PO HS 04/20/19 08/05/22 History multivitamin (Multiple Vitamins 1 tab PO DAILY 04/20/19 08/05/22 History tablet) terazosin 5 mg capsule 5 mg PO BID 04/20/19 08/05/22 History omeprazole 40 mg capsule,delayed 40 mg PO QAM 05/26/19 08/05/22 History release spironolactone 25 mg tablet 12.5 mg PO QAM 08/31/19 08/05/22 History dutasteride 0.5 mg capsule 0.5 mg PO QAM 02/01/22 08/05/22 History metoprolol succinate 25 mg 25 mg PO BID 02/01/22 08/05/22 History tablet,extended release 24 hr furosemide 40 mg tablet (Lasix) 40 mg PO BID 30 days #60 tabs 06/27/22 08/05/22 Rx potassium chloride 20 mEq 20 meq PO DAILY #14 tabs 06/27/22 08/05/22 Rx tablet,extended release acetaminophen 325 mg tablet 650 mg PO Q6 PRN Pain 08/05/22 08/05/22 History oxycodone 5 mg tablet 5 mg PO Q6 PRN Pain 08/05/22 08/05/22 History polyethylene glycol 3350 17 17 g PO DAILY PRN Constipation 08/05/22 08/05/22 History gram/dose oral powder (Miralax) sennosides 8.6 mg-docusate sodium 1 tab-cap PO BID PRN Constipation 08/05/22 08/05/22 History 50 mg tablet (Senna Plus) apixaban 5 mg tablet (Eliquis) 5 mg PO BID 08/06/22 08/06/22 History Patient History Medical History Anemia 2/2 GI bleed 03/2019. S/P 1 unit transfused PRBC. Atrial fibrillation Benign prostatic hyperplasia with urinary obstruction and other lower urinary tract symptoms CAD (coronary artery disease) KATIA x 2 (2007)-F/U DR REAL Chest pain ON OCC -WITH 1 FLIGHT STAIRS-GOES AWAY IN A FEW MINUTES Chronic systolic heart failure CKD (chronic kidney disease), stage III F/U PCP DVT (deep venous thrombosis) 2015 s/p foot surgery -NO ISSUES SINCE DVT (deep venous thrombosis) Gastric ulcer 03/2019 large duodenal ulcer s/p 1U PRBCs GERD (gastroesophageal reflux disease) H/O deep venous thrombosis HFrEF (heart failure with reduced ejection fraction) Hyperlipidemia Hypertension Myocardial Infarction 2007 Obesity Osteoarthritis Sleep apnea no device, could not tolerate due to claustrophobia Surgical History Fusion of spine LUMBAR H/O shoulder surgery LEFT/RIGHT History of cardiac cath 2008= stents x 2 2011= no stents History of colonoscopy History of esophagogastroduodenoscopy (EGD) History of hernia surgery UMBILICAL HERNIA Hx of foot surgery RT Hx of vasectomy Family History Other Hypertension Social History Smoking Status: Former smoker Tobacco Type: Cigarettes Smoking End Date: 50 years ago; Second Hand Exposure: No; Hx Alcohol Use: Yes Alcohol type: beer Alcohol Intake Frequency Comment: occasional Hx Substance Use: No Preferred Language: Niuean Communication Ability: Effective Visual Impairment: No Limitations Placement Assistant Required: No Beliefs That Will Affect Care: None marital status: Current Living Situation: Spouse Current Living Situation Comment: house current occupational status: retired 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 [employer] Other Information That Helps Us Care for You: No Feels Safe at Home: Yes Safety Concerns: Feels Safe At This Time Assistive Devices: None Review of Systems Review of Systems: All systems reviewed & are unremarkable except as noted in HPI & below Physical Exam Constitutional: WD/WN, vitals as above no acute distress Neck: normal visual inspection and trachea midline Respiratory: normal respiratory effort, lungs clear to auscultation no cough Cardiovascular: Rate/Rhythm: regular rate and + irregularly irregular Heart Sounds: normal S1 and normal S2; no murmur Vessels: no JVD Extremities: + pedal edema and + edema Chest (Breasts): Additional Comments: Mid sternal incision well aproximated and healing Gastrointestinal (Abdomen): Percussion/Palpation: abdomen soft; abdomen nontender x2 zelalem sites healing and well approximated. Skin: no rashes, warm and dry right leg vein harvest sites well approximated and healing. Psychiatric: A+Ox3, euthymic affect Results & Data ([facility]) Vital Signs (Past 12 Hours) Vital Signs Temp Pulse Pulse Resp BP BP Pulse Ox 08/06/22 07:28 86 08/06/22 01:12 91 H 08/06/22 01:58 08/06/22 01:42 36.9 C 61 18 129/98 96 08/06/22 01:15 36.9 C 61 18 129/98 96 08/06/22 00:31 75 16 124/62 94 08/05/22 23:50 84 16 112/72 93 08/05/22 20:30 96 08/05/22 21:09 88 18 96 08/05/22 20:33 36.9 C 90 18 143/77 H 97 O2 Del Method 08/06/22 07:28 08/06/22 01:12 08/06/22 01:58 Room Air 08/06/22 01:42 Room Air 08/06/22 01:15 Room Air 08/06/22 00:31 Room Air 08/05/22 23:50 Room Air 08/05/22 20:30 Room Air 08/05/22 21:09 Room Air 08/05/22 20:33 Room Air Laboratory Results Cardiac Enzymes 08/05/22 08/06/22 Range/Units 20:40 00:32 AST 20 (13-39) U/L Troponin I High Sens 141.6 H* D 130.2 H* (0-20) pg/ml Coagulation 08/05/22 Range/Units 20:40 PT 13.0 H (9.0-12.0) Seconds APTT 28.2 (21.0-31.0) Seconds CBC 08/05/22 08/06/22 Range/Units 20:40 07:44 WBC 9.71 7.68 (4.8-10.8) K/ul RBC 3.39 L 3.31 L (4.63-6.08) M/uL Hgb 10.2 L 10.0 L (14.0-18.0) g/dl Hct 30.6 L 29.5 L (40.1-51.0) % Plt Count 275 245 (130-400) K/uL Neut # (Auto) 7.08 H 4.89 (1.4-6.5) K/uL Lymph # (Auto) 1.45 1.68 (1.2-3.4) K/uL [place] # (Auto) 0.86 H 0.78 (0.24-0.82) K/uL Eos # (Auto) 0.21 0.26 (0-0.50) K/uL Baso # (Auto) 0.06 0.04 (0-0.2) K/uL Comprehensive Metabolic Panel 08/05/22 08/06/22 Range/Units 20:40 07:44 Sodium 135 L 138 (136-145) mmol/L Potassium 4.8 4.0 (3.5-5.1) mmol/L Chloride 102 102 (98-107) mmol/L Carbon Dioxide 23 29 (21-32) mmol/L BUN 29 H 26 H (6-23) mg/dl Creatinine 1.31 1.41 H (0.6-1.4) mg/dl Glucose 111 H 102 H (70-99(Fasting)) mg/dl Calcium 9.5 9.3 (8.5-10.1) mg/dl AST 20 (13-39) U/L ALT 19 (7-52) U/L Alkaline Phosphatase 77 (34-104) U/L Total Protein 7.3 (6.0-8.3) gm/dl Albumin 3.9 (3.4-5.0) gm/dl Intake and Output 08/05/22 08/06/22 08/06/22 22:59 06:59 14:59 Intake Total 100 / 100 Balance 100 / 100 Intake: IV 100 / 100 Magnesium Sulfate / D5w 1 gm In 100 / 100 100 ml @ 50 mls/hr IV ONE ONE Rx#:[id number] Other: # Unmeasured Voids 1 Weight 99 kg 99.3 kg Weight Measurement Method Chair Scale Built in [facility] (1) CKD (chronic kidney disease) Chronic kidney disease stage: unspecified stage Qualified Code(s): N18.9 - Chronic kidney disease, unspecified
[2022-08-06 08:35] LABS: BUN Creatinine Ratio 18.4 (10-20); C Reactive Protein 1.82 mg/dl (0-0.5); Calcium 9.3 mg/dl (8.5-10.1); Creatinine Clr Calc Pharmacy 53.3 ml/min; Est GFR (African American) 55.7 ml/min
--- NOTE | 2022-08-06 08:52 | Ultrasound Report ---
US venous doppler LE BI CLINICAL HISTORY: leg swelling TECHNIQUE: Bilateral lower extremity real-time compression venous ultrasound with Color Doppler imagi ng. Utilizing real-time ultrasonic imaging multiple real time high-resolution ultrasonic images with compression and noncompression maneuvers of the deep venous system in addition to color doppler imagi ng were performed from the common femoral vein through the proximal calf veins. COMPARISON: None available at the time of this dictation. FINDINGS: Currently there is normal compressibility of the deep venous system from the common femoral vein thro ugh the proximal calf veins. No superficial venous thrombosis is identified. Impression: No evidence of deep venous thrombus. ACT 112: Negative or not required by law. Electronically signed by: Peyman Pabon M.D. 08/06/2022 8:50 AM
[2022-08-06] MEDS ORDERED: METOPROLOL SUCC 25MG EXT REL TAB PO SCH (09:00)
[2022-08-06] MEDS ORDERED: FUROSEMIDE 40 MG TAB PO SCH (09:00)
[2022-08-06] MEDS: APIXABAN 5 MG TABLET PO SCH ×2 (09:33→20:38)
[2022-08-06] MEDS: PANTOprazole 40 MG TAB PO SCH (09:34)
[2022-08-06] MEDS: MULTIVITAMIN TAB PO SCH (09:34)
[2022-08-06] MEDS: TERAZOSIN HCL 5 MG CAP PO SCH ×2 (09:34→20:39)
--- NOTE | 2022-08-06 10:12 | Electrocardiogram Report ---
Test Reason : Blood Pressure : / mmHG Vent. Rate : 093 BPM Atrial Rate : 088 BPM P-R Int : 000 ms QRS Dur : 114 ms QT Int : 368 ms P-R-T Axes : 000 006 076 degrees QTc Int : 457 ms Atrial fibrillation with premature ventricular or aberrantly conducted complexes Incomplete left bundle block Diffuse Minor Nonspecific T wave abnormality Abnormal ECG When compared with ECG of 27-JUN-2022 05:03, No significant change Confirmed by Ryan Perry ([id number]) on 08/06/2022 10:11:34 AM Referred By: Jayro Swartz Confirmed By:Ryan Perry
[2022-08-06] MEDS: LIDOCAINE 5% 1 PATCH TD SCH (11:58)
[2022-08-06] MEDS: FINASTERIDE 5 MG TAB PO SCH (11:59)
[2022-08-06] MEDS: SPIRONOLACTONE 12.5 MG TAB PO SCH (14:00)
[2022-08-06] MEDS: FUROSEMIDE 40 MG/4 ML VIAL IV SCH (16:27)
--- NOTE | 2022-08-06 16:45 | Hospitalist Progress Note ---
Date of Service August 06, 2022 Assessment & Plan (1) SOB (shortness of breath): Plan: Acute exacerbation of chronic systolic CHF Postop pericardial effusion Recent CAD status post CABG status post stent/mitral regurgitation status post bioprosthetic MVR/A. fib status post Maze w/ left atrial appendage closure on Eliquis ([place], 06/2022) Underlying pulm hypertension -- Repeat echo: EF 23% --IV Lasix 40 mg twice daily Cardiology service on board Postprocedure leg swelling/underlying CHF Rule out recurrent DVT --Leg ultrasound: No DVT chronic systolic heart failure (postop TTE EF 35%, June 2022) HTN, stable NEUROLOGICAL: Alert, oriented, and cooperative. Cranial nerves, sensation and strength grossly intact. Pupils round, equal, and react to light, EOMs are full. hyperlipidemia on statin Rx CRI -- Creatinine 1.4 postop anemia, hemoglobin better than baseline --Hemoglobin stable at 10 Hyperglycemia likely prediabetes, hemoglobin A1c of 6.31 May 2022 Borderline hyperkalemia --Potassium 4.0 Monitor past tobacco abuse PT OT eval, cardiac rehab DVT prophylaxis. Eliquis Full code Disposition Pending Admission and Anticipated Discharge Date Admission Date: August 05, 2022 Subjective Follow-up for shortness of breath, CHF exacerbation, etc. Seen sitting up in bed, not in distress Reports dyspnea when lying flat Denies cough, fevers or chills No chest pain, palpitations, dizziness No leg pain No other symptoms Review of Systems Review of Systems: all noted and negative except for above Physical Exam Physical Exam: General- oriented x 3, not in distress, speaks in sentences with no effort or accessory muscle use Eyes- anicteric Neck- no JVD Lungs-faint rales at the bases, no wheezing Heart- normal rate, regular rhythm; no murmurs Abdomen- normal bowel sounds, nondistended, soft, nontender Extremities-positive grade 1 lower extremity edema, right greater than left Surgical wounds on the right lower extremity healing well No erythema/tenderness Neuro- alert, oriented x 3; no gross focal neurologic deficits Skin- warm & dry Results & Data Results & Data ([facility]) Vital Signs (Past 12 Hours) Vital Signs Temp Pulse Pulse Resp BP Pulse Ox O2 Del Method 08/06/22 15:18 36.9 C 54 L 18 98/59 L 97 Room Air 08/06/22 12:11 36.5 C 101 H 19 125/68 93 Room Air 08/06/22 09:32 75 08/06/22 09:32 115/65 08/06/22 08:11 37.0 C 56 L 19 100/66 93 Room Air 08/06/22 07:28 86 all noted and reviewed including below
[2022-08-06] MEDS: ATORVASTATIN 40 MG TAB PO SCH (20:38)
[2022-08-06] MEDS: METOPROLOL SUCC 25MG EXT REL TAB PO SCH (20:39)
--- NOTE | 2022-08-07 07:26 | Cardiology Progress Note ---
Date of Service August 07, 2022 Assessment & Plan (1) SOB (shortness of breath): (2) Elevated troponin: (3) HFrEF (heart failure with reduced ejection fraction): (4) CAD (coronary artery disease): (5) Hx of CABG: (6) Mitral regurgitation: (7) H/O mitral valve replacement: (8) Pericardial effusion: (9) Atrial fibrillation: (10) PVCs (premature ventricular contractions): (11) CKD (chronic kidney disease): Plan Medically complex 77 year old male presented to the ED due to worsening shortness of breath due to hypervolemia and acute on chronic CHF. -S/p CABG and bioprosthetic MVR 07/25 at [facility]. Discharged 08/02. LVEF 35% per outside records. -Repeat echo this admission with LVEF of 25%. -Moderate Pericardial effusion post op, unchanged on updated echo -Persistent AFIB noted on telemetry, s/p MAZE/LAAC- on Eliquis HR 80-100s -Frequent PVCs- EP consulted at [facility], recommend ongoing observation and to refrain from AICD/antiarrhythmics at this time. 1. New HFrEF with chronic HFpEF- Patient remains hypervolemic on exam, but responding to IV Lasix. On IV Lasix 40 mg BID, Aldactone added 08/06- continue. BMP pending. 2. GDMT limited due to lower blood pressures and renal function. 3. Continue Eliquis due to persistent atrial fib to protect against stroke. 3. Frequent PVCs vs short salvos of VT- patient asymptomatic, on metoprolol succinate- Increase metoprolol dose to 50 mg BID starting this am. Case discussed with Dr. Nichole- will follow. Admission and Anticipated Discharge Date Admission Date: August 06, 2022 Supervising Physician Co-Signing Physician Notes Pt seen and examined with JANNIE Zamora. Agree with findings and assessment as above. LV systolic function is severely reduced status post CABG and mitral valve replacement. Medication recommendations as above. Strict I's and O's overnight. Subjective 77-year-old male who is postop MVR, CABG x4, and MAZE/LAAC on 07/25 at [facility] initially presented to the emergency department due to worsening shortness of breath and failed outpatient diuretic escalation. Postop echo was technically difficult but LVEF was estimated to be 35% with a moderate pericardial effusion. 08/05: Small bilateral pleural effusions and pericardial effusion on chest x-ray. Lower extremity Doppler negative for DVT. Patient diuresed with 40 mg of IV Lasix twice daily 08/06: Patient remains hypervolemic. A. fib on telemetry with frequent PVCs/short salvos of VT. Echo: LVEF 25 to 30% with severe global hypokinesis of the left ventricle, RV systolic function reduced. Moderate aortic sclerosis without stenosis. Bioprosthetic mitral valve with normal gradients. Moderate size loculated anterior pericardial effusion without hemodynamic compromise. Ongoing diuresis with Lasix 40 mg twice daily. Aldactone 12.5 mg daily added. 08/07: Upon entrance into the room patient sitting up in bed without acute distress. Notes some improvement in his lower extremity edema. Still has some mild dyspnea with exertion. No chest pain. No palpitations. Tele: AFIB 80-100s with PVCs and short 3-4 beat salvos of VT. Weight: 99 kg >> 110.4 kg - patient stated this was the first time they took a standing weight on him. I&O: +350 mL (unmeasured voids) Review of Systems Review of Systems: All systems reviewed & are unremarkable except as noted in HPI & below Physical Exam Constitutional: WD/WN, vitals as above no acute distress Neck: normal visual inspection and trachea midline Respiratory: normal respiratory effort, lungs clear to auscultation no cough Cardiovascular: Rate/Rhythm: regular rate and + irregularly irregular Heart Sounds: normal S1 and normal S2; no murmur Vessels: no JVD Extremities: + pedal edema and + edema Gastrointestinal (Abdomen): Percussion/Palpation: abdomen soft; abdomen nontender Skin: no rashes, warm and dry Psychiatric: A+Ox3, euthymic affect Results & Data ([facility]) Vital Signs (Past 12 Hours) Vital Signs Temp Pulse Pulse Resp BP Pulse Ox O2 Del Method 08/06/22 22:13 75 08/06/22 20:35 Room Air 08/07/22 03:44 36.6 C 86 18 106/70 97 Room Air 08/07/22 00:49 36.8 C 88 18 104/59 L 95 Room Air 08/06/22 20:32 36.5 C 104 H 18 121/75 97 Room Air (1) CKD (chronic kidney disease) Chronic kidney disease stage: unspecified stage Qualified Code(s): N18.9 - Chronic kidney disease, unspecified
[2022-08-07] MEDS: ACETAMINOPHEN 325 MG TAB PO PRN ×2 (08:16→20:30)
[2022-08-07] MEDS: FUROSEMIDE 40 MG/4 ML VIAL IV SCH ×2 (08:18→16:35)
[2022-08-07] MEDS: APIXABAN 5 MG TABLET PO SCH ×2 (08:19→20:31)
[2022-08-07] MEDS: FINASTERIDE 5 MG TAB PO SCH (08:19)
[2022-08-07] MEDS: METOPROLOL SUCC 25MG EXT REL TAB PO SCH (08:20)
[2022-08-07] MEDS: LIDOCAINE 5% 1 PATCH TD SCH (08:20)
[2022-08-07] MEDS: SPIRONOLACTONE 12.5 MG TAB PO SCH (08:21)
[2022-08-07] MEDS: MULTIVITAMIN TAB PO SCH (08:21)
[2022-08-07] MEDS: TERAZOSIN HCL 5 MG CAP PO SCH ×2 (08:21→20:32)
[2022-08-07] MEDS: PANTOprazole 40 MG TAB PO SCH (08:21)
[2022-08-07] MEDS ORDERED: METOPROLOL SUCC 25MG EXT REL TAB PO ONE (08:55)
[2022-08-07 10:10] LABS: Calcium 9.4 mg/dl (8.5-10.1); Creatinine Clr Calc Pharmacy 56.9 ml/min; Est GFR (African American) 60.3 ml/min; Potassium 4.2 mmol/L (3.5-5.1)
--- NOTE | 2022-08-07 16:20 | Hospitalist Progress Note ---
Date of Service August 07, 2022 Assessment & Plan (1) SOB (shortness of breath): Plan: Acute exacerbation of chronic systolic CHF Postop pericardial effusion Recent CAD status post CABG status post stent/mitral regurgitation status post bioprosthetic MVR/A. fib status post Maze w/ left atrial appendage closure on Eliquis ([facility], 06/2022) Underlying pulm hypertension -- Repeat echo: EF 23% (decreased from 35% 1 month ago) -- Cardiology service on board --IV Lasix 40 mg twice daily Spironolactone 12.5 mg p.o. daily added Triple succinate increased to 50 mg p.o. twice daily Postprocedure leg swelling/underlying CHF Rule out recurrent DVT --Leg ultrasound: No DVT Chronic A. fib --Continue Eliquis HTN, stable hyperlipidemia on statin Rx CKD stage III -- Creatinine 1.3 postop anemia, hemoglobin better than baseline --Hemoglobin stable at 10 Hyperglycemia likely prediabetes, hemoglobin A1c of 6.31 May 2022 past tobacco abuse PT OT eval, cardiac rehab DVT prophylaxis. Claudia Full code Disposition Pending Lives at home with his Discussed home health with services, patient agreeable Admission and Anticipated Discharge Date Admission Date: August 06, 2022 Subjective Follow-up for acute CHF exacerbation, etc. Seen resting in bedside chair, sitting up, not in distress States he feels okay overall Breathing has improved Still having some leg swelling No chest pain, palpitations, dizziness Reports having back spasms, attributes to recent cardiac surgery No other symptom Review of Systems Review of Systems: all noted and negative except for above Physical Exam Physical Exam: General- oriented x 3, not in distress, speaks in sentences with no effort or accessory muscle use Eyes- anicteric Neck- no JVD Lungs- clear breath sounds bilaterally, no rales/wheezes Heart- normal rate, regular rhythm; no murmurs Abdomen- normal bowel sounds, nondistended, soft, nontender Extremities-grade 1 lower extremity edema, right greater than left Surgical wounds right lower extremity healing well, no erythema/warmth/tenderness Neuro- alert, oriented x 3; no gross focal neurologic deficits Skin- warm & dry Results & Data Results & Data ([facility]) Vital Signs (Past 12 Hours) Vital Signs Temp Pulse Resp BP Pulse Ox O2 Del Method O2 Del Method 08/07/22 15:04 36.8 C 69 18 106/64 95 Room Air 08/07/22 08:00 Room Air 08/07/22 11:46 36.4 C L 63 18 114/69 96 Room Air 08/07/22 09:19 75 123/63 08/07/22 07:45 36.6 C 86 18 106/70 97 Room Air all noted and reviewed including below
[2022-08-07] MEDS ORDERED: FUROSEMIDE INJ 20 MG/2 ML VIAL IV STA (18:59)
[2022-08-07] MEDS: ATORVASTATIN 40 MG TAB PO SCH (20:30)
[2022-08-07] MEDS: METOPROLOL SUCC 50MG EXT REL TAB PO SCH (20:31)
[2022-08-08] MEDS: ACETAMINOPHEN 325 MG TAB PO PRN (05:00)
--- NOTE | 2022-08-08 07:51 | Cardiology Progress Note ---
Date of Service August 08, 2022 Assessment & Plan (1) SOB (shortness of breath): (2) Elevated troponin: (3) HFrEF (heart failure with reduced ejection fraction): (4) CAD (coronary artery disease): (5) Hx of CABG: (6) Mitral regurgitation: (7) H/O mitral valve replacement: (8) Pericardial effusion: (9) Atrial fibrillation: (10) PVCs (premature ventricular contractions): (11) CKD (chronic kidney disease): Plan Medically complex 77 year old male presented to the ED due to worsening shortness of breath due to hypervolemia and acute on chronic CHF. -S/p CABG and bioprosthetic MVR 07/25 at [facility]. Discharged 08/02. LVEF 35% per outside records. -Repeat echo this admission with LVEF of 25%. -Moderate Pericardial effusion post op, unchanged on updated echo -Persistent AFIB noted on telemetry, s/p MAZE/LAAC- on Eliquis HR 80-100s -Frequent PVCs- EP consulted at [facility], recommend ongoing observation and to refrain from AICD/antiarrhythmics at this time. 1. New HFrEF with chronic HFpEF- Patient appears well compensated from a cardiology standpoint. Okay to transition from IV Lasix to 40 mg Lasix PO this afternoon. 2. GDMT limited due to lower blood pressures and renal function. Continue Aldactone 12.5 mg daily 3. Continue Eliquis due to persistent atrial fib to protect against stroke. 3. Frequent PVCs vs short salvos of VT on tele- patient asymptomatic, on metoprolol succinate, improvement noted on telemetry- continue metoprolol succinate 50 mg BID. Will consider outpatient zio. 4. Will plan on optimizing GDMT as an outpatient- we will keep patient in close follow up. He was instructed to keep his appt with Janeen Adan PA-C this Saturday. 5. Considerations of consulting our outpatient cardio MTM clinic for GDMT titration, once medication is optimized will plan on repeating echo in 3 months. Case discussed with Dr. Surya Goldstein to discharge from a cardiology standpoint. Patient should continue goal-directed medical therapy with Lasix 40 mg twice daily, Aldactone 12.5 mg daily, and metoprolol succinate 50 mg twice daily at discharge. Eliquis should be continued due to persistent atrial fibrillation. All other medications as ordered per primary team. Admission and Anticipated Discharge Date Admission Date: August 06, 2022 Supervising Physician Co-Signing Physician Notes Pt seen and examined with JANNIE Zamora. Agree with findings and assessment as above. LV systolic function is severely reduced status post CABG and mitral valve replacement. Medication recommendations as above. Subjective 77-year-old male who is postop MVR, CABG x4, and MAZE/LAAC on 07/25 at [facility] initially presented to the emergency department due to worsening shortness of breath and failed outpatient diuretic escalation. Postop echo was technically difficult but LVEF was estimated to be 35% with a moderate pericardial effusion. 08/05: Small bilateral pleural effusions and pericardial effusion on chest x- ray. Lower extremity Doppler negative for DVT. Patient diuresed with 40 mg of IV Lasix twice daily 08/06: Patient remains hypervolemic. A. fib on telemetry with frequent PVCs/short salvos of VT. Echo: LVEF 25 to 30% with severe global hypokinesis of the left ventricle, RV systolic function reduced. Moderate aortic sclerosis without stenosis. Bioprosthetic mitral valve with normal gradients. Moderate size loculated anterior pericardial effusion without hemodynamic compromise. Ongoing diuresis with Lasix 40 mg twice daily. Aldactone 12.5 mg daily added. 08/07: Ongoing diuresis with Lasix 40 mg twice daily IV. Metoprolol succinate increased to 50 mg twice daily. 08/08: Upon entrance into the room patient sitting up in bed without acute distress. Notes some improvement in his lower extremity edema. States that his right foot is always swollen due to a significant otho surgery in the past. Dyspnea at baseline. No chest pain. No palpitations. Eager for discharge. Tele: AFIB 70s with PVCs Weight: 99 kg >> 110.4 >>110 kg (initial weight inaccurate) I&O: -390 mL Review of Systems Review of Systems: All systems reviewed & are unremarkable except as noted in HPI & below Physical Exam Constitutional: WD/WN, vitals as above no acute distress Neck: normal visual inspection and trachea midline Respiratory: normal respiratory effort, lungs clear to auscultation no cough Cardiovascular: Rate/Rhythm: regular rate and + irregularly irregular Heart Sounds: normal S1 and normal S2; no murmur Vessels: no JVD Extremities: + pedal edema and + edema Gastrointestinal (Abdomen): Percussion/Palpation: abdomen soft; abdomen nontender Skin: no rashes, warm and dry Psychiatric: A+Ox3, euthymic affect Results & Data ([facility]) Vital Signs (Past 12 Hours) Vital Signs Temp Pulse Resp BP BP Pulse Ox O2 Del Method 08/08/22 02:45 36.8 C 79 18 129/83 96 Room Air 08/07/22 22:58 36.9 C 75 16 150/79 H 94 Room Air 08/07/22 20:34 106/65 (1) CKD (chronic kidney disease) Chronic kidney disease stage: unspecified stage Qualified Code(s): N18.9 - Chronic kidney disease, unspecified
[2022-08-08 08:08] LABS: BUN Creatinine Ratio 26.9 (10-20); Calcium 9.1 mg/dl (8.5-10.1); Creatinine Clr Calc Pharmacy 62.8 ml/min; Est GFR (African American) 59.2 ml/min; Est GFR (Non-African American) 51.1 ml/min; Magnesium 1.9 mg/dl (1.7-2.4); Potassium 3.9 mmol/L (3.5-5.1)
[2022-08-08] MEDS: LIDOCAINE 5% 1 PATCH TD SCH (08:19)
[2022-08-08] MEDS: APIXABAN 5 MG TABLET PO SCH (08:19)
[2022-08-08] MEDS: FUROSEMIDE 40 MG/4 ML VIAL IV SCH (08:19)
[2022-08-08] MEDS: FINASTERIDE 5 MG TAB PO SCH (08:19)
[2022-08-08] MEDS: METOPROLOL SUCC 50MG EXT REL TAB PO SCH (08:21)
[2022-08-08] MEDS: PANTOprazole 40 MG TAB PO SCH (08:21)
[2022-08-08] MEDS: SPIRONOLACTONE 12.5 MG TAB PO SCH (08:21)
[2022-08-08] MEDS: MULTIVITAMIN TAB PO SCH (08:21)
[2022-08-08] MEDS: TERAZOSIN HCL 5 MG CAP PO SCH (08:22)
--- NOTE | 2022-08-08 12:44 | Discharge Summary ---
Date of Service August 08, 2022 Admission HPI Per Admitting Provider History obtained from patient, family, and records. Medical history significant for chronic systolic heart failure (postop TTE EF 35%, June 2022), recent CAD status post CABG status post stent/mitral regurgitation status post bioprosthetic MVR/A. fib status post Maze w/ left atrial appendage closure on Eliquis ([facility], 06/2022), postoperative pericardial effusion, pulmonary hypertension, HTN, hyperlipidemia, CRI (baseline creatinine 1.4), postop anemia (hemoglobin of 9), history DVT as per records, GERD, BPH, past tobacco abuse. Last [facility] confinement May, for decompensated heart failure in the setting of COVID-19 infection. TTE showed severe mitral regurgitation with partial flail A2. Patient instructed to follow-up with [facility] CT surgeon postdischarge. Patient admitted at [facility] from July 09 to August 02, 2022. Severe three-vessel epicardial obstructive CAD on preop cardiac catheterization. Patient underwent CABG, MVR, maze procedure/LAAC last July 25, 2022 - after multiple rescheduling dates as per patient.. Postop, patient junctional rhythm followed by first-degree AV block with multifocal PVCs. EPS consulted for consideration of ICD/PVC burden. Recommendation to monitor PVCs and defer ICD). Post op TTE (07/30/22) showed technically difficult exam. EF 35%. LV diastolic function not evaluated due to mitral valve surgery. Moderate pericardial effusion adjacent to right atrium measuring 1.6 cm and moderate pericardial effusion adjacent to left ventricle measuring 1.3 cm. Biocor prosthetic mitral valve noted without regurgitation. Mean gradient 6 mmHg. Gradients were 15/6 mmHg at 78 bpm. Chordal remnants seen. Moderate pericardial effusion adjacent to LV/RA. Septal bounce is seen. No RV diastolic collapse. Significant resp iratory variation noted. IVC not well seen. Pericardial effusion too small to drain as per CT surgery as per report. Outpatient registered nurse cardiac and follow-up TTE recommended in 4 to 6 weeks as per discharge note. Patient discharged home 3 days ago. Shortness of breath more on exertion. No cough symptoms. No chest pain, no abdominal distention. Leg swelling despite compliance with diuretic regimen. Denies dietary discretion. Patient actually lost about 20 pounds for the last few months. Patient brought to ER for evaluation by . Lasix administered for possible CHF. 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[employer]) Admission Exam Per Admitting Provider GENERAL: Comfortable, slightly anxious, pleasant, no respiratory distress SKIN: Pallor , warm HEENT: Pale palpebral conjunctivae, no ptosis, dry buccal mucosa NECK : Supple, no tenderness CHEST : Well coaptated sternal wound, decreased breath sounds, minimal anterior chest wall tenderness HEART : Irregular, no obvious murmurs ABDOMEN: Some distention, nontender EXTREMITIES : Bilateral LE swelling, no LE tenderness, no other conspicuous deformities noted NEUROLOGIC : Coherent, no facial asymmetry, no other gross focality Principal Diagnosis CHF exacerbation Discharge Exam General- oriented x 3, not in distress, speaks in sentences with no effort or accessory muscle use Eyes- anicteric Neck- no JVD Lungs- clear breath sounds bilaterally, no rales/wheezes Heart- normal rate, regular rhythm; no murmurs Abdomen- normal bowel sounds, nondistended, soft, nontender Extremities-trace LE edea Surgical wounds right lower extremity healing well, no erythema/warmth/tenderness Neuro- alert, oriented x 3; no gross focal neurologic deficits Skin- warm & dry Discharge Data Allergies Allergy/AdvReac Type Severity Reaction Status Date / Time enalapril Allergy Mild cough Verified 08/05/22 22:53 sacubitril [From Entresto] AdvReac Severe Hypotension Verified 08/05/22 22:53 valsartan [From Entresto] AdvReac Severe Hypotension Verified 08/05/22 22:53 Consultations 08/05/22 22:28 ED Decision to Admit Stat 08/06/22 01:16 Consult Cardiology Routine Ordered Studies 08/06/22 00:00 US venous doppler [facility] Urgent Hospital Course (1) SOB (shortness of breath): Acute exacerbation of chronic systolic CHF Postop pericardial effusion Recent CAD status post CABG status post stent/mitral regurgitation status post bioprosthetic MVR/A. fib status post Maze w/ left atrial appendage closure on Eliquis ([facility], 06/2022) Underlying pulm hypertension -- Repeat echo: EF 23% (decreased from 35% 1 month ago) -- Cardiology service on board --s/p IV lasix - transition to lasix PO 40mg BID - can continue this Spironolactone 12.5 mg p.o. daily added Triple succinate increased to 50 mg p.o. twice daily - ok for discharge from cardiology standpoint - follow up with Cardiology 08/10/2022 Postprocedure leg swelling/underlying CHF Rule out recurrent DVT --Leg ultrasound: No DVT Chronic A. fib --Continue Eliquis HTN, stable hyperlipidemia on statin Rx CKD stage III -- Creatinine 1.3 postop anemia, hemoglobin better than baseline --Hemoglobin stable at 10 Hyperglycemia likely prediabetes, hemoglobin A1c of 6.31 May 2022 past tobacco abuse PT OT eval, cardiac rehab DVT prophylaxis. Claudia Full code Disposition - Discharge home with PO lasix, cardiology follow up Lives at home with his Discussed home health with services, patient agreeable Total Time Total Time Spent Total Time Spent (In Minutes): 25 Total Time Includes: Examination of the Patient, Discharge Planning, Medication Reconciliation and Communication With Other Providers Discharge Plan Discharge Items Patient Disposition: Home - Self-Care Reason For Visit: SOB Discharge Diagnosis: CHF exacerbation Activity: Resume your previous activity Non-emergency contact: Primary Care Provider and Grocery Carrier Call non-emergency contact if: you have any medication questions and your symptoms worsen Follow-up/Referrals: Antonio Nichole DO [Physician] - Jayro Swartz MD [Primary Care Provider] - 08/21/22 2:00 pm Diet: Heart Healthy and Low Sodium (2gm) Addtl Attending Provider Instructions: You were admitted for exacerbation of heart failure with fluid retention causing shortness of breath and leg swelling. You were seen by cardiology and given IV Lasix (furosemide) with improvement in your symptoms. Cardiology felt you were ok for discharge with Lasix (furosemide) 40mg 2x/day until you follow up with your Grocery Carrier on Saturday08/10/2022. Pending Studies at Discharge: No Stand-Alone Forms: My epicurio, Smoking Cessation Medications and DC Order Prescriptions: Continued spironolactone 25 mg tablet 12.5 mg PO QAM terazosin 5 mg capsule 5 mg PO BID atorvastatin 80 mg tablet 80 mg PO HS multivitamin [Multiple Vitamins] Tablet 1 tab PO DAILY omeprazole 40 mg capsule,delayed release(DR/EC) 40 mg PO QAM metoprolol succinate 25 mg tablet extended release 24 hr 25 mg PO BID dutasteride 0.5 mg capsule 0.5 mg PO QAM potassium chloride 20 mEq tablet extended release 20 meq PO DAILY Qty: 14 0RF furosemide [Lasix] 40 mg tablet 40 mg PO BID 30 Days Qty: 60 2RF acetaminophen 325 mg tablet 650 mg PO Q6 PRN (Reason: Pain) sennosides-docusate sodium [Senna Plus] 8.6-50 mg tablet 1 tab-cap PO BID PRN (Reason: Constipation) oxycodone 5 mg tablet 5 mg PO Q6 PRN (Reason: Pain) polyethylene glycol 3350 [Miralax] 17 gram/dose Powder 17 g PO DAILY PRN (Reason: Constipation) Eliquis 5 mg tablet 5 mg PO BID Discharge Orders: Discharge Order (Routine); Ordered 08/08/22 Ordered By: Onesimo Wilcox Admission Data Admit Date/Time: 08/06/22 17:08 Attending Provider: Onesimo Wilcox Admit Provider: Orion Campbell Primary Care Provider: Jayro Swartz Other Providers: Izaiah Zapata ; Antonio Nichole Other Interventions: Discharge Summary Assessment (RN) Last Done: 08/08/22 11:29
[2022-08-08] MEDS ORDERED: FUROSEMIDE 40 MG TAB PO SCH (17:00)
== END 2022-08-08 12:02 | disposition home or self-care (01) | DRG 291 ==
LOC: ED 20:30 → 2E 20:30 → SUATTDRO 08-06 17:08